=== PATIENT | male | born 1955 | race Caucasian/White ===

== ENCOUNTER 2022-04-16 17:03 | Inpatient (IN) ==
[2022-04-16] MEDS ORDERED: PIPERACILLIN/TAZOBACTAM 4.5 GM/120 ML BAG IV ONE (17:35)
[2022-04-16] MEDS ORDERED: DAPTOmycin 425 MG in SYRINGE 0 ML IV SCH (17:45)
--- NOTE | 2022-04-16 18:32 | XRay Report ---
LEFT FOOT 2 VIEWS CLINICAL HISTORY: Cellulitis. FINDINGS: AP and lateral views of the left foot are obtained. No prior studies are available for francesca beltre at the time of dictation. The skeletal structures are heterogeneously osteopenic. There has be en amputation of all toes through the distal shaft of the metatarsals. No acute fracture is seen. The re is no bony erosion or periostitis. Dorsal and plantar calcaneal enthesophytes are noted. Moderate osteoarthritic change is seen at the tarsometatarsal articulations. There is degenerative spurring al ish the dorsal aspect of the tarsal bones. Soft tissue edema is seen throughout the forefoot. No soft tissue gas is identified. No radiodense foreign body is seen. Atherosclerotic calcification is obser martín in the regional arteries. IMPRESSION: 1. Diffuse soft tissue edema throughout the forefoot is consistent with the reported history of cellu litis. 2. No acute bony abnormality is seen. 3. Osteopenia with postoperative and degenerative changes as above. 4. Heel spurs. Electronically signed by: Chu Estrella M.D. 04/16/2022 6:31 PM
[2022-04-16 18:47] LABS: Hematocrit (blood only) 43.5 % (40.1-51.0); Hemoglobin 14.2 g/dl (14.0-18.0); Mean Corpuscular Hemoglobin 29.9 pg (25.0-34.0); Mean Corpuscular Hgb Conc 32.6 g/dL (32.0-36.0); Mean Corpuscular Volume 91.6 fL (80.0-100.0); Mean Platelet Volume 10.8 fL (9.4-12.4); Platelet Count 102 K/uL (130-400); RDW Coefficient of Variation 17.2 % (11.5-14.5); RDW Standard Deviation 57.7 fL (36.4-46.3); Red Blood Count 4.75 M/uL (4.63-6.08); White Blood Count 5.76 K/ul (4.8-10.8)
[2022-04-16 18:48] LABS: Basophils # (auto) 0.06 K/uL (0-0.2); Echinocytes 1+; Eosinophils # (auto) 0.07 K/uL (0-0.50); Eosinophils % (auto) 1.2 %; Immature Granulocytes # (auto) 0.05 K/uL (0.00-0.02); Immature Granulocytes % (auto) 0.9 %; Lymphocytes % (auto) 8.7 %; Monocytes # (auto) 0.34 K/uL (0.24-0.82); Monocytes % (auto) 5.9 %; Neutrophils # (auto) 4.74 K/uL (1.4-6.5); Neutrophils % (auto) 82.3 %; Platelet Estimate Decreased (Normal)
[2022-04-16 19:03] LABS: Alanine Aminotransferase 15 U/L (7-52); Albumin Level 3.3 gm/dl (3.4-5.0); Alkaline Phosphatase 104 U/L (34-104); Anion Gap 12 (3-11); Aspartate Aminotransferase 19 U/L (13-39); BUN Creatinine Ratio 9.3 (10-20); Bilirubin Direct 0.9 mg/dl (0-0.2); Bilirubin,Total 2.1 mg/dl (0.2-1.0); Blood Urea Nitrogen 49 mg/dl (6-23); Calcium 8.4 mg/dl (8.5-10.1); Carbon Dioxide 30 mmol/L (21-32); Chloride 88 mmol/L (98-107); Est GFR (African American) 12.2 ml/min; Est GFR (Non-African American) 10.5 ml/min; Glucose 236 mg/dl (70-99(Fasting)); Magnesium 2.2 mg/dl (1.7-2.4); Phosphorus 7.2 mg/dl (2.5-4.9); Potassium 4.1 mmol/L (3.5-5.1); Sodium 130 mmol/L (136-145); Total Protein 7.3 gm/dl (6.0-8.3)
--- NOTE | 2022-04-16 19:29 | Emergency Department Note ---
Impression & Plan Bilateral lower leg cellulitis, ESRD (end stage renal disease) on dialysis, Diabetes ED Provider Note NAME: SENIA HUDDLESTON AGE: 66 SEX: M ARRIVES VIA: Walk-In INFORMANT: Patient ED PROVIDER(S): Gómez Josue MD CHIEF COMPLAINT: BLE infection. PLAN: Disposition: Admit MEDICAL DECISION MAKING: The patient is a pleasant 66 y/o gentleman with a past medical history of end- stage renal disease on hemodialysis Sunday who presents to the emergency department accompanied by his for evaluation of bilateral leg infection which has been ongoing for the past week or so where he reports he was admitted to [facility] this past Sunday but left yesterday AMA because he reports he "was not ready to be admitted and needed to take care of some things". He then reports that his daughter lives closer to our facility and wanted him to be admitted here. He is in the process of establishing care with [facility] provider and has an appointment scheduled for 05/16. He denies fevers, cough, congestion. He reports he has not missed any dialysis sessions. He reports he has had repeated falls over the past several weeks the last 1 being on before he was admitted to [facility]. He reports he is willing and ready to be admitted this time to our facility. On arrival the patient is in no acute distress, afebrile with stable vital signs. He has resolving ecchymosis of his right upper extremity. He has erythema warmth and edema of bilateral lower legs with areas of petechiae. His left foot with prior remote phalangeal amputation scant dried discharge from a chronic dorsal midfoot wound. EKG is paced. WBC, H/H within normal limits. Platelets 102K, nonspecific without prior for comparison. Chemistry without metabolic acidosis. Creatinine 5.2 in setting of end-stage renal disease. Lactic acid 1.3, within normal limits. Total bili 2.1 with direct bilirubin 0.9, nonspecific without prior for comparison and otherwi se normal LFTs including normal AST, ALT and alk phos. Procalcitonin is elevated. COVID-19 RNA, MARY test was negative. Plain film of the left foot does not demonstrate radiographic evidence of osseous involvement. Patient was treated empirically with IV daptomycin and Zosyn. Case was discussed with Dr. Moon, [facility] hospitalist, who will evaluate the patient for admission. Triage Nursing notes reviewed and agree them. Prior medical records reviewed Vital Signs: reviewed Differential diagnosis: Cellulitis, abscess, MRSA infection, DVT, necrotizing fasciitis, dermatitis, drug eruption, allergic reaction, as well as other pathologies. ER treatment provided: See below. Diagnostics interpreted by me: ECG: Atrial sensed ventricular paced rhythm, 68 bpm, no ectopy, no overt acute ischemia. Cardiac Monitoring: An order for continuous cardiac monitoring was placed and demonstrated atrial sensed ventricular paced rhythm, 68 bpm, no ectopy. Laboratory studies: See below Imaging studies: See below Consultation(s): Case was discussed with Dr. Moon, [facility] hospitalist, who will evaluate the patient for admission. HPI: The patient is a pleasant 66 y/o gentleman with a past medical history of end-stage renal disease on hemodialysis Sunday who presents to the emergency department accompanied by his for evaluation of bilateral leg infection which has been ongoing for the past week or so where he reports he was admitted to [facility] this past Sunday but left yesterday AMA because he reports he "was not ready to be admitted and needed to take care of some things". He then reports that his daughter lives closer to our facility and wanted him to be admitted here. He is in the process of establishing care with [facility] provider and has an appointment scheduled for 05/16. He denies fevers, cough, congestion. He reports he has not missed any dialysis sessions. He reports he has had repeated falls over the past several weeks the last 1 being on before he was admitted to [facility]. He reports he is willing and ready to be admitted this time to our facility. ROS: See above HPI for pertinent positives & negatives. A total of 10 systems reviewed and were otherwise negative. VITALS:See Below PHYSICAL EXAMINATION: GENERAL: Awake, alert, chronically ill-appearing, in no distress HENT: Normocephalic, atraumatic. Oropharynx with dry mucous membranes and otherwise unremarkable. EYES: Normal conjunctiva. Sclera non-icteric. NECK: Supple. No nuchal rigidity. FROM. No JVD. RESPIRATORY: Clear to auscultation. CARDIAC: Regular rate, normal rhythm. Extremities warm and well perfused. Pulses equal. ABDOMEN: Soft, non-distended. No tenderness to palpation. No rebound or guarding. No masses. RECTAL: Deferred. MUSCULOSKELETAL: Chest examination reveals no tenderness. The back is symm etrical on inspection without obvious abnormality. There is no CVA tenderness to palpation. No joint edema. EXTREMITIES: Resolving ecchymosis of his right upper extremity. He has erythema warmth and edema of bilateral lower legs with areas of petechiae. His left foot with prior remote phalangeal amputation scant dried discharge from a chronic dorsal midfoot wound. NEURO: Normal sensorium. No sensory or motor deficits noted. SKIN: No rash or jaundice noted. Gómez Josue MD Past Med/Surg History Medical History COPD (chronic obstructive pulmonary disease) Diabetes ESRD (end stage renal disease) on dialysis Peripheral arterial disease Surgical History A-V fistula History of amputation History of cardiac defibrillator placement S/P vascular bypass Family History Other Family history non-contributory Social History Smoking Status: Current every day smoker Hx Alcohol Use: No Hx Substance Use: Yes Prescribed Medications: Marijuana Preferred Language: Estonian Communication Ability: Effective Roguer Required: No Beliefs That Will Affect Care: None Current Living Situation: Spouse Other Information That Helps Us Care for You: No Feels Safe at Home: Yes Safety Concerns: Feels Safe At This Time Assistive Devices: Walker Allergies Allergies Allergy/AdvReac Type Severity Reaction Status Date / Time No Known Allergies Allergy Unverified 04/16/22 22:10 Home Meds Home Medications Medication Instructions Recorded Confirmed albuterol sulfate 90 mcg/actuation 2 inhalation Q4H PRN Shortness Of 04/16/22 aerosol inhaler Breath Or Wheezing apixaban 5 mg tablet (Eliquis) 5 mg PO BID 04/16/22 04/16/22 clopidogrel 75 mg tablet 75 mg PO DAILY 04/16/22 04/16/22 cyclobenzaprine 10 mg tablet 10 mg PO BID PRN Spasms 04/16/22 04/16/22 duloxetine 60 mg capsule,delayed 60 mg PO DAILY 04/16/22 04/16/22 release fluticasone fur. 100 mcg-umeclid 1 inh inhalation DAILY 04/16/22 04/16/22 62.5 mcg-vilant 25 mcg inhalat.powder (Trelegy Ellipta) gabapentin 100 mg capsule 100 mg PO DAILY 04/16/22 04/16/22 lanthanum 500 mg chewable tablet 500 mg PO DAILY 04/16/22 04/16/22 metoprolol succinate 50 mg 50 mg PO DAILY 04/16/22 04/16/22 tablet,extended release 24 hr pramipexole 0.25 mg tablet 0.25 mg PO HS 04/16/22 04/16/22 sacubitril 24 mg-valsartan 26 mg 1 tab PO BID 04/16/22 04/16/22 tablet (Entresto) Results & Data (ED) Vital Signs Vital Signs - 24 hr 04/16/22 17:05 04/16/22 19:00 04/16/22 19:00 Temperature 37 C Temperature Source Oral Pulse Rate 76 Pulse Rate [Apical] 69 Pulse Rhythm [Apical] Regular Pulse Strength [Apical] Normal Respiratory Rate 18 18 Respiratory Effort / Characteristics Non-Labored Respiratory Depth Normal Respiratory Pattern Regular Blood Pressure 122/81 Blood Pressure [Left Arm] 130/72 Blood Pressure Mean 94 Blood Pressure Mean [Left Arm] 91 Blood Pressure Position [Left Arm] Lying Pulse Oximetry 99 99 99 Oxygen Delivery Method Room Air Room Air Room Air Sepsis Recent Fever Within 48 Hours No Sepsis New/Unexplained Change in Mental Status No Sepsis Action Taken by Nursing No Action Required Laboratory Data Attestation: I reviewed the patient's lab results. 04/16/22 18:10 04/16/22 18:10 Lab Results 04/16/22 04/16/22 04/16/22 Range/Units 18:10 18:10 18:10 WBC 5.76 (4.8-10.8) K/ul RBC 4.75 (4.63-6.08) M/uL Hgb 14.2 (14.0-18.0) g/dl Hct 43.5 (40.1-51.0) % MCV 91.6 (80.0-100.0) fL MCH 29.9 (25.0-34.0) pg MCHC 32.6 (32.0-36.0) g/dL RDW Std Deviation 57.7 H (36.4-46.3) fL RDW Coeff of Wendy 17.2 H (11.5-14.5) % Plt Count 102 L (130-400) K/uL MPV 10.8 (9.4-12.4) fL Immature Gran % (Auto) 0.9 % Neut % (Auto) 82.3 % Lymph % (Auto) 8.7 % Charles % (Auto) 5.9 % Eos % (Auto) 1.2 % Baso % (Auto) 1.0 % Neut # (Auto) 4.74 (1.4-6.5) K/uL Lymph # (Auto) 0.50 L (1.2-3.4) K/uL Charles # (Auto) 0.34 (0.24-0.82) K/uL Eos # (Auto) 0.07 (0-0.50) K/uL Baso # (Auto) 0.06 (0-0.2) K/uL Immature Gran # (Auto) 0.05 H (0.00-0.02) K/uL Platelet Estimate Decreased L (Normal) Echinocytes 1+ APTT Cancelled PTT Ratio Cancelled Sodium 130 L (136-145) mmol/L Potassium 4.1 (3.5-5.1) mmol/L Chloride 88 L (98-107) mmol/L Carbon Dioxide 30 (21-32) mmol/L Anion Gap 12 H (3-11) BUN 49 H (6-23) mg/dl Creatinine 5.25 H* (0.6-1.4) mg/dl Est Cr Clr Drug Dosing Not Reportable Est GFR ( Amer) 12.2 ml/min Est GFR (Non-Af Amer) 10.5 ml/min BUN/Creatinine Ratio 9.3 L (10-20) Glucose 236 H (70-99(Fasting)) mg/dl POC Glucose (70-99) mg/dl Lactate (0.4-2.0) mmol/L Calcium 8.4 L (8.5-10.1) mg/dl Phosphorus 7.2 H (2.5-4.9) mg/dl Magnesium 2.2 (1.7-2.4) mg/dl Total Bilirubin 2.1 H (0.2-1.0) mg/dl Direct Bilirubin 0.9 H (0-0.2) mg/dl AST 19 (13-39) U/L ALT 15 (7-52) U/L Alkaline Phosphatase 104 (34-104) U/L Total Protein 7.3 (6.0-8.3) gm/dl Albumin 3.3 L (3.4-5.0) gm/dl Procalcitonin (0-0.5) ng/ml 04/16/22 04/16/22 04/16/22 Range/Units 18:10 18:10 19:01 WBC (4.8-10.8) K/ul RBC (4.63-6.08) M/uL Hgb (14.0-18.0) g/dl Hct (40.1-51.0) % MCV (80.0-100.0) fL MCH (25.0-34.0) pg MCHC (32.0-36.0) g/dL RDW Std Deviation (36.4-46.3) fL RDW Coeff of Wendy (11.5-14.5) % Plt Count (130-400) K/uL MPV (9.4-12.4) fL Immature Gran % (Auto) % Neut % (Auto) % Lymph % (Auto) % Charles % (Auto) % Eos % (Auto) % Baso % (Auto) % Neut # (Auto) (1.4-6.5) K/uL Lymph # (Auto) (1.2-3.4) K/uL Charles # (Auto) (0.24-0.82) K/uL Eos # (Auto) (0-0.50) K/uL Baso # (Auto) (0-0.2) K/uL Immature Gran # (Auto) (0.00-0.02) K/uL Platelet Estimate (Normal) Echinocytes APTT 32.2 H PTT Ratio 1.2 Sodium (136-145) mmol/L Potassium (3.5-5.1) mmol/L Chloride (98-107) mmol/L Carbon Dioxide (21-32) mmol/L Anion Gap (3-11) BUN (6-23) mg/dl Creatinine (0.6-1.4) mg/dl Est Cr Clr Drug Dosing Est GFR ( Amer) ml/min Est GFR (Non-Af Amer) ml/min BUN/Creatinine Ratio (10-20) Glucose (70-99(Fasting)) mg/dl POC Glucose (70-99) mg/dl Lactate 1.3 (0.4-2.0) mmol/L Calcium (8.5-10.1) mg/dl Phosphorus (2.5-4.9) mg/dl Magnesium (1.7-2.4) mg/dl Total Bilirubin (0.2-1.0) mg/dl Direct Bilirubin (0-0.2) mg/dl AST (13-39) U/L ALT (7-52) U/L Alkaline Phosphatase (34-104) U/L Total Protein (6.0-8.3) gm/dl Albumin (3.4-5.0) gm/dl Procalcitonin 0.36 (0-0.5) ng/ml 04/16/22 Range/Units 20:17 WBC (4.8-10.8) K/ul RBC (4.63-6.08) M/uL Hgb (14.0-18.0) g/dl Hct (40.1-51.0) % MCV (80.0-100.0) fL MCH (25.0-34.0) pg MCHC (32.0-36.0) g/dL RDW Std Deviation (36.4-46.3) fL RDW Coeff of Wendy (11.5-14.5) % Plt Count (130-400) K/uL MPV (9.4-12.4) fL Immature Gran % (Auto) % Neut % (Auto) % Lymph % (Auto) % Charles % (Auto) % Eos % (Auto) % Baso % (Auto) % Neut # (Auto) (1.4-6.5) K/uL Lymph # (Auto) (1.2-3.4) K/uL Charles # (Auto) (0.24-0.82) K/uL Eos # (Auto) (0-0.50) K/uL Baso # (Auto) (0-0.2) K/uL Immature Gran # (Auto) (0.00-0.02) K/uL Platelet Estimate (Normal) Echinocytes APTT PTT Ratio Sodium (136-145) mmol/L Potassium (3.5-5.1) mmol/L Chloride (98-107) mmol/L Carbon Dioxide (21-32) mmol/L Anion Gap (3-11) BUN (6-23) mg/dl Creatinine (0.6-1.4) mg/dl Est Cr Clr Drug Dosing Est GFR ( Amer) ml/min Est GFR (Non-Af Amer) ml/min BUN/Creatinine Ratio (10-20) Glucose (70-99(Fasting)) mg/dl POC Glucose 183 H (70-99) mg/dl Lactate (0.4-2.0) mmol/L Calcium (8.5-10.1) mg/dl Phosphorus (2.5-4.9) mg/dl Magnesium (1.7-2.4) mg/dl Total Bilirubin (0.2-1.0) mg/dl Direct Bilirubin (0-0.2) mg/dl AST (13-39) U/L ALT (7-52) U/L Alkaline Phosphatase (34-104) U/L Total Protein (6.0-8.3) gm/dl Albumin (3.4-5.0) gm/dl Procalcitonin (0-0.5) ng/ml Administered Medications Piperacillin Sod/Tazobactam (Sod 3.375 gm/ Dextrose) 115 mls @ 28.75 mls/hr IV Q12H FRANSICO; Protocol Stop: 04/24/22 01:59 Last Infusion: 04/17/22 03:22 Dose: 0 mls/hr Documented By: Admin: 04/17/22 00:42 Dose: 28.8 mls/hr Documented By: CATIA Insulin Aspart (Insulin Aspart Per Unit) 0 units SC ACHS FRANSICO Stop: 05/16/22 23:44 Last Admin: 04/17/22 00:39 Dose: 3 units Documented By: SG Co-signed By: PLF Insulin Glargine (Lantus Per Unit Charge) 5 units SQ BID FRANSICO Stop: 05/16/22 23:44 Last Admin: 04/17/22 00:39 Dose: 5 units Documented By: SG Co-signed By: PLF Discontinued Medications Daptomycin 425 mg/ Syringe 8.5 mls @ 4.25 mls/min IV Q24H FRANSICO; Protocol Stop: 04/18/22 17:44 Last Admin: 04/16/22 18:31 Dose: 4.25 mls/min Documented By: CHICO Piperacillin Sod/Tazobactam Sod (Zosyn) 4.5 gm in 120 mls @ 240 mls/hr IV NOW ONE Stop: 04/16/22 18:04 Last Infusion: 04/16/22 19:10 Dose: 0 mls/hr Documented By: Admin: 04/16/22 18:20 Dose: 240 mls/hr Documented By: CHICO Miscellaneous Information (Patient's Allergy Info Needs Entered) 1 each N/A ONE STA Stop: 04/16/22 21:58 Last Admin: 04/16/22 22:12 Dose: 1 each Documented By: SG Imaging Data Radiologist's Impression: Foot X-Ray 04/16/22 17:39 LEFT FOOT 2 VIEWS CLINICAL HISTORY: Cellulitis. FINDINGS: AP and lateral views of the left foot are obtained. No prior studies are available for comparison at the time of dictation. The skeletal structures are heterogeneously osteopenic. There has been amputation of all toes through the distal shaft of the metatarsals. No acute fracture is seen. There is no bony erosion or periostitis. Dorsal and plantar calcaneal enthesophytes are noted. Moderate osteoarthritic change is seen at the tarsometatarsal articulations. There is degenerative spurring along the dorsal aspect of the tarsal bones. Soft tissue edema is seen throughout the forefoot. No soft tissue gas is identified. No radiodense foreign body is seen. Atherosclerotic calcification is observed in the regional arteries. IMPRESSION: 1. Diffuse soft tissue edema throughout the forefoot is consistent with the reported history of cellulitis. 2. No acute bony abnormality is seen. 3. Osteopenia with postoperative and degenerative changes as above. 4. Heel spurs. Electronically signed by: Chu Estrella M.D. 04/16/2022 6:31 PM Discharge Plan Visit Data Chief Complaint: Leg Injury/Pain Stated Complaint: INFECTION IN LEGS ED Provider: Gómez Josue Discharge Problem: Bilateral lower leg cellulitis, ESRD (end stage renal disease) on dialysis, Diabetes Patient Disposition: Admitted As Inpatient Discharge Instructions Interventions: ED Discharge Assessment Last Done: 04/16/22 21:12
[2022-04-16 19:30] LABS: Partial Thromboplastin Ratio 1.2; Partial Thromboplastin Time 32.2 Seconds (21.0-31.0)
--- NOTE | 2022-04-16 20:29 | History & Physical Report ---
Date of Service April 16, 2022 Assessment & Plan (1) Bilateral lower leg cellulitis: Plan: Bilateral LE with redness, tenderness. Concern for cellulitis. Question vascular insufficiency given dusky discoloration of right toes, presence of ulcers and eschar. Patient with known history of PAD s/p bypass grafting of the LLE as well as toe amputation of the LLE. Presently afebrile, chronically ill in appearance but acutely nontoxic. No leukocytosis. -Admit to medical -Follow blood cultures sent from ER -Amarjit and label area of redness daily to monitor for progression of infection -Continue Zosyn and Daptomycin, renal dosing for ESRD/HD with pharmacy assist ance appreciated -Check bilateral LE arterial dopplers -Communication order placed to obtain records from [facility] system (2) Peripheral arterial disease: Plan: Patient with history of PAD s/p bypass grafting. Suspect findings on LE are at least in part due to vascular compromise -Arterial duplex as above -Continue Plavix 75mg po daily - reported home medication from [facility] records -Patient does not appear to be on a statin - records requested. No allergies listed? (3) ESRD (end stage renal disease) on dialysis: Plan: Patient with ESRD on HD q M/W/. He reports compliance with HD. His Rapid Extractor Operator is in [place] -Nephrology consulted -Patient is on Lanthanum outpatient for PO4 management - non-formulary - will add Phos-Lo (PO4=7.2) (4) Diabetes: Plan: Patient reports he does not take anything for his diabetes anymore. Blood sugar elevated today at 236. -Goal blood sugar 110 - 140 -Lantus 5u BID, adjust as needed -ISS (5) COPD (chronic obstructive pulmonary disease): Plan: Patient continues to smoke. End-expiratory wheezing noted on exam. Adequate oxygenation on room air. No respiratory distress -Continue Trelegy or hospital formulary equivalent -Albuterol PRN -Smoking cessation counseling ordered (6) Right hip pain: Plan: Patient reports falling on his right hip several weeks ago then falling on it again. He has had worsening pain and difficulty with weight bearing and reports needing to use a walker over the last three days which is atypical for him. -Check CT hip for possible fracture -PT/OT evaluation (7) Abnormal bilirubin test: Plan: Suspect some degree of underlying liver disease based on labs - Na of 130, Plt of 102, PTT of 32.2 and TBili of 2.1 -Check RUQUS -Repeat LFTs in AM (8) Heart failure: Plan: Details unclear, ischemic vs non-ischemic and degree of failure. Patient does appear compensated at this time with no overt volume overload. Suspect his disease is fairly advanced. He reports having an AICD in place - no shocks. Home medications include Entresto, Metoprolol. Apixaban - ?for LV dysfunction, thrombus, VTE or arrhythmia. Patient is uncertain. -Continue Entresto and Metoprolol with caution - patient reports he "takes no medications at home" - could risk hypotension with administration of his prescribed medications -Records requested -Continue Apixaban F/E/N -Heplock. Monitor electrolytes. CC diet as tolerated Ppx - On Apixaban Code - Full per discussion with patient Disp - Admit to medical History of Present Illness Chief Complaint: "I'm a train wreck!" Primary Care Provider: DO Cooper Christiandinesh Sanchez is a 66yo male with history of ESRD on HD q M/W/F, COPD, CAD, DM, CHF with AICD in place presenting with complaint of bilateral LE redness, pain and itching. Patient reports that he has been feeling very anxious and scratching his legs causing some deep excoriations. Over the last several days he has had progressive redness and pain. Patient has been taking Doxycycline for his cellulitis. He was at [facility] on 04/13/22 and was diagnose with stasis dermatitis and cellulitis. It was recommended that he stay, but left AMA on 04/14/22. He reports severe discomfort of his bilateral LE. Additionally patient reports that he slipped on ice and fell on his right hip several weeks ago. He reports having a lot of pain but was able to ambulate. Unfortunately, he fell several days later on the same hip. He has been having difficulty ambulating on his right hip due to pain with weight bearing. He has been using a walker over the last three days due to progressive right hip pain. He denies chest pain, cough, shortness of breath. Denies fever, chills, rigors. Denies abdominal pain or distention, nausea, vomiting, diarrhea or constipation. No additional complaints at this time. Patient receives all care through [facility]. His Rapid Extractor Operator is in [place]. He has difficulty recalling details of his medical history, prior care, medications, etc. Overall poor historian. Daughter and at bedside at time of admission and assist with history. In the ER he is afebrile, HD stable, NAD ER Course: Zosyn 4.5gm Daptomycin 425mg Lantus 5u Allergies Allergy/AdvReac Type Severity Reaction Status Date / Time No Known Allergies Allergy Unverified 04/16/22 22:10 Home Medications Medication Instructions Recorded Confirmed Type albuterol sulfate 90 mcg/actuation 2 inhalation Q4H PRN Shortness Of 04/16/22 History aerosol inhaler Breath Or Wheezing apixaban 5 mg tablet (Eliquis) 5 mg PO BID 04/16/22 04/16/22 History clopidogrel 75 mg tablet 75 mg PO DAILY 04/16/22 04/16/22 History cyclobenzaprine 10 mg tablet 10 mg PO BID PRN Spasms 04/16/22 04/16/22 History duloxetine 60 mg capsule,delayed 60 mg PO DAILY 04/16/22 04/16/22 History release fluticasone fur. 100 mcg-umeclid 1 inh inhalation DAILY 04/16/22 04/16/22 History 62.5 mcg-vilant 25 mcg inhalat.powder (Trelegy Ellipta) gabapentin 100 mg capsule 100 mg PO DAILY 04/16/22 04/16/22 History lanthanum 500 mg chewable tablet 500 mg PO DAILY 04/16/22 04/16/22 History metoprolol succinate 50 mg 50 mg PO DAILY 04/16/22 04/16/22 History tablet,extended release 24 hr pramipexole 0.25 mg tablet 0.25 mg PO HS 04/16/22 04/16/22 History sacubitril 24 mg-valsartan 26 mg 1 tab PO BID 04/16/22 04/16/22 History tablet (Entresto) Past Med/Surg History Medical History (Updated 04/17/22 @ 01:18 by Cynthia Moon DO) COPD (chronic obstructive pulmonary disease) Diabetes ESRD (end stage renal disease) on dialysis Peripheral arterial disease Surgical History (Updated 04/17/22 @ 00:55 by Cynthia Moon DO) A-V fistula History of amputation History of cardiac defibrillator placement S/P vascular bypass Family History (Updated 04/17/22 @ 00:55 by Cynthia Moon DO) Other Family history non-contributory Social History (Updated 04/17/22 @ 00:56 by Cynthia Moon DO) Smoking Status: Current every day smoker Hx Alcohol Use: No Hx Substance Use: Yes Prescribed Medications: Marijuana Preferred Language: Sami Communication Ability: Effective Asphalt Still Operator Required: No Beliefs That Will Affect Care: None Current Living Situation: Spouse Other Information That Helps Us Care for You: No Feels Safe at Home: Yes Safety Concerns: Feels Safe At This Time Assistive Devices: Walker Review of Systems Review of Systems: All systems reviewed & are unremarkable except as noted in HPI & below Physical Exam Physical Exam: General: poorly kempt male patient appearing older than stated age, hard of hearing, chronically ill in appearance but NAD, oriented and able to answer questions and follow commands Skin: redness of bilateral lower extremities with area of excoriation, eschar, several ulcers on RLE, LLE s/p amputation, edema but no evidence of dehiscence HEENT: NC/AT, PERRL, EOMI, anicteric sclera, conjunctiva without injection, external ear normal to inspection and nontender, nares patent, moist mucus membranes, dentition intact, no oropharyngeal lesions, neck supple, trachea midline, no LAD, no thyromegaly, no JVD Heart: +S1/S2, regular, no m/r/g Lungs: equal air entry bilaterally, diffuse wheezing end-expiratory Abd: +BS, soft, NT/ND, no masses/organomegaly/ascites Ext: warm, 2+ pulses in UE, weakly palpable and easily dopplerable of LE. AV fistula in RUE with palpable thrill, area of ecchymosis, cellulitis of bilateral LE with areas of excoriation and eschar, dusky discoloration of toes on right foot, area of bruising right posterior calf Neuro: nonfocal, patient AA&O x 4, speech intact, no facial droop, moving all extremities on command with equal strength 5/5, hard of hearing Results & Data Results & Data ([facility]) Vital Signs (Past 12 Hours) Vital Signs Temp Pulse Pulse Resp BP BP Pulse Ox 04/16/22 19:00 99 04/16/22 19:00 69 18 130/72 99 04/16/22 17:05 37 C 76 18 122/81 99 O2 Del Method 04/16/22 19:00 Room Air 04/16/22 19:00 Room Air 04/16/22 17:05 Room Air Laboratory Results Laboratory Results WBC 5.76 K/ul (4.8-10.8) 04/16/22 18:10 RBC 4.75 M/uL (4.63-6.08) 04/16/22 18:10 Hgb 14.2 g/dl (14.0-18.0) 04/16/22 18:10 Hct 43.5 % (40.1-51.0) 04/16/22 18:10 MCV 91.6 fL (80.0-100.0) 04/16/22 18:10 MCH 29.9 pg (25.0-34.0) 04/16/22 18:10 MCHC 32.6 g/dL (32.0-36.0) 04/16/22 18:10 RDW Std Deviation 57.7 fL (36.4-46.3) H 04/16/22 18:10 RDW Coeff of Wendy 17.2 % (11.5-14.5) H 04/16/22 18:10 Plt Count 102 K/uL (130-400) L 04/16/22 18:10 MPV 10.8 fL (9.4-12.4) 04/16/22 18:10 Immature Gran % (Auto) 0.9 % 04/16/22 18:10 Neut % (Auto) 82.3 % 04/16/22 18:10 Lymph % (Auto) 8.7 % 04/16/22 18:10 Rankin % (Auto) 5.9 % 04/16/22 18:10 Eos % (Auto) 1.2 % 04/16/22 18:10 Baso % (Auto) 1.0 % 04/16/22 18:10 Neut # (Auto) 4.74 K/uL (1.4-6.5) 04/16/22 18:10 Lymph # (Auto) 0.50 K/uL (1.2-3.4) L 04/16/22 18:10 Rankin # (Auto) 0.34 K/uL (0.24-0.82) 04/16/22 18:10 Eos # (Auto) 0.07 K/uL (0-0.50) 04/16/22 18:10 Baso # (Auto) 0.06 K/uL (0-0.2) 04/16/22 18:10 Immature Gran # (Auto) 0.05 K/uL (0.00-0.02) H 04/16/22 18:10 Platelet Estimate Decreased (Normal) L 04/16/22 18:10 Echinocytes 1+ 04/16/22 18:10 APTT 32.2 Seconds (21.0-31.0) H 04/16/22 19:01 PTT Ratio 1.2 04/16/22 19:01 Sodium 130 mmol/L (136-145) L 04/16/22 18:10 Potassium 4.1 mmol/L (3.5-5.1) 04/16/22 18:10 Chloride 88 mmol/L (98-107) L 04/16/22 18:10 Carbon Dioxide 30 mmol/L (21-32) 04/16/22 18:10 Anion Gap 12 (3-11) H 04/16/22 18:10 BUN 49 mg/dl (6-23) H 04/16/22 18:10 Creatinine 5.25 mg/dl (0.6-1.4) H* 04/16/22 18:10 Est Cr Clr Drug Dosing Not Reportable 04/16/22 18:10 Est GFR ( Amer) 12.2 ml/min 04/16/22 18:10 Est GFR (Non-Af Amer) 10.5 ml/min 04/16/22 18:10 BUN/Creatinine Ratio 9.3 (10-20) L 04/16/22 18:10 Glucose 236 mg/dl (70-99(Fasting)) H 04/16/22 18:10 POC Glucose 238 mg/dl (70-99) H 04/17/22 00:32 Lactate 1.3 mmol/L (0.4-2.0) 04/16/22 18:10 Calcium 8.4 mg/dl (8.5-10.1) L 04/16/22 18:10 Phosphorus 7.2 mg/dl (2.5-4.9) H 04/16/22 18:10 Magnesium 2.2 mg/dl (1.7-2.4) 04/16/22 18:10 Total Bilirubin 2.1 mg/dl (0.2-1.0) H 04/16/22 18:10 Direct Bilirubin 0.9 mg/dl (0-0.2) H 04/16/22 18:10 AST 19 U/L (13-39) 04/16/22 18:10 ALT 15 U/L (7-52) 04/16/22 18:10 Alkaline Phosphatase 104 U/L (34-104) 04/16/22 18:10 Total Protein 7.3 gm/dl (6.0-8.3) 04/16/22 18:10 Albumin 3.3 gm/dl (3.4-5.0) L 04/16/22 18:10 Procalcitonin 0.36 ng/ml (0-0.5) 04/16/22 18:10 SARS-CoV-2, RNA, NAAT NEGATIVE (NEGATIVE) 04/16/22 Unknown Impressions Foot X-Ray 04/16/22 17:39 LEFT FOOT 2 VIEWS CLINICAL HISTORY: Cellulitis. FINDINGS: AP and lateral views of the left foot are obtained. No prior studies are available for comparison at the time of dictation. The skeletal structures are heterogeneously osteopenic. There has been amputation of all toes through the distal shaft of the metatarsals. No acute fracture is seen. There is no bony erosion or periostitis. Dorsal and plantar calcaneal enthesophytes are noted. Moderate osteoarthritic change is seen at the tarsometatarsal articulations. There is degenerative spurring along the dorsal aspect of the tarsal bones. Soft tissue edema is seen throughout the forefoot. No soft tissue gas is identified. No radiodense foreign body is seen. Atherosclerotic calcification is observed in the regional arteries. IMPRESSION: 1. Diffuse soft tissue edema throughout the forefoot is consistent with the reported history of cellulitis. 2. No acute bony abnormality is seen. 3. Osteopenia with postoperative and degenerative changes as above. 4. Heel spurs. Electronically signed by: Chu Estrella M.D. 04/16/2022 6:31 PM Code Status & VTE Plan VTE Prophylaxis Plan VTE Prophylaxis will be ordered: Yes PG Care Time/CCT Total # of Minutes Spent Total Time Spent with Patient: Total time spent is greater than 50% in coordination of care (as documented) at patient's floor/unit and/or counseling patient: Coding Level of Care Code 18889 INT INP/OBS CARE 3MIN Diagnoses Bilateral lower leg cellulitis L03.116; L03.115 Peripheral arterial disease I73.9 ESRD (end stage renal disease) on dialysis N18.6; Z99.2 Diabetes E11.9 COPD (chronic obstructive pulmonary disease) J44.9 Right hip pain M25.551 Abnormal bilirubin test R79.89 Heart failure I50.9
[2022-04-16] MEDS ORDERED: ALBUTEROL 0.5% NEB SOLN 2.5 MG/0.5 ML VIAL NEB PRN ×2 (21:29→23:58)
[2022-04-16] MEDS ORDERED: Patient's ALLERGY Info needs ENTERED STA (21:57)
[2022-04-16] MEDS ORDERED: GLUCAGON FOR INJ 1 MG VIAL SQ PRN (23:37)
[2022-04-16] MEDS ORDERED: GLUCOSE 10 TAB/TUBE PO PRN (23:37)
[2022-04-16] MEDS ORDERED: GLUCOSE 40% GEL 15 GM TUBE PO PRN (23:37)
[2022-04-16] MEDS ORDERED: DEXTROSE 50% 50 ML SYRINGE IV PRN (23:37)
[2022-04-16] MEDS ORDERED: CYCLOBENZAPRINE HCL 10 MG TAB PO PRN (23:56)
[2022-04-17] MEDS: INSULIN ASPART PER UNIT SC SCH ×5 (00:39→20:41)
[2022-04-17] MEDS: LANTUS PER UNIT CHARGE SQ SCH ×3 (00:39→21:15)
[2022-04-17] MEDS: PIPERACILLIN/TAZOBACTAM 3.375 GM in DEXTROSE 5% 100 ML IV SCH ×2 (00:42→14:30)
--- NOTE | 2022-04-17 06:16 | CT Scan Report ---
CT hip RT wo con HISTORY: 66 years-old Male fall, persistent pain with weight bearing acute pain of the right hip wit h prior fall COMPARISON: None TECHNIQUE: Multiple axial CT images of the right hip were obtained without the use of IV contrast. A dose lowering technique was used consistent with the principals of FELIPE. FINDINGS: The imaged intrapelvic structures are unremarkable. Prostamegaly. Small fat filled right inguinal her onofre. Nonspecific mildly enlarged right inguinal chain lymph node, 1.1 cm is likely reactive. No signi ficant soft tissue swelling or large joint effusion. Arterial calcifications. With mild to moderate degeneration of the right SI joint. The imaged pelvic ring appears intact. No a cute fracture, dislocation, avascular necrosis or suspicious mass lesion. Mild osteoarthritis of the right hip. Corticated 10 mm ossification suggestive of os acetabuli. Spurring of the greater trochant er with adjacent corticated dystrophic calcifications within the distal insertional gluteal tendons. IMPRESSION: No acute fracture or dislocation. ACT 112: Negative or not required by law. The above report was generated using voice recognition software. It may contain grammatical, syntax o r spelling errors. Electronically signed by: Christoph Palmer M.D. 04/17/2022 6:15 AM
--- NOTE | 2022-04-17 06:27 | Ultrasound Report ---
US arterial duplex LE BI HISTORY: 66 years-old Male pain, redness, ulcers bilateral LE acute pain and swelling of the lower e xtremities in a patient with peripheral arterial disease COMPARISON: None TECHNIQUE: Multiple real-time sonographic images of the bilateral lower extremity arterial structures were obtained assessing grayscale appearance, color and spectral flow FINDINGS: Atherosclerotic plaque noted throughout. Study is limited secondary to subcutaneous edema and patient intolerance secondary to pain. RIGHT: Patent common femoral and profunda femoris arteries with triphasic waveforms. There is occlusion of t he proximal aspect of the superficial femoral artery with reconstitution of flow within the mid aspec t of the vessel demonstrating blunted monophasic waveforms with spectral broadening. Peak systolic ve locities the popliteal artery measure up to 142 cm/s. Monophasic waveforms noted within the popliteal artery and arteries of the lower leg. LEFT: Patent stent within the proximal superficial femoral artery with peak systolic velocities measuring u p to 178 cm/s. Elevated peak systolic velocities within the distal aspect of the superficial femoral artery measuring up to 232 cm/s. Elevated peak systolic velocities in the proximal popliteal artery m easure up to 246 cm/s. There is occlusion involving the mid aspect of the anterior tibial artery with distal reconstitution of flow demonstrating monophasic waveforms. IMPRESSION: 1. Occlusion of the proximal right superficial femoral artery with distal reconstitution of flow. 2. Occlusion of the left anterior tibial artery with distal reconstitution of flow. 3. Patent stent of the left superficial femoral artery. ACT 112: Negative or not required by law. The above report was generated using voice recognition software. It may contain grammatical, syntax o r spelling errors. Electronically signed by: Christoph Palmer M.D. 04/17/2022 6:25 AM
--- NOTE | 2022-04-17 06:34 | Ultrasound Report ---
US liver HISTORY: 66 years-old Male Abnormal LFTs elevated LFTs COMPARISON: None TECHNIQUE: Multiple real-time sonographic images of the abdominal right upper quadrant were obtained assessing grayscale appearance and color flow FINDINGS: The visualized pancreas is unremarkable, partially obscured by bowel gas. The liver is unremarkable m easuring 16.5 cm in length. Cholecystectomy. Normal common bile duct, 4 mm. Increased echogenicity of the right renal parenchyma with trace perinephric edema. No associated hydr onephrosis. A small right sided pleural effusion is noted. 5.5 x 1.2 x 5.2 cm hypoechoic focus is not ed within the right cardiophrenic angle. IMPRESSION: 1. Unremarkable exam status post cholecystectomy. 2. Increased echogenicity of the right renal parenchyma suggestive of chronic medical renal disease. 3. Small right pleural effusion. Hypoechoic 5.5 cm structure within the right cardiophrenic angle may represent loculated pleural fluid or less likely a pericardial cyst. ACT 112: Negative or not required by law. The above report was generated using voice recognition software. It may contain grammatical, syntax o r spelling errors. Electronically signed by: Christoph Palmer M.D. 04/17/2022 6:32 AM
[2022-04-17 06:38] LABS: Hematocrit (blood only) 40.2 % (40.1-51.0); Mean Corpuscular Hemoglobin 29.6 pg (25.0-34.0); Mean Corpuscular Hgb Conc 32.3 g/dL (32.0-36.0); Mean Corpuscular Volume 91.6 fL (80.0-100.0); Mean Platelet Volume 11.2 fL (9.4-12.4); Platelet Count 106 K/uL (130-400); RDW Coefficient of Variation 17.1 % (11.5-14.5); RDW Standard Deviation 57.6 fL (36.4-46.3); Red Blood Count 4.39 M/uL (4.63-6.08); White Blood Count 6.37 K/ul (4.8-10.8)
[2022-04-17 06:47] LABS: Albumin Level 3.2 gm/dl (3.4-5.0); BUN Creatinine Ratio 10.6 (10-20); Bilirubin Direct 0.6 mg/dl (0-0.2); Bilirubin,Total 1.8 mg/dl (0.2-1.0); Calcium 8.3 mg/dl (8.5-10.1); Est GFR (African American) 11.3 ml/min; Est GFR (Non-African American) 9.8 ml/min; Total Protein 6.6 gm/dl (6.0-8.3)
[2022-04-17] MEDS: ACETAMINOPHEN 325 MG TAB PO PRN ×2 (08:09→21:20)
[2022-04-17] MEDS: FLUTICASONE FUROATE 100MCG 14 PUFFS/INHALER INH SCH (08:11)
[2022-04-17] MEDS: CALCIUM ACETATE 667 MG CAP/TAB PO SCH ×3 (08:12→17:35)
[2022-04-17] MEDS: UMECLIDINIUM/VILANTEROL 62.5/25MCG 7 PUFFS/INHALER INH SCH (08:12)
[2022-04-17] MEDS: METOPROLOL SUCC 50MG EXT REL TAB PO SCH (08:47)
[2022-04-17] MEDS: APIXABAN 5 MG TABLET PO SCH ×2 (08:47→21:14)
[2022-04-17] MEDS: DULoxetine HCL 60 MG CAP PO SCH (08:47)
[2022-04-17] MEDS: VALSARTAN/SACUBITRIL 26/24MG TAB PO SCH ×2 (08:47→21:14)
[2022-04-17] MEDS: CLOPIDOGREL BISULFATE 75 MG TAB PO SCH (08:47)
[2022-04-17] MEDS: GABAPENTIN 100 MG CAP PO SCH (08:47)
[2022-04-17] MEDS ORDERED: NON-FORMULARY MEDICATION (Fluticasone-Umeclidin-Vilanter [Trelegy Ellipta] 100-62.5-25 mcg INH SCH (09:00)
[2022-04-17 09:28] LABS: Estimated Average Glucose 177 mg/dl; Hemoglobin A1C 7.8 % (4.5-5.6)
--- NOTE | 2022-04-17 17:00 | Nephrology Consultation ---
Date of Consultation April 17, 2022 Assessment & Plan (1) ESRD (end stage renal disease) on dialysis: (2) Bilateral lower leg cellulitis: (3) Anemia due to chronic kidney disease: Plan ESRD on hemodialysis, admitted with bilateral lower extremity cellulitis. On dialysis Sunday, Sunday, Sunday, last dialysis was Sunday due to short dialysis treatment Sunday. Currently blood pressure, electrolyte, volume status acceptable. -- Dialysis tomorrow, will get dialysis prescription from outpatient dialysis unit. -- Fluid restriction to less than 1200 mL per day, avoid high potassium food -- dose medications for eGFR less than 10, pharmacy assistance with antibiotic dosing -- continue PhosLo as phosphate binder while inpatient Thank you for allowing me to participate in your patient's care. It was a pleasure to see Cooper. History of Present Illness Reason for Consultation: ESRD on hemodialysis. Attending Physician: Yovanny Peterson History of Present Illness Mr. Fernando Sanchez is a 66yo male with PMH of ESRD on HD q M/W/F, COPD, CAD, DM, CHF with AICD in place admitted with bilateral lower extremity cellulitis. Nephrology consult requested to manage hemodialysis while inpatient. EMR records are reviewed in detail during patient's visit. Cooper presented with complain of bilateral lower extremity redness, itching and swelling. He was taking doxycycline as an outpatient and also went to outside hospital on on 04/13/22 and was diagnose with stasis dermatitis and cellulitis and was recommended to stay inpatient in for IV antibiotic but left AMA on 04/14/22. He is currently on daptomycin and Zosyn. ESRD for last 1 year, dialysis at [facility] at [place] mild left brachiocephalic AV fistula. He had short dialysis on Sunday for 2 hours and 3 hours dialysis at outpatient dialysis unit on Sunday. Currently denies any shortness of breath or chest pain. Blood pressure relatively low but asymptomatic. Electrolyte acceptable. Allergies Allergy/AdvReac Type Severity Reaction Status Date / Time No Known Allergies Allergy Unverified 04/16/22 22:10 Home Medications Medication Instructions Recorded Confirmed Type albuterol sulfate 90 mcg/actuation 2 inhalation Q4H PRN Shortness Of 04/16/22 History aerosol inhaler Breath Or Wheezing apixaban 5 mg tablet (Eliquis) 5 mg PO BID 04/16/22 04/16/22 History clopidogrel 75 mg tablet 75 mg PO DAILY 04/16/22 04/16/22 History cyclobenzaprine 10 mg tablet 10 mg PO BID PRN Spasms 04/16/22 04/16/22 History duloxetine 60 mg capsule,delayed 60 mg PO DAILY 04/16/22 04/16/22 History release fluticasone fur. 100 mcg-umeclid 1 inh inhalation DAILY 04/16/22 04/16/22 History 62.5 mcg-vilant 25 mcg inhalat.powder (Trelegy Ellipta) gabapentin 100 mg capsule 100 mg PO DAILY 04/16/22 04/16/22 History lanthanum 500 mg chewable tablet 500 mg PO DAILY 04/16/22 04/16/22 History metoprolol succinate 50 mg 50 mg PO DAILY 04/16/22 04/16/22 History tablet,extended release 24 hr pramipexole 0.25 mg tablet 0.25 mg PO HS 04/16/22 04/16/22 History sacubitril 24 mg-valsartan 26 mg 1 tab PO BID 04/16/22 04/16/22 History tablet (Entresto) Patient History Medical History (Updated 04/17/22 @ 16:58 by Kathya Warner MD) Anemia due to chronic kidney disease COPD (chronic obstructive pulmonary disease) Diabetes ESRD (end stage renal disease) on dialysis Peripheral arterial disease Surgical History A-V fistula History of amputation History of cardiac defibrillator placement S/P vascular bypass Family History Other Family history non-contributory Social History Smoking Status: Current every day smoker Hx Alcohol Use: No Hx Substance Use: Yes Prescribed Medications: Marijuana Preferred Language: Serbian Communication Ability: Effective Supervisor In Charge Required: No Beliefs That Will Affect Care: None Current Living Situation: Spouse Other Information That Helps Us Care for You: No Feels Safe at Home: Yes Safety Concerns: Feels Safe At This Time Assistive Devices: Walker Review of Systems Review of Systems: All systems reviewed & are unremarkable except as noted in HPI & below Physical Exam Constitutional: WD/WN, vitals as above no acute distress Eyes: + anicteric sclerae ENMT: Ears: no hearing impairment Neck: normal visual inspection Respiratory: normal respiratory effort; no respiratory distress and no cough Auscultation: lungs clear to auscultation bilaterally Cardiovascular: Rate/Rhythm: regular rate and regular rhythm Heart Sounds: normal S1 and normal S2 Extremities: no edema Gastrointestinal (Abdomen): Inspection/Auscultation: abdomen normal to inspection and normal bowel sounds Percussion/Palpation: abdomen soft; abdomen nontender Musculoskeletal: Bilateral lower extremity with significant erythema, excoriation and swelling Skin: + rash, + lesion, + ulcer and + erythema Neurologic: no focal motor deficits and not confused Psychiatric: Orientation: alert and oriented x 3 Affect: euthymic affect Results & Data ([facility]) Vital Signs (Past 12 Hours) Vital Signs Temp Pulse Resp BP Pulse Ox O2 Del Method 04/17/22 16:43 36.2 C L 64 16 96/63 L 95 Room Air 04/17/22 08:03 36.5 C 75 16 110/69 97 Room Air PG Care Time/CCT Total # of Minutes Spent Total Time Spent with Patient: Total time spent is greater than 50% in coordination of care (as documented) at patient's floor/unit and/or counseling patient: Coding Level of Care Code INP/OBS CONSULT LVL 4, 60 MIN Diagnoses ESRD (end stage renal disease) on dialysis N18.6; Z99.2 Bilateral lower leg cellulitis L03.116; L03.115 Anemia due to chronic kidney disease N18.9; D63.1
--- NOTE | 2022-04-17 21:36 | Electrocardiogram Report ---
Test Reason : Blood Pressure : / mmHG Vent. Rate : 068 BPM Atrial Rate : 068 BPM P-R Int : 176 ms QRS Dur : 184 ms QT Int : 504 ms P-R-T Axes : 032 -80 088 degrees QTc Int : 535 ms Poor data quality, interpretation may be adversely affected Atrial-sensed ventricular-paced rhythm Biventricular pacemaker detected Abnormal ECG No previous ECGs available Confirmed by Jt Amin ([id number]) on 04/17/2022 9:36:32 PM Referred By: REFERRED SELF Confirmed By:Jt Amin
--- NOTE | 2022-04-17 22:16 | Hospitalist Progress Note ---
Date of Service April 17, 2022 Assessment & Plan (1) Bilateral lower leg cellulitis: Plan: Bilateral LE with redness, tenderness. Concern for cellulitis. Question vascular insufficiency given dusky discoloration of right toes, presence of ulcers and eschar. Patient with known history of PAD s/p bypass grafting of the LLE as well as toe amputation of the LLE. Presently afebrile, chronically ill in appearance but acutely nontoxic. No leukocytosis. -Admit to medical -Follow blood cultures sent from ER -Amarjit and label area of redness daily to monitor for progression of infection -Continue Zosyn and Daptomycin, renal dosing for ESRD/HD with pharmacy assist ance appreciated -Check bilateral LE arterial dopplers -Communication order placed to obtain records from [email or web address] system -continue dapto and zosyn. will obtain MRI of lower extremities to check for osteomyelitis. (2) Peripheral arterial disease: Plan: Patient with history of PAD s/p bypass grafting. Suspect findings on LE are at least in part due to vascular compromise -Arterial duplex as above -Continue Plavix 75mg po daily - reported home medication from [email or web address] records -Patient does not appear to be on a statin - records requested. No allergies listed? (3) ESRD (end stage renal disease) on dialysis: Plan: Patient with ESRD on HD q M/W/. He reports compliance with HD. His [employer] Spreader is in [place] -Nephrology consulted -Patient is on Lanthanum outpatient for PO4 management - non-formulary - will add Phos-Lo (PO4=7.2) (4) Diabetes: Plan: Patient reports he does not take anything for his diabetes anymore. Blood sugar elevated today at 236. -Goal blood sugar 110 - 140 -Lantus 5u BID, adjust as needed -ISS (5) COPD (chronic obstructive pulmonary disease): Plan: Patient continues to smoke. End-expiratory wheezing noted on exam. Adequate oxygenation on room air. No respiratory distress -Continue Trelegy or hospital formulary equivalent -Albuterol PRN -Smoking cessation counseling ordered (6) Right hip pain: Plan: Patient reports falling on his right hip several weeks ago then falling on it again. He has had worsening pain and difficulty with weight bearing and reports needing to use a walker over the last three days which is atypical for him. -Check CT hip for possible fracture -PT/OT evaluation (7) Abnormal bilirubin test: Plan: Suspect some degree of underlying liver disease based on labs - Na of 130, Plt of 102, PTT of 32.2 and TBili of 2.1 -Check RUQUS -Repeat LFTs in AM (8) Heart failure: Plan: Details unclear, ischemic vs non-ischemic and degree of failure. Patient does appear compensated at this time with no overt volume overload. Suspect his disease is fairly advanced. He reports having an AICD in place - no shocks. Home medications include Entresto, Metoprolol. Apixaban - ?for LV dysfunction, thrombus, VTE or arrhythmia. Patient is uncertain. -Continue Entresto and Metoprolol with caution - patient reports he "takes no medications at home" - could risk hypotension with administration of his prescribed medications -Records requested -Continue Apixaban F/E/N -Heplock. Monitor electrolytes. CC diet as tolerated Ppx - On Apixaban Code - Full per discussion with patient Disp - Admit to medical Admission and Anticipated Discharge Date Admission Date: April 16, 2022 Subjective Patient reports no new symptoms. Review of Systems Review of Systems: All systems reviewed & are unremarkable except as noted in HPI & below Physical Exam Physical Exam: General: poorly kempt male patient appearing older than stated age, hard of hearing, chronically ill in appearance but NAD, oriented and able to answer questions and follow commands Skin: redness of bilateral lower extremities with area of excoriation, eschar, several ulcers on RLE, LLE s/p amputation, edema but no evidence of dehiscence HEENT: NC/AT, PERRL, EOMI, anicteric sclera, conjunctiva without injection, external ear normal to inspection and nontender, nares patent, moist mucus membranes, dentition intact, no oropharyngeal lesions, neck supple, trachea midline, no LAD, no thyromegaly, no JVD Heart: +S1/S2, regular, no m/r/g Lungs: equal air entry bilaterally, decreased wheezing. Abd: +BS, soft, NT/ND, no masses/organomegaly/ascites Ext: warm, 2+ pulses in UE, weakly palpable and easily dopplerable of LE. AV fistula in RUE with palpable thrill, area of ecchymosis, cellulitis of bilateral LE with areas of excoriation and eschar, dusky discoloration of toes on right foot, area of bruising right posterior calf Neuro: nonfocal, patient AA&O x 4, speech intact, no facial droop, moving all extremities on command with equal strength 5/5, hard of hearing Results & Data Results & Data ([facility]) Vital Signs (Past 12 Hours) Vital Signs Temp Pulse Resp BP Pulse Ox O2 Del Method 04/17/22 22:04 36.6 C 64 18 103/63 97 Room Air 04/17/22 17:43 36.4 C L 69 16 111/70 96 Room Air 04/17/22 16:43 36.2 C L 64 16 96/63 L 95 Room Air PG Care Time/CCT Total # of Minutes Spent Total Time Spent with Patient: Total time spent is greater than 50% in coordination of care (as documented) at patient's floor/unit and/or counseling patient: Coding Level of Care Code 35930 SUB INP/OBS CARE 2/35MIN Diagnoses Bilateral lower leg cellulitis L03.116; L03.115 Peripheral arterial disease I73.9 ESRD (end stage renal disease) on dialysis N18.6; Z99.2 Diabetes E11.9 COPD (chronic obstructive pulmonary disease) J44.9 Right hip pain M25.551 Abnormal bilirubin test R79.89 Heart failure I50.9
[2022-04-18] MEDS: PIPERACILLIN/TAZOBACTAM 3.375 GM in DEXTROSE 5% 100 ML IV SCH ×2 (01:53→14:15)
[2022-04-18 06:50] LABS: Hematocrit (blood only) 38.6 % (40.1-51.0); Hemoglobin 12.9 g/dl (14.0-18.0); Mean Corpuscular Hgb Conc 33.4 g/dL (32.0-36.0); Mean Corpuscular Volume 89.8 fL (80.0-100.0); Mean Platelet Volume 11.5 fL (9.4-12.4); Platelet Count 101 K/uL (130-400); RDW Coefficient of Variation 16.8 % (11.5-14.5); RDW Standard Deviation 54.6 fL (36.4-46.3); White Blood Count 5.43 K/ul (4.8-10.8)
[2022-04-18 07:09] LABS: Creatinine Clr Calc Pharmacy 11.5 ml/min; Est GFR (African American) 9.8 ml/min; Est GFR (Non-African American) 8.4 ml/min
[2022-04-18 07:10] LABS: BUN Creatinine Ratio 11.7 (10-20); C Reactive Protein 3.62 mg/dl (0-0.5); Calcium 8.1 mg/dl (8.5-10.1); Potassium 4.5 mmol/L (3.5-5.1)
[2022-04-18] MEDS: APIXABAN 5 MG TABLET PO SCH ×2 (08:09→20:40)
[2022-04-18] MEDS: UMECLIDINIUM/VILANTEROL 62.5/25MCG 7 PUFFS/INHALER INH SCH (08:09)
[2022-04-18] MEDS: GABAPENTIN 100 MG CAP PO SCH (08:09)
[2022-04-18] MEDS: CLOPIDOGREL BISULFATE 75 MG TAB PO SCH (08:09)
[2022-04-18] MEDS: FLUTICASONE FUROATE 100MCG 14 PUFFS/INHALER INH SCH (08:09)
[2022-04-18] MEDS: DULoxetine HCL 60 MG CAP PO SCH (08:09)
[2022-04-18] MEDS: CALCIUM ACETATE 667 MG CAP/TAB PO SCH ×3 (08:09→17:17)
[2022-04-18] MEDS: LANTUS PER UNIT CHARGE SQ SCH ×2 (08:18→20:45)
[2022-04-18] MEDS: INSULIN ASPART PER UNIT SC SCH ×4 (08:18→20:44)
[2022-04-18] MEDS: NEPHROCAPS PO SCH (08:24)
[2022-04-18] MEDS ORDERED: traMADol HCL 50 MG TABLET PO STA (12:09)
--- NOTE | 2022-04-18 12:45 | Nephrology Progress Note ---
Date of Service April 18, 2022 Assessment & Plan (1) ESRD (end stage renal disease) on dialysis: (2) Bilateral lower leg cellulitis: (3) Anemia due to chronic kidney disease: Plan ESRD on hemodialysis, admitted with bilateral lower extremity cellulitis. On dialysis Sunday, Sunday, Sunday, last dialysis was Sunday due to short dialysis treatment Sunday. Currently blood pressure, electrolyte, volume status acceptable. -- Dialysis today for 4 hours -- Fluid restriction to less than 1200 mL per day, avoid high potassium food -- dose medications for eGFR less than 10, -- continue PhosLo as phosphate binder while inpatient. Admission and Anticipated Discharge Date Admission Date: April 16, 2022 Subjective Cooper was seen and evaluated this morning. BP electrolyte, volume status acceptable, asymptomatic except pain in legs. Review of Systems Review of Systems: All systems reviewed & are unremarkable except as noted in HPI & below Physical Exam Constitutional: WD/WN, vitals as above no acute distress Respiratory: normal respiratory effort; no respiratory distress and no cough Auscultation: lungs clear to auscultation bilaterally Cardiovascular: Rate/Rhythm: regular rate and regular rhythm Heart Sounds: normal S1 and normal S2 Skin: + rash, + lesion, + ulcer and + erythema Neurologic: no focal motor deficits and not confused Psychiatric: Orientation: alert and oriented x 3 Affect: euthymic affect Results & Data ([facility]) Vital Signs (Past 12 Hours) Vital Signs Temp Pulse Pulse Pulse Resp BP BP 04/18/22 12:30 69 111/61 04/18/22 12:00 68 104/64 04/18/22 11:30 74 129/72 04/18/22 11:00 68 101/65 04/18/22 10:30 71 113/73 04/18/22 10:00 67 137/81 04/18/22 08:00 04/18/22 09:30 48 L 137/73 04/18/22 09:25 63 99/71 L 04/18/22 09:16 36.4 C L 75 04/18/22 08:31 36.4 C L 63 16 106/66 Pulse Ox O2 Del Method 04/18/22 12:30 04/18/22 12:00 04/18/22 11:30 04/18/22 11:00 04/18/22 10:30 04/18/22 10:00 04/18/22 08:00 Room Air 04/18/22 09:30 04/18/22 09:25 04/18/22 09:16 04/18/22 08:31 98 Room Air PG Care Time/CCT Total # of Minutes Spent Total Time Spent with Patient: Total time spent is greater than 50% in coordination of care (as documented) at patient's floor/unit and/or counseling patient: Coding Level of Care Code 96122 SUB INP/OBS CARE 2/35MIN Diagnoses ESRD (end stage renal disease) on dialysis N18.6; Z99.2 Bilateral lower leg cellulitis L03.116; L03.115 Anemia due to chronic kidney disease N18.9; D63.1
[2022-04-18] MEDS: METOPROLOL SUCC 50MG EXT REL TAB PO SCH (14:11)
[2022-04-18] MEDS: VALSARTAN/SACUBITRIL 26/24MG TAB PO SCH ×2 (14:11→20:40)
[2022-04-18] MEDS: CARBOHYDRATES FOR HYPOGLYCEMIA PO PRN (17:07)
[2022-04-18] MEDS ORDERED: oxyCODONE HCL IR 5 MG TAB (IMMEDIATE RELEASE) PO STA (17:08)
[2022-04-18] MEDS: DOCUSATE SODIUM/SENNA 50/8.6MG TAB PO SCH (17:15)
[2022-04-18] MEDS: DAPTOmycin 300 MG in SYRINGE 0 ML IV SCH (18:46)
[2022-04-18] MEDS: PRAMIPEXOLE DIHYDROCHLO 0.25 MG TAB PO SCH (20:40)
[2022-04-18] MEDS ORDERED: LIDOCAINE VISCOUS 2% 15 ML UDC TOP ONE (20:54)
--- NOTE | 2022-04-18 22:12 | Hospitalist Progress Note ---
Date of Service April 18, 2022 Assessment & Plan (1) Bilateral lower leg cellulitis: Plan: Bilateral LE with redness, tenderness. Concern for cellulitis. Question vascular insufficiency given dusky discoloration of right toes, presence of ulcers and eschar. Patient with known history of PAD s/p bypass grafting of the LLE as well as toe amputation of the LLE. Presently afebrile, chronically ill in appearance but acutely nontoxic. No leukocytosis. -Admit to medical -Follow blood cultures sent from ER -Amarjit and label area of redness daily to monitor for progression of infection -Continue Zosyn and Daptomycin, renal dosing for ESRD/HD with pharmacy assist ance appreciated -Check bilateral LE arterial dopplers: 1. Occlusion of the proximal right superficial femoral artery with distal reconstitution of flow. 2. Occlusion of the left anterior tibial artery with distal reconstitution of flow. 3. Patent stent of the left superficial femoral artery. Though is shows reconstituion of flow, his feet appear colder today. Concerned antibiotics may not be reaching the target. Will consult vascular surgery. If no improvement, may consider ortho consult. Awaiting MRI of lower extremities. -Communication order placed to obtain records from [employer] system -continue dapto and zosyn. (2) Peripheral arterial disease: Plan: Patient with history of PAD s/p bypass grafting. Suspect findings on LE are at least in part due to vascular compromise -Arterial duplex as above -Continue Plavix 75mg po daily - reported home medication from [employer] records -Patient does not appear to be on a statin - records requested. No allergies listed? (3) ESRD (end stage renal disease) on dialysis: Plan: Patient with ESRD on HD q M/W/. He reports compliance with HD. His [place] [employer] is in [place] -Nephrology consulted -Patient is on Lanthanum outpatient for PO4 management - non-formulary - will add Phos-Lo (PO4=7.2) (4) Diabetes: Plan: Patient reports he does not take anything for his diabetes anymore. Blood sugar elevated today at 236. -Goal blood sugar 110 - 140 -Lantus 5u BID, adjust as needed -ISS (5) COPD (chronic obstructive pulmonary disease): Plan: Patient continues to smoke. End-expiratory wheezing noted on exam. Adequate oxygenation on room air. No respiratory distress -Continue Trele or hospital formulary equivalent -Albuterol PRN -Smoking cessation counseling ordered (6) Right hip pain: Plan: Patient reports falling on his right hip several weeks ago then falling on it again. He has had worsening pain and difficulty with weight bearing and reports needing to use a walker over the last three days which is atypical for him. -Check CT hip for possible fracture -PT/OT evaluation (7) Abnormal bilirubin test: Plan: Suspect some degree of underlying liver disease based on labs - Na of 130, Plt of 102, PTT of 32.2 and TBili of 2.1 -Check RUQUS -Repeat LFTs in AM (8) Heart failure: Plan: Details unclear, ischemic vs non-ischemic and degree of failure. Patient does appear compensated at this time with no overt volume overload. Suspect his disease is fairly advanced. He reports having an AICD in place - no shocks. Home medications include Entresto, Metoprolol. Apixaban - ?for LV dysfunction, thrombus, VTE or arrhythmia. Patient is uncertain. -Continue Entresto and Metoprolol with caution - patient reports he "takes no medications at home" - could risk hypotension with administration of his prescribed medications -Records requested -Continue Apixaban F/E/N -Heplock. Monitor electrolytes. CC diet as tolerated Ppx - On Apixaban Code - Full per discussion with patient Disp - Admit to medical Admission and Anticipated Discharge Date Admission Date: April 16, 2022 Subjective Patient reports he continues to have pain in his lower extremities. Review of Systems Review of Systems: All systems reviewed & are unremarkable except as noted in HPI & below Physical Exam Physical Exam: General: poorly kempt male patient appearing older than stated age, hard of hearing, chronically ill in appearance but NAD, oriented and able to answer questions and follow commands Skin: redness of bilateral lower extremities with area of excoriation, eschar, several ulcers on RLE, LLE s/p amputation, edema but no evidence of dehiscence HEENT: NC/AT, PERRL, EOMI, anicteric sclera, conjunctiva without injection, external ear normal to inspection and nontender, nares patent, moist mucus membranes, dentition intact, no oropharyngeal lesions, neck supple, trachea midline, no LAD, no thyromegaly, no JVD Heart: +S1/S2, regular, no m/r/g Lungs: equal air entry bilaterally, decreased wheezing. Abd: +BS, soft, NT/ND, no masses/organomegaly/ascites Ext: warm, 2+ pulses in UE, weakly palpable and easily dopplerable of LE. AV fistula in RUE with palpable thrill, area of ecchymosis, cellulitis of bilateral LE with areas of excoriation and eschar, dusky discoloration of toes on right foot, area of bruising right posterior calf. right foot is colder to touch. Neuro: nonfocal, patient AA&O x 4, speech intact, no facial droop, moving all extremities on command with equal strength 5/5, hard of hearing Results & Data Results & Data ([facility]) Vital Signs (Past 12 Hours) Vital Signs Temp Pulse Pulse Pulse Resp BP BP 04/18/22 21:53 36.5 C 88 20 113/65 04/18/22 14:10 66 99/64 L 04/18/22 13:32 36.3 C L 67 113/68 04/18/22 13:00 69 109/69 04/18/22 12:30 69 111/61 04/18/22 12:00 68 104/64 04/18/22 11:30 74 129/72 04/18/22 11:00 68 101/65 04/18/22 10:30 71 113/73 Pulse Ox O2 Del Method 04/18/22 21:53 100 Room Air 04/18/22 14:10 04/18/22 13:32 04/18/22 13:00 04/18/22 12:30 04/18/22 12:00 04/18/22 11:30 04/18/22 11:00 04/18/22 10:30 PG Care Time/CCT Total # of Minutes Spent Total Time Spent with Patient: Total time spent is greater than 50% in coordination of care (as documented) at patient's floor/unit and/or counseling patient: Coding Level of Care Code 27931 SUB INP/OBS CARE 2/35MIN Diagnoses Bilateral lower leg cellulitis L03.116; L03.115 Peripheral arterial disease I73.9 ESRD (end stage renal disease) on dialysis N18.6; Z99.2 Diabetes E11.9 COPD (chronic obstructive pulmonary disease) J44.9 Right hip pain M25.551 Abnormal bilirubin test R79.89 Heart failure I50.9
[2022-04-18] MEDS: oxyCODONE HCL IR 5 MG TAB (IMMEDIATE RELEASE) PO PRN (23:54)
[2022-04-19] MEDS: PIPERACILLIN/TAZOBACTAM 3.375 GM in DEXTROSE 5% 100 ML IV SCH ×2 (01:49→13:25)
[2022-04-19] MEDS: LIDOCAINE 2% JELLY 5 ML TUBE EXT PRN ×2 (04:59→22:16)
[2022-04-19] MEDS: DULoxetine HCL 60 MG CAP PO SCH (07:32)
[2022-04-19] MEDS: DOCUSATE SODIUM/SENNA 50/8.6MG TAB PO SCH (07:32)
[2022-04-19] MEDS: METOPROLOL SUCC 50MG EXT REL TAB PO SCH (07:32)
[2022-04-19] MEDS: VALSARTAN/SACUBITRIL 26/24MG TAB PO SCH ×2 (07:32→20:36)
[2022-04-19] MEDS: NEPHROCAPS PO SCH (07:33)
[2022-04-19] MEDS: GABAPENTIN 100 MG CAP PO SCH (07:33)
[2022-04-19] MEDS: CALCIUM ACETATE 667 MG CAP/TAB PO SCH ×3 (07:33→17:09)
[2022-04-19] MEDS: CLOPIDOGREL BISULFATE 75 MG TAB PO SCH (07:33)
[2022-04-19] MEDS: APIXABAN 5 MG TABLET PO SCH ×2 (07:33→20:36)
[2022-04-19] MEDS: UMECLIDINIUM/VILANTEROL 62.5/25MCG 7 PUFFS/INHALER INH SCH (07:34)
[2022-04-19] MEDS: FLUTICASONE FUROATE 100MCG 14 PUFFS/INHALER INH SCH (07:34)
[2022-04-19] MEDS: ACETAMINOPHEN 325 MG TAB PO PRN (07:46)
[2022-04-19] MEDS: oxyCODONE HCL IR 5 MG TAB (IMMEDIATE RELEASE) PO PRN ×2 (07:46→17:09)
[2022-04-19] MEDS: INSULIN ASPART PER UNIT SC SCH ×4 (08:55→20:43)
[2022-04-19] MEDS: LANTUS PER UNIT CHARGE SQ SCH ×2 (08:55→20:43)
[2022-04-19 09:46] LABS: Hematocrit (blood only) 39.8 % (40.1-51.0); Hemoglobin 13.1 g/dl (14.0-18.0); Mean Corpuscular Hemoglobin 29.7 pg (25.0-34.0); Mean Corpuscular Hgb Conc 32.9 g/dL (32.0-36.0); Mean Corpuscular Volume 90.2 fL (80.0-100.0); Mean Platelet Volume 10.9 fL (9.4-12.4); Platelet Count 113 K/uL (130-400); RDW Standard Deviation 57.1 fL (36.4-46.3); Red Blood Count 4.41 M/uL (4.63-6.08); White Blood Count 5.84 K/ul (4.8-10.8)
[2022-04-19 09:54] LABS: C Reactive Protein 3.77 mg/dl (0-0.5); Calcium 8.4 mg/dl (8.5-10.1); Creatinine Clr Calc Pharmacy 15.8 ml/min; Est GFR (African American) 14.3 ml/min; Est GFR (Non-African American) 12.4 ml/min; Potassium 4.5 mmol/L (3.5-5.1)
--- NOTE | 2022-04-19 14:06 | Nephrology Progress Note ---
Date of Service April 19, 2022 Assessment & Plan (1) ESRD (end stage renal disease) on dialysis: (2) Bilateral lower leg cellulitis: (3) Anemia due to chronic kidney disease: Plan ESRD on hemodialysis, admitted with bilateral lower extremity cellulitis. On dialysis Sunday, Sunday, Sunday, last dialysis was Sunday due to short dialysis treatment Sunday. Currently blood pressure, electrolyte, volume status acceptable. -- Dialysis tomorrow -- Fluid restriction to less than 1200 mL per day, avoid high potassium food -- dose medications for eGFR less than 10, -- continue PhosLo as phosphate binder while inpatient. Admission and Anticipated Discharge Date Admission Date: April 16, 2022 Lulú Gamboa was seen and evaluated this morning. BP, electrolyte, volume status acceptable. Physical Exam Constitutional: WD/WN, vitals as above no acute distress Respiratory: Auscultation: lungs clear to auscultation bilaterally Cardiovascular: Rate/Rhythm: regular rate and regular rhythm Heart Sounds: normal S1 and normal S2 Skin: + rash, + lesion, + ulcer and + erythema Neurologic: no focal motor deficits and not confused Psychiatric: Orientation: alert and oriented x 3 Affect: euthymic affect Results & Data ([facility]) Vital Signs (Past 12 Hours) Vital Signs Temp Pulse Resp BP Pulse Ox O2 Del Method 04/19/22 07:00 36.5 C 75 18 128/83 95 Room Air PG Care Time/CCT Total # of Minutes Spent Total Time Spent with Patient: Total time spent is greater than 50% in coordination of care (as documented) at patient's floor/unit and/or counseling patient: Coding Level of Care Code 14915 SUB INP/OBS CARE 2/35MIN Diagnoses ESRD (end stage renal disease) on dialysis N18.6; Z99.2 Bilateral lower leg cellulitis L03.116; L03.115 Anemia due to chronic kidney disease N18.9; D63.1
--- NOTE | 2022-04-19 16:26 | Magnetic Resonance Report ---
MR ankle LT wo con HISTORY: Left ankle swelling and redness. cellulitis TECHNIQUE: Multiplanar multisequence MRI of the left ankle was performed without contrast according t o standard department protocol. COMPARISON STUDY: None. FINDINGS: There is mild motion artifact. No fracture or dislocation within the left ankle. No erosive changes or abnormal marrow signal within the left ankle to suggest an osteomyelitis. Prior transmeta tarsal amputation. Small focal areas of marrow edema at the distal first and second metatarsals at th e amputation site for the Lisfranc joint is well aligned. There is mild subcutaneous edema seen withi n the ankle and hindfoot. There is also mild edema within the flexor muscles of the ankle and visuali zed plantar muscles of the foot. No loculated fluid collections to suggest an abscess. No significant joint effusion. The flexor, extensor, peroneal, and Achilles tendons are intact. The medial and late ral stabilizing ligaments are maintained. Cartilage spaces are within normal limits for age. There is a small plantar heel spur. IMPRESSION: 1. No fracture or dislocation within the left ankle. 2. No evidence for ostomy lies within the left ankle. 3. Prior transmetatarsal amputation with small foci of marrow edema at the distal residual first and second metatarsals. This is nonspecific but could be due to postoperative changes or possibly a devel oping osteitis. 4. Mild subcutaneous edema seen throughout the ankle. 5. Edema within the flexor muscles of the ankle and visualized plantar muscles of the foot. This is n onspecific could be due to a chronic edematous state, denervation injury, or a nonspecific myositis. 6. No loculated fluid collections to suggest an abscess. ACT 112: Negative or not required by law. Electronically signed by: Tom Ledesma M.D. 04/19/2022 4:25 PM
--- NOTE | 2022-04-19 17:15 | Magnetic Resonance Report ---
MR foot RT w/o con HISTORY: Right foot redness with cellulitis/ concern for osteomyelitis TECHNIQUE: Multiplanar multisequence MRI of the right forefoot was performed without contrast accordi ng to standard department protocol. COMPARISON STUDY: None. FINDINGS: No fracture or dislocation within the right forefoot. The Lisfranc joint is intact. 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 Otherwise, no abnormal marrow signal or destructive changes to suggest an osteomye litis. There is diffuse subcutaneous and deep soft tissue edema throughout the forefoot. This include s the plantar muscles. The flexor and extensor tendons are intact. No loculated fluid collections to suggest an abscess. IMPRESSION: 1. No abnormal marrow signal or destructive changes within the right forefoot to suggest osteomyeliti s. 2. Diffuse soft tissue edema throughout the forefoot which favors a cellulitis. There is also edema w ithin the plantar muscles and deep soft tissues of the right forefoot which could be due to the chron ic edematous change or nonspecific myositis. 3. No loculated fluid collections on this noncontrast study to suggest an abscess. ACT 112: Negative or not required by law. Electronically signed by: Tom Ledesma M.D. 04/19/2022 5:14 PM
[2022-04-19] MEDS: PRAMIPEXOLE DIHYDROCHLO 0.25 MG TAB PO SCH (20:36)
--- NOTE | 2022-04-19 22:55 | Hospitalist Progress Note ---
Date of Service April 19, 2022 Assessment & Plan (1) Bilateral lower leg cellulitis: Plan: Bilateral LE with redness, tenderness. Concern for cellulitis. Question vascular insufficiency given dusky discoloration of right toes, presence of ulcers and eschar. Patient with known history of PAD s/p bypass grafting of the LLE as well as toe amputation of the LLE. Presently afebrile, chronically ill in appearance but acutely nontoxic. No leukocytosis. -Admit to medical -Follow blood cultures sent from ER -Amarjit and label area of redness daily to monitor for progression of infection -Continue Zosyn and Daptomycin, renal dosing for ESRD/HD with pharmacy assist ance appreciated -Check bilateral LE arterial dopplers: 1. Occlusion of the proximal right superficial femoral artery with distal reconstitution of flow. 2. Occlusion of the left anterior tibial artery with distal reconstitution of flow. 3. Patent stent of the left superficial femoral artery. Though is shows reconstituion of flow, his feet appear colder today. Concerned antibiotics may not be reaching the target. Will consult vascular surgery. If no improvement, may consider ortho consult. MRI of lower extremities are negative for ostemyelitits. Will hold off consult with Ortho for now. Continue above antibiotics. -Communication order placed to obtain records from [facility] system -continue dapto and zosyn. (2) Peripheral arterial disease: Plan: Patient with history of PAD s/p bypass grafting. Suspect findings on LE are at least in part due to vascular compromise -Arterial duplex as above -Continue Plavix 75mg po daily - reported home medication from [facility] records -Patient does not appear to be on a statin - records requested. No allergies listed? (3) ESRD (end stage renal disease) on dialysis: Plan: Patient with ESRD on HD q M/W/F. He reports compliance with HD. His [employer] is in [place] -Nephrology consulted -Patient is on Lanthanum outpatient for PO4 management - non-formulary - will add Phos-Lo (PO4=7.2) (4) Diabetes: Plan: Patient reports he does not take anything for his diabetes anymore. Blood sugar elevated today at 236. -Goal blood sugar 110 - 140 -Lantus 5u BID, adjust as needed -ISS (5) COPD (chronic obstructive pulmonary disease): Plan: Patient continues to smoke. End-expiratory wheezing noted on exam. Adequate ox ygenation on room air. No respiratory distress -Continue Trelegy or hospital formulary equivalent -Albuterol PRN -Smoking cessation counseling ordered (6) Right hip pain: Plan: Patient reports falling on his right hip several weeks ago then falling on it again. He has had worsening pain and difficulty with weight bearing and reports needing to use a walker over the last three days which is atypical for him. -Check CT hip for possible fracture -PT/OT evaluation (7) Abnormal bilirubin test: Plan: Suspect some degree of underlying liver disease based on labs - Na of 130, Plt of 102, PTT of 32.2 and TBili of 2.1 -Check RUQUS -Hypoechoic 5.5 cm structure within the right cardiophrenic angle may represent loculated pleural fluid or less likely a pericardial cyst. -will repeat LFTs while here. (8) Heart failure: Plan: Details unclear, ischemic vs non-ischemic and degree of failure. Patient does appear compensated at this time with no overt volume overload. Suspect his disease is fairly advanced. He reports having an AICD in place - no shocks. Home medications include Entresto, Metoprolol. Apixaban - ?for LV dysfunction, thrombus, VTE or arrhythmia. Patient is uncertain. -Continue Entresto and Metoprolol with caution - patient reports he "takes no medications at home" - could risk hypotension with administration of his prescribed medications -Records requested -Continue Apixaban F/E/N -Heplock. Monitor electrolytes. CC diet as tolerated Ppx - On Apixaban Code - Full per discussion with patient Disp - Admit to medical Admission and Anticipated Discharge Date Admission Date: April 16, 2022 Subjective Patient resting comfortably. No new complaints. Review of Systems Review of Systems: All systems reviewed & are unremarkable except as noted in HPI & below Physical Exam Physical Exam: General: poorly kempt male patient appearing older than stated age, hard of hearing, chronically ill in appearance but NAD, oriented and able to answer questions and follow commands Skin: redness of bilateral lower extremities with area of excoriation, eschar, several ulcers on RLE, LLE s/p amputation, edema but no evidence of dehiscence HEENT: NC/AT, PERRL, EOMI, anicteric sclera, conjunctiva without injection, external ear normal to inspection and nontender, nares patent, moist mucus membranes, dentition intact, no oropharyngeal lesions, neck supple, trachea midline, no LAD, no thyromegaly, no JVD Heart: +S1/S2, regular, no m/r/g Lungs: equal air entry bilaterally, decreased wheezing. Abd: +BS, soft, NT/ND, no masses/organomegaly/ascites Ext: warm, 2+ pulses in UE, weakly palpable and easily dopplerable of LE. AV fistula in RUE with palpable thrill, area of ecchymosis, cellulitis of bilateral LE with areas of excoriation and eschar, dusky discoloration of toes on right foot, area of bruising right posterior calf. right foot is colder to touch. Neuro: nonfocal, patient AA&O x 4, speech intact, no facial droop, moving all extremities on command with equal strength 5/5, hard of hearing Results & Data Results & Data ([facility]) Vital Signs (Past 12 Hours) Vital Signs Temp Pulse Pulse Resp BP Pulse Ox O2 Del Method 04/19/22 20:49 36.7 C 64 18 119/64 98 Room Air 04/19/22 18:19 36.7 C 60 17 113/67 93 Room Air PG Care Time/CCT Total # of Minutes Spent Total Time Spent with Patient: Total time spent is greater than 50% in coordination of care (as documented) at patient's floor/unit and/or counseling patient: Coding Level of Care Code 76653 SUB INP/OBS CARE 2/35MIN Diagnoses Bilateral lower leg cellulitis L03.116; L03.115 Peripheral arterial disease I73.9 ESRD (end stage renal disease) on dialysis N18.6; Z99.2 Diabetes E11.9 COPD (chronic obstructive pulmonary disease) J44.9 Right hip pain M25.551 Abnormal bilirubin test R79.89 Heart failure I50.9
[2022-04-20] MEDS: PIPERACILLIN/TAZOBACTAM 3.375 GM in DEXTROSE 5% 100 ML IV SCH ×2 (01:37→15:09)
[2022-04-20] MEDS: oxyCODONE HCL IR 5 MG TAB (IMMEDIATE RELEASE) PO PRN ×2 (01:41→09:41)
[2022-04-20 06:26] LABS: Hematocrit (blood only) 38.4 % (40.1-51.0); Hemoglobin 12.6 g/dl (14.0-18.0); Mean Corpuscular Hemoglobin 29.9 pg (25.0-34.0); Mean Corpuscular Hgb Conc 32.8 g/dL (32.0-36.0); Mean Platelet Volume 11.2 fL (9.4-12.4); Platelet Count 124 K/uL (130-400); RDW Coefficient of Variation 17.1 % (11.5-14.5); RDW Standard Deviation 56.8 fL (36.4-46.3); Red Blood Count 4.22 M/uL (4.63-6.08); White Blood Count 5.38 K/ul (4.8-10.8)
[2022-04-20 06:30] LABS: Potassium 4.8 mmol/L (3.5-5.1)
[2022-04-20 06:38] LABS: BUN Creatinine Ratio 11.8 (10-20); C Reactive Protein 3.74 mg/dl (0-0.5); Creatinine Clr Calc Pharmacy 14.6 ml/min; Est GFR (Non-African American) 11.2 ml/min
[2022-04-20] MEDS: NEPHROCAPS PO SCH (08:20)
[2022-04-20] MEDS: CALCIUM ACETATE 667 MG CAP/TAB PO SCH ×3 (08:20→17:58)
[2022-04-20 08:40] LABS: Albumin Level 3.1 gm/dl (3.4-5.0); Bilirubin Direct 0.6 mg/dl (0-0.2); Bilirubin,Total 1.4 mg/dl (0.2-1.0); Total Protein 6.6 gm/dl (6.0-8.3)
[2022-04-20] MEDS: CLOPIDOGREL BISULFATE 75 MG TAB PO SCH (09:30)
[2022-04-20] MEDS: VALSARTAN/SACUBITRIL 26/24MG TAB PO SCH ×2 (09:30→20:13)
[2022-04-20] MEDS: APIXABAN 5 MG TABLET PO SCH ×2 (09:30→20:13)
[2022-04-20] MEDS: DULoxetine HCL 60 MG CAP PO SCH (09:30)
[2022-04-20] MEDS: DOCUSATE SODIUM/SENNA 50/8.6MG TAB PO SCH (09:30)
[2022-04-20] MEDS: GABAPENTIN 100 MG CAP PO SCH (09:30)
[2022-04-20] MEDS: METOPROLOL SUCC 50MG EXT REL TAB PO SCH (09:30)
[2022-04-20] MEDS: FLUTICASONE FUROATE 100MCG 14 PUFFS/INHALER INH SCH (09:31)
[2022-04-20] MEDS: UMECLIDINIUM/VILANTEROL 62.5/25MCG 7 PUFFS/INHALER INH SCH (09:32)
[2022-04-20] MEDS: INSULIN ASPART PER UNIT SC SCH ×4 (09:41→21:07)
[2022-04-20] MEDS: LANTUS PER UNIT CHARGE SQ SCH (09:42)
--- NOTE | 2022-04-20 10:17 | Hospitalist Progress Note ---
Date of Service April 20, 2022 Assessment & Plan (1) Bilateral lower leg cellulitis: Plan: acute Bilateral LE cellulitis with chronic venous stasis changes and arterial insufficiency chronic progressing Peripheral artery disease, Patient with known history of PAD s/p bypass grafting of the LLE as well as transmetatarsal left foot amputation -Follow blood cultures sent from 04/16/2022 are negative -recessing cellulitis from marked area -Continue Zosyn and Daptomycin, renal dosing for ESRD/HD with pharmacy assistance appreciated bilateral LE arterial dopplers: 1. Occlusion of the proximal right superficial femoral artery with distal reconstitution of flow. 2. Occlusion of the left anterior tibial artery with distal reconstitution of flow. 3. Patent stent of the left superficial femoral artery. Though is shows reconstitution of flow, consult vascular surgery. MRI of bilateral lower extremities are negative for ostemyelitits. -Communication order placed to obtain records from [facility] system - (2) Peripheral arterial disease: Plan: Chronic and progressive Patient with history of PAD s/p bypass grafting. Suspect findings on LE are at least in part due to vascular compromise -Arterial duplex as above -Continue Plavix 75mg po daily - reported home medication from [facility] records -Patient does not appear to be on a statin - records requested. No allergies listed? pt states is not on many medications at home (3) ESRD (end stage renal disease) on dialysis: Plan: Chronic and stable patient with ESRD on HD q M/W/. He reports compliance with HD. His [employer] [employer] is in [place] -Nephrology consulted to manage inpatient dialysis -Patient is on Lanthanum outpatient for PO4 management - non-formulary - will add Phos-Lo (PO4=7.2) (4) Diabetes: Plan: Chronic and stable patient reports he does not take anything for his diabetes anymore. Blood sugar elevated today at 236. -Goal blood sugar 110 - 140 -Lantus 5u BID, adjust as needed -ISS Hemoglobin a1c is 7.8 on 04/17/2022 (5) COPD (chronic obstructive pulmonary disease): Plan: Chronic stable nonprogressive patient continues to smoke. Adequate oxygenation on room air. No respiratory distress -Continue Trelegy or hospital formulary equivalent -Albuterol PRN -Smoking cessation counseling ordered (6) Right hip pain: Plan: Patient reports falling on his right hip several weeks ago then falling on it again. He has had worsening pain and difficulty with weight bearing and reports needing to use a walker over the last three days which is atypical for him. -Imaging of the hip shows no fracture. Imaging of the right foot shows no fracture imaging of left foot shows no fracture and only postoperative changes at the first and second metatarsal from the transmetatarsal surgery -PT/OT evaluation (7) Abnormal bilirubin test: Plan: Suspect some degree of underlying liver disease based on labs - Na of 130, Plt of 102, PTT of 32.2 and TBili of 2.1 -Check RUQUS -Hypoechoic 5.5 cm structure within the right cardiophrenic angle may represent loculated pleural fluid or less likely a pericardial cyst. -will repeat LFTs while here. (8) Heart failure: Plan: Chronic stable systolic heart failure he reports having an AICD in place - -Continue Entresto metoprolol -Continue Apixaban F/E/N -Heplock. Monitor electrolytes. CC diet as tolerated Ppx - On Apixaban Code - Full per discussion with patient Admission and Anticipated Discharge Date Admission Date: April 16, 2022 Subjective pt is with body pain, continues with acute leg pain, leg erythema is improving bilaterally Physical Exam Physical Exam: legs with chronic venous stasis redness and open areas bilaterally, poor cap refill bilaterally, and neuropathy Results & Data Results & Data ([facility]) Vital Signs (Past 12 Hours) Vital Signs Temp Pulse Resp BP Pulse Ox O2 Del Method 04/20/22 07:34 97.7 F 62 17 116/64 97 Room Air Diagnostic Findings Reviewed comprehensive metabolic panel with stable bilirubin and renal function although chronic kidney disease is noted Reviewed CBC with no elevation of white count to be concern for worsening cellulitic infection PG Care Time/CCT Total # of Minutes Spent Total Time Spent with Patient: Total time spent is greater than 50% in coordination of care (as documented) at patient's floor/unit and/or counseling patient: Coding Level of Care Code 88192 SUB INP/OBS CARE 3/50MIN Diagnoses Bilateral lower leg cellulitis L03.116; L03.115 Peripheral arterial disease I73.9 ESRD (end stage renal disease) on dialysis N18.6; Z99.2 Diabetes E11.9 COPD (chronic obstructive pulmonary disease) J44.9 Right hip pain M25.551 Abnormal bilirubin test R79.89 Heart failure I50.9
[2022-04-20] MEDS: CARBOHYDRATES FOR HYPOGLYCEMIA PO PRN ×3 (12:45→13:25)
[2022-04-20] MEDS ORDERED: oxyCODONE HCL IR 5 MG TAB (IMMEDIATE RELEASE) PO STA ×2 (13:06→13:11)
--- NOTE | 2022-04-20 15:26 | Consultation ---
Date of Consultation April 20, 2022 Assessment & Plan (1) Peripheral arterial disease: The left lower extremity has patency of the superficial femoral popliteal and infrapopliteal vessels other than the anterior tibial to the foot. The right side has a proximal superficial femoral artery occlusion with reconstitution of the artery distally with flow down through the infrapopliteal arteries to the foot. Due to his medical conditions he Is not a good candidate for a revascularization procedure. I would hold off on any interventions and see if we can get these areas to heal up on their own with local care. If the right leg worsens then intervention on the superficial femoral artery could be undertaken to try and increase the flow. Left lower extremity again has patency of the vessels and no indication for any intervention at this point. Thank you very much for letting us participate in the care of this patient. We will follow along while he is in the hospital. History of Present Illness Reason for Consultation: Peripheral artery occlusive disease with ulcerations bilaterally and cellulitis Attending Physician: Leonard Kilgore MD History of Present Illness Fernando Sanchez is a 66yo male with history of ESRD on HD, COPD, CAD, DM, CHF with AICD in place presenting with complaint of bilateral LE redness, pain and itching. Patient reports that he has been feeling very anxious and scratching his legs causing some deep excoriations. Over the last several days prior to admission he has had progressive redness and pain. Patient has been taking Doxycycline for his cellulitis. He was at [facility] on 04/13/22 and was diagnose with stasis dermatitis and cellulitis. It was recommended that he stay, but left AMA on 04/14/22. He reports severe discomfort of his bilateral LE. He did have a fall which she claims hurt his hip. He denies any symptoms of claudication or rest pain. He has had superficial femoral artery stents in the left leg in the past and amputation of the toes of his left foot. He has had no interventions of the right lower extremity. He denies chest pain, cough, shortness of breath. Denies fever, chills, rigors. Denies abdominal pain or distention, nausea, vomiting, diarrhea or constipation. No additional complaints at this time. Allergies Allergy/AdvReac Type Severity Reaction Status Date / Time No Known Allergies Allergy Unverified 04/16/22 22:10 Home Medications Medication Instructions Recorded Confirmed Type albuterol sulfate 90 mcg/actuation 2 inhalation Q4H PRN Shortness Of 04/16/22 History aerosol inhaler Breath Or Wheezing apixaban 5 mg tablet (Eliquis) 5 mg PO BID 04/16/22 04/16/22 History clopidogrel 75 mg tablet 75 mg PO DAILY 04/16/22 04/16/22 History cyclobenzaprine 10 mg tablet 10 mg PO BID PRN Spasms 04/16/22 04/16/22 History duloxetine 60 mg capsule,delayed 60 mg PO DAILY 04/16/22 04/16/22 History release fluticasone fur. 100 mcg-umeclid 1 inh inhalation DAILY 04/16/22 04/16/22 Histor y 62.5 mcg-vilant 25 mcg inhalat.powder (Trelegy Ellipta) gabapentin 100 mg capsule 100 mg PO DAILY 04/16/22 04/16/22 History lanthanum 500 mg chewable tablet 500 mg PO DAILY 04/16/22 04/16/22 History metoprolol succinate 50 mg 50 mg PO DAILY 04/16/22 04/16/22 History tablet,extended release 24 hr pramipexole 0.25 mg tablet 0.25 mg PO HS 04/16/22 04/16/22 History sacubitril 24 mg-valsartan 26 mg 1 tab PO BID 04/16/22 04/16/22 History tablet (Entresto) Patient History Medical History Anemia due to chronic kidney disease COPD (chronic obstructive pulmonary disease) Diabetes ESRD (end stage renal disease) on dialysis Peripheral arterial disease Surgical History A-V fistula History of amputation History of cardiac defibrillator placement S/P vascular bypass Family History Other Family history non-contributory Social History Smoking Status: Current every day smoker Hx Alcohol Use: No Hx Substance Use: Yes Prescribed Medications: Marijuana Preferred Language: Angolan Communication Ability: Effective Chief Yeoman Required: No Beliefs That Will Affect Care: None Current Living Situation: Spouse Other Information That Helps Us Care for You: No Feels Safe at Home: Yes Safety Concerns: Feels Safe At This Time Assistive Devices: Walker Review of Systems Review of Systems: All systems reviewed & are unremarkable except as noted in HPI & below Physical Exam Constitutional: + cachectic; no acute distress Respiratory: normal respiratory effort, lungs clear to auscultation Cardiovascular: RRR, no murmur, no edema Vessels: femoral pulses present, posterior tibial pulses present (Bilateral to Doppler), dorsalis pedis pulses present (Bilateral to Doppler) and radial pulses present Extremities: + AV fistula (There is a good thrill and bruit in the fistula in his right arm) Gastrointestinal (Abdomen): Inspection/Auscultation: abdomen normal to inspection Percussion/Palpation: abdomen soft; abdomen nontender Musculoskeletal: Extremities: strength 5/5 throughout There is redness of the lower extremities from knees distally. There is multiple excoriations present on both lower extremities. The amputation site of the toes of the left foot is open but there is some mild granulation tissue present around the edges, There is a mild amount of fibrin present in the Base of the wound. Changes lower extremities appear to be more venous insufficiency rather than acute arterial insufficiency. Neurologic: CN's II-XI intact bilaterally and moves all extremities Psychiatric: Orientation: alert and oriented x 3 Results & Data ([facility]) Vital Signs (Past 12 Hours) Vital Signs Temp Pulse Pulse Pulse Resp BP BP 04/20/22 14:15 36.8 C 70 17 132/85 04/20/22 13:30 69 122/70 04/20/22 13:00 67 111/70 04/20/22 12:30 68 127/70 04/20/22 12:00 68 121/76 04/20/22 11:30 66 120/74 04/20/22 10:43 36.5 C 61 127/68 04/20/22 11:00 62 131/77 04/20/22 11:22 36.5 C 62 04/20/22 10:00 04/20/22 07:34 36.5 C 62 17 116/64 Pulse Ox O2 Del Method 04/20/22 14:15 95 Room Air 04/20/22 13:30 04/20/22 13:00 04/20/22 12:30 04/20/22 12:00 04/20/22 11:30 04/20/22 10:43 04/20/22 11:00 04/20/22 11:22 04/20/22 10:00 Room Air 04/20/22 07:34 97 Room Air
--- NOTE | 2022-04-20 16:21 | Nephrology Progress Note ---
Date of Service April 20, 2022 Assessment & Plan (1) ESRD (end stage renal disease) on dialysis: (2) Bilateral lower leg cellulitis: (3) Anemia due to chronic kidney disease: Plan ESRD on hemodialysis, admitted with bilateral lower extremity cellulitis. On dialysis Sunday, Sunday, Sunday, last dialysis was Sunday due to short dialysis treatment Sunday. Currently blood pressure, electrolyte, volume status acceptable. MRI of bilateral foot and ankle was negative for osteomyelitis. -- Will do 3 hours dialysis today as he adamantly said he will not stay more than 3 hours because of significant back pain. -- Fluid restriction to less than 1200 mL per day, avoid high potassium food -- dose medications for eGFR less than 10, -- continue PhosLo as phosphate binder while inpatient. Admission and Anticipated Discharge Date Admission Date: April 16, 2022 Subjective Cooper was seen and evaluated this morning. BP, electrolyte, volume status acceptable. overall seems comfortable sitting in bed, not in any respiratory distress. Review of Systems Review of Systems: All systems reviewed & are unremarkable except as noted in Subjective Physical Exam Constitutional: WD/WN, vitals as above no acute distress Respiratory: Auscultation: lungs clear to auscultation bilaterally Cardiovascular: Rate/Rhythm: regular rate and regular rhythm Heart Sounds: normal S1 and normal S2 Skin: + rash, + lesion, + ulcer and + erythema Neurologic: no focal motor deficits and not confused Psychiatric: Orientation: alert and oriented x 3 Affect: euthymic affect Results & Data ([facility]) Vital Signs (Past 12 Hours) Vital Signs Temp Pulse Pulse Pulse Resp BP BP 04/20/22 14:00 69 133/84 04/20/22 14:15 36.8 C 70 17 132/85 04/20/22 13:30 69 122/70 04/20/22 13:00 67 111/70 04/20/22 12:30 68 127/70 04/20/22 12:00 68 121/76 04/20/22 11:30 66 120/74 04/20/22 10:43 36.5 C 61 127/68 04/20/22 11:00 62 131/77 04/20/22 11:22 36.5 C 62 04/20/22 10:00 04/20/22 07:34 36.5 C 62 17 116/64 Pulse Ox O2 Del Method 04/20/22 14:00 04/20/22 14:15 95 Room Air 04/20/22 13:30 04/20/22 13:00 04/20/22 12:30 04/20/22 12:00 04/20/22 11:30 04/20/22 10:43 04/20/22 11:00 04/20/22 11:22 04/20/22 10:00 Room Air 04/20/22 07:34 97 Room Air PG Care Time/CCT Total # of Minutes Spent Total Time Spent with Patient: Total time spent is greater than 50% in coordination of care (as documented) at patient's floor/unit and/or counseling patient: Coding Level of Care Code 76654 SUB INP/OBS CARE 2/35MIN Diagnoses ESRD (end stage renal disease) on dialysis N18.6; Z99.2 Bilateral lower leg cellulitis L03.116; L03.115 Anemia due to chronic kidney disease N18.9; D63.1
[2022-04-20] MEDS ORDERED: GLUCAGON 1 MG in SYRINGE 0 ML IV ONE (18:00)
[2022-04-20] MEDS: DAPTOmycin 300 MG in SYRINGE 0 ML IV SCH (18:14)
[2022-04-20] MEDS: traMADol HCL 50 MG TABLET PO SCH (20:12)
[2022-04-20] MEDS: ACETAMINOPHEN 500 MG TAB PO SCH (20:13)
[2022-04-20] MEDS: LIDOCAINE 2% JELLY 5 ML TUBE EXT PRN (22:22)
[2022-04-21] MEDS: PIPERACILLIN/TAZOBACTAM 3.375 GM in DEXTROSE 5% 100 ML IV SCH ×2 (01:52→13:26)
[2022-04-21] MEDS: LIDOCAINE 2% JELLY 5 ML TUBE EXT PRN (06:35)
[2022-04-21] MEDS: oxyCODONE HCL IR 5 MG TAB (IMMEDIATE RELEASE) PO PRN ×2 (06:35→20:48)
[2022-04-21] MEDS: FLUTICASONE FUROATE 100MCG 14 PUFFS/INHALER INH SCH (08:52)
[2022-04-21] MEDS: APIXABAN 5 MG TABLET PO SCH ×2 (08:52→20:43)
[2022-04-21] MEDS: UMECLIDINIUM/VILANTEROL 62.5/25MCG 7 PUFFS/INHALER INH SCH (08:52)
[2022-04-21] MEDS: VALSARTAN/SACUBITRIL 26/24MG TAB PO SCH ×2 (08:52→20:44)
[2022-04-21] MEDS: NEPHROCAPS PO SCH (08:53)
[2022-04-21] MEDS: CLOPIDOGREL BISULFATE 75 MG TAB PO SCH (08:53)
[2022-04-21] MEDS: DULoxetine HCL 60 MG CAP PO SCH (08:53)
[2022-04-21] MEDS: DOCUSATE SODIUM/SENNA 50/8.6MG TAB PO SCH (08:53)
[2022-04-21] MEDS: METOPROLOL SUCC 50MG EXT REL TAB PO SCH (08:54)
[2022-04-21] MEDS: ACETAMINOPHEN 500 MG TAB PO SCH ×2 (08:54→20:43)
[2022-04-21] MEDS: CALCIUM ACETATE 667 MG CAP/TAB PO SCH ×3 (08:54→17:38)
[2022-04-21] MEDS: GABAPENTIN 100 MG CAP PO SCH (08:55)
[2022-04-21] MEDS: traMADol HCL 50 MG TABLET PO SCH ×2 (09:03→20:48)
[2022-04-21] MEDS: INSULIN ASPART PER UNIT SC SCH ×4 (09:05→22:19)
--- NOTE | 2022-04-21 15:12 | Nephrology Progress Note ---
Date of Service April 21, 2022 Assessment & Plan (1) ESRD (end stage renal disease) on dialysis: (2) Bilateral lower leg cellulitis: (3) Anemia due to chronic kidney disease: Plan ESRD on hemodialysis, admitted with bilateral lower extremity cellulitis. On dialysis Sunday, Sunday, Sunday, last dialysis was Sunday due to short dialysis treatment Sunday. Currently blood pressure, electrolyte, volume status acceptable. MRI of bilateral foot and ankle was negative for osteomyelitis. -- If patient is agreeable will try to do 4 hours dialysis tomorrow considering we can and next dialysis will be after 2 days otherwise will just do 3 hours as patient has been refusing more than that. -- Fluid restriction to less than 1200 mL per day, avoid high potassium food -- dose medications for eGFR less than 10, -- continue PhosLo as phosphate binder while inpatient. Admission and Anticipated Discharge Date Admission Date: April 16, 2022 Subjective Cooper was seen and evaluated this morning. BP, electrolyte, volume status acceptable. He complains of pain in his leg and back specially when sits for dialysis and has been refusing more than 3 hours dialysis. Review of Systems Review of Systems: detailed review of system was otherwise unremarkable. Physical Exam Constitutional: WD/WN, vitals as above no acute distress Respiratory: Auscultation: lungs clear to auscultation bilaterally Cardiovascular: Rate/Rhythm: regular rate and regular rhythm Heart Sounds: normal S1 and normal S2 Skin: + rash, + lesion, + ulcer and + erythema Neurologic: no focal motor deficits and not confused Psychiatric: Orientation: alert and oriented x 3 Affect: euthymic affect Results & Data ([facility]) Vital Signs (Past 12 Hours) Vital Signs Temp Pulse Resp BP Pulse Ox O2 Del Method 04/21/22 07:24 36.5 C 78 18 113/66 93 Room Air PG Care Time/CCT Total # of Minutes Spent Total Time Spent with Patient: Total time spent is greater than 50% in coordination of care (as documented) at patient's floor/unit and/or counseling patient: Coding Level of Care Code 77208 SUB INP/OBS CARE 2/35MIN Diagnoses ESRD (end stage renal disease) on dialysis N18.6; Z99.2 Bilateral lower leg cellulitis L03.116; L03.115 Anemia due to chronic kidney disease N18.9; D63.1
--- NOTE | 2022-04-21 15:41 | Hospitalist Progress Note ---
Date of Service April 21, 2022 Assessment & Plan (1) Bilateral lower leg cellulitis: Plan: acute Bilateral LE cellulitis with chronic venous stasis changes and arterial insufficiency chronic progressing Peripheral artery disease, Patient with known history of PAD s/p bypass grafting of the LLE as well as transmetatarsal left foot amputation -Follow blood cultures sent from 04/16/2022 are negative -recessing cellulitis from marked area -Continue Zosyn and Daptomycin, renal dosing for ESRD/HD with pharmacy assistance appreciated bilateral LE arterial dopplers: 1. Occlusion of the proximal right superficial femoral artery with distal reconstitution of flow. 2. Occlusion of the left anterior tibial artery with distal reconstitution of flow. 3. Patent stent of the left superficial femoral artery. Though is shows reconstitution of flow, consult vascular surgery. MRI of bilateral lower extremities are negative for ostemyelitits. Pharmacy has reviewed records from [facility] system no evidence of MRSA or significant gram-negative infections. Recommendations for de-escalation of antibiotics to cefazolin nightly with eventual transition to cephalexin which will be 500-day to complete an outpatient 2-week therapy course - (2) Peripheral arterial disease: Plan: Chronic and progressive Patient with history of PAD s/p bypass grafting. Suspect findings on LE are at least in part due to vascular compromise -Arterial duplex as above -Continue Plavix 75mg po daily - reported home medication from [facility] records -Patient does not appear to be on a statin -patient refuses and limits many of his medications. Not wish to be on a cholesterol-lowering medication to help with his peripheral artery disease Counseled on smoking cessation patient has resistant to considering this (3) ESRD (end stage renal disease) on dialysis: Plan: Chronic and stable patient with ESRD on HD q M/W/. He reports compliance with HD. His Cashier Or Checker Stock Clerk is in [place] -Nephrology consulted to manage inpatient dialysis -Patient is on Lanthanum outpatient for PO4 management - non-formulary - will add Phos-Lo (PO4=7.2) (4) Diabetes: Plan: Chronic and stable patient reports he does not take anything for his diabetes anymore. Blood sugar elevated today at 236. -Goal blood sugar 110 - 140 -Lantus 5u BID, adjust as needed -ISS Hemoglobin a1c is 7.8 on 04/17/2022 (5) COPD (chronic obstructive pulmonary disease): Plan: Chronic stable nonprogressive patient continues to smoke. Adequate oxygenation on room air. No respiratory distress -Continue Trelegy or hospital formulary equivalent -Albuterol PRN -Smoking cessation counseling performed the patient on this calendar day patient is resistant to reducing smoking more than he has already (6) Right hip pain: Plan: Acute right to recent trauma improving patient reports falling on his right hip several weeks ago then falling on it again. He has had worsening pain and difficulty with weight bearing and reports needing to use a walker over the last three days which is atypical for him. -Imaging of the hip shows no fracture. Imaging of the right foot shows no fracture imaging of left foot shows no fracture and only postoperative changes at the first and second metatarsal from the transmetatarsal surgery -PT/OT continue treatment. Oral pain control with opiate medication (7) Abnormal bilirubin test: Plan: Acute self-limited and improving suspect some degree of underlying liver disease based on labs - Na of 130, Plt of 102, PTT of 32.2 and TBili of 2.1 -No significant architectural change of his liver bilirubin is improving -Hypoechoic 5.5 cm structure within the right cardiophrenic angle may represent loculated pleural fluid or less likely a pericardial cyst. -will repeat LFTs while here. (8) Heart failure: Plan: Chronic stable systolic heart failure he reports having an AICD in place - -Continue Entresto metoprolol -Continue Apixaban Ppx - On Apixaban Code - Full per discussion with patient Admission and Anticipated Discharge Date Admission Date: April 16, 2022 Subjective Patient is in good spirits today. His pain has been improved with slight escalation of oxycodone. Patient's lower extremity cellulitis is improved but his chronic venous stasis changes persist with minor and multiple areas of small open areas in various stages of healing due to trauma Physical Exam Physical Exam: He is awake alert appropriate. Patient's lower extremities have less erythema line of demarcation continues to recede from previous marked areas. He has some eschars on his feet which are from trauma that he states Results & Data Results & Data ([facility]) Vital Signs (Past 12 Hours) Vital Signs Temp Pulse Resp BP Pulse Ox O2 Del Method 04/21/22 07:24 97.7 F 78 18 113/66 93 Room Air PG Care Time/CCT Total # of Minutes Spent Total Time Spent with Patient: Total time spent is greater than 50% in coordination of care (as documented) at patient's floor/unit and/or counseling patient: Coding Level of Care Code 15152 SUB INP/OBS CARE 235MIN Diagnoses Bilateral lower leg cellulitis L03.116; L03.115 Peripheral arterial disease I73.9 ESRD (end stage renal disease) on dialysis N18.6; Z99.2 Diabetes E11.9 COPD (chronic obstructive pulmonary disease) J44.9 Right hip pain M25.551 Abnormal bilirubin test R79.89 Heart failure I50.9
[2022-04-21] MEDS: ceFAZolin 1000MG 1,000 MG/7.5 ML SYR IV SCH (17:36)
[2022-04-22] MEDS: LIDOCAINE 2% JELLY 5 ML TUBE EXT PRN ×4 (04:38→22:03)
[2022-04-22] MEDS: oxyCODONE HCL IR 5 MG TAB (IMMEDIATE RELEASE) PO PRN ×4 (04:42→22:01)
[2022-04-22] MEDS: GABAPENTIN 100 MG CAP PO SCH (08:21)
[2022-04-22] MEDS: METOPROLOL SUCC 50MG EXT REL TAB PO SCH (08:25)
[2022-04-22] MEDS: NEPHROCAPS PO SCH (08:25)
[2022-04-22] MEDS: ACETAMINOPHEN 500 MG TAB PO SCH ×2 (08:25→20:10)
[2022-04-22] MEDS: CLOPIDOGREL BISULFATE 75 MG TAB PO SCH (08:25)
[2022-04-22] MEDS: VALSARTAN/SACUBITRIL 26/24MG TAB PO SCH ×2 (08:26→20:12)
[2022-04-22] MEDS: APIXABAN 5 MG TABLET PO SCH ×2 (08:26→20:12)
[2022-04-22] MEDS: CALCIUM ACETATE 667 MG CAP/TAB PO SCH ×3 (08:26→18:00)
[2022-04-22] MEDS: DOCUSATE SODIUM/SENNA 50/8.6MG TAB PO SCH (08:26)
[2022-04-22] MEDS: DULoxetine HCL 60 MG CAP PO SCH (08:26)
[2022-04-22] MEDS: traMADol HCL 50 MG TABLET PO SCH ×2 (08:27→20:12)
[2022-04-22] MEDS: FLUTICASONE FUROATE 100MCG 14 PUFFS/INHALER INH SCH (08:28)
[2022-04-22] MEDS: UMECLIDINIUM/VILANTEROL 62.5/25MCG 7 PUFFS/INHALER INH SCH (08:28)
[2022-04-22] MEDS: INSULIN ASPART PER UNIT SC SCH ×4 (08:36→21:30)
--- NOTE | 2022-04-22 10:45 | Nephrology Progress Note ---
Date of Service April 22, 2022 Assessment & Plan (1) ESRD (end stage renal disease) on dialysis: (2) Bilateral lower leg cellulitis: (3) Anemia due to chronic kidney disease: Plan ESRD on hemodialysis, admitted with bilateral lower extremity cellulitis. On dialysis Sunday, Sunday, Sunday, last dialysis was Sunday due to short dialysis treatment Sunday. Currently blood pressure, electrolyte, volume status acceptable. MRI of bilateral foot and ankle was negative for osteomyelitis. -- patient is agreeable to try to do 4 hours dialysis today -- Fluid restriction to less than 1200 mL per day, avoid high potassium food -- dose medications for eGFR less than 10, -- continue PhosLo as phosphate binder while inpatient. -- OK to DC tomorrow and resume MWF HD starting Sunday at [facility]. Admission and Anticipated Discharge Date Admission Date: April 16, 2022 Subjective Cooper was seen and evaluated this morning. BP, electrolyte, volume status acceptable. Tolerating dialysis, aiming for 4 h. Review of Systems Review of Systems: detailed review of system was otherwise unremarkable. Physical Exam Constitutional: WD/WN, vitals as above no acute distress Respiratory: Auscultation: lungs clear to auscultation bilaterally Cardiovascular: Rate/Rhythm: regular rate and regular rhythm Heart Sounds: normal S1 and normal S2 Skin: + rash, + lesion, + ulcer and + erythema Neurologic: no focal motor deficits and not confused Psychiatric: Orientation: alert and oriented x 3 Affect: euthymic affect Results & Data ([facility]) Vital Signs (Past 12 Hours) Vital Signs Temp Pulse Pulse Pulse Pulse Resp BP 04/22/22 10:30 73 114/72 04/22/22 10:00 73 103/66 04/22/22 09:46 50 L 116/76 04/22/22 09:30 36.8 C 56 L 04/22/22 08:00 36.6 C 80 16 04/22/22 00:37 87 BP Pulse Ox O2 Del Method 04/22/22 10:30 04/22/22 10:00 04/22/22 09:46 04/22/22 09:30 04/22/22 08:00 100/62 96 Room Air 04/22/22 00:37 117/68 PG Care Time/CCT Total # of Minutes Spent Total Time Spent with Patient: Total time spent is greater than 50% in coordination of care (as documented) at patient's floor/unit and/or counseling patient: Coding Level of Care Code 21613 SUB INP/OBS CARE Diagnoses ESRD (end stage renal disease) on dialysis N18.6; Z99.2 Bilateral lower leg cellulitis L03.116; L03.115 Anemia due to chronic kidney disease N18.9; D63.1
--- NOTE | 2022-04-22 16:18 | Hospitalist Progress Note ---
Date of Service April 22, 2022 Assessment & Plan (1) Bilateral lower leg cellulitis: Plan: acute Bilateral LE cellulitis with chronic venous stasis changes and arterial insufficiency chronic progressing Peripheral artery disease, Patient with known history of PAD s/p bypass grafting of the LLE as well as transmetatarsal left foot amputation -blood cultures sent from 04/16/2022 are negative -Continuous improving cellulitis from marked areas bilateral LE arterial dopplers: 1. Occlusion of the proximal right superficial femoral artery with distal reconstitution of flow. 2. Occlusion of the left anterior tibial artery with distal reconstitution of f low. 3. Patent stent of the left superficial femoral artery. Though is shows reconstitution of flow, consult vascular surgery. MRI of bilateral lower extremities are negative for ostemyelitits. Pharmacy has reviewed records from [facility] system no evidence of MRSA or significant gram-negative infections. Recommendations for de-escalation of antibiotics to cefazolin nightly with eventual transition to cephalexin which will be 500-day to complete an outpatient 2-week therapy course - (2) Peripheral arterial disease: Plan: Chronic and progressive Patient with history of PAD s/p bypass grafting. Suspect findings on LE are at least in part due to vascular compromise -Arterial duplex as above -Continue Plavix 75mg po daily - reported home medication from [facility] records -Patient does not appear to be on a statin -patient refuses and limits many of his medications. Not wish to be on a cholesterol-lowering medication to help with his peripheral artery disease Counseled on smoking cessation patient has resistant to considering this Informed the patient without treatment of his secondary risk factors he may eventually have a more significant amputation of his lower extremities (3) ESRD (end stage renal disease) on dialysis: Plan: Chronic and stable patient with ESRD on HD q M/W/. He reports compliance with HD. His Maintenance Planner is in [place] -Nephrology consulted to manage inpatient dialysis -Patient is on Lanthanum outpatient for PO4 management - non-formulary - will add Phos-Lo (PO4=7.2) (4) Diabetes: Plan: Chronic and stable patient reports he does not take anything for his diabetes anymore. Blood sugar elevated today at 236. -Goal blood sugar 110 - 140 -Lantus 5u BID, adjust as needed -ISS Hemoglobin a1c is 7.8 on 04/17/2022 (5) COPD (chronic obstructive pulmonary disease): Plan: Chronic stable nonprogressive patient continues to smoke. Adequate oxygenation on room air. No respiratory distress -Continue Trelegy or hospital formulary equivalent -Albuterol PRN -Smoking cessation counseling performed the patient on this calendar day patient is resistant to reducing smoking more than he has already (6) Right hip pain: Plan: Acute secondary to recent fall/trauma improving patient reports falling on his right hip several weeks ago then falling on it again. He has had worsening pain and difficulty with weight bearing and reports needing to use a walker over the last three days which is atypical for him. -Imaging of the hip shows no fracture. Imaging of the right foot shows no fracture imaging of left foot shows no fracture and only postoperative changes at the first and second metatarsal from the transmetatarsal surgery -PT/OT continue treatment. Oral pain control with opiate medication (7) Abnormal bilirubin test: Plan: Acute self-limited and improving suspect some degree of underlying liver disease based on labs - Na of 130, Plt of 102, PTT of 32.2 and TBili of 2.1 -No significant architectural change of his liver bilirubin is improving -Hypoechoic 5.5 cm structure within the right cardiophrenic angle may represent loculated pleural fluid or less likely a pericardial cyst. -will repeat LFTs while here. (8) Heart failure: Plan: Chronic stable systolic heart failure he reports having an AICD in place - -Continue Entresto metoprolol -Continue Apixaban Ppx - On Apixaban Code - Full per discussion with patient Admission and Anticipated Discharge Date Admission Date: April 16, 2022 Subjective Patient was seen in dialysis clinic. He is in good spirits. He has persistent petechiae of his legs but improving overall Physical Exam Physical Exam: Patient is awake alert appropriate on dialysis his heart is regular his lungs are clear Legs remain erythematous but improving there is nonblanchable petechiae on his legs and open areas of various stages of healing Results & Data Results & Data ([facility]) Vital Signs (Past 12 Hours) Vital Signs Temp Pulse Pulse Pulse Pulse Resp BP 04/22/22 15:27 97.9 F 82 17 04/22/22 12:50 97.9 F 81 04/22/22 12:30 79 115/68 04/22/22 12:00 76 105/67 04/22/22 11:30 76 112/72 04/22/22 11:00 69 105/67 04/22/22 07:20 04/22/22 10:30 73 114/72 04/22/22 10:00 73 103/66 04/22/22 09:46 50 L 116/76 04/22/22 09:30 98.2 F 56 L 04/22/22 08:00 97.9 F 80 16 BP Pulse Ox O2 Del Method 04/22/22 15:27 116/65 95 Room Air 04/22/22 12:50 117/71 04/22/22 12:30 04/22/22 12:00 04/22/22 11:30 04/22/22 11:00 04/22/22 07:20 Room Air 04/22/22 10:30 04/22/22 10:00 04/22/22 09:46 04/22/22 09:30 04/22/22 08:00 100/62 96 Room Air PG Care Time/CCT Total # of Minutes Spent Total Time Spent with Patient: Total time spent is greater than 50% in coordination of care (as documented) at patient's floor/unit and/or counseling patient: Coding Level of Care Code 28444 SUB INP/OBS CARE 2/35MIN Diagnoses Bilateral lower leg cellulitis L03.116; L03.115 Peripheral arterial disease I73.9 ESRD (end stage renal disease) on dialysis N18.6; Z99.2 Diabetes E11.9 COPD (chronic obstructive pulmonary disease) J44.9 Right hip pain M25.551 Abnormal bilirubin test R79.89 Heart failure I50.9
[2022-04-22] MEDS: ceFAZolin 1000MG 1,000 MG/7.5 ML SYR IV SCH (17:58)
[2022-04-22] MEDS: CARBOHYDRATES FOR HYPOGLYCEMIA PO PRN ×2 (20:19→20:52)
[2022-04-23] MEDS: oxyCODONE HCL IR 5 MG TAB (IMMEDIATE RELEASE) PO PRN (04:35)
--- NOTE | 2022-04-23 08:12 | Hospitalist Progress Note ---
Date of Service April 23, 2022 Assessment & Plan (1) Bilateral lower leg cellulitis: Plan: acute Bilateral LE cellulitis with chronic venous stasis changes and arterial insufficiency chronic progressing Peripheral artery disease, Patient with known history of PAD s/p bypass grafting of the LLE as well as transmetatarsal left foot amputation -blood cultures sent from 04/16/2022 are negative -Continuous improving cellulitis from marked areas bilateral LE arterial dopplers: 1. Occlusion of the proximal right superficial femoral artery with distal reconstitution of flow. 2. Occlusion of the left anterior tibial artery with distal reconstitution of f low. 3. Patent stent of the left superficial femoral artery. Though is shows reconstitution of flow, consult vascular surgery. their rendered opinion The left lower extremity has patency of the superficial femoral popliteal and infrapopliteal vessels other than the anterior tibial to the foot. The right side has a proximal superficial femoral artery occlusion with reconstitution of the artery distally with flow down through the infrapopliteal arteries to the foot. Due to his medical conditions he Is not a good candidate for a revascularization procedure. I would hold off on any interventions and see if we can get these areas to heal up on their own with local care. If the right leg worsens then intervention on the superficial femoral artery could be undertaken to try and increase the flow. Left lower extremity again has patency of the vessels and no indication for any intervention at this point MRI of bilateral lower extremities are negative for ostemyelitits. Pharmacy has reviewed records from [facility] system no evidence of MRSA or significant gram-negative infections. Recommendations for de-escalation of antibiotics to cefazolin nightly with eventual transition to cephalexin which will be 500-day to complete an outpatient 2-week therapy course - (2) Peripheral arterial disease: Plan: Chronic and progressive Patient with history of PAD s/p bypass grafting. Suspect findings on LE are at least in part due to vascular compromise -Arterial duplex as above -Continue Plavix 75mg po daily - reported home medication from [facility] records -Patient does not appear to be on a statin -patient refuses and limits many of his medications. Not wish to be on a cholesterol-lowering medication to help with his peripheral artery disease Counseled on smoking cessation patient has resistant to considering this Informed the patient without treatment of his secondary risk factors he may eventually have a more significant amputation of his lower extremities (3) ESRD (end stage renal disease) on dialysis: Plan: Chronic and stable patient with ESRD on HD q M/W/F. He reports compliance with HD. His [employer] is in [place] -Nephrology consulted to manage inpatient dialysis -Patient is on Lanthanum outpatient for PO4 management - non-formulary - will add Phos-Lo (PO4=7.2) (4) Diabetes: Plan: Chronic and stable patient reports he does not take anything for his diabetes anymore. Blood sugar elevated today at 236. -Goal blood sugar 110 - 140 -Lantus 5u BID, adjust as needed -ISS Hemoglobin a1c is 7.8 on 04/17/2022 (5) COPD (chronic obstructive pulmonary disease): Plan: Chronic stable nonprogressive patient continues to smoke. Adequate oxygenation on room air. No respiratory distress -Continue Trelegy or hospital formulary equivalent -Albuterol PRN -Smoking cessation counseling performed the patient on this calendar day patient is resistant to reducing smoking more than he has already (6) Right hip pain: Plan: Acute secondary to recent fall/trauma improving patient reports falling on his right hip several weeks ago then falling on it again. He has had worsening pain and difficulty with weight bearing and reports needing to use a walker over the last three days which is atypical for him. -Imaging of the hip shows no fracture. Imaging of the right foot shows no fracture imaging of left foot shows no fracture and only postoperative changes at the first and second metatarsal from the transmetatarsal surgery -PT/OT continue treatment. Oral pain control with opiate medication (7) Abnormal bilirubin test: Plan: Acute self-limited and improving suspect some degree of underlying liver disease based on labs - Na of 130, Plt of 102, PTT of 32.2 and TBili of 2.1 -No significant architectural change of his liver bilirubin is improving -Hypoechoic 5.5 cm structure within the right cardiophrenic angle may represent loculated pleural fluid or less likely a pericardial cyst. -will repeat LFTs while here. (8) Heart failure: Plan: Chronic stable systolic heart failure he reports having an AICD in place - -Continue Entresto metoprolol -Continue Apixaban Ppx - On Apixaban Code - Full per discussion with patient Admission and Anticipated Discharge Date Admission Date: April 16, 2022 Results & Data Results & Data ([facility]) Vital Signs (Past 12 Hours) Vital Signs Temp Pulse Pulse Resp BP Pulse Ox O2 Del Method 04/23/22 07:34 97.5 F L 80 16 103/64 97 Room Air 04/22/22 21:18 97.7 F 81 18 114/70 94 Room Air PG Care Time/CCT Total # of Minutes Spent Total Time Spent with Patient: Total time spent is greater than 50% in coordination of care (as documented) at patient's floor/unit and/or counseling patient: Coding Diagnoses Bilateral lower leg cellulitis L03.116; L03.115 Peripheral arterial disease I73.9 ESRD (end stage renal disease) on dialysis N18.6; Z99.2 Diabetes E11.9 COPD (chronic obstructive pulmonary disease) J44.9 Right hip pain M25.551 Abnormal bilirubin test R79.89 Heart failure I50.9
[2022-04-23 08:36] LABS: Hematocrit (blood only) 36.5 % (40.1-51.0); Hemoglobin 11.8 g/dl (14.0-18.0); Mean Corpuscular Hemoglobin 29.9 pg (25.0-34.0); Mean Corpuscular Hgb Conc 32.3 g/dL (32.0-36.0); Mean Corpuscular Volume 92.4 fL (80.0-100.0); Mean Platelet Volume 10.4 fL (9.4-12.4); Platelet Count 158 K/uL (130-400); RDW Coefficient of Variation 17.1 % (11.5-14.5); RDW Standard Deviation 57.4 fL (36.4-46.3); Red Blood Count 3.95 M/uL (4.63-6.08); White Blood Count 7.71 K/ul (4.8-10.8)
[2022-04-23] MEDS: ACETAMINOPHEN 500 MG TAB PO SCH (08:38)
[2022-04-23] MEDS: traMADol HCL 50 MG TABLET PO SCH (08:39)
[2022-04-23] MEDS: INSULIN ASPART PER UNIT SC SCH ×2 (08:39→12:40)
[2022-04-23] MEDS: APIXABAN 5 MG TABLET PO SCH (08:39)
[2022-04-23] MEDS: NEPHROCAPS PO SCH (08:40)
[2022-04-23] MEDS: DOCUSATE SODIUM/SENNA 50/8.6MG TAB PO SCH (08:40)
[2022-04-23] MEDS: VALSARTAN/SACUBITRIL 26/24MG TAB PO SCH (08:40)
[2022-04-23] MEDS: DULoxetine HCL 60 MG CAP PO SCH (08:40)
[2022-04-23] MEDS: GABAPENTIN 100 MG CAP PO SCH (08:40)
[2022-04-23] MEDS: CLOPIDOGREL BISULFATE 75 MG TAB PO SCH (08:40)
[2022-04-23] MEDS: METOPROLOL SUCC 50MG EXT REL TAB PO SCH (08:40)
[2022-04-23] MEDS: UMECLIDINIUM/VILANTEROL 62.5/25MCG 7 PUFFS/INHALER INH SCH (08:41)
[2022-04-23] MEDS: FLUTICASONE FUROATE 100MCG 14 PUFFS/INHALER INH SCH (08:41)
[2022-04-23] MEDS: CALCIUM ACETATE 667 MG CAP/TAB PO SCH ×2 (08:41→12:40)
[2022-04-23 08:57] LABS: BUN Creatinine Ratio 9.9 (10-20); Calcium 8.6 mg/dl (8.5-10.1); Creatinine Clr Calc Pharmacy 17.5 ml/min; Est GFR (African American) 16.2 ml/min; Potassium 4.7 mmol/L (3.5-5.1)
--- NOTE | 2022-04-23 10:44 | Nephrology Progress Note ---
Date of Service April 23, 2022 Assessment & Plan (1) ESRD (end stage renal disease) on dialysis: (2) Bilateral lower leg cellulitis: (3) Anemia due to chronic kidney disease: Plan ESRD on hemodialysis, admitted with bilateral lower extremity cellulitis. On dialysis Sunday, Sunday, Sunday, last dialysis was Sunday due to short dialysis treatment Sunday. Currently blood pressure, electrolyte, volume status acceptable. MRI of bilateral foot and ankle was negative for osteomyelitis. -- had 4 hours dialysis yesterday, switch back to MWF HD, next HD tomorrow. -- Fluid restriction to less than 1200 mL per day, avoid high potassium food -- dose medications for eGFR less than 10, -- continue PhosLo as phosphate binder while inpatient. -- OK to DC and resume MWF HD starting Sunday at [place]. Admission and Anticipated Discharge Date Admission Date: April 16, 2022 Subjective Cooper was seen and evaluated this morning. BP, electrolyte, volume status acceptable. Had 4 h dialysis yesterday. Asymptomatic. Review of Systems Review of Systems: detailed review of system was otherwise unremarkable. Physical Exam Constitutional: WD/WN, vitals as above no acute distress Respiratory: Auscultation: lungs clear to auscultation bilaterally Cardiovascular: Rate/Rhythm: regular rate and regular rhythm Heart Sounds: normal S1 and normal S2 Skin: + rash, + lesion, + ulcer and + erythema Neurologic: no focal motor deficits and not confused Psychiatric: Orientation: alert and oriented x 3 Affect: euthymic affect Results & Data ([facility]) Vital Signs (Past 12 Hours) Vital Signs Temp Pulse Resp BP Pulse Ox O2 Del Method 04/23/22 07:50 Room Air 04/23/22 07:34 36.4 C L 80 16 103/64 97 Room Air PG Care Time/CCT Total # of Minutes Spent Total Time Spent with Patient: Total time spent is greater than 50% in coordination of care (as documented) at patient's floor/unit and/or counseling patient: Coding Level of Care Code 38774 SUB INP/OBS CARE 2/35MIN Diagnoses ESRD (end stage renal disease) on dialysis N18.6; Z99.2 Bilateral lower leg cellulitis L03.116; L03.115 Anemia due to chronic kidney disease N18.9; D63.1
[2022-04-23] MEDS: LIDOCAINE 2% JELLY 5 ML TUBE EXT PRN (11:03)
--- NOTE | 2022-04-23 16:07 | Discharge Summary ---
Date of Service April 23, 2022 Admission HPI Per Admitting Provider Fernando Sanchez is a 66yo male with history of ESRD on HD q M/W/F, COPD, CAD, DM, CHF with AICD in place presenting with complaint of bilateral LE redness, pain and itching. Patient reports that he has been feeling very anxious and scratching his legs causing some deep excoriations. Over the last several days he has had progressive redness and pain. Patient has been taking Doxycycline for his cellulitis. He was at [facility] on 04/13/22 and was diagnose with stasis dermatitis and cellulitis. It was recommended that he stay, but left AMA on 04/14/22. He reports severe discomfort of his bilateral LE. Additionally patient reports that he slipped on ice and fell on his right hip several weeks ago. He reports having a lot of pain but was able to ambulate. Unfortunately, he fell several days later on the same hip. He has been having difficulty ambulating on his right hip due to pain with weight bearing. He has been using a walker over the last three days due to progressive right hip pain. He denies chest pain, cough, shortness of breath. Denies fever, chills, rigors. Denies abdominal pain or distention, nausea, vomiting, diarrhea or constipation. No additional complaints at this time. Patient receives all care through [facility]. His Civil Engineering Intern is in [place]. He has difficulty recalling details of his medical history, prior care, medications, etc. Overall poor historian. Daughter and at bedside at time of admission and assist with history. In the ER he is afebrile, HD stable, NAD ER Course: Zosyn 4.5gm Daptomycin 425mg Lantus 5u Principal Diagnosis BILATERAL LOWER LEG CELLULITIS VASCULAR COMPROMISE TO le, RIGHT ANTERIOR ARTERY OCCLUSION esrd on dialysis diabetic neuropathy tobacco use Discharge Exam Patient has not erythematous lower extremities. The erythema that was associate with his cellulitis is since receded. He has various stages of open areas on his lower legs from local trauma. His legs overall greatly improved. Capillary refill remains delayed bilaterally Discharge Data Allergies Allergy/AdvReac Type Severity Reaction Status Date / Time No Known Allergies Allergy Unverified 04/16/22 22:10 Consultations 04/16/22 19:30 ED Decision to Admit Stat 04/16/22 21:29 Consult Nephrology Routine 04/18/22 22:07 Consult Vascular Surgery Routine 04/23/22 11:09 Consult DECLANG scientific manager Routine Ordered Studies 04/17/22 US arterial duplex LE BI Urgent 04/17/22 01:08 CT hip RT wo con Routine 04/17/22 01:09 US liver Routine 04/19/22 00:00 MR ankle LT wo con Routine MR foot RT w/o con Routine Hospital Course (1) Bilateral lower leg cellulitis: acute Bilateral LE cellulitis with chronic venous stasis changes and arterial insufficiency chronic progressing Peripheral artery disease, Patient with known history of PAD s/p bypass grafting of the LLE as well as transmetatarsal left foot amputation -blood cultures sent from 04/16/2022 are negative -Continuous improving cellulitis from marked areas bilateral LE arterial dopplers: 1. Occlusion of the proximal right superficial femoral artery with distal reconstitution of flow. 2. Occlusion of the left anterior tibial artery with distal reconstitution of flow. 3. Patent stent of the left superficial femoral artery. Though is shows reconstitution of flow, consulted vascular surgery. their rendered opinion The left lower extremity has patency of the superficial femoral popliteal and infrapopliteal vessels other than the anterior tibial to the foot. The right side has a proximal superficial femoral artery occlusion with reconstitution of the artery distally with flow down through the infrapopliteal arteries to the foot. Due to his medical conditions he Is not a good candidate for a revascularization procedure. I would hold off on any interventions and see if we can get these areas to heal up on their own with local care. If the right leg worsens then intervention on the superficial femoral artery could be undertaken to try and increase the flow. Left lower extremity again has patency of the vessels and no indication for any intervention at this point MRI of bilateral lower extremities are negative for ostemyelitits. Pharmacy has reviewed records from [facility] system no evidence of MRSA or significant gram-negative infections. Recommendations for de-escalation of antibiotics to cefazolin nightly with eventual transition to cephalexin which will be 500-day to complete an outpatient 2-week therapy course - (2) Peripheral arterial disease: Chronic and progressive Patient with history of PAD s/p bypass grafting. Suspect findings on LE are at least in part due to vascular compromise -Arterial duplex as above -Continue Plavix 75mg po daily - reported home medication from [facility] records -Patient does not appear to be on a statin -patient refuses and limits many of his medications. Not wish to be on a cholesterol-lowering medication to help with his peripheral artery disease Counseled on smoking cessation patient has resistant to considering this Informed the patient without treatment of his secondary risk factors he may eventually have a more significant amputation of his lower extremities (3) ESRD (end stage renal disease) on dialysis: Chronic and stable patient with ESRD on HD q M/W/F. He reports compliance with HD. His Civil Engineering Intern is in [place] -Nephrology consulted to manage inpatient dialysis -Patient is on Lanthanum outpatient for PO4 management - (4) Diabetes: Chronic and stable patient reports he does not take anything for his diabetes anymore. Patient recommended follow-up with his out patient primary care provider to reengage with his insulin treatment (5) COPD (chronic obstructive pulmonary disease): Chronic stable nonprogressive patient continues to smoke. Adequate oxygenation on room air. No respiratory distress -Continue Trelegy -Albuterol PRN -Smoking cessation counseling performed the patient on this calendar day patient is resistant to reducing smoking more than he has already (6) Right hip pain: Acute secondary to recent fall/trauma improving patient reports falling on his right hip several weeks ago then falling on it again. He has had worsening pain and difficulty with weight bearing and reports needing to use a walker over the last three days which is atypical for him. -Imaging of the hip shows no fracture. Imaging of the right foot shows no fracture imaging of left foot shows no fracture and only postoperative changes at the first and second metatarsal from the transmetatarsal surgery - Oral pain control with opiate medication prescription given for small amount (7) Abnormal bilirubin test: Acute self-limited and improving suspect some degree of underlying liver disease based on labs -No significant architectural change of his liver bilirubin is improving -Hypoechoic 5.5 cm structure within the right cardiophrenic angle may represent loculated pleural fluid or less likely a pericardial cyst. -will repeat LFTs while here. (8) Heart failure: Chronic stable systolic heart failure he reports having an AICD in place - -Continue Entresto metoprolol -Continue Apixaban Plan Spoke to his daughter the day of discharge Total Time Total Time Spent Total Time Spent (In Minutes): It required greater than 30 minutes to prepare this patient for discharge Discharge Plan Discharge Items Patient Disposition: Home - Home Health Services Reason For Visit: BILATERAL LEG REDNESS,PAIN Discharge Diagnosis: BILATERAL LOWER LEG CELLUITIS VASCULAR COMPRIMISE TO le, RIGHT ANTERIOR ARTERY OCCLUSION Activity: Per Instructions section Activity Comment: KEEP LEGS ELEVATED WHEN AT REST Non-emergency contact: Primary Care Provider and Specialist Call non-emergency contact if: your symptoms worsen Follow-up/Referrals: Rubina Naqvi DO [Primary Care Provider] - Diet: Carb Consistent or DM2, Dialysis Renal and Low Sodium (2gm) Addtl Attending Provider Instructions: kEEP LEGS ELEVATED WHEN RESTING WASH DAILY WITH SOAP AND WATER AND STRONGLY CONSIDER FOLLOW UP AT A WOUND CENTER COMPLETE YOUR ANTIBIOTICS AND FOLLOW UP WITH YOUR FAMILY DOCTOR Pending Studies at Discharge: No Stand-Alone Forms: My [employer], Smoking Cessation Medications and DC Order Prescriptions: New cephalexin 500 mg capsule 500 mg PO DAILY 14 Days Qty: 14 0RF Rx Instructions: TAKE IN EVENING lidocaine HCl 2 % Jelly 3 ml EXT BID PRN (Reason: LEG PAIN) Qty: 30 0RF oxycodone 5 mg Tablet 7.5 mg PO Q6H PRN (Reason: pain) Qty: 15 0RF Continued cyclobenzaprine 10 mg tablet 10 mg PO BID PRN (Reason: Spasms) pramipexole 0.25 mg tablet 0.25 mg PO HS gabapentin 100 mg capsule 100 mg PO DAILY albuterol sulfate 90 mcg/actuation HFA aerosol inhaler 2 INHALATION Q4H PRN (Reason: Shortness Of Breath Or Wheezing) duloxetine 60 mg capsule,delayed release(DR/EC) 60 mg PO DAILY lanthanum 500 mg tablet,chewable 500 mg PO DAILY Eliquis 5 mg tablet 5 mg PO BID Trelegy Ellipta 100-62.5-25 mcg blister with device 1 inh INHALATION DAILY metoprolol succinate 50 mg tablet extended release 24 hr 50 mg PO DAILY Qty: 30 0RF clopidogrel 75 mg tablet 75 mg PO DAILY Qty: 30 0RF Entresto 24-26 mg tablet 1 tab PO BID Qty: 60 0RF Discharge Orders: Discharge Order (Routine); Ordered 04/23/22 Ordered By: Leonard Metz/Other Patient Handouts: Managing Type 2 Diabetes, How to Check Your Blood Sugar Admission Data Admit Date/Time: 04/16/22 20:29 Attending Provider: Leonard Kilgore Admit Provider: Cynthia Moon Primary Care Provider: Rubina Naqvi. Other Providers: Cynthia Moon ; Kathya Warner ; Carlos Hanley Other Interventions: Discharge Summary Assessment (RN) Last Done: 04/23/22 13:03 Coding Level of Care Code HOSP INP/OBS DISCH >30 MIN Diagnoses Bilateral lower leg cellulitis L03.116; L03.115 Peripheral arterial disease I73.9 ESRD (end stage renal disease) on dialysis N18.6; Z99.2 Diabetes E11.9 COPD (chronic obstructive pulmonary disease) J44.9 Right hip pain M25.551 Abnormal bilirubin test R79.89 Heart failure I50.9
== END 2022-04-23 16:25 | disposition home health service (06) | DRG 299 ==
LOC: ED 17:03 → SUATTDRO 20:29 → 3E 20:29

== ENCOUNTER 2022-05-02 14:22 | Inpatient (IN) ==
--- NOTE | 2022-05-02 15:31 | CT Scan Report ---
HEAD CT NONCONTRAST CT DOSE: 537.48 mGy.cm HISTORY: Left eye vision loss. Stroke Alert TECHNIQUE: Multiaxial CT images of the head were performed without the use of intravenous contrast. A utomated exposure control was utilized for this study. A dose lowering technique was utilized adheri ng to the principles of ALARA. Comparison: None. Findings: The paranasal sinuses and mastoid air cells are clear. The calvarium and skull base are int act. There is no mass, hematoma, midline shift, acute infarct. White matter hypodensity is nonspecifi c but suggestive of microvascular ischemic change. The ventricles and sulci demonstrate mild age-rela mele involutional changes. 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 Small foc us of encephalomalacia within the left posterior parietal lobe on image 18. This also likely represen ts an old infarct. The orbits are unremarkable. Impression: 1. No acute intracranial abnormality. 2. Old small infarcts as described above. ACT 112: Negative or not required by law. Electronically signed by: Tom Ledesma M.D. 05/02/2022 3:30 PM
[2022-05-02 16:46] LABS: Hemoglobin 12.6 g/dl (14.0-18.0); Mean Corpuscular Hemoglobin 29.6 pg (25.0-34.0); Mean Corpuscular Hgb Conc 32.3 g/dL (32.0-36.0); Mean Corpuscular Volume 91.8 fL (80.0-100.0); Mean Platelet Volume 10.4 fL (9.4-12.4); Platelet Count 172 K/uL (130-400); RDW Coefficient of Variation 17.3 % (11.5-14.5); RDW Standard Deviation 58.7 fL (36.4-46.3); Red Blood Count 4.25 M/uL (4.70-6.10); White Blood Count 7.23 K/ul (4.8-10.8)
[2022-05-02 17:19] LABS: Alanine Aminotransferase 6 U/L (7-52); Albumin Globulin Ratio 0.9 (0.9-2); Albumin Level 3.4 gm/dl (3.4-5.0); Alkaline Phosphatase 105 U/L (34-104); Anion Gap 11 (3-11); BUN Creatinine Ratio 5.5 (10-20); Bilirubin,Total 2.4 mg/dl (0.2-1.0); Blood Urea Nitrogen 27 mg/dl (6-23); Carbon Dioxide 35 mmol/L (21-32); Chloride 91 mmol/L (98-107); Creatinine Clr Calc Pharmacy 16.3 ml/min; Est GFR (African American) 13.2 ml/min; Est GFR (Non-African American) 11.4 ml/min; Glucose 259 mg/dl (70-99(Fasting)); Magnesium 2.1 mg/dl (1.7-2.4); Sodium 137 mmol/L (136-145); Total Protein 7.4 gm/dl (6.0-8.3)
[2022-05-02 18:09] LABS: Potassium 3.6 mmol/L (3.5-5.1)
[2022-05-02] MEDS ORDERED: MoRPHine SULFATE 2 MG/ML CARP IV STA (18:09)
[2022-05-02 18:22] LABS: INR 1.2 (0.9-1.1); Partial Thromboplastin Ratio 1.1; Partial Thromboplastin Time 30.2 Seconds (21.0-31.0)
[2022-05-02] MEDS ORDERED: VANCOMYCIN HCL 1,750 MG in SODIUM CHLORIDE 0.9% 500 ML IV ONE (18:45)
[2022-05-02] MEDS ORDERED: VANCOMYCIN CONSULT ACTIVE PRN (18:45)
[2022-05-02] MEDS ORDERED: PIPERACILLIN/TAZOBACTAM 4.5 GM/120 ML BAG IV ONE (18:45)
--- NOTE | 2022-05-02 19:23 | Emergency Department Note ---
History of Present Illness General Chief complaint: Visual Disturbance Stated complaint: WOKE UP BLIND IN ONE EYE, CELLULITIS Time Seen by Provider: 05/02/22 17:08 History of Present Illness This is a 66-year-old male who presents to the emergency department for evaluation of acute onset vision loss in his right eye after waking yesterday morning. He reports being able to see shadows and light but is unable to discern between movement or objects. He denies any floaters, flashes of light or pain. He reports normal vision in his left eye. He also reports bilateral leg swelling with pain from chronic weeping wounds. 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 He was recently admitted for bilateral lower extremity cellulitis and states that things seemed to improve, but worsened again over the past few days. The patient states he is not currently treating his DMII at this time but states his blood glucose is "controlled in the 70-250 range." He denies any headache, chest pain, sob, at this time. Home Medications Medication Instructions Recorded Confirmed Type albuterol sulfate 90 mcg/actuation 2 puff inhalation Q4H PRN 04/16/22 05/02/22 History aerosol inhaler Shortness Of Breath Or Wheezing apixaban 5 mg tablet (Eliquis) 5 mg PO BID 04/16/22 05/02/22 History cyclobenzaprine 10 mg tablet 10 mg PO BID PRN Spasms 04/16/22 05/02/22 History duloxetine 60 mg capsule,delayed 60 mg PO HS 04/16/22 05/02/22 History release fluticasone fur. 100 mcg-umeclid 1 inh inhalation HS 04/16/22 05/02/22 History 62.5 mcg-vilant 25 mcg inhalat.powder (Trelegy Ellipta) gabapentin 100 mg capsule 100 mg PO HS 04/16/22 05/02/22 History lanthanum 500 mg chewable tablet 500 mg PO HS 04/16/22 05/02/22 History pramipexole 0.25 mg tablet 0.25 mg PO HS 04/16/22 05/02/22 History oxycodone 5 mg tablet 7.5 mg PO Q6H PRN pain #15 tabs 04/23/22 05/02/22 Rx sacubitril 24 mg-valsartan 26 mg 1 tab PO BID #60 tabs 04/23/22 05/02/22 Rx tablet (Entresto) cholecalciferol (vitamin D3) 50 50 mcg PO HS 04/27/22 05/02/22 History mcg (2,000 unit) capsule insulin glargine 100 unit/mL (3 10 unit (0.1 mL) subcut QPM #15 mL 04/27/22 05/02/22 Rx mL) subcutaneous pen (Lantus Solostar U-100 Insulin) atorvastatin 10 mg tablet 10 mg PO HS 05/02/22 05/02/22 History cephalexin 500 mg capsule 500 mg PO HS 05/02/22 05/02/22 History clopidogrel 75 mg tablet 75 mg PO HS 05/02/22 05/02/22 History lidocaine-prilocaine 2.5 %-2.5 % 1.5 g topical DIRECTED PRN Pain 05/02/22 05/02/22 History topical cream metoprolol succinate 50 mg 50 mg PO HS 05/02/22 05/02/22 History tablet,extended release 24 hr Allergies Allergy/AdvReac Type Severity Reaction Status Date / Time No Known Allergies Allergy Verified 05/02/22 17:58 Past Med/Surg History Medical History Anemia due to chronic kidney disease Carotid bruit COPD (chronic obstructive pulmonary disease) Diabetes ESRD (end stage renal disease) on dialysis Non-healing wound of amputation stump Peripheral arterial disease Venous stasis ulcer Surgical History A-V fistula History of amputation History of cardiac defibrillator placement S/P vascular bypass Family History Other Family history non-contributory Social History Smoking Status: Never smoker Tobacco Type: Cigarettes Age Started Using Tobacco: 11; packs per day: 1; Cigarettes Per Day: used to smoke 5PPD - recently cut back to 1; Second Hand Exposure: No; Hx Alcohol Use: No Hx Substance Use: Yes Prescribed Medications: Marijuana Preferred Language: [place] Communication Ability: Effective Visual Impairment: Partially Limited Hearing Ability: Hard of Hearing Maid Cleaning Cooking Required: No Beliefs That Will Affect Care: None marital status: Current Living Situation: Spouse current occupational status: disabled Feels Safe at Home: Yes during the past year weight has: remained stable Dental Care, Regularly: No Physical Activity Frequency: Does not Exercise Assistive Devices: Walker Review of Systems A total of 10 systems reviewed and were otherwise negative Physical Exam Vital Signs Vital Signs - 24 hr 05/02/22 14:33 05/02/22 17:19 05/02/22 19:00 Temperature 36.7 C Temperature Source Temporal Artery Scan Pulse Rate 101 H 97 H Pulse Rate [Apical] 95 H Pulse Rate from SpO2 Sensor 97 H Pulse Rhythm Regular Pulse Rhythm [Apical] Regular Pulse Strength Normal Respiratory Rate 20 16 20 Respiratory Effort / Characteristics Non-Labored Spontaneous Non-Labored Spontaneous Respiratory Depth Normal Normal Respiratory Pattern Regular Blood Pressure 122/80 138/84 Blood Pressure [Left Arm] 143/89 H Blood Pressure Mean 94 102 Blood Pressure Mean [Left Arm] 107 Blood Pressure Position Sitting Pulse Oximetry 97 97 93 Oxygen Delivery Method Room Air Room Air Sepsis Recent Fever Within 48 Hours No Sepsis New/Unexplained Change in Mental Status No Sepsis Action Taken by Nursing No Action Required 05/02/22 19:30 Temperature Temperature Source Pulse Rate 98 H Pulse Rate [Apical] Pulse Rate from SpO2 Sensor 99 H Pulse Rhythm Pulse Rhythm [Apical] Pulse Strength Respiratory Rate 21 Respiratory Effort / Characteristics Respiratory Depth Respiratory Pattern Blood Pressure 149/90 H Blood Pressure [Left Arm] Blood Pressure Mean 109 Blood Pressure Mean [Left Arm] Blood Pressure Position Pulse Oximetry 91 Oxygen Delivery Method Sepsis Recent Fever Within 48 Hours Sepsis New/Unexplained Change in Mental Status Sepsis Action Taken by Nursing VITALS: Vitals are noted on the nurse's note and reviewed by myself. GENERAL: This patient is a 66-year-old male, in no acute distress, chronically unwell appearing. SKIN: Erythema with multiple wounds noted to the bilateral lower extremities. EYES: Pupils equal round and reactive to light and accommodation. Vision in right eye to light and dark only. MOUTH: Mucous membranes moist. NECK: Supple without nuchal rigidity. HEART: Regular rate and rhythm without murmurs gallops or rubs. LUNGS: Clear to auscultation bilaterally without wheezes, rales or rhonchi. NEURO: Patient was alert and oriented to person place and time. Course Administered Medications Apixaban (Apixaban 5 Mg Tablet) 5 mg PO BID@1200,2100 [facility] Stop: 03/02/23 22:05 Last Admin: 05/02/22 23:15 Dose: 5 mg Documented By: LAXMI Atorvastatin Calcium (Atorvastatin 40 Mg Tab) 40 mg PO [facility] Stop: 06/01/22 22:05 Last Admin: 05/02/22 23:15 Dose: 40 mg Documented By: LAXMI Clopidogrel Bisulfate (Clopidogrel Bisulfate 75 Mg Tab) 75 mg PO [facility] Stop: 06/01/22 22:05 Last Admin: 05/02/22 23:15 Dose: 75 mg Documented By: LAXMI Duloxetine HCl (Duloxetine Hcl 60 Mg Cap) 60 mg PO [facility] Stop: 06/01/22 22:05 Last Admin: 05/02/22 23:15 Dose: 60 mg Documented By: LAXMI Gabapentin (Gabapentin 100 Mg Cap) 100 mg PO [facility] Stop: 06/01/22 22:05 Last Admin: 05/02/22 23:15 Dose: 100 mg Documented By: LAXMI Cefazolin Sodium 1,000 mg/ (Syringe) 7.5 mls @ 2.5 mls/min IV Q24H [facility]; Protocol Stop: 05/09/22 19:59 Last Admin: 05/02/22 23:20 Dose: 2.5 mls/min Documented By: LAXMI Insulin Aspart (Insulin Aspart Per Unit) [address] [facility] Stop: 06/01/22 22:05 Last Admin: 05/02/22 23:40 Dose: 9 units Documented By: LAXMI Co-signed By: CECILY Insulin Glargine (Lantus Per Unit Charge) 5 units SQ BID [facility] Stop: 06/01/22 22:05 Last Admin: 05/02/22 23:39 Dose: 5 units Documented By: LAXMI Co-signed By: CECILY Metoprolol Succinate (Metoprolol Succ 50mg Ext Rel Tab) 50 mg PO [facility] Stop: 06/01/22 22:05 Last Admin: 05/02/22 23:15 Dose: 50 mg Documented By: LAXMI Miscellaneous (Lanthanum 500 Mg - Order Awaiting Action) 1 each N/A QS [facility] Stop: 06/02/22 00:00 Last Admin: 05/03/22 01:18 Dose: Not Given Documented By: CECILY Pramipexole Dihydrochloride (Pramipexole Dihydrochlo 0.25 Mg Tab) 0.25 mg PO [facility] Stop: 06/01/22 22:05 Last Admin: 05/02/22 23:15 Dose: 0.25 mg Documented By: LAXMI Sacubitril/Valsartan (Valsartan/Sacubitril 26/24mg Tab) 1 tab PO BID@1200,2100 [facility] Stop: 06/01/22 22:05 Last Admin: 05/02/22 23:16 Dose: 1 tab Documented By: LAXMI Discontinued Medications Piperacillin Sod/Tazobactam Sod (Zosyn) 4.5 gm in 120 mls @ 240 mls/hr IV NOW ONE Stop: 05/02/22 19:14 Last Infusion: 05/02/22 20:15 Dose: 0 mls/hr Documented By: Admin: 05/02/22 19:45 Dose: 240 mls/hr Documented By: LAXMI Vancomycin HCl 1,750 mg/ (Sodium Chloride) 535 mls @ 200 mls/hr IV NOW ONE Stop: 05/02/22 21:25 Last Admin: 05/02/22 21:13 Dose: 200 mls/hr Documented By: LAXMI Morphine Sulfate (Morphine Sulfate 2 Mg/Ml Carp) 2 mg IV NOW STA Stop: 05/02/22 18:10 Last Admin: 05/02/22 18:28 Dose: 2 mg Documented By: CJ Medical Decision Making Differential Diagnosis Differential diagnosis includes CVA, TIA, malignancy/mass, retinal detachment, retinal hemorrhage, cellulitis, peripheral arterial disease, among others. Home Medications Current Medication List: was personally reviewed by me Laboratory Data Attestation: I reviewed the patient's lab results. 05/02/22 15:49 05/02/22 17:31 Lab Results 05/02/22 05/02/22 05/02/22 Range/Units 15:49 15:49 15:49 WBC 7.23 (4.8-10.8) K/ul RBC 4.25 L (4.70-6.10) M/uL Hgb 12.6 L (14.0-18.0) g/dl Hct 39.0 L (42.0-52.0) % MCV 91.8 (80.0-100.0) fL MCH 29.6 (25.0-34.0) pg MCHC 32.3 (32.0-36.0) g/dL RDW Std Deviation 58.7 H (36.4-46.3) fL RDW Coeff of Wendy 17.3 H (11.5-14.5) % Plt Count 172 (130-400) K/uL MPV 10.4 (9.4-12.4) fL PT Cancelled INR Cancelled APTT Cancelled PTT Ratio Cancelled Sodium 137 (136-145) mmol/L Potassium TNP Chloride 91 L (98-107) mmol/L Carbon Dioxide 35 H (21-32) mmol/L Anion Gap 11 (3-11) BUN 27 H (6-23) mg/dl Creatinine 4.90 H* (0.6-1.4) mg/dl Est Cr Clr Drug Dosing 16.3 ml/min Est GFR ( Amer) 13.2 ml/min Est GFR (Non-Af Amer) 11.4 ml/min BUN/Creatinine Ratio 5.5 L (10-20) Glucose 259 H (70-99(Fasting)) mg/dl Calcium 9.0 (8.5-10.1) mg/dl Magnesium 2.1 (1.7-2.4) mg/dl Total Bilirubin 2.4 H (0.2-1.0) mg/dl AST TNP ALT 6 L (7-52) U/L Alkaline Phosphatase 105 H (34-104) U/L C-Reactive Protein (0-0.5) mg/dl Total Protein 7.4 (6.0-8.3) gm/dl Albumin 3.4 (3.4-5.0) gm/dl Globulin 4.0 (2.5-4.0) gm/dl Albumin/Globulin Ratio 0.9 (0.9-2) Procalcitonin (0-0.5) ng/ml 05/02/22 05/02/22 05/02/22 Range/Units 17:30 17:31 17:31 WBC (4.8-10.8) K/ul RBC (4.70-6.10) M/uL Hgb (14.0-18.0) g/dl Hct (42.0-52.0) % MCV (80.0-100.0) fL MCH (25.0-34.0) pg MCHC (32.0-36.0) g/dL RDW Std Deviation (36.4-46.3) fL RDW Coeff of Wendy (11.5-14.5) % Plt Count (130-400) K/uL MPV (9.4-12.4) fL PT 13.0 H INR 1.2 H APTT 30.2 PTT Ratio 1.1 Sodium (136-145) mmol/L Potassium 3.6 Chloride (98-107) mmol/L Carbon Dioxide (21-32) mmol/L Anion Gap (3-11) BUN (6-23) mg/dl Creatinine (0.6-1.4) mg/dl Est Cr Clr Drug Dosing ml/min Est GFR ( Amer) ml/min Est GFR (Non-Af Amer) ml/min BUN/Creatinine Ratio (10-20) Glucose (70-99(Fasting)) mg/dl Calcium (8.5-10.1) mg/dl Magnesium (1.7-2.4) mg/dl Total Bilirubin (0.2-1.0) mg/dl AST 19 ALT (7-52) U/L Alkaline Phosphatase (34-104) U/L C-Reactive Protein 10.82 H (0-0.5) mg/dl Total Protein (6.0-8.3) gm/dl Albumin (3.4-5.0) gm/dl Globulin (2.5-4.0) gm/dl Albumin/Globulin Ratio (0.9-2) Procalcitonin 0.58 H (0-0.5) ng/ml Imaging Data Attestation: I personally reviewed and interpreted this imaging study as follows: Radiologist's Impression: Head CT 05/02/22 14:[address] DOSE: 537.48 mGy.cm HISTORY: Left eye vision loss. Stroke Alert TECHNIQUE: Multiaxial CT images of the head were performed without the use of intravenous contrast. Automated exposure control was utilized for this study. A dose lowering technique was utilized adhering to the principles of ALARA. Comparison: None. Findings: The paranasal sinuses and mastoid air cells are clear. The calvarium a nd skull base are intact. There is no mass, hematoma, midline shift, acute infarct. White matter hypodensity is nonspecific but suggestive of microvascular ischemic change. The ventricles and sulci demonstrate mild age-related involutional changes. 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 Small focus of encephalomalacia within the left posterior parietal lobe on image 18. This also likely represents an old infarct. The orbits are unremarkable. Impression: 1. No acute intracranial abnormality. 2. Old small infarcts as described above. ACT 112: Negative or not required by law. Electronically signed by: Tom Ledesma M.D. 05/02/2022 3:30 PM MDM Narrative This patient is a 66-year-old male who presents to the emergency department for evaluation of vision changes in his right eye as well as bilateral lower extremity edema. I reviewed patient's PCP note from yesterday morning. He is here today for vision changes in the right eye. He states he is only able to see light and dark but is otherwise unable to discern anything. He is also here due to worsening symptoms of cellulitis in the bilateral lower extremities. Patient had a recent hospitalization for this, records were reviewed. CT of the head was unremarkable, MRI ordered but not able to perform it until tomorrow due to patient's defibrillator. Creatinine of 4.9 consistent with patient's end- stage renal disease. Patient given initial doses of Zosyn and vancomycin for the lower extremity cellulitis. The case was discussed with the [facility] hospitalist service, who agreed to evaluate the patient for further care. Impression & Plan Bilateral lower leg cellulitis, Unilateral visual loss Discharge Plan Visit Data Chief Complaint: Visual Disturbance Stated Complaint: WOKE UP BLIND IN ONE EYE, CELLULITIS ED Provider: Yasemin Samayoa ED Midlevel Provider: Pam Sharma Discharge Problem: Bilateral lower leg cellulitis, Unilateral visual loss Discharge Instructions Interventions: ED Discharge Assessment Last Done: 05/02/22 22:05
--- NOTE | 2022-05-02 19:25 | Emergency Department Note ---
ED Visit Note I was consulted by the Advanced Practice Provider. I saw the patient personally and performed a substantive portion of the visit. This includes aspects of the HPI, MDM, diagnostic interpretations, and disposition/plan. .
[2022-05-02] MEDS ORDERED: ACETAMINOPHEN 325 MG TAB PO PRN (19:31)
--- NOTE | 2022-05-02 19:31 | History & Physical Report ---
Date of Service May 02, 2022 Assessment & Plan (1) Unilateral visual loss: Plan: This is a 66-year-old male with a history of ESRD, COPD, type 2 diabetes, peripheral arterial disease, HFrEF who presented to [facility] for evaluation of unilateral R-sided vision loss. In the setting of his known other chronic conditions, his appearance is most concerning for a stroke or intraocular process. RIGHT Unilateral Vision Loss -Patient with numerous vasculopathic disorders presenting with 2 days of right- sided unilateral vision loss Work-up as follows: CT head without acute processes, however, old infarcts and microvascular disease appreciated Direct/indirect pupillary reflexes intact, extraocular movements intact Major concern is CVA - e.g., CRAO. Also on differential includes optic neuritis, intraocular process like vitreal hemorrhage Obtain ultrasound of the carotids bilaterally Obtain MRI without contrast Continue antiplatelet therapy Hold on ophthalmology consult at this time; if MRI results are negative, will require comprehensive ophthalmologic exam Neurovascular checks have been ordered PT, OT to evaluate Fall precautions Smoking cessation counseling will need to be provided (2) Non-healing wound of amputation stump: Plan: Has chronic bilateral lower extremity cellulitis superimposed on chronic venous changes in the setting of severe peripheral arterial disease status post bypass grafting of the left lower extremity and transmetatarsal left foot amputation Per PCP notes, cellulitis has been improving, though patient says it is worsening (?) --> vascular surgery ([facility]) has preferred to hold off on any interventions to allow for self healing; however, consideration has been given to superficial femoral artery intervention MRI in 04/2021 negative for osteomyelitis Based on prior admission notes, [facility] had a culture that did not reveal evidence of MRSA or gram-negative organisms; was improving on cefazolin No leukocytosis. Check CRP, procalcitonin, MRSA swab Suspect ongoing pain, redness likely secondary to PAD and difficulty clearing infection Renally dosed cefazolin 500 mg every 8h Consult wound care while here, appreciate recommendations. 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 (6) COPD (chronic obstructive pulmonary disease): Plan: Continue Trelegy Continues to smoke, down to 1/2 PPD Counseling will be provided (7) ESRD (end stage renal disease) on dialysis: Plan: BUN 27/creatinine 4.9 on arrival (from 41/4.15 on 04/23) Receives HD on MWF Follows with Dr. Mccormack in [facility] nephrology consultation to arrange hemodialysis while here Monitor BMP (8) HFrEF (heart failure with reduced ejection fraction): Plan: Last TTE (04/2021): Severe reduction in LV systolic function with ejection fraction 15% Continue Entresto, metoprolol Status post AICD placement Follows with Dr. Campbell with [facility] cardiology they (9) Hyperbilirubinemia: Plan: Total bilirubin 2.4 and ALP 105 on arrival; there has been abnormalities noted with his LFTs over the last several months Possible underlying liver disease vs. conjugation disorder (Gilbert's). Synthetic labs (Na, Plt, INR- 1.2) are overall reasonable but noted. Possibly related to underlying ESRD? Liver ultrasound 04/17 demonstrating unremarkable appearance with normal common bile duct size Monitor while here Plan Code: Full code Dispo: MedSurg telemetry Diet: Heart healthy, low-sodium Prophylaxis: On Eliquis History of Present Illness Primary Care Provider: Rubina Naqvi, DO This is a 66-year-old male with a history of ESRD, COPD, type 2 diabetes, peripheral arterial disease, CHF who presented to [facility] for evaluation of visual disturbance. He states that this began yesterday and is present only in his right eye. He feels that he is unable to distinguish movements/objects. He says that up until yesterday morning, he could see "normally. "He says that he went to bed 2 evenings ago and had normal vision. He describes it as "oil over my vision. "Denies any floaters, curtains, flashers. Denies any pain in his eye. Denies any headache. Denies any new weakness in his upper or lower extremities. He endorses chronic periodic numbness within his right lower extremity. Denies any fevers, chills, sweats. Does endorse pain within his right lower extremity. In the ER, patient was found to be mildly tachycardic to 101 with otherwise normal vital signs. Temperature 36.7. Hematology revealed mild persistent anemia with hemoglobin 12.6. INR 1.2. Chemistries revealing elevated bicarb 35 and BUN 27/creatinine 4.9. Blood sugar on arrival 260. Total bilirubin 2.4. 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 He was given 2 mg of morphine and started on vancomycin. Allergies Allergy/AdvReac Type Severity Reaction Status Date / Time No Known Allergies Allergy Verified 05/02/22 17:58 Home Medications Medication Instructions Recorded Confirmed Type albuterol sulfate 90 mcg/actuation 2 puff inhalation Q4H PRN 04/16/22 05/02/22 History aerosol inhaler Shortness Of Breath Or Wheezing apixaban 5 mg tablet (Eliquis) 5 mg PO BID 04/16/22 05/02/22 History cyclobenzaprine 10 mg tablet 10 mg PO BID PRN Spasms 04/16/22 05/02/22 History duloxetine 60 mg capsule,delayed 60 mg PO HS 04/16/22 05/02/22 History release fluticasone fur. 100 mcg-umeclid 1 inh inhalation HS 04/16/22 05/02/22 History 62.5 mcg-vilant 25 mcg inhalat.powder (Trelegy Ellipta) gabapentin 100 mg capsule 100 mg PO HS 04/16/22 05/02/22 History lanthanum 500 mg chewable tablet 500 mg PO HS 04/16/22 05/02/22 History pramipexole 0.25 mg tablet 0.25 mg PO HS 04/16/22 05/02/22 History oxycodone 5 mg tablet 7.5 mg PO Q6H PRN pain #15 tabs 04/23/22 05/02/22 Rx sacubitril 24 mg-valsartan 26 mg 1 tab PO BID #60 tabs 04/23/22 05/02/22 Rx tablet (Entresto) cholecalciferol (vitamin D3) 50 50 mcg PO HS 04/27/22 05/02/22 History mcg (2,000 unit) capsule insulin glargine 100 unit/mL (3 10 unit (0.1 mL) subcut QPM #15 mL 04/27/22 05/02/22 Rx mL) subcutaneous pen (Lantus Solostar U-100 Insulin) atorvastatin 10 mg tablet 10 mg PO HS 05/02/22 05/02/22 History cephalexin 500 mg capsule 500 mg PO HS 05/02/22 05/02/22 History clopidogrel 75 mg tablet 75 mg PO HS 05/02/22 05/02/22 History lidocaine-prilocaine 2.5 %-2.5 % 1.5 g topical DIRECTED PRN Pain 05/02/22 05/02/22 History topical cream metoprolol succinate 50 mg 50 mg PO HS 05/02/22 05/02/22 History tablet,extended release 24 hr Past Med/Surg History Medical History Anemia due to chronic kidney disease Carotid bruit COPD (chronic obstructive pulmonary disease) Diabetes ESRD (end stage renal disease) on dialysis Non-healing wound of amputation stump Peripheral arterial disease Venous stasis ulcer Surgical History A-V fistula History of amputation History of cardiac defibrillator placement S/P vascular bypass Family History Other Family history non-contributory Social History Smoking Status: Current every day smoker Tobacco Type: Cigarettes Age Started Using Tobacco: 11; packs per day: 1; Cigarettes Per Day: used to smoke 5PPD - recently cut back to 1; Second Hand Exposure: No; Hx Alcohol Use: No Hx Substance Use: Yes Prescribed Medications: Marijuana Preferred Language: Kazakh Communication Ability: Effective Visual Impairment: Partially Limited Hearing Ability: Hard of Hearing Exhibit Preparator Required: No Beliefs That Will Affect Care: None marital status: Current Living Situation: Spouse current occupational status: disabled Feels Safe at Home: Yes during the past year weight has: remained stable Dental Care, Regularly: No Physical Activity Frequency: Does not Exercise Assistive Devices: Walker Review of Systems Review of Systems: As per HPI Physical Exam Physical Exam: General: 66-year old male who is alert, oriented, and appears in no acute distress. HEENT: NCAT. - Eyes - Sclera are white, anicteric, and without injection. - Mouth - MMM - Neck - supple, no appreciable JVD Cardiac: Normal rate and regular rhythm; S1 and S2 present with no murmurs, rubs, or gallops. Pulmonary: Good respiratory effort with symmetric expansion of the chest. No use of accessory muscles. Lungs demonstrated coarse breath sounds throughout with intermittent expiratory wheezes. Abdominal: Normoactive bowel sounds. Abdomen was soft, nondistended, and non- tender to palpation. Extremities: Examination of the right lower extremity does reveal gross erythema extending up towards his right thigh and is blanchable; there are eschars appreciated from his foot upward. Left lower extremity exam does reveal distal metatarsal amputation of the toes. There is 1+ pitting edema in the right lower extremity. Neuro: - Cranial Nerves: CN I, IX, XIII, and X - not assessed. II - PERRL. III/IV/ - EOMs WNL. No nystagmus. V - Facial sensation in tact in all three divisions; jaw opening WNL. VII - Patient is able to smile symmetrically and keep eyes close against resistance. IX - Soft palate raises equally and appropriately while saying "ah." XI - Patient is able to shrug shoulders against resistance. XII - patient is able to stick out tongue and deviate from [id number] appropriately. - Motor: UE - Finger, wrist, elbow, and shoulder strength is 5/5 bilaterally. LE - Hip, knee, and ankle strength is 5/5 bilaterally. - Sensation: UE and LE sensation to light touch is grossly intact bilaterally. - [id number]: WNL b/l. No dysmetria. Psych: Well-developed, well-nourished, appropriately dressed for occasion. Behavior is cooperative and appropriate. Affect is WNL. Insight is appropriate. Results & Data Results & Data ([facility]) Vital Signs (Past 12 Hours) Vital Signs Temp Pulse Pulse Resp BP BP Pulse Ox 05/02/22 17:19 95 H 16 143/89 H 97 05/02/22 14:33 36.7 C 101 H 20 122/80 97 O2 Del Method 05/02/22 17:19 Room Air 05/02/22 14:33 Room Air Supervising Physician Co-Signing Physician Notes Attending addendum: I have physically seen this patient, have supervised the medical residents activities, and agree with the H&P unless as otherwise noted. Assessment and Plan: Unilateral vision loss in right eye- Presented with 2 days of right-sided unilateral vision loss CT head without contrast negative for acute findings No Milton Isai pupil Differential including central artery occlusion, optic neuritis, retinal detachment, vitreous hemorrhage, others Continue neurologic work-up with ultrasound of the carotids and MRI brain without contrast Continuing antiplatelet therapy Will need to see ophthalmology for dilated fundus examination Stroke without tPA order sent Consult PT/OT Tobacco abuse- Cessation counseling Bilateral lower extremity cellulitis/nonhealing wound of amputation stump- No history of osteomyelitis on studies Screening negative for MRSA IV antibiotics as noted Diabetes mellitus- Lantus 5 units subcu twice daily Place on Accu-Cheks before meals and at bedtime with NovoLog coverage per scale COPD- Continue Trelegy Albuterol HFA every 2 hours as needed Tobacco cessation counseling ESRD on HD- HD on Sunday, Sunday and Sunday Consult nephrology HFrEF/status post AICD placement- Ejection fraction 15% on 04/23 echo Continue Entresto and metoprolol Remaining orders and notations as noted Resident Activity Tracking Resident Involvement: Resident Care Provided Care Provided: Adult Hospital Medicine
[2022-05-02] MEDS ORDERED: CYCLOBENZAPRINE HCL 10 MG TAB PO PRN (22:06)
[2022-05-02] MEDS ORDERED: LIDOCAINE/PRILOCAINE 2.5% EA CRM EXT PRN (22:06)
[2022-05-02] MEDS ORDERED: cephALEXin 500 MG CAP PO SCH (22:06)
[2022-05-02] MEDS ORDERED: GLUCOSE 40% GEL 15 GM TUBE PO PRN (22:06)
[2022-05-02] MEDS ORDERED: APIXABAN 5 MG TABLET PO SCH (22:06)
[2022-05-02] MEDS ORDERED: DEXTROSE 50% 50 ML SYRINGE IV PRN (22:06)
[2022-05-02] MEDS ORDERED: GLUCOSE 10 TAB/TUBE PO PRN (22:06)
[2022-05-02] MEDS ORDERED: ALBUTEROL HFA 8 GM INHALER INH PRN (22:06)
[2022-05-02] MEDS ORDERED: GLUCAGON FOR INJ 1 MG VIAL SQ PRN (22:06)
[2022-05-02] MEDS ORDERED: PHARMACIST DISCHARGE MED REC CONSULT PRN (22:06)
[2022-05-02] MEDS: PRAMIPEXOLE DIHYDROCHLO 0.25 MG TAB PO SCH (23:15)
[2022-05-02] MEDS: GABAPENTIN 100 MG CAP PO SCH (23:15)
[2022-05-02] MEDS: DULoxetine HCL 60 MG CAP PO SCH (23:15)
[2022-05-02] MEDS: ATORVASTATIN 40 MG TAB PO SCH (23:15)
[2022-05-02] MEDS: METOPROLOL SUCC 50MG EXT REL TAB PO SCH (23:15)
[2022-05-02] MEDS: CLOPIDOGREL BISULFATE 75 MG TAB PO SCH (23:15)
[2022-05-02] MEDS: VALSARTAN/SACUBITRIL 26/24MG TAB PO SCH (23:16)
[2022-05-02 23:26] LABS: C Reactive Protein 10.82 mg/dl (0-0.5)
[2022-05-02] MEDS: LANTUS PER UNIT CHARGE SQ SCH (23:39)
[2022-05-02] MEDS: INSULIN ASPART PER UNIT SC SCH (23:40)
[2022-05-03] MEDS ORDERED: ACETAMINOPHEN 325 MG TAB PO PRN (00:30)
[2022-05-03] MEDS: UMECLIDINIUM/VILANTEROL 62.5/25MCG 7 PUFFS/INHALER INH SCH (01:44)
[2022-05-03] MEDS: FLUTICASONE FUROATE 100MCG 14 PUFFS/INHALER INH SCH (01:45)
[2022-05-03] MEDS: oxyCODONE HCL IR 5 MG TAB (IMMEDIATE RELEASE) PO PRN ×2 (02:02→18:03)
[2022-05-03] MEDS: CARBOHYDRATES FOR HYPOGLYCEMIA PO PRN (02:07)
[2022-05-03 04:36] LABS: Basophils # (auto) 0.06 K/uL (0-0.2); Basophils % (auto) 0.4 %; Eosinophils # (auto) 0.18 K/uL (0-0.50); Eosinophils % (auto) 1.3 %; Hematocrit (blood only) 37.2 % (42.0-52.0); Hemoglobin 11.8 g/dl (14.0-18.0); Immature Granulocytes # (auto) 0.05 K/uL (0.01-0.20); Immature Granulocytes % (auto) 0.4 %; Lymphocytes # (auto) 0.38 K/uL (1.2-3.4); Lymphocytes % (auto) 2.8 %; Mean Corpuscular Hemoglobin 29.9 pg (25.0-34.0); Mean Corpuscular Hgb Conc 31.7 g/dL (32.0-36.0); Mean Corpuscular Volume 94.4 fL (80.0-100.0); Mean Platelet Volume 10.2 fL (9.4-12.4); Monocytes # (auto) 0.85 K/uL (0.11-0.59); Monocytes % (auto) 6.3 %; Neutrophils # (auto) 11.97 K/uL (1.40-6.50); Neutrophils % (auto) 88.8 %; Platelet Count 171 K/uL (130-400); RDW Coefficient of Variation 17.2 % (11.5-14.5); RDW Standard Deviation 59.8 fL (36.4-46.3); Red Blood Count 3.94 M/uL (4.70-6.10); White Blood Count 13.49 K/ul (4.8-10.8)
[2022-05-03 04:59] LABS: Albumin Globulin Ratio 0.8 (0.9-2); Albumin Level 3.2 gm/dl (3.4-5.0); BUN Creatinine Ratio 5.9 (10-20); Bilirubin,Total 2.2 mg/dl (0.2-1.0); Calcium 8.6 mg/dl (8.5-10.1); Chol HDL Ratio 2.6 (0-5); Creatinine Clr Calc Pharmacy 15.1 ml/min; Est GFR (African American) 12.2 ml/min; Est GFR (Non-African American) 10.5 ml/min; Globulin 4.1 gm/dl (2.5-4.0); Potassium 3.7 mmol/L (3.5-5.1); Total Protein 7.3 gm/dl (6.0-8.3)
[2022-05-03 06:27] LABS: Estimated Average Glucose 171 mg/dl; Hemoglobin A1C 7.6 % (4.5-5.6)
--- NOTE | 2022-05-03 07:04 | CT Scan Report ---
CT head/brain wo con CLINICAL HISTORY: 66 years-old Male with s/p fall with head trauma in ED and on eliquis. Acute head trauma status post fall TECHNIQUE: Multiple axial CT images of the head were obtained without contrast. A dose lowering tech nique was utilized adhering to the principles of ALARA. CT DOSE: 939.83 mGy.cm COMPARISON: Head CT 05/02/2022 FINDINGS: No acute intracranial hemorrhage, midline shift, intracranial mass, hydrocephalus, territorial ischem ia or abnormal extra-axial collection. Motion degraded exam. Mild involutional changes. Mild white ma tter hypodensities suggestive of probable chronic microvascular ischemic disease. Mild encephalomalac ia within the left parietal lobe, image 18 series 2 suggestive of a chronic infarct. Cerebral vascula r calcifications. The calvarium is intact. There is unchanged ill-defined linear areas of increased attenuation within the right globe measuring up to 8 mm. 3.4 cm right frontal scalp hematoma with laceration. The parana yoko sinuses, mastoid air cells, and middle ear cavities are clear. IMPRESSION: 1. Motion degraded exam without acute intracranial abnormality or calvarial fracture. 2. Unchanged linear increased attenuation within the right globe should be correlated with ophthalmol ogic examination to exclude retinal detachment versus choroidal hemorrhage. This finding was called/f axed to the ER at time of dictation. 3. Right frontal scalp hematoma with laceration. ACT 112: Negative or not required by law. The above report was generated using voice recognition software. It may contain grammatical, syntax o r spelling errors. Electronically signed by: Christoph Palmer M.D. 05/03/2022 7:02 AM
--- NOTE | 2022-05-03 08:00 | Ultrasound Report ---
US carotid doppler BI CLINICAL HISTORY: 66 years-old Male with R-sided unilateral vision loss. Acute right-sided vision lo ss COMPARISON: Head CT of same day TECHNIQUE: Multiple real time sonographic images of the carotid bifurcations were obtained assessing park scale, color Doppler and spectral wave form appearance FINDINGS: RIGHT CAROTID: The peak systolic velocity measured within the right ICA is 19 cm/sec. The end diast olic velocity measured 6 cm/sec. The ICA to CCA ratio measured 0.51 which correlates with a stenosis of 0-50%. Moderate calcified plaque of the right carotid bulb and proximal right ICA. Expansile occl usive thrombus within the right internal jugular vein. LEFT CAROTID: The peak systolic velocity measured within the left ICA is 52 cm/sec. The end diastol ic velocity measured 13 cm/sec. The ICA to CCA ratio measured 1.6 which correlates with a stenosis of 0-50%. There is normal antegrade vertebral flow bilaterally. IMPRESSION: 1. 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 2. Moderate atherosclerotic plaque of the right carotid bulb and proximal right ICA with decreased pe ak systolic velocities. 3. Antegrade flow within the vertebral arteries. ACT 112: Negative or not required by law. The above report was generated using voice recognition software. It may contain grammatical, syntax o r spelling errors. Electronically signed by: Chirstoph Palmer M.D. 05/03/2022 7:59 AM
[2022-05-03] MEDS ORDERED: PHARMACY GLYCEMIC MGMT CONSULT PRN (09:29)
[2022-05-03] MEDS: INSULIN ASPART PER UNIT SC SCH ×4 (09:32→21:08)
--- NOTE | 2022-05-03 10:09 | Pharmacy Report ---
Pharmacy Glycemic Short Note 2 - Date of Service May 03, 2022 - Glycemic Short BSG Results (Last 24 hours): 05/02/22 05/02/22 05/03/22 15:49 23:11 01:52 Glucose 259 H POC Glucose 251 H 58 L* 05/03/22 05/03/22 05/03/22 01:53 02:11 02:25 Glucose POC Glucose 54 L* 68 L* 64 L* 05/03/22 05/03/22 05/03/22 02:44 03:02 04:16 Glucose 54 L POC Glucose 67 L* 101 H 05/03/22 05/03/22 05/03/22 05:20 05:52 07:36 Glucose POC Glucose 61 L* 73 79 OUTPATIENT ANTIDIABETIC REGIMEN: * Lantus 10 units SC HS HbA1c: 7.6% (05/03/22) ASSESSMENT: * RELL is a 66 year old male presented to [facility] ED yesterday (05/02/22) for evaluation of visual disturbance of right eye * Patient was recently admitted 04/16-04/23/22 * Pertinent PMH includes ESRD requiring hemodialysis (MWF), T2DM, COPD, PAD, and HFrEF * BSG on presentation was 259 mg/dL, received 5 units of Lantus and 9 units of bolus insulin * Hypoglycemia noted overnight following these doses of insulin. > 1 hr to resolution (58 mg/dL -> 101 mg/dL) * Fasting BSG of 79 mg/dL this morning * Pharmacy consulted for glycemic management this morning in light of hypoglycemia overnight * Past inpatient data from April 2022 shows multiple episodes of hypoglycemia while receiving Lantus 5 units BID, so will proceed with conservative bolus insulin only for now * Hemodialysis scheduled for today PLAN FOR INPATIENT GLYCEMIC CONTROL: * Basal insulin * hold * Bolus insulin * NovoLog per scale ACHS or Q6hrs while NPO * Goal Range: Low 120 mg/dL - High 150 mg/dL * Correction Factor: 45 mg/dL/unit * Nutritional / Prandial insulin per carb ratio of 1 unit per 15 grams CHO consumed
[2022-05-03] MEDS ORDERED: Heparin IV Adult Wt-Based Standard *NO* Bolus Protocol IV ONE (10:41)
[2022-05-03] MEDS ORDERED: HEPARIN 25000 UNIT/500 ML D5W IV ONE (11:20)
[2022-05-03] MEDS: HEPARIN SODIUM/DEXTROSE 25,000 UNITS/500 ML BAG IV SCH (11:51)
[2022-05-03] MEDS ORDERED: OPTIRAY 320 500ml IV ONE (14:22)
--- NOTE | 2022-05-03 14:32 | Magnetic Resonance Report ---
MR brain wo con HISTORY: 66 years-old Male Vision loss right eye acute right eye vision loss COMPARISON: Head CT of same day and also 05/02/2022 TECHNIQUE: Multiplanar multisequence MRI of the brain was obtained without the use of IV contrast. FINDINGS: Motion degraded exam. There is no restricted diffusion to suggest acute or subacute infarct. Motion d egraded exam. Midline structures appear unremarkable. No acute intracranial hemorrhage, midline shift , abnormal extra-axial collection, hydrocephalus or intracranial mass. Involutional changes. Mild T2/ FLAIR hyperintense foci noted throughout the white matter. Gliosis and encephalomalacia is noted with in the left parietal lobe, likely from chronic infarct. Cerebral venous sinuses and major arterial flow voids appear patent. Skull and soft tissues are withi n normal limits. Mastoid air cells and paranasal sinuses are clear. Linear signal abnormality within the right globe is again noted posteriorly with mildly increased T1 signal. 3.4 cm right frontal scal p hematoma with subcutaneous edema. IMPRESSION: 1. Motion degraded exam. No acute intracranial abnormality identified. 2. Right-sided retinal versus choroidal detachment as previously discussed. Correlation with ophthalm ologic examination recommended. 3. Involutional changes with mild chronic microvascular ischemic disease. 4. Chronic left parietal lobe infarct. 5. Acute right anterior frontal scalp hematoma. ACT 112: Negative or not required by law. The above report was generated using voice recognition software. It may contain grammatical, syntax o r spelling errors. Electronically signed by: Christoph Palmer M.D. 05/03/2022 2:31 PM
--- NOTE | 2022-05-03 14:54 | CT Scan Report ---
CT ANGIOGRAM OF THE NECK CLINICAL HISTORY: Visual changes. COMPARISON STUDY: Carotid artery ultrasound dated 05/02/2022. TECHNIQUE: Following the IV administration of 120 of Optiray 320, CT angiogram of the neck was perfor med from the aortic arch to the skull base. Images are reviewed in the axial, sagittal, and coronal p lanes. 3-D MIPS images are created and assessed. IV contrast was administered without complication. A ll measurements were calculated based on NASCET criteria. A dose lowering technique was utilized adh ering to the principles of ALARA. FINDINGS: Thoracic aorta: There is atherosclerotic calcification of the thoracic aorta. Visualized portions of the thoracic aorta are normal in caliber. The aortic arch demonstrates bovine variant anatomy. Right carotid arterial system: The right common carotid artery is widely patent, as are the right int ernal and external carotid arteries. Calcified plaque is noted in the carotid bulb. Left carotid arterial system: The left common carotid artery is widely patent, as are the left data analysis intern al and external carotid arteries. Calcified plaque is noted in the carotid bulb. Vertebral arteries: The vertebral arteries are widely patent bilaterally noting mild left-sided domin ance. Subclavian arteries: Widely patent bilaterally. Jugular veins: Not opacified and not well evaluated. Brain parenchyma: The visualized brain parenchyma the skull base is within normal limits. Lung apices: Emphysematous change is observed. A large left pleural effusion is partially visualized. Intralobular septal thickening is noted in the upper lobes. Soft tissues: The visualized pharyngeal soft tissues are normal in appearance noting angiographic pha se technique. The oropharyngeal airway appears widely patent. The salivary and thyroid glands are nor mal in appearance. There are mildly enlarged mediastinal lymph nodes. No cervical lymphadenopathy is seen. Skeletal structures: The skeletal structures are osteopenic. The visualized calvarium at the skull ba se appears intact. The imaged cervical spine is maintained noting multilevel spondylosis. No lytic or blastic lesion is seen. Sinuses and mastoids: The visualized paranasal sinuses are clear. The mastoid air cells are well-pneu matized. IMPRESSION: 1. Unremarkable CT angiogram of the neck. 2. A large left pleural effusion is partially visualized. 3. Emphysema. 4. Intralobular septal thickening in the upper lobes suggests congestive failure. Clinical correlatio n will be required. 5. Occlusive thrombus suggested within the right internal jugular vein by ultrasound could not be cheyanne luated by CT due to lack of contrast opacification. ACT 112: Negative or not required by law. Electronically signed by: Chu Estrella M.D. 05/03/2022 2:52 PM
--- NOTE | 2022-05-03 15:05 | CT Scan Report ---
CT angio head w con CLINICAL HISTORY: 66 years-old Male with vision change. Acute 7 onset right-sided vision loss COMPARISON STUDY: Head CT of same day TECHNIQUE: Following the IV administration of 120 cc of Optiray, CT angiogram of the brain was perfor med from the skull base to the vertex. Images are reviewed in the axial, sagittal, and coronal planes . 3-D MIPS images are created and assessed. IV contrast was administered without complication. All me asurements were obtained according to NASCET criteria. A dose lowering technique was utilized adherin g to the principles of ALARA. CT DOSE: 621.35 mGy.cm FINDINGS: CT ANGIOGRAM OF THE BRAIN: The imaged bilateral internal carotid arteries are patent with moderate calcified plaque of the sabas nous, clinoid and supraclinoid segments. The bilateral anterior and middle cerebral arteries are also patent. The vertebrobasilar system and posterior cerebral arteries are widely patent. There is no an eurysm, high-grade stenosis, or proximal branch occlusion identified. Dural sinuses appear patent. 3.4 cm right frontal scalp hematoma with laceration. There is a 4 mm focus of hyperattenuation along the superficial margin of the hematoma which was not seen on the precontrast study. Right-sided retin al versus choroidal detachment redemonstrated. IMPRESSION: 1. Unremarkable CTA of the head. 2. Right-sided retinal versus choroidal detachment as previously discussed. Correlation with ophthalm ologic examination recommended. 3. Right frontal scalp hematoma and laceration. Subcentimeter hyperdense focus within the hematoma wa s not seen on the precontrast study. Correlate clinically to exclude active extravasation. ACT 112: Negative or not required by law. The above report was generated using voice recognition software. It may contain grammatical, syntax o r spelling errors. Electronically signed by: Christoph Palmer M.D. 05/03/2022 3:03 PM
--- NOTE | 2022-05-03 15:19 | XCELERA ---
[id number] \\[id number]
--- NOTE | 2022-05-03 15:23 | Electrocardiogram Report ---
Test Reason : Blood Pressure : / mmHG Vent. Rate : 097 BPM Atrial Rate : 097 BPM P-R Int : 000 ms QRS Dur : 192 ms QT Int : 468 ms P-R-T Axes : 132 258 076 degrees QTc Int : 594 ms Poor data quality, interpretation may be adversely affected Ventricular-paced rhythm with occasional supraventricular complexes and Premature atrial complexes [facility] Aberrant conduction Biventricular pacemaker detected Abnormal ECG When compared with ECG of 16-APR-2022 17:47, Aberrant conduction is now Present Vent. rate has increased BY 29 BPM Confirmed by Frankie Jenkins ([id number]) on 05/03/2022 3:22:41 PM Referred By: REFERRED SELF Confirmed By:Frankie Jenkins
--- NOTE | 2022-05-03 16:56 | Neurology Consultation ---
Date of Consultation May 03, 2022 Assessment & Plan (1) Monocular vision loss: Impression: The patient noticed sudden onset right arm monocular visual loss without eye pain. Imaging studies are suggestive of retinal detachment or vitreous hemorrhage. Optic disc in the right eye cannot be seen as well as retina, which is suggestive of intraocular pathology as seen in vitreous hemorrhage versus retinal detachment. The patient has history of diabetes mellitus, end-stage renal disease, and prior retinal problems. Plan/recommendations: Ophthalmology consultation. Please hold Eliquis and aspirin for now until discussing case with ophthalmology. There is no neuro pathology to cause the patient's right eye vision loss. We will sign off. (2) Diabetes: (3) Peripheral arterial disease: (4) Bilateral lower leg cellulitis: (5) ESRD (end stage renal disease) on dialysis: History of Present Illness Reason for Consultation: Right eye vision loss. Requesting Physician: Yovanny Peterson Attending Physician: Yovanny Peterson History of Present Illness The patient is a 66-year-old gentleman, who presented emergency department yesterday, after the patient woke up with right eye vision loss without pain. This was a monocular central and peripheral vision loss without visual field deficit. The patient reports seeing dark red in his right eye vision, and can hardly recognize light. His left eye vision is essentially intact without any visual field impairment. The patient has been on Eliquis and Plavix for DVTs and peripheral arterial disease. He also has diabetes mellitus, and prior retinal problems. Brain MRI did not show acute intracranial pathology but there was finding, which was suggestive of retinal detachment or vitreous abnormal material. Eliquis is on hold based on recent MRI findings, and ophthalmology consultation is pending. CT angiogram of head and neck did not show any hemodynamically significant stenosis or other vascular pathology. I have reviewed the patient's chart including imaging studies and visualized them personally. I have answered the patient's questions in detail. Allergies Allergy/AdvReac Type Severity Reaction Status Date / Time No Known Allergies Allergy Verified 05/02/22 17:58 Home Medications Medication Instructions Recorded Confirmed Type albuterol sulfate 90 mcg/actuation 2 puff inhalation Q4H PRN 04/16/22 05/02/22 History aerosol inhaler Shortness Of Breath Or Wheezing apixaban 5 mg tablet (Eliquis) 5 mg PO BID 04/16/22 05/02/22 History cyclobenzaprine 10 mg tablet 10 mg PO BID PRN Spasms 04/16/22 05/02/22 History duloxetine 60 mg capsule,delayed 60 mg PO HS 04/16/22 05/02/22 History release fluticasone fur. 100 mcg-umeclid 1 inh inhalation HS 04/16/22 05/02/22 History 62.5 mcg-vilant 25 mcg inhalat.powder (Trelegy Ellipta) gabapentin 100 mg capsule 100 mg PO HS 04/16/22 05/02/22 History lanthanum 500 mg chewable tablet 500 mg PO HS 04/16/22 05/02/22 History pramipexole 0.25 mg tablet 0.25 mg PO HS 04/16/22 05/02/22 History oxycodone 5 mg tablet 7.5 mg PO Q6H PRN pain #15 tabs 04/23/22 05/02/22 Rx sacubitril 24 mg-valsartan 26 mg 1 tab PO BID #60 tabs 04/23/22 05/02/22 Rx tablet (Entresto) cholecalciferol (vitamin D3) 50 50 mcg PO HS 04/27/22 05/02/22 History mcg (2,000 unit) capsule insulin glargine 100 unit/mL (3 10 unit (0.1 mL) subcut QPM #15 mL 04/27/22 05/02/22 Rx mL) subcutaneous pen (Lantus Solostar U-100 Insulin) atorvastatin 10 mg tablet 10 mg PO HS 05/02/22 05/02/22 History cephalexin 500 mg capsule 500 mg PO HS 05/02/22 05/02/22 History clopidogrel 75 mg tablet 75 mg PO HS 05/02/22 05/02/22 History lidocaine-prilocaine 2.5 %-2.5 % 1.5 g topical DIRECTED PRN Pain 05/02/22 05/02/22 History topical cream metoprolol succinate 50 mg 50 mg PO HS 05/02/22 05/02/22 History tablet,extended release 24 hr Patient History Medical History Anemia due to chronic kidney disease Carotid bruit COPD (chronic obstructive pulmonary disease) Diabetes ESRD (end stage renal disease) on dialysis Non-healing wound of amputation stump Peripheral arterial disease Venous stasis ulcer Surgical History A-V fistula History of amputation History of cardiac defibrillator placement S/P vascular bypass Family History Other Family history non-contributory Social History Smoking Status: Never smoker Tobacco Type: Cigarettes Age Started Using Tobacco: 11; packs per day: 1; Cigarettes Per Day: used to smoke 5PPD - recently cut back to 1; Second Hand Exposure: No; Hx Alcohol Use: No Hx Substance Use: Yes Prescribed Medications: Marijuana Preferred Language: Yoruba Communication Ability: Effective Visual Impairment: Partially Limited Hearing Ability: Hard of Hearing Helper Coordinator Required: No Beliefs That Will Affect Care: None marital status: Current Living Situation: Spouse current occupational status: disabled Feels Safe at Home: Yes during the past year weight has: remained stable Dental Care, Regularly: No Physical Activity Frequency: Does not Exercise Assistive Devices: Walker Review of Systems Review of Systems: All systems reviewed & are unremarkable except as noted in HPI & below Physical Exam Physical Exam: General Examination: Constitutional: Well developed person in no acute distress. HENT: Normal exam with inspection. Right frontal scalp edema is noticed. CV: Hearth rhhyhm is regular. Neck: Supple, no carotid bruits. Lungs: Non-labored and comfortable breathing. Abdomen: Soft, non-tender, non-distended. Skin: Some rash in bilateral lower extremities Extremities: Mild ankle edema bilaterally. Left foot toes amputated. NEUROLOGICAL EXAMINATION: Mental Status: Alert and oriented to place, person and time. Cranial Nerves: II-XII are intact except right eye monocular vision loss. No nystagmus. Funduscopy: Left optic disc looks normal. Right eye posterior structures cannot be seen. No eye tenderness. No visual field deficit. Motor: 5/5 in upper and 4/5 in lower extremities. Tone: Normal without spasticity or rigidity. Sensory: Decreased sensation in feet Coordination: No dysmetria with FTN testing. Speech: Fluent. Comprehension is intact. Gait: Not assessed Results & Data ([facility]) Vital Signs (Past 12 Hours) Vital Signs Temp Pulse Pulse Resp BP BP Pulse Ox 05/03/22 12:48 36.4 C L 76 125/75 05/03/22 12:30 81 99/79 L 05/03/22 12:00 71 119/86 05/03/22 11:30 51 L 146/81 H 05/03/22 11:00 60 122/68 05/03/22 10:30 63 100/69 05/03/22 10:00 63 112/76 05/03/22 09:47 36.5 C 69 05/03/22 07:42 58 L 13 139/86 92 05/03/22 06:12 78 18 90 05/03/22 05:00 76 18 O2 Del Method O2 Flow Rate 05/03/22 12:48 05/03/22 12:30 05/03/22 12:00 05/03/22 11:30 05/03/22 11:00 05/03/22 10:30 05/03/22 10:00 05/03/22 09:47 05/03/22 07:42 Nasal Cannula 2 05/03/22 06:12 Nasal Cannula 05/03/22 05:00 Laboratory Results Laboratory Results - last 24 hr 05/02/22 05/02/22 05/02/22 15:49 15:49 17:30 WBC RBC Hgb Hct MCV MCH MCHC RDW Std Deviation RDW Coeff of Wendy Plt Count MPV Immature Gran % (Auto) Neut % (Auto) Lymph % (Auto) [place] % (Auto) Eos % (Auto) Baso % (Auto) Neut # (Auto) Lymph # (Auto) [place] # (Auto) Eos # (Auto) Baso # (Auto) Immature Gran # (Auto) ESR PT Cancelled 13.0 H INR Cancelled 1.2 H APTT Cancelled 30.2 PTT Ratio Cancelled 1.1 Heparin Anti-Xa, LM Wt Sodium 137 Potassium TNP Chloride 91 L Carbon Dioxide 35 H Anion Gap 11 BUN 27 H Creatinine 4.90 H* Est Cr Clr Drug Dosing 16.3 Est GFR ( Amer) 13.2 Est GFR (Non-Af Amer) 11.4 BUN/Creatinine Ratio 5.5 L Glucose 259 H POC Glucose Estimat Average Glucose Hemoglobin A1c Calcium 9.0 Magnesium 2.1 Total Bilirubin 2.4 H AST TNP ALT 6 L Alkaline Phosphatase 105 H C-Reactive Protein Total Protein 7.4 Albumin 3.4 Globulin 4.0 Albumin/Globulin Ratio 0.9 Triglycerides Cholesterol LDL Cholesterol, Calc VLDL Cholesterol, Calc HDL Cholesterol Cholesterol/HDL Ratio Procalcitonin Nasal Screen MRSA (PCR) SARS-CoV-2, RNA, NAAT 05/02/22 05/02/22 05/02/22 17:31 17:31 23:11 WBC RBC Hgb Hct MCV MCH MCHC RDW Std Deviation RDW Coeff of Wendy Plt Count MPV Immature Gran % (Auto) Neut % (Auto) Lymph % (Auto) [place] % (Auto) Eos % (Auto) Baso % (Auto) Neut # (Auto) Lymph # (Auto) [place] # (Auto) Eos # (Auto) Baso # (Auto) Immature Gran # (Auto) ESR PT INR APTT PTT Ratio Heparin Anti-Xa, LM Wt Sodium Potassium 3.6 Chloride Carbon Dioxide Anion Gap BUN Creatinine Est Cr Clr Drug Dosing Est GFR ( Amer) Est GFR (Non-Af Amer) BUN/Creatinine Ratio Glucose POC Glucose 251 H Estimat Average Glucose Hemoglobin A1c Calcium Magnesium Total Bilirubin AST 19 ALT Alkaline Phosphatase C-Reactive Protein 10.82 H Total Protein Albumin Globulin Albumin/Globulin Ratio Triglycerides Cholesterol LDL Cholesterol, Calc VLDL Cholesterol, Calc HDL Cholesterol Cholesterol/HDL Ratio Procalcitonin 0.58 H Nasal Screen MRSA (PCR) SARS-CoV-2, RNA, NAAT 05/02/22 05/03/22 05/03/22 Unknown 01:52 01:53 WBC RBC Hgb Hct MCV MCH MCHC RDW Std Deviation RDW Coeff of Wendy Plt Count MPV Immature Gran % (Auto) Neut % (Auto) Lymph % (Auto) [place] % (Auto) Eos % (Auto) Baso % (Auto) Neut # (Auto) Lymph # (Auto) [place] # (Auto) Eos # (Auto) Baso # (Auto) Immature Gran # (Auto) ESR PT INR APTT PTT Ratio Heparin Anti-Xa, LM Wt Sodium Potassium Chloride Carbon Dioxide Anion Gap BUN Creatinine Est Cr Clr Drug Dosing Est GFR ( Amer) Est GFR (Non-Af Amer) BUN/Creatinine Ratio Glucose POC Glucose 58 L* 54 L* Estimat Average Glucose Hemoglobin A1c Calcium Magnesium Total Bilirubin AST ALT Alkaline Phosphatase C-Reactive Protein Total Protein Albumin Globulin Albumin/Globulin Ratio Triglycerides Cholesterol LDL Cholesterol, Calc VLDL Cholesterol, Calc HDL Cholesterol Cholesterol/HDL Ratio Procalcitonin Nasal Screen MRSA (PCR) SARS-CoV-2, RNA, NAAT NEGATIVE 05/03/22 05/03/22 05/03/22 02:11 02:25 02:44 WBC RBC Hgb Hct MCV MCH MCHC RDW Std Deviation RDW Coeff of Wendy Plt Count MPV Immature Gran % (Auto) Neut % (Auto) Lymph % (Auto) [place] % (Auto) Eos % (Auto) Baso % (Auto) Neut # (Auto) Lymph # (Auto) [place] # (Auto) Eos # (Auto) Baso # (Auto) Immature Gran # (Auto) ESR PT INR APTT PTT Ratio Heparin Anti-Xa, LM Wt Sodium Potassium Chloride Carbon Dioxide Anion Gap BUN Creatinine Est Cr Clr Drug Dosing Est GFR ( Amer) Est GFR (Non-Af Amer) BUN/Creatinine Ratio Glucose POC Glucose 68 L* 64 L* 67 L* Estimat Average Glucose Hemoglobin A1c Calcium Magnesium Total Bilirubin AST ALT Alkaline Phosphatase C-Reactive Protein Total Protein Albumin Globulin Albumin/Globulin Ratio Triglycerides Cholesterol LDL Cholesterol, Calc VLDL Cholesterol, Calc HDL Cholesterol Cholesterol/HDL Ratio Procalcitonin Nasal Screen MRSA (PCR) SARS-CoV-2, RNA, NAAT 05/03/22 05/03/22 05/03/22 03:02 04:16 04:16 WBC 13.49 H RBC 3.94 L Hgb 11.8 L Hct 37.2 L MCV 94.4 MCH 29.9 MCHC 31.7 L RDW Std Deviation 59.8 H RDW Coeff of Wendy 17.2 H Plt Count 171 MPV 10.2 Immature Gran % (Auto) 0.4 Neut % (Auto) 88.8 Lymph % (Auto) 2.8 [place] % (Auto) 6.3 Eos % (Auto) 1.3 Baso % (Auto) 0.4 Neut # (Auto) 11.97 H Lymph # (Auto) 0.38 L [place] # (Auto) 0.85 H Eos # (Auto) 0.18 Baso # (Auto) 0.06 Immature Gran # (Auto) 0.05 ESR PT INR APTT PTT Ratio Heparin Anti-Xa, LM Wt Sodium 138 Potassium 3.7 Chloride 94 L Carbon Dioxide 32 Anion Gap 12 H BUN 31 H Creatinine 5.26 H* D Est Cr Clr Drug Dosing 15.1 Est GFR ( Amer) 12.2 Est GFR (Non-Af Amer) 10.5 BUN/Creatinine Ratio 5.9 L Glucose 54 L POC Glucose 101 H Estimat Average Glucose Hemoglobin A1c Calcium 8.6 Magnesium Total Bilirubin 2.2 H AST 22 ALT 6 L Alkaline Phosphatase 110 H C-Reactive Protein Total Protein 7.3 Albumin 3.2 L Globulin 4.1 H Albumin/Globulin Ratio 0.8 L Triglycerides 56 Cholesterol 129 LDL Cholesterol, Calc 69 VLDL Cholesterol, Calc 11 HDL Cholesterol 49 Cholesterol/HDL Ratio 2.6 Procalcitonin Nasal Screen MRSA (PCR) SARS-CoV-2, RNA, NAAT 05/03/22 05/03/22 05/03/22 04:16 05:00 05:20 WBC RBC Hgb Hct MCV MCH MCHC RDW Std Deviation RDW Coeff of Wendy Plt Count MPV Immature Gran % (Auto) Neut % (Auto) Lymph % (Auto) [place] % (Auto) Eos % (Auto) Baso % (Auto) Neut # (Auto) Lymph # (Auto) [place] # (Auto) Eos # (Auto) Baso # (Auto) Immature Gran # (Auto) ESR PT INR APTT PTT Ratio Heparin Anti-Xa, LM Wt Sodium Potassium Chloride Carbon Dioxide Anion Gap BUN Creatinine Est Cr Clr Drug Dosing Est GFR ( Amer) Est GFR (Non-Af Amer) BUN/Creatinine Ratio Glucose POC Glucose 61 L* Estimat Average Glucose 171 Hemoglobin A1c 7.6 H Calcium Magnesium Total Bilirubin AST ALT Alkaline Phosphatase C-Reactive Protein Total Protein Albumin Globulin Albumin/Globulin Ratio Triglycerides Cholesterol LDL Cholesterol, Calc VLDL Cholesterol, Calc HDL Cholesterol Cholesterol/HDL Ratio Procalcitonin Nasal Screen MRSA (PCR) Negative SARS-CoV-2, RNA, NAAT 05/03/22 05/03/22 05/03/22 05:52 07:36 11:18 WBC RBC Hgb Hct MCV MCH MCHC RDW Std Deviation RDW Coeff of Wendy Plt Count MPV Immature Gran % (Auto) Neut % (Auto) Lymph % (Auto) [place] % (Auto) Eos % (Auto) Baso % (Auto) Neut # (Auto) Lymph # (Auto) [place] # (Auto) Eos # (Auto) Baso # (Auto) Immature Gran # (Auto) ESR 58 H PT INR APTT PTT Ratio Heparin Anti-Xa, LM Wt Sodium Potassium Chloride Carbon Dioxide Anion Gap BUN Creatinine Est Cr Clr Drug Dosing Est GFR ( Amer) Est GFR (Non-Af Amer) BUN/Creatinine Ratio Glucose POC Glucose 73 79 Estimat Average Glucose Hemoglobin A1c Calcium Magnesium Total Bilirubin AST ALT Alkaline Phosphatase C-Reactive Protein Total Protein Albumin Globulin Albumin/Globulin Ratio Triglycerides Cholesterol LDL Cholesterol, Calc VLDL Cholesterol, Calc HDL Cholesterol Cholesterol/HDL Ratio Procalcitonin Nasal Screen MRSA (PCR) SARS-CoV-2, RNA, NAAT 05/03/22 05/03/22 05/03/22 11:18 15:12 15:15 WBC RBC Hgb Hct MCV MCH MCHC RDW Std Deviation RDW Coeff of Wendy Plt Count MPV Immature Gran % (Auto) Neut % (Auto) Lymph % (Auto) [place] % (Auto) Eos % (Auto) Baso % (Auto) Neut # (Auto) Lymph # (Auto) [place] # (Auto) Eos # (Auto) Baso # (Auto) Immature Gran # (Auto) ESR PT INR APTT PTT Ratio Heparin Anti-Xa, LM Wt 0.48 Sodium Potassium Chloride Carbon Dioxide Anion Gap BUN Creatinine Est Cr Clr Drug Dosing Est GFR ( Amer) Est GFR (Non-Af Amer) BUN/Creatinine Ratio Glucose POC Glucose 57 L* 61 L* Estimat Average Glucose Hemoglobin A1c Calcium Magnesium Total Bilirubin AST ALT Alkaline Phosphatase C-Reactive Protein Total Protein Albumin Globulin Albumin/Globulin Ratio Triglycerides Cholesterol LDL Cholesterol, Calc VLDL Cholesterol, Calc HDL Cholesterol Cholesterol/HDL Ratio Procalcitonin Nasal Screen MRSA (PCR) SARS-CoV-2, RNA, NAAT 05/03/22 15:51 WBC RBC Hgb Hct MCV MCH MCHC RDW Std Deviation RDW Coeff of Wendy Plt Count MPV Immature Gran % (Auto) Neut % (Auto) Lymph % (Auto) [place] % (Auto) Eos % (Auto) Baso % (Auto) Neut # (Auto) Lymph # (Auto) [place] # (Auto) Eos # (Auto) Baso # (Auto) Immature Gran # (Auto) ESR PT INR APTT PTT Ratio Heparin Anti-Xa, LM Wt Sodium Potassium Chloride Carbon Dioxide Anion Gap BUN Creatinine Est Cr Clr Drug Dosing Est GFR ( Amer) Est GFR (Non-Af Amer) BUN/Creatinine Ratio Glucose POC Glucose 85 Estimat Average Glucose Hemoglobin A1c Calcium Magnesium Total Bilirubin AST ALT Alkaline Phosphatase C-Reactive Protein Total Protein Albumin Globulin Albumin/Globulin Ratio Triglycerides Cholesterol LDL Cholesterol, Calc VLDL Cholesterol, Calc HDL Cholesterol Cholesterol/HDL Ratio Procalcitonin Nasal Screen MRSA (PCR) SARS-CoV-2, RNA, NAAT Diagnostic Findings Head CT 05/02/22 14:[address] DOSE: 537.48 mGy.cm HISTORY: Left eye vision loss. Stroke Alert TECHNIQUE: Multiaxial CT images of the head were performed without the use of intravenous contrast. Automated exposure control was utilized for this study. A dose lowering technique was utilized adhering to the principles of ALARA. Comparison: None. Findings: The paranasal sinuses and mastoid air cells are clear. The calvarium and skull base are intact. There is no mass, hematoma, midline shift, acute infarct. White matter hypodensity is nonspecific but suggestive of microvascular ischemic change. The ventricles and sulci demonstrate mild age-related involutional changes. 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 Small focus of encephalomalacia within the left posterior parietal lobe on image 18. This also likely represents an old infarct. The orbits are unremarkable. Impression: 1. No acute intracranial abnormality. 2. Old small infarcts as described above. ACT 112: Negative or not required by law. Electronically signed by: Tom Ledesma M.D. 05/02/2022 3:30 PM Carotid Doppler Study 05/02/22 19:37 US carotid doppler BI CLINICAL HISTORY: 66 years-old Male with R-sided unilateral vision loss. Acute right-sided vision loss COMPARISON: Head CT of same day TECHNIQUE: Multiple real time sonographic images of the carotid bifurcations were obtained assessing park scale, color Doppler and spectral wave form appearance FINDINGS: RIGHT CAROTID: The peak systolic velocity measured within the right ICA is 19 cm/sec. The end diastolic velocity measured 6 cm/sec. The ICA to CCA ratio measured 0.51 which correlates with a stenosis of 0-50%. Moderate calcified plaque of the right carotid bulb and proximal right ICA. Expansile occlusive thrombus within the right internal jugular vein. LEFT CAROTID: The peak systolic velocity measured within the left ICA is 52 cm/sec. The end diastolic velocity measured 13 cm/sec. The ICA to CCA ratio measured 1.6 which correlates with a stenosis of 0-50%. There is normal antegrade vertebral flow bilaterally. IMPRESSION: 1. 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 2. Moderate atherosclerotic plaque of the right carotid bulb and proximal right ICA with decreased peak systolic velocities. 3. Antegrade flow within the vertebral arteries. ACT 112: Negative or not required by law. The above report was generated using voice recognition software. It may contain grammatical, syntax or spelling errors. Electronically signed by: Christoph Palmer M.D. 05/03/2022 7:59 AM Brain MRI 05/03/22 00:00 MR brain wo con HISTORY: 66 years-old Male Vision loss right eye acute right eye vision loss COMPARISON: Head CT of same day and also 05/02/2022 TECHNIQUE: Multiplanar multisequence MRI of the brain was obtained without the use of IV contrast. FINDINGS: Motion degraded exam. There is no restricted diffusion to suggest acute or subacute infarct. Motion degraded exam. Midline structures appear unremarkable. No acute intracranial hemorrhage, midline shift, abnormal extra-axial collection, hydrocephalus or intracranial mass. Involutional changes. Mild T2/FLAIR hyperintense foci noted throughout the white matter. Gliosis and encephalomalacia is noted within the left parietal lobe, likely from chronic infarct. Cerebral venous sinuses and major arterial flow voids appear patent. Skull and soft tissues are within normal limits. Mastoid air cells and paranasal sinuses are clear. Linear signal abnormality within the right globe is again noted posteriorly with mildly increased T1 signal. 3.4 cm right frontal scalp hematoma with subcutaneous edema. IMPRESSION: 1. Motion degraded exam. No acute intracranial abnormality identified. 2. Right-sided retinal versus choroidal detachment as previously discussed. Correlation with ophthalmologic examination recommended. 3. Involutional changes with mild chronic microvascular ischemic disease. 4. Chronic left parietal lobe infarct. 5. Acute right anterior frontal scalp hematoma. ACT 112: Negative or not required by law. The above report was generated using voice recognition software. It may contain grammatical, syntax or spelling errors. Electronically signed by: Christoph Palmer M.D. 05/03/2022 2:[address] 05/03/22 05:43 CT head/brain wo con CLINICAL HISTORY: 66 years-old Male with s/p fall with head trauma in ED and on eliquis. Acute head trauma status post fall TECHNIQUE: Multiple axial CT images of the head were obtained without contrast. A dose lowering technique was utilized adhering to the principles of ALARA. CT DOSE: 939.83 mGy.cm COMPARISON: Head CT 05/02/2022 FINDINGS: No acute intracranial hemorrhage, midline shift, intracranial mass, hydrocephalus, territorial ischemia or abnormal extra-axial collection. Motion degraded exam. Mild involutional changes. Mild white matter hypodensities suggestive of probable chronic microvascular ischemic disease. Mild encephalomalacia within the left parietal lobe, image 18 series 2 suggestive of a chronic infarct. Cerebral vascular calcifications. The calvarium is intact. There is unchanged ill-defined linear areas of increas ed attenuation within the right globe measuring up to 8 mm. 3.4 cm right frontal scalp hematoma with laceration. The paranasal sinuses, mastoid air cells, and middle ear cavities are clear. IMPRESSION: 1. Motion degraded exam without acute intracranial abnormality or calvarial fracture. 2. Unchanged linear increased attenuation within the right globe should be correlated with ophthalmologic examination to exclude retinal detachment versus choroidal hemorrhage. This finding was called/faxed to the ER at time of dictation. 3. Right frontal scalp hematoma with laceration. ACT 112: Negative or not required by law. The above report was generated using voice recognition software. It may contain grammatical, syntax or spelling errors. Electronically signed by: Christoph Palmer M.D. 05/03/2022 7:02 AM Head CTA 05/03/22 10:39 CT angio head w con CLINICAL HISTORY: 66 years-old Male with vision change. Acute 7 onset right- sided vision loss COMPARISON STUDY: Head CT of same day TECHNIQUE: Following the IV administration of 120 cc of Optiray, CT angiogram of the brain was performed from the skull base to the vertex. Images are reviewed in the axial, sagittal, and coronal planes. 3-D MIPS images are created and assessed. IV contrast was administered without complication. All measurements were obtained according to NASCET criteria. A dose lowering technique was utilized adhering to the principles of ALARA. CT DOSE: 621.35 mGy.cm FINDINGS: CT ANGIOGRAM OF THE BRAIN: The imaged bilateral internal carotid arteries are patent with moderate calcified plaque of the cavernous, clinoid and supraclinoid segments. The bilateral anterior and middle cerebral arteries are also patent. The vertebrobasilar system and posterior cerebral arteries are widely patent. There is no aneurysm, high-grade stenosis, or proximal branch occlusion identified. Dural sinuses appear patent. 3.4 cm right frontal scalp hematoma with laceration. There is a 4 mm focus of hyperattenuation along the superficial margin of the hematoma which was not seen on the precontrast study. Right-sided retinal versus choroidal detachment redemonstrated. IMPRESSION: 1. Unremarkable CTA of the head. 2. Right-sided retinal versus choroidal detachment as previously discussed. Correlation with ophthalmologic examination recommended. 3. Right frontal scalp hematoma and laceration. Subcentimeter hyperdense focus within the hematoma was not seen on the precontrast study. Correlate clinically to exclude active extravasation. ACT 112: Negative or not required by law. The above report was generated using voice recognition software. It may contain grammatical, syntax or spelling errors. Electronically signed by: Christoph Palmer M.D. 05/03/2022 3:03 PM Neck CTA 05/03/22 10:39 CT ANGIOGRAM OF THE NECK CLINICAL HISTORY: Visual changes. COMPARISON STUDY: Carotid artery ultrasound dated 05/02/2022. TECHNIQUE: Following the IV administration of 120 of Optiray 320, CT angiogram of the neck was performed from the aortic arch to the skull base. Images are reviewed in the axial, sagittal, and coronal planes. 3-D MIPS images are created and assessed. IV contrast was administered without complication. All measurements were calculated based on NASCET criteria. A dose lowering technique was utilized adhering to the principles of ALARA. FINDINGS: Thoracic aorta: There is atherosclerotic calcification of the thoracic aorta. Visualized portions of the thoracic aorta are normal in caliber. The aortic arch demonstrates bovine variant anatomy. Right carotid arterial system: The right common carotid artery is widely patent, as are the right internal and external carotid arteries. Calcified plaque is noted in the carotid bulb. Left carotid arterial system: The left common carotid artery is widely patent, as are the left internal and external carotid arteries. Calcified plaque is noted in the carotid bulb. Vertebral arteries: The vertebral arteries are widely patent bilaterally noting mild left-sided dominance. Subclavian arteries: Widely patent bilaterally. Jugular veins: Not opacified and not well evaluated. Brain parenchyma: The visualized brain parenchyma the skull base is within normal limits. Lung apices: Emphysematous change is observed. A large left pleural effusion is partially visualized. Intralobular septal thickening is noted in the upper lobes. Soft tissues: The visualized pharyngeal soft tissues are normal in appearance noting angiographic phase technique. The oropharyngeal airway appears widely patent. The salivary and thyroid glands are normal in appearance. There are mildly enlarged mediastinal lymph nodes. No cervical lymphadenopathy is seen. Skeletal structures: The skeletal structures are osteopenic. The visualized calvarium at the skull base appears intact. The imaged cervical spine is maintained noting multilevel spondylosis. No lytic or blastic lesion is seen. Sinuses and mastoids: The visualized paranasal sinuses are clear. The mastoid air cells are well-pneumatized. IMPRESSION: 1. Unremarkable CT angiogram of the neck. 2. A large left pleural effusion is partially visualized. 3. Emphysema. 4. Intralobular septal thickening in the upper lobes suggests congestive failure. Clinical correlation will be required. 5. Occlusive thrombus suggested within the right internal jugular vein by ultrasound could not be evaluated by CT due to lack of contrast opacification. ACT 112: Negative or not required by law. Electronically signed by: Chu Estrella M.D. 05/03/2022 2:52 PM
--- NOTE | 2022-05-03 16:56 | Nephrology Consultation ---
Date of Consultation May 03, 2022 Assessment & Plan (1) ESRD (end stage renal disease) on dialysis: Orders for HD this AM entered into the EHR and reviewed with expense analyst. Patient seen and evaluated during dialysis. Treatment stopped early but adequate clearance and UF were obtained. Tolerated treatment well. AVF functioning well. Medications appropriately dosed for kidney dysfunction. Renal diet. Next anticipated HD will be Sunday. (2) Anemia due to chronic kidney disease: Chronic, stable. Hgb >11. No additional JODIE therapy required with HD today. (3) HFrEF (heart failure with reduced ejection fraction): Tolerated HD well today. Volume status reasonably controlled. UF 2 L with HD today. Low sodium diet. Continue Entresto and metoprolol as Rx. Daily weights while inpatient. (4) Monocular vision loss: Imaging negative for CVA. Clinical history concerning for intraocular abnormality. Optho follow up will be required. Heparin held with HD today. History of Present Illness Reason for Consultation: ESRD on HD Requesting Physician: Yovanny Peterson Attending Physician: Yovanny Peterson History of Present Illness Mr. Fernando Sanchez is a 66 year-old male with ESRD. He is maintained on IHD at [facility]. Fernando dialyzes on a TTS scheduled under the care of Dr. Mccormack. Fernando's last dialysis treatment was completed on Sunday. Unfortunately, he did sign-off treatment early due to leg pain. I called and spoke with a dialysis nurse at [facility] this morning. I discussed the patient and plan of care with Dr. Peterson this morning as well. Fernando's outpatient Rx is 3 hrs on a 180 optiflux, Qb 350 and Qd 800. Typically using a 16 gauge needle. EDW has been 80 kg. Fernando left dialysis at 78.7 kg on Sunday. He has a RUE BC AVF. Medical history is notable for DMII, PAD, HFrEF with AICD, COPD, and chronic LE venous stasis with ulcers. Fernando is followed by optho for proliferative retinopathy and a reported history of vitreous hemorrhage. Unfortunately, he has not returned for follow up recently. This was in part due to recent hospitalization. Fernando was recently hospitalized at [facility] with BL LE cellulitis. He notes that erythema is improving with antibiotic therapy but notable pain persists. The patient was seen and evaluated in the ER this AM prior to dialysis. I also saw Fernando during dialysis. There was a small infiltration of the AVF with needle placement this AM. Thankfully, we were able to secure the site and continue with dialysis. Fernando then tolerated the remainder of the dialysis treatment uneventfully. Scheduled treatment stopped early to accommodate MRI. The patient presented to [facility] yesterday with vision changes in the right eye. This was a very sudden change with fogginess and loss of visual acuity. 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 Allergies Allergy/AdvReac Type Severity Reaction Status Date / Time No Known Allergies Allergy Verified 05/02/22 17:58 Home Medications Medication Instructions Recorded Confirmed Type albuterol sulfate 90 mcg/actuation 2 puff inhalation Q4H PRN 04/16/22 05/02/22 History aerosol inhaler Shortness Of Breath Or Wheezing apixaban 5 mg tablet (Eliquis) 5 mg PO BID 04/16/22 05/02/22 History cyclobenzaprine 10 mg tablet 10 mg PO BID PRN Spasms 04/16/22 05/02/22 History duloxetine 60 mg capsule,delayed 60 mg PO HS 04/16/22 05/02/22 History release fluticasone fur. 100 mcg-umeclid 1 inh inhalation HS 04/16/22 05/02/22 History 62.5 mcg-vilant 25 mcg inhalat.powder (Trelegy Ellipta) gabapentin 100 mg capsule 100 mg PO HS 04/16/22 05/02/22 History lanthanum 500 mg chewable tablet 500 mg PO HS 04/16/22 05/02/22 History pramipexole 0.25 mg tablet 0.25 mg PO HS 04/16/22 05/02/22 History oxycodone 5 mg tablet 7.5 mg PO Q6H PRN pain #15 tabs 04/23/22 05/02/22 Rx sacubitril 24 mg-valsartan 26 mg 1 tab PO BID #60 tabs 04/23/22 05/02/22 Rx tablet (Entresto) cholecalciferol (vitamin D3) 50 50 mcg PO HS 04/27/22 05/02/22 History mcg (2,000 unit) capsule insulin glargine 100 unit/mL (3 10 unit (0.1 mL) subcut QPM #15 mL 04/27/22 05/02/22 Rx mL) subcutaneous pen (Lantus Solostar U-100 Insulin) atorvastatin 10 mg tablet 10 mg PO HS 05/02/22 05/02/22 History cephalexin 500 mg capsule 500 mg PO HS 05/02/22 05/02/22 History clopidogrel 75 mg tablet 75 mg PO HS 05/02/22 05/02/22 History lidocaine-prilocaine 2.5 %-2.5 % 1.5 g topical DIRECTED PRN Pain 05/02/22 05/02/22 History topical cream metoprolol succinate 50 mg 50 mg PO HS 05/02/22 05/02/22 History tablet,extended release 24 hr Patient History Medical History Anemia due to chronic kidney disease Carotid bruit COPD (chronic obstructive pulmonary disease) Diabetes ESRD (end stage renal disease) on dialysis Non-healing wound of amputation stump Peripheral arterial disease Venous stasis ulcer Surgical History A-V fistula History of amputation History of cardiac defibrillator placement S/P vascular bypass Family History Other Family history non-contributory Social History Smoking Status: Never smoker Tobacco Type: Cigarettes Age Started Using Tobacco: 11; packs per day: 1; Cigarettes Per Day: used to smoke 5PPD - recently cut back to 1; Second Hand Exposure: No; Hx Alcohol Use: No Hx Substance Use: Yes Prescribed Medications: Marijuana Preferred Language: Indonesian Communication Ability: Effective Visual Impairment: Partially Limited Hearing Ability: Hard of Hearing V Belt [employer] Required: No Beliefs That Will Affect Care: None marital status: Current Living Situation: Spouse current occupational status: disabled Feels Safe at Home: Yes during the past year weight has: remained stable Dental Care, Regularly: No Physical Activity Frequency: Does not Exercise Assistive Devices: Walker Review of Systems Review of Systems: All systems reviewed & are unremarkable except as noted in HPI & below Constitutional: + weakness (generalized) Musculoskeletal: + back pain, + joint pain, + swelling and + stiffness Neurologic: no localized weakness Physical Exam Constitutional: + ill appearing and + frail appearing; no acute distress Eyes: + anicteric sclerae; no periorbital abnormality and pupils not irregular Neck: normal visual inspection and trachea midline Respiratory: normal respiratory effort Auscultation: lungs clear to auscultation bilaterally and + rales Cardiovascular: Rate/Rhythm: regular rate Heart Sounds: normal S1, normal S2 and + murmur Extremities: + edema, + varicosities and + AV fistula Musculoskeletal: Extremities: no cyanosis and no clubbing Skin: + turgor decreased and + ecchymosis; no jaundice Neurologic: not confused Motor/Sensory: no asterixis Psychiatric: Orientation: alert and oriented x 3 Results & Data ([facility]) Vital Signs (Past 12 Hours) Vital Signs Temp Pulse Pulse Resp BP BP Pulse Ox 05/03/22 12:48 36.4 C L 76 125/75 05/03/22 12:30 81 99/79 L 05/03/22 12:00 71 119/86 05/03/22 11:30 51 L 146/81 H 05/03/22 11:00 60 122/68 05/03/22 10:30 63 100/69 05/03/22 10:00 63 112/76 05/03/22 09:47 36.5 C 69 05/03/22 07:42 58 L 13 139/86 92 05/03/22 06:12 78 18 90 05/03/22 05:00 76 18 O2 Del Method O2 Flow Rate 05/03/22 12:48 05/03/22 12:30 05/03/22 12:00 05/03/22 11:30 05/03/22 11:00 05/03/22 10:30 05/03/22 10:00 05/03/22 09:47 05/03/22 07:42 Nasal Cannula 2 05/03/22 06:12 Nasal Cannula 05/03/22 05:00 Laboratory Results Laboratory Results - last 24 hr 05/02/22 05/02/22 05/02/22 15:49 15:49 17:30 WBC RBC Hgb Hct MCV MCH MCHC RDW Std Deviation RDW Coeff of Wendy Plt Count MPV Immature Gran % (Auto) Neut % (Auto) Lymph % (Auto) [place] % (Auto) Eos % (Auto) Baso % (Auto) Neut # (Auto) Lymph # (Auto) [place] # (Auto) Eos # (Auto) Baso # (Auto) Immature Gran # (Auto) ESR PT Cancelled 13.0 H INR Cancelled 1.2 H APTT Cancelled 30.2 PTT Ratio Cancelled 1.1 Heparin Anti-Xa, LM Wt Sodium 137 Potassium TNP Chloride 91 L Carbon Dioxide 35 H Anion Gap 11 BUN 27 H Creatinine 4.90 H* Est Cr Clr Drug Dosing 16.3 Est GFR ( Amer) 13.2 Est GFR (Non-Af Amer) 11.4 BUN/Creatinine Ratio 5.5 L Glucose 259 H POC Glucose Estimat Average Glucose Hemoglobin A1c Calcium 9.0 Magnesium 2.1 Total Bilirubin 2.4 H AST TNP ALT 6 L Alkaline Phosphatase 105 H C-Reactive Protein Total Protein 7.4 Albumin 3.4 Globulin 4.0 Albumin/Globulin Ratio 0.9 Triglycerides Cholesterol LDL Cholesterol, Calc VLDL Cholesterol, Calc HDL Cholesterol Cholesterol/HDL Ratio Procalcitonin Nasal Screen MRSA (PCR) SARS-CoV-2, RNA, NAAT 05/02/22 05/02/22 05/02/22 17:31 17:31 23:11 WBC RBC Hgb Hct MCV MCH MCHC RDW Std Deviation RDW Coeff of Wendy Plt Count MPV Immature Gran % (Auto) Neut % (Auto) Lymph % (Auto) [place] % (Auto) Eos % (Auto) Baso % (Auto) Neut # (Auto) Lymph # (Auto) [place] # (Auto) Eos # (Auto) Baso # (Auto) Immature Gran # (Auto) ESR PT INR APTT PTT Ratio Heparin Anti-Xa, LM Wt Sodium Potassium 3.6 Chloride Carbon Dioxide Anion Gap BUN Creatinine Est Cr Clr Drug Dosing Est GFR ( Amer) Est GFR (Non-Af Amer) BUN/Creatinine Ratio Glucose POC Glucose 251 H Estimat Average Glucose Hemoglobin A1c Calcium Magnesium Total Bilirubin AST 19 ALT Alkaline Phosphatase C-Reactive Protein 10.82 H Total Protein Albumin Globulin Albumin/Globulin Ratio Triglycerides Cholesterol LDL Cholesterol, Calc VLDL Cholesterol, Calc HDL Cholesterol Cholesterol/HDL Ratio Procalcitonin 0.58 H Nasal Screen MRSA (PCR) SARS-CoV-2, RNA, NAAT 05/02/22 05/03/22 05/03/22 Unknown 01:52 01:53 WBC RBC Hgb Hct MCV MCH MCHC RDW Std Deviation RDW Coeff of Wendy Plt Count MPV Immature Gran % (Auto) Neut % (Auto) Lymph % (Auto) [place] % (Auto) Eos % (Auto) Baso % (Auto) Neut # (Auto) Lymph # (Auto) [place] # (Auto) Eos # (Auto) Baso # (Auto) Immature Gran # (Auto) ESR PT INR APTT PTT Ratio Heparin Anti-Xa, LM Wt Sodium Potassium Chloride Carbon Dioxide Anion Gap BUN Creatinine Est Cr Clr Drug Dosing Est GFR ( Amer) Est GFR (Non-Af Amer) BUN/Creatinine Ratio Glucose POC Glucose 58 L* 54 L* Estimat Average Glucose Hemoglobin A1c Calcium Magnesium Total Bilirubin AST ALT Alkaline Phosphatase C-Reactive Protein Total Protein Albumin Globulin Albumin/Globulin Ratio Triglycerides Cholesterol LDL Cholesterol, Calc VLDL Cholesterol, Calc HDL Cholesterol Cholesterol/HDL Ratio Procalcitonin Nasal Screen MRSA (PCR) SARS-CoV-2, RNA, NAAT NEGATIVE 05/03/22 05/03/22 05/03/22 02:11 02:25 02:44 WBC RBC Hgb Hct MCV MCH MCHC RDW Std Deviation RDW Coeff of Wendy Plt Count MPV Immature Gran % (Auto) Neut % (Auto) Lymph % (Auto) [place] % (Auto) Eos % (Auto) Baso % (Auto) Neut # (Auto) Lymph # (Auto) [place] # (Auto) Eos # (Auto) Baso # (Auto) Immature Gran # (Auto) ESR PT INR APTT PTT Ratio Heparin Anti-Xa, LM Wt Sodium Potassium Chloride Carbon Dioxide Anion Gap BUN Creatinine Est Cr Clr Drug Dosing Est GFR ( Amer) Est GFR (Non-Af Amer) BUN/Creatinine Ratio Glucose POC Glucose 68 L* 64 L* 67 L* Estimat Average Glucose Hemoglobin A1c Calcium Magnesium Total Bilirubin AST ALT Alkaline Phosphatase C-Reactive Protein Total Protein Albumin Globulin Albumin/Globulin Ratio Triglycerides Cholesterol LDL Cholesterol, Calc VLDL Cholesterol, Calc HDL Cholesterol Cholesterol/HDL Ratio Procalcitonin Nasal Screen MRSA (PCR) SARS-CoV-2, RNA, NAAT 05/03/22 05/03/22 05/03/22 03:02 04:16 04:16 WBC 13.49 H RBC 3.94 L Hgb 11.8 L Hct 37.2 L MCV 94.4 MCH 29.9 MCHC 31.7 L RDW Std Deviation 59.8 H RDW Coeff of Wendy 17.2 H Plt Count 171 MPV 10.2 Immature Gran % (Auto) 0.4 Neut % (Auto) 88.8 Lymph % (Auto) 2.8 [place] % (Auto) 6.3 Eos % (Auto) 1.3 Baso % (Auto) 0.4 Neut # (Auto) 11.97 H Lymph # (Auto) 0.38 L [place] # (Auto) 0.85 H Eos # (Auto) 0.18 Baso # (Auto) 0.06 Immature Gran # (Auto) 0.05 ESR PT INR APTT PTT Ratio Heparin Anti-Xa, LM Wt Sodium 138 Potassium 3.7 Chloride 94 L Carbon Dioxide 32 Anion Gap 12 H BUN 31 H Creatinine 5.26 H* D Est Cr Clr Drug Dosing 15.1 Est GFR ( Amer) 12.2 Est GFR (Non-Af Amer) 10.5 BUN/Creatinine Ratio 5.9 L Glucose 54 L POC Glucose 101 H Estimat Average Glucose Hemoglobin A1c Calcium 8.6 Magnesium Total Bilirubin 2.2 H AST 22 ALT 6 L Alkaline Phosphatase 110 H C-Reactive Protein Total Protein 7.3 Albumin 3.2 L Globulin 4.1 H Albumin/Globulin Ratio 0.8 L Triglycerides 56 Cholesterol 129 LDL Cholesterol, Calc 69 VLDL Cholesterol, Calc 11 HDL Cholesterol 49 Cholesterol/HDL Ratio 2.6 Procalcitonin Nasal Screen MRSA (PCR) SARS-CoV-2, RNA, NAAT 05/03/22 05/03/22 05/03/22 04:16 05:00 05:20 WBC RBC Hgb Hct MCV MCH MCHC RDW Std Deviation RDW Coeff of Wendy Plt Count MPV Immature Gran % (Auto) Neut % (Auto) Lymph % (Auto) [place] % (Auto) Eos % (Auto) Baso % (Auto) Neut # (Auto) Lymph # (Auto) [place] # (Auto) Eos # (Auto) Baso # (Auto) Immature Gran # (Auto) ESR PT INR APTT PTT Ratio Heparin Anti-Xa, LM Wt Sodium Potassium Chloride Carbon Dioxide Anion Gap BUN Creatinine Est Cr Clr Drug Dosing Est GFR ( Amer) Est GFR (Non-Af Amer) BUN/Creatinine Ratio Glucose POC Glucose 61 L* Estimat Average Glucose 171 Hemoglobin A1c 7.6 H Calcium Magnesium Total Bilirubin AST ALT Alkaline Phosphatase C-Reactive Protein Total Protein Albumin Globulin Albumin/Globulin Ratio Triglycerides Cholesterol LDL Cholesterol, Calc VLDL Cholesterol, Calc HDL Cholesterol Cholesterol/HDL Ratio Procalcitonin Nasal Screen MRSA (PCR) Negative SARS-CoV-2, RNA, NAAT 05/03/22 05/03/22 05/03/22 05:52 07:36 11:18 WBC RBC Hgb Hct MCV MCH MCHC RDW Std Deviation RDW Coeff of Wendy Plt Count MPV Immature Gran % (Auto) Neut % (Auto) Lymph % (Auto) [place] % (Auto) Eos % (Auto) Baso % (Auto) Neut # (Auto) Lymph # (Auto) [place] # (Auto) Eos # (Auto) Baso # (Auto) Immature Gran # (Auto) ESR 58 H PT INR APTT PTT Ratio Heparin Anti-Xa, LM Wt Sodium Potassium Chloride Carbon Dioxide Anion Gap BUN Creatinine Est Cr Clr Drug Dosing Est GFR ( Amer) Est GFR (Non-Af Amer) BUN/Creatinine Ratio Glucose POC Glucose 73 79 Estimat Average Glucose Hemoglobin A1c Calcium Magnesium Total Bilirubin AST ALT Alkaline Phosphatase C-Reactive Protein Total Protein Albumin Globulin Albumin/Globulin Ratio Triglycerides Cholesterol LDL Cholesterol, Calc VLDL Cholesterol, Calc HDL Cholesterol Cholesterol/HDL Ratio Procalcitonin Nasal Screen MRSA (PCR) SARS-CoV-2, RNA, NAAT 05/03/22 05/03/22 05/03/22 11:18 15:12 15:15 WBC RBC Hgb Hct MCV MCH MCHC RDW Std Deviation RDW Coeff of Wendy Plt Count MPV Immature Gran % (Auto) Neut % (Auto) Lymph % (Auto) [place] % (Auto) Eos % (Auto) Baso % (Auto) Neut # (Auto) Lymph # (Auto) [place] # (Auto) Eos # (Auto) Baso # (Auto) Immature Gran # (Auto) ESR PT INR APTT PTT Ratio Heparin Anti-Xa, LM Wt 0.48 Sodium Potassium Chloride Carbon Dioxide Anion Gap BUN Creatinine Est Cr Clr Drug Dosing Est GFR ( Amer) Est GFR (Non-Af Amer) BUN/Creatinine Ratio Glucose POC Glucose 57 L* 61 L* Estimat Average Glucose Hemoglobin A1c Calcium Magnesium Total Bilirubin AST ALT Alkaline Phosphatase C-Reactive Protein Total Protein Albumin Globulin Albumin/Globulin Ratio Triglycerides Cholesterol LDL Cholesterol, Calc VLDL Cholesterol, Calc HDL Cholesterol Cholesterol/HDL Ratio Procalcitonin Nasal Screen MRSA (PCR) SARS-CoV-2, RNA, NAAT 05/03/22 15:51 WBC RBC Hgb Hct MCV MCH MCHC RDW Std Deviation RDW Coeff of Wendy Plt Count MPV Immature Gran % (Auto) Neut % (Auto) Lymph % (Auto) [place] % (Auto) Eos % (Auto) Baso % (Auto) Neut # (Auto) Lymph # (Auto) [place] # (Auto) Eos # (Auto) Baso # (Auto) Immature Gran # (Auto) ESR PT INR APTT PTT Ratio Heparin Anti-Xa, LM Wt Sodium Potassium Chloride Carbon Dioxide Anion Gap BUN Creatinine Est Cr Clr Drug Dosing Est GFR ( Amer) Est GFR (Non-Af Amer) BUN/Creatinine Ratio Glucose POC Glucose 85 Estimat Average Glucose Hemoglobin A1c Calcium Magnesium Total Bilirubin AST ALT Alkaline Phosphatase C-Reactive Protein Total Protein Albumin Globulin Albumin/Globulin Ratio Triglycerides Cholesterol LDL Cholesterol, Calc VLDL Cholesterol, Calc HDL Cholesterol Cholesterol/HDL Ratio Procalcitonin Nasal Screen MRSA (PCR) SARS-CoV-2, RNA, NAAT PG Care Time/CCT Total # of Minutes Spent Total Time Spent with Patient: Total time spent is greater than 50% in coordination of care (as documented) at patient's floor/unit and/or counseling patient: Coding Level of Care Code INP/OBS CONSULT LVL 4, 60 MIN Diagnoses ESRD (end stage renal disease) on dialysis N18.6; Z99.2 Anemia due to chronic kidney disease N18.9; D63.1 HFrEF (heart failure with reduced ejection fraction) I50.20 Monocular vision loss H54.60
[2022-05-03] MEDS: VALSARTAN/SACUBITRIL 26/24MG TAB PO SCH ×2 (18:01→21:06)
[2022-05-03] MEDS: LANTUS PER UNIT CHARGE SQ SCH (18:02)
[2022-05-03 18:57] LABS: Partial Thromboplastin Ratio 1.6; Partial Thromboplastin Time 44.6 Seconds (21.0-31.0)
[2022-05-03] MEDS: ATORVASTATIN 40 MG TAB PO SCH (21:03)
[2022-05-03] MEDS: CLOPIDOGREL BISULFATE 75 MG TAB PO SCH (21:03)
[2022-05-03] MEDS: DULoxetine HCL 60 MG CAP PO SCH (21:04)
[2022-05-03] MEDS: GABAPENTIN 100 MG CAP PO SCH (21:05)
[2022-05-03] MEDS: METOPROLOL SUCC 50MG EXT REL TAB PO SCH (21:06)
[2022-05-03] MEDS: PRAMIPEXOLE DIHYDROCHLO 0.25 MG TAB PO SCH (21:06)
--- NOTE | 2022-05-03 21:10 | Hospitalist Progress Note ---
Date of Service May 03, 2022 Assessment & Plan (1) Monocular vision loss: Plan: This is a 66-year-old male with a history of ESRD, COPD, type 2 diabetes, peripheral arterial disease, HFrEF who presented to [facility] for evaluation of unilateral R-sided vision loss. In the setting of his known other chronic conditions, his appearance is most concerning for a stroke or intraocular process. RIGHT Unilateral Vision Loss -Patient with numerous vasculopathic disorders presenting with 2 days of right- sided unilateral vision loss Work-up as follows: CT head without acute processes, however, old infarcts and microvascular disease appreciated Direct/indirect pupillary reflexes intact, extraocular movements intact Major concern is CVA - e.g., CRAO. Also on differential includes optic neuritis, intraocular process like vitreal hemorrhage Obtain ultrasound of the carotids bilaterally Obtain MRI without contrast: pending Continue antiplatelet therapy consult ophthalmology: given right internal jugular vein thrombosis, will place on heparin. -Given that patient has missed appointment with opthalmology in the past to discuss possible vitreous hemorrhage of afected eye, there is concern patient may not be fully compliant with his medications. -will obtain factor xa levels, however patient did receive overnight dose of xarelto. -due to possible left facial droop, will consult neurologuy. Neurovascular checks have been ordered PT, OT to evaluate Fall precautions Smoking cessation counseling will need to be provided (2) HFrEF (heart failure with reduced ejection fraction): Plan: Last TTE (04/2021): Severe reduction in LV systolic function with ejection fraction 15% Continue Entresto, metoprolol Status post AICD placement Follows with Dr. Campbell with [facility] cardiology they (3) Diabetes: Plan: T2DM Last A1c at 7.8% in 04/2022 Initiate ACHS checks with sliding scale insulin and Lantus 5mg b.i.d. \ (4) COPD (chronic obstructive pulmonary disease): Plan: Continue Trelegy Continues to smoke, down to 1/2 PPD Counseling will be provided (5) ESRD (end stage renal disease) on dialysis: Plan: BUN 27/creatinine 4.9 on arrival (from 41/4.15 on 04/23) Receives HD on MWF Follows with Dr. Mccormack in [place] Appreciate nephrology consultation to arrange hemodialysis while here Monitor BMP (6) Non-healing wound of amputation stump: Plan: Has chronic bilateral lower extremity cellulitis superimposed on chronic venous changes in the setting of severe peripheral arterial disease status post bypass grafting of the left lower extremity and transmetatarsal left foot amputation Per PCP notes, cellulitis has been improving, though patient says it is worsening (?) --> vascular surgery ([facility]) has preferred to hold off on any interventions to allow for self healing; however, consideration has been given to superficial femoral artery intervention -vascualr surgery consult placed MRI in 04/2021 negative for osteomyelitis Based on prior admission notes, [facility] had a culture that did not reveal evidence of MRSA or gram-negative organisms; was improving on cefazolin No leukocytosis. Check CRP, procalcitonin, MRSA swab Suspect ongoing pain, redness likely secondary to PAD and difficulty clearing infection Renally dosed cefazolin 500 mg every 8h Consult wound care while here, appreciate recommendations. 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 vascular surgery; see issue above Continue Plavix, heparin statin (9) Abnormal bilirubin test: Plan: Total bilirubin 2.4 and ALP 105 on arrival; there has been abnormalities noted with his LFTs over the last several months Possible underlying liver disease vs. conjugation disorder (Gilbert's). Synthetic labs (Na, Plt, INR- 1.2) are overall reasonable but noted. Possibly related to underlying ESRD? Liver ultrasound 04/17 demonstrating unremarkable appearance with normal common bile duct size Monitor while here Plan Code: Full code Dispo: MedSurg telemetry Diet: Heart healthy, low-sodium Prophylaxis: On heparin Admission and Anticipated Discharge Date Admission Date: May 02, 2022 Subjective Patient is a poor historian and appears to be non compliant given history with nephrology and recommendations with [facility] stating that he should see opthalmology yet he missed their appointment. Patient reports he cannot see in his affected eye (right eye). Review of Systems Review of Systems: All systems reviewed & are unremarkable except as noted in HPI & below Physical Exam Physical Exam: General: 66-year old male who is alert, oriented, and appears in no acute distress. HEENT: NCAT. - Eyes - Sclera are white, anicteric, and without injection. - Mouth - MMM, small facial droop on left. - Neck - supple, no appreciable JVD Cardiac: Normal rate and regular rhythm; S1 and S2 present with no murmurs, rubs, or gallops. Pulmonary: Good respiratory effort with symmetric expansion of the chest. No use of accessory muscles. lungs: clear Abdominal: Normoactive bowel sounds. Abdomen was soft, nondistended, and non-tender to palpation. Extremities: Examination of the right lower extremity does reveal gross erythema extending up towards his right thigh and is blanchable; there are eschars appreciated from his foot upward. Left lower extremity exam does reveal distal metatarsal amputation of the toes. There is 1+ pitting edema in the right lower extremity. Neuro: -Oriented x3. The patient is speaking slowly. Psych: Well-developed, well-nourished, appropriately dressed for occasion. Behavior is cooperative and appropriate. Affect is WNL. Insight is appropriate. Results & Data Results & Data ([facility]) Vital Signs (Past 12 Hours) Vital Signs Temp Pulse Pulse Pulse Resp BP BP 05/03/22 20:00 36.5 C 78 18 112/71 05/03/22 18:17 82 05/03/22 17:00 05/03/22 17:00 36.7 C 84 110/75 05/03/22 12:48 36.4 C L 76 125/75 05/03/22 12:30 81 99/79 L 05/03/22 12:00 71 119/86 05/03/22 11:30 51 L 146/81 H 05/03/22 11:00 60 122/68 05/03/22 10:30 63 100/69 05/03/22 10:00 63 112/76 05/03/22 09:47 36.5 C 69 Pulse Ox O2 Del Method 05/03/22 20:00 93 Room Air 05/03/22 18:17 05/03/22 17:00 Room Air 05/03/22 17:00 94 Room Air 05/03/22 12:48 05/03/22 12:30 05/03/22 12:00 05/03/22 11:30 05/03/22 11:00 05/03/22 10:30 05/03/22 10:00 05/03/22 09:47 PG Care Time/CCT Total # of Minutes Spent Total Time Spent with Patient: Total time spent is greater than 50% in coordination of care (as documented) at patient's floor/unit and/or counseling patient: Coding Level of Care Code 75915 SUB INP/OBS CARE 3/50MIN Diagnoses Monocular vision loss H54.60 HFrEF (heart failure with reduced ejection fraction) I50.20 Diabetes E11.9 COPD (chronic obstructive pulmonary disease) J44.9 ESRD (end stage renal disease) on dialysis N18.6; Z99.2 Non-healing wound of amputation stump T87.89 Anemia due to chronic kidney disease N18.9; D63.1 Peripheral arterial disease I73.9 Abnormal bilirubin test R79.89
--- NOTE | 2022-05-03 21:53 | Consultation Report ---
REQUESTING PHYSICIAN: Dr. Peterson. CHIEF COMPLAINT/HISTORY OF PRESENT ILLNESS: This is a 66-year-old male with a medical history of end-stage renal disease, on dialysis; COPD, type 2 diabetes, and peripheral arterial disease, who presented to the [facility] Emergency Department on 05/02/2022 with right-sided acute painless vision loss that started 2 days prior. He states he woke up on Sunday and could not see out of his right eye. He described it as only seeing light and shadows and almost seeming like an "oil" type of appearance. He has no prior history of any similar episodes. He denied any eye pain, headache, mosque tenderness, or scalp tenderness. He does report a history of diabetic retinopathy in both eyes and has had laser treatments and intravitreal injections in both eyes by a retinal specialist in [place]. He reports that he is actually overdue to see the retinal specialist. At present, he describes his right eye vision as "reddish yellow." He is not having any issues with his left eye. PAST MEDICAL HISTORY: Chronic kidney disease and end-stage renal disease, on dialysis; carotid disease, COPD, type 2 diabetes, peripheral arterial disease, venous stasis ulcers, and heart failure. PAST SURGICAL HISTORY: AV fistula amputation, defibrillator placement, and vascular bypass. ALLERGIES: No known drug allergies. SOCIAL HISTORY: He is a smoker. PHYSICAL EXAMINATION: OPHTHALMOLOGIC EXAM: His visual acuity at near in the right eye is hand motion, in the left eye is 20/25. His intraocular pressures are 12 in the right eye and 14 in the left eye. His pupils are both 4 mm and reacted down to 3 mm. There does not appear to be a significant afferent pupillary defect. His extraocular movements are full in both eyes. His confrontational visual khanna are full on the left side and it is depressed superiorly versus inferiorly in the right eye. His anterior segment exam on the right shows ecchymosis near the lateral canthus. His conjunctiva and sclerae show a subconjunctival hemorrhage temporally. His cornea appears clear. His anterior chamber is deep and formed. His iris is round with no defects and his lens shows moderate nuclear sclerosis. In the left eye, his lids, lashes, and lacrimal glands are within normal limits. His conjunctivae and sclerae are white and quiet. His cornea appears clear. His anterior chamber is deep and formed. His iris is round with no defects and he has moderate nuclear sclerosis as well. The posterior segment exam on the right is remarkable for diffuse vitreous hemorrhage. There is no view of the optic nerve or macula due to the hemorrhage. In the few areas that were able to be seen peripherally, there are some PRP laser scars noted along with regressed neovascularization and old vitreous hemorrhage inferiorly. His left eye shows a cup-to-disc ratio of 0.4. He has a few microaneurysms in the macula and he has PRP laser scarring peripherally. RADIOLOGY: His radiology studies were reviewed. His carotid Dopplers show moderate atherosclerotic plaque in the right carotid bulb as well as proximal right internal carotid artery. The MRI of the brain and orbits shows a right- sided retinal versus choroidal detachment. His neck CTA shows patent right and left common carotid and internal/external carotid arteries with plaques in the carotid bulb on both sides. ASSESSMENT AND PLAN: 1. Vitreous hemorrhage. This is likely related to his proliferative diabetic retinopathy. There is no treatment indicated currently while he is in the hospital, but he does need to have close followup with his retinal specialist upon discharge. There is no contraindication to using anticoagulation due to the systemic benefits outweighing the risk of slow blood resorption. 2. Proliferative diabetic retinopathy, both eyes, status post PRP laser and intravitreal injections. Followup is recommended with his retina doctor upon discharge and also recommend that the patient continues to try to get his blood glucose levels under control. 3. Cataracts of both eyes. These are not visually significant and not responsible for his current visual state. 4. Subconjunctival hemorrhage in the right eye. No treatment is indicated. This will resolve on its own. Thank you for this consult. Job ID: [id number] [facility] HOSPITALLizzie
[2022-05-04] MEDS: UMECLIDINIUM/VILANTEROL 62.5/25MCG 7 PUFFS/INHALER INH SCH ×2 (00:03→21:36)
[2022-05-04] MEDS: FLUTICASONE FUROATE 100MCG 14 PUFFS/INHALER INH SCH ×2 (00:03→21:38)
[2022-05-04 03:13] LABS: Basophils # (auto) 0.05 K/uL (0-0.2); Basophils % (auto) 0.6 %; Eosinophils % (auto) 2.4 %; Hemoglobin 11.4 g/dl (14.0-18.0); Immature Granulocytes # (auto) 0.05 K/uL (0.01-0.20); Immature Granulocytes % (auto) 0.6 %; Lymphocytes # (auto) 0.44 K/uL (1.2-3.4); Lymphocytes % (auto) 5.2 %; Mean Corpuscular Hemoglobin 29.7 pg (25.0-34.0); Mean Corpuscular Hgb Conc 31.7 g/dL (32.0-36.0); Mean Corpuscular Volume 93.8 fL (80.0-100.0); Mean Platelet Volume 10.4 fL (9.4-12.4); Monocytes # (auto) 0.48 K/uL (0.11-0.59); Monocytes % (auto) 5.7 %; Neutrophils # (auto) 7.21 K/uL (1.40-6.50); Neutrophils % (auto) 85.5 %; Platelet Count 144 K/uL (130-400); RDW Coefficient of Variation 17.4 % (11.5-14.5); RDW Standard Deviation 59.4 fL (36.4-46.3); Red Blood Count 3.84 M/uL (4.70-6.10); White Blood Count 8.43 K/ul (4.8-10.8)
[2022-05-04 03:31] LABS: BUN Creatinine Ratio 5.6 (10-20); Calcium 8.4 mg/dl (8.5-10.1); Creatinine Clr Calc Pharmacy 16.4 ml/min; Est GFR (Non-African American) 12.9 ml/min; Potassium 4.3 mmol/L (3.5-5.1)
[2022-05-04 04:18] LABS: Partial Thromboplastin Ratio 2.1
[2022-05-04] MEDS: HEPARIN SODIUM/DEXTROSE 25,000 UNITS/500 ML BAG IV SCH ×3 (04:18→21:26)
[2022-05-04 04:39] LABS: Partial Thromboplastin Time 56.4 Seconds (21.0-31.0)
[2022-05-04] MEDS: INSULIN ASPART PER UNIT SC SCH ×4 (08:30→21:43)
--- NOTE | 2022-05-04 10:23 | Nephrology Progress Note ---
Date of Service May 04, 2022 Assessment & Plan (1) ESRD (end stage renal disease) on dialysis: Plan: Adequate clearance and UF with treatment yesterday. Volume status acceptable. Electrolytes controlled. Next planned HD will be tomorrow. AVF functioning well. Medications appropriately dosed for kidney dysfunction. Renal diet. Next anticipated HD will be Sunday. (2) Anemia due to chronic kidney disease: Plan: Chronic, stable. Hgb >11. No additional JODIE therapy required. (3) HFrEF (heart failure with reduced ejection fraction): Plan: Tolerated HD well today. Volume status reasonably controlled. Low sodium diet. Continue Entresto and metoprolol as Rx. Daily weights while inpatient. (4) Monocular vision loss: Plan: Optho consultation reviewed. Findings of vitreous hemorrhage and proliferative retinopathy. Admission and Anticipated Discharge Date Admission Date: May 02, 2022 Subjective No acute events overnight. Tolerated HD well yesterday. Treatment stopped slightly early due to scheduled MRI. Adequate clearance and UF. Working with PT this morning when I entered his room. Review of Systems Review of Systems: All systems reviewed & are unremarkable except as noted in HPI & below Physical Exam Constitutional: + ill appearing and + frail appearing; no acute distress Eyes: + anicteric sclerae; no periorbital abnormality and pupils not irregular Neck: normal visual inspection and trachea midline Respiratory: normal respiratory effort Auscultation: lungs clear to auscultation bilaterally and + rales Cardiovascular: Rate/Rhythm: regular rate Heart Sounds: normal S1, normal S2 and + murmur Extremities: + edema and + AV fistula Musculoskeletal: Extremities: no cyanosis and no clubbing Skin: + turgor decreased and + ecchymosis; no jaundice Neurologic: not confused Motor/Sensory: no asterixis Psychiatric: Orientation: alert and oriented x 3 Results & Data ([facility]) Vital Signs (Past 12 Hours) Vital Signs Temp Pulse Pulse Resp BP Pulse Ox O2 Del Method 05/04/22 08:01 74 05/04/22 06:45 36.8 C 73 18 127/73 94 Room Air 05/04/22 04:00 36.5 C 76 18 123/79 91 Room Air 05/03/22 23:40 37.1 C 79 18 119/72 92 Room Air 05/04/22 00:30 79 Laboratory Results Laboratory Results - last 24 hr 05/03/22 05/03/2223 11:18 11:18 15:12 WBC RBC Hgb Hct MCV MCH MCHC RDW Std Deviation RDW Coeff of Wendy Plt Count MPV Immature Gran % (Auto) Neut % (Auto) Lymph % (Auto) [place] % (Auto) Eos % (Auto) Baso % (Auto) Neut # (Auto) Lymph # (Auto) [place] # (Auto) Eos # (Auto) Baso # (Auto) Immature Gran # (Auto) ESR 58 H APTT PTT Ratio Heparin Anti-Xa, LM Wt 0.48 Sodium Potassium Chloride Carbon Dioxide Anion Gap BUN Creatinine Est Cr Clr Drug Dosing Est GFR ( Amer) Est GFR (Non-Af Amer) BUN/Creatinine Ratio Glucose POC Glucose 57 L* Calcium 05/03/22 05/03/22 05/03/22 15:15 15:51 18:00 WBC RBC Hgb Hct MCV MCH MCHC RDW Std Deviation RDW Coeff of Wendy Plt Count MPV Immature Gran % (Auto) Neut % (Auto) Lymph % (Auto) [place] % (Auto) Eos % (Auto) Baso % (Auto) Neut # (Auto) Lymph # (Auto) [place] # (Auto) Eos # (Auto) Baso # (Auto) Immature Gran # (Auto) ESR APTT 44.6 H PTT Ratio 1.6 Heparin Anti-Xa, LM Wt Sodium Potassium Chloride Carbon Dioxide Anion Gap BUN Creatinine Est Cr Clr Drug Dosing Est GFR ( Amer) Est GFR (Non-Af Amer) BUN/Creatinine Ratio Glucose POC Glucose 61 L* 85 Calcium 05/03/22 05/04/22 05/04/22 20:36 02:34 02:34 WBC 8.43 RBC 3.84 L Hgb 11.4 L Hct 36.0 L MCV 93.8 MCH 29.7 MCHC 31.7 L RDW Std Deviation 59.4 H RDW Coeff of Wendy 17.4 H Plt Count 144 MPV 10.4 Immature Gran % (Auto) 0.6 Neut % (Auto) 85.5 Lymph % (Auto) 5.2 [place] % (Auto) 5.7 Eos % (Auto) 2.4 Baso % (Auto) 0.6 Neut # (Auto) 7.21 H Lymph # (Auto) 0.44 L [place] # (Auto) 0.48 Eos # (Auto) 0.20 Baso # (Auto) 0.05 Immature Gran # (Auto) 0.05 ESR APTT PTT Ratio Heparin Anti-Xa, LM Wt Sodium 135 L Potassium 4.3 Chloride 96 L Carbon Dioxide 30 Anion Gap 9 BUN 25 H Creatinine 4.43 H D Est Cr Clr Drug Dosing 16.4 Est GFR ( Amer) 15.0 Est GFR (Non-Af Amer) 12.9 BUN/Creatinine Ratio 5.6 L Glucose 162 H POC Glucose 144 H Calcium 8.4 L 05/04/22 05/04/22 02:34 07:52 WBC RBC Hgb Hct MCV MCH MCHC RDW Std Deviation RDW Coeff of Wendy Plt Count MPV Immature Gran % (Auto) Neut % (Auto) Lymph % (Auto) [place] % (Auto) Eos % (Auto) Baso % (Auto) Neut # (Auto) Lymph # (Auto) [place] # (Auto) Eos # (Auto) Baso # (Auto) Immature Gran # (Auto) ESR APTT 56.4 H* PTT Ratio 2.1 Heparin Anti-Xa, LM Wt Sodium Potassium Chloride Carbon Dioxide Anion Gap BUN Creatinine Est Cr Clr Drug Dosing Est GFR ( Amer) Est GFR (Non-Af Amer) BUN/Creatinine Ratio Glucose POC Glucose 237 H Calcium PG Care Time/CCT Total # of Minutes Spent Total Time Spent with Patient: Total time spent is greater than 50% in coordination of care (as documented) at patient's floor/unit and/or counseling patient: Coding Level of Care Code 28394 SUB INP/OBS CARE 3/50MIN Diagnoses ESRD (end stage renal disease) on dialysis N18.6; Z99.2 Anemia due to chronic kidney disease N18.9; D63.1 HFrEF (heart failure with reduced ejection fraction) I50.20 Monocular vision loss H54.60
[2022-05-04] MEDS: VALSARTAN/SACUBITRIL 26/24MG TAB PO SCH ×2 (12:48→21:39)
--- NOTE | 2022-05-04 13:42 | Consultation ---
Date of Consultation May 04, 2022 Assessment & Plan (1) Monocular vision loss: This more an ocular problem. There is plaque in the carotid bifurcation but no significant narrowing is seen. Agree with holding eliquis and asa till ophthalmology says it's ok to restart at least the ASA (2) Jugular vein thrombosis: No intervention needed. Would treat as a DVT. (3) Peripheral arterial disease: Patient is to follow up with his own vascular surgeon from [place]. Thank you very much for letting us participate in the care of this patient. Please call us if needed. History of Present Illness Reason for Consultation: Carotid plaque and internal jugular vein thrombosis Attending Physician: Antoine Roth MD History of Present Illness Patient is a 66yo male who we have seen recently for PAD now presented with monocular blindness which was central and peripheral. Left eye was without problem. His workup showed plaque of the carotid arteries without significant narrowing and a thrombosis of the internal jugular vein. Allergies Allergy/AdvReac Type Severity Reaction Status Date / Time No Known Allergies Allergy Verified 05/02/22 17:58 Home Medications Medication Instructions Recorded Confirmed Type albuterol sulfate 90 mcg/actuation 2 puff inhalation Q4H PRN 04/16/22 05/02/22 History aerosol inhaler Shortness Of Breath Or Wheezing apixaban 5 mg tablet (Eliquis) 5 mg PO BID 04/16/22 05/02/22 History cyclobenzaprine 10 mg tablet 10 mg PO BID PRN Spasms 04/16/22 05/02/22 History duloxetine 60 mg capsule,delayed 60 mg PO HS 04/16/22 05/02/22 History release fluticasone fur. 100 mcg-umeclid 1 inh inhalation HS 04/16/22 05/02/22 History 62.5 mcg-vilant 25 mcg inhalat.powder (Trelegy Ellipta) gabapentin 100 mg capsule 100 mg PO HS 04/16/22 05/02/22 History lanthanum 500 mg chewable tablet 500 mg PO HS 04/16/22 05/02/22 History pramipexole 0.25 mg tablet 0.25 mg PO HS 04/16/22 05/02/22 History oxycodone 5 mg tablet 7.5 mg PO Q6H PRN pain #15 tabs 04/23/22 05/02/22 Rx sacubitril 24 mg-valsartan 26 mg 1 tab PO BID #60 tabs 04/23/22 05/02/22 Rx tablet (Entresto) cholecalciferol (vitamin D3) 50 50 mcg PO HS 04/27/22 05/02/22 History mcg (2,000 unit) capsule insulin glargine 100 unit/mL (3 10 unit (0.1 mL) subcut QPM #15 mL 04/27/22 05/02/22 Rx mL) subcutaneous pen (Lantus Solostar U-100 Insulin) atorvastatin 10 mg tablet 10 mg PO HS 05/02/22 05/02/22 History cephalexin 500 mg capsule 500 mg PO HS 05/02/22 05/02/22 History clopidogrel 75 mg tablet 75 mg PO HS 05/02/22 05/02/22 History lidocaine-prilocaine 2.5 %-2.5 % 1.5 g topical DIRECTED PRN Pain 05/02/22 05/02/22 History topical cream metoprolol succinate 50 mg 50 mg PO HS 05/02/22 05/02/22 History tablet,extended release 24 hr Patient History Medical History Anemia due to chronic kidney disease Carotid bruit COPD (chronic obstructive pulmonary disease) Diabetes ESRD (end stage renal disease) on dialysis Non-healing wound of amputation stump Peripheral arterial disease Venous stasis ulcer Surgical History A-V fistula History of amputation History of cardiac defibrillator placement S/P vascular bypass Family History Other Family history non-contributory Social History Smoking Status: Current every day smoker Tobacco Type: Cigarettes Age Started Using Tobacco: 11; packs per day: 1; Cigarettes Per Day: used to smoke 5PPD - recently cut back to 1; Second Hand Exposure: No; Hx Alcohol Use: No Hx Substance Use: Yes Prescribed Medications: Marijuana Preferred Language: Spanish Communication Ability: Effective Visual Impairment: Partially Limited Hearing Ability: Hard of Hearing Seamless Hosiery Knitter Required: No Beliefs That Will Affect Care: None marital status: Current Living Situation: Spouse current occupational status: disabled Feels Safe at Home: Yes during the past year weight has: remained stable Dental Care, Regularly: No Physical Activity Frequency: Does not Exercise Assistive Devices: Walker Review of Systems Review of Systems: All systems reviewed & are unremarkable except as noted in HPI & below Physical Exam Physical Exam: Constitutional:L + cachectic; no a cute distress Respiratory: normal respiratory effort, lungs tiffanie ar to auscultation Cardiovascular:L RRR, no murmur, no edema Vessels: f emoral pulses pres ent, posterior tib ial pulses present (Bilateral to Dop pler), dorsalis pe dis pulses present (Bilateral to Dop pler) and radial p ulses present Ext remities: + AV fis wolf (There is a g ood thrill and bru it in the fistula in his right arm) Gastrointestinal ( Abdomen): Inspection/Auscult ation: abdomen nor mal to inspection Percussion/Palpat ion: abdomen soft; abdomen nontender Musculoskeletal: Extremities: stren gth 5/5 throughout There is redness of the lower extr emities from knees distally. There is multiple excori ations present on both lower extremi ties. The amputat ion site of the to es of the left deborah t is open but ther e is some mild gra nulation tissue pr esent around the e dges, There is a mild amount of fib rin present in the Base of the wound . Changes lower e xtremities appear to be more venous insufficiency rath er than acute sanchez rial insufficiency . Neurologic: CN's II-XI intact bilaterally and mo ves all extremitie s Psychiatric: Orientation: alert and oriented x 3 Results & Data ([facility]) Vital Signs (Past 12 Hours) Vital Signs Temp Pulse Pulse Resp BP Pulse Ox O2 Del Method 05/04/22 11:14 36.3 C L 68 20 126/79 92 Room Air 05/04/22 08:01 74 05/04/22 06:45 36.8 C 73 18 127/73 94 Room Air 05/04/22 04:00 36.5 C 76 18 123/79 91 Room Air
[2022-05-04] MEDS: CARBOHYDRATES FOR HYPOGLYCEMIA PO PRN (17:02)
[2022-05-04] MEDS: ATORVASTATIN 40 MG TAB PO SCH (21:34)
[2022-05-04] MEDS: CLOPIDOGREL BISULFATE 75 MG TAB PO SCH (21:35)
[2022-05-04] MEDS: DULoxetine HCL 60 MG CAP PO SCH (21:35)
[2022-05-04] MEDS: GABAPENTIN 100 MG CAP PO SCH (21:38)
[2022-05-04] MEDS: METOPROLOL SUCC 50MG EXT REL TAB PO SCH (21:38)
[2022-05-04] MEDS: PRAMIPEXOLE DIHYDROCHLO 0.25 MG TAB PO SCH (21:39)
--- NOTE | 2022-05-04 22:51 | Billing Data ---
Date of Service May 04, 2022 Coding Level of Care Code 47768 INT INP/OBS CARE
--- NOTE | 2022-05-04 23:34 | Hospitalist Progress Note ---
Date of Service May 04, 2022 Assessment & Plan (1) Unilateral visual loss: Plan: This is a 66-year-old male with a history of ESRD, COPD, type 2 diabetes, peripheral arterial disease, HFrEF who presented to [facility] for evaluation of unilateral R-sided vision loss. In the setting of his known other chronic conditions, his appearance is most concerning for a stroke or intraocular process. RIGHT Unilateral Vision Loss -Patient with numerous vasculopathic disorders presenting with 2 days of right- sided unilateral vision loss Work-up as follows: CT head without acute processes, however, old infarcts and microvascular disease appreciated Direct/indirect pupillary reflexes intact, extraocular movements intact Major concern is CVA - e.g., CRAO. Also on differential includes optic neuritis, intraocular process like vitreal hemorrhage Obtain ultrasound of the carotids bilaterally Obtain MRI without contrast Continue antiplatelet therapy Hold on ophthalmology consult at this time; if MRI results are negative, will require comprehensive ophthalmologic exam Neurovascular checks have been ordered PT, OT to evaluate Fall precautions Smoking cessation counseling will need to be provided 2/2-monocular vision loss likely secondary to underlying ophthalmologic problem rather than vascular-vascular input appreciated Plaque in the carotid bifurcation without significant narrowing Eliquis and aspirin held As per ophthalmology patient has vitreous hemorrhage likely secondary to proliferative diabetic retinopathy And follow-up with retinal specialist with intravitreal injections recommended (2) Non-healing wound of amputation stump: Plan: Has chronic bilateral lower extremity cellulitis superimposed on chronic alma ous changes in the setting of severe peripheral arterial disease status post bypass grafting of the left lower extremity and transmetatarsal left foot amputation Per PCP notes, cellulitis has been improving, though patient says it is worsening (?) --> vascular surgery ([facility]) has preferred to hold off on any interventions to allow for self healing; however, consideration has been given to superficial femoral artery intervention MRI in 04/2021 negative for osteomyelitis Based on prior admission notes, [facility] had a culture that did not reveal evidence of MRSA or gram-negative organisms; was improving on cefazolin No leukocytosis. Check CRP, procalcitonin, MRSA swab Suspect ongoing pain, redness likely secondary to PAD and difficulty clearing infection Renally dosed cefazolin 500 mg every 8h Consult wound care while here, appreciate recommendations. Patient would likely benefit from establishing with wound care clinic as outpatient Will need close outpatient follow-up with vascular surgery (3) Anemia due to chronic kidney disease: Plan: History noted, stable; unclear if patient gets EPO through his private pilot, but should discuss his outpatient (4) Peripheral arterial disease: Plan: History of peripheral arterial disease status post bypass grafting Follows with [facility] vascular surgery; see issue above Continue Plavix, Eliquis, statin (5) Diabetes: Plan: T2DM Last A1c at 7.8% in 04/2022 Initiate ACHS checks with sliding scale insulin and Lantus 5mg b.i.d. (6) COPD (chronic obstructive pulmonary disease): Plan: Continue Trelegy Continues to smoke, down to 1/2 PPD Counseling will be provided (7) ESRD (end stage renal disease) on dialysis: Plan: BUN 27/creatinine 4.9 on arrival (from 41/4.15 on 04/23) Receives HD on MWF Follows with Dr. Mccormack in [facility] nephrology consultation to arrange hemodialysis while here Monitor BMP (8) HFrEF (heart failure with reduced ejection fraction): Plan: Last TTE (04/2021): Severe reduction in LV systolic function with ejection fraction 15% Continue Entresto, metoprolol Status post AICD placement Follows with Dr. Campbell with [facility] cardiology they (9) Hyperbilirubinemia: Plan: Total bilirubin 2.4 and ALP 105 on arrival; there has been abnormalities noted with his LFTs over the last several months Possible underlying liver disease vs. conjugation disorder (Gilbert's). Synthetic labs (Na, Plt, INR- 1.2) are overall reasonable but noted. Possibly related to underlying ESRD? Liver ultrasound 04/17 demonstrating unremarkable appearance with normal common bile duct size Monitor while here Plan Code: Full code Dispo: MedSurg telemetry Diet: Heart healthy, low-sodium Prophylaxis: On Eliquis Admission and Anticipated Discharge Date Admission Date: May 02, 2022 Subjective Patient seen and examined No acute chest pain or shortness of breath reported. Patient reports vision is slightly improved Physical Exam Physical Exam: Head and ENT no thyroid enlargement trachea midline Cardiovascular S1-S2 are normal no S3 Lungs bilateral air entry fair no wheezing Abdomen soft nondistended no rebound tenderness Extremity shows trace edema Neurologically no focal deficits Skin shows no rash no cyanosis Results & Data Results & Data ([facility]) Vital Signs (Past 12 Hours) Vital Signs Temp Pulse Resp BP Pulse Ox O2 Del Method 05/04/22 22:40 36.5 C 71 18 127/89 94 Room Air 05/04/22 22:02 Room Air 05/04/22 19:21 36.9 C 75 20 158/75 H 95 Room Air 05/04/22 15:19 36.4 C L 71 20 119/76 95 Room Air Laboratory Results Short CBC 05/04/22 Range/Units 02:34 WBC 8.43 (4.8-10.8) K/ul Hgb 11.4 L (14.0-18.0) g/dl Hct 36.0 L (42.0-52.0) % Plt Count 144 (130-400) K/uL BMP 05/04/22 02:34 Sodium 135 L Potassium 4.3 Chloride 96 L Carbon Dioxide 30 BUN 25 H Creatinine 4.43 H D Glucose 162 H Calcium 8.4 L PG Care Time/CCT Total # of Minutes Spent Total Time Spent with Patient: Total time spent is greater than 50% in coordination of care (as documented) at patient's floor/unit and/or counseling patient: Coding Level of Care Code 24441 SUB INP/OBS CARE 2/35MIN Diagnoses Unilateral visual loss H54.60 Non-healing wound of amputation stump T87.89 Anemia due to chronic kidney disease N18.9; D63.1 Peripheral arterial disease I73.9 Diabetes E11.9 COPD (chronic obstructive pulmonary disease) J44.9 ESRD (end stage renal disease) on dialysis N18.6; Z99.2 HFrEF (heart failure with reduced ejection fraction) I50.20 Hyperbilirubinemia E80.6
[2022-05-05 07:01] LABS: Basophils # (auto) 0.05 K/uL (0-0.2); Basophils % (auto) 0.5 %; Eosinophils # (auto) 0.08 K/uL (0-0.50); Eosinophils % (auto) 0.8 %; Hematocrit (blood only) 35.8 % (42.0-52.0); Hemoglobin 11.5 g/dl (14.0-18.0); Immature Granulocytes # (auto) 0.13 K/uL (0.01-0.20); Immature Granulocytes % (auto) 1.3 %; Lymphocytes # (auto) 0.68 K/uL (1.2-3.4); Lymphocytes % (auto) 6.6 %; Mean Corpuscular Hemoglobin 29.4 pg (25.0-34.0); Mean Corpuscular Hgb Conc 32.1 g/dL (32.0-36.0); Mean Corpuscular Volume 91.6 fL (80.0-100.0); Mean Platelet Volume 10.7 fL (9.4-12.4); Monocytes # (auto) 0.64 K/uL (0.11-0.59); Monocytes % (auto) 6.2 %; Neutrophils # (auto) 8.67 K/uL (1.40-6.50); Neutrophils % (auto) 84.6 %; Platelet Count 204 K/uL (130-400); RDW Coefficient of Variation 17.3 % (11.5-14.5); Red Blood Count 3.91 M/uL (4.70-6.10); White Blood Count 10.25 K/ul (4.8-10.8)
[2022-05-05 07:18] LABS: Partial Thromboplastin Ratio 2.8
[2022-05-05 07:24] LABS: Partial Thromboplastin Time 78.3 Seconds (21.0-31.0)
[2022-05-05 07:36] LABS: BUN Creatinine Ratio 8.2 (10-20); Calcium 8.6 mg/dl (8.5-10.1); Creatinine Clr Calc Pharmacy 12.5 ml/min; Est GFR (African American) 10.8 ml/min; Est GFR (Non-African American) 9.3 ml/min
[2022-05-05] MEDS: HEPARIN SODIUM/DEXTROSE 25,000 UNITS/500 ML BAG IV SCH ×2 (08:15→13:43)
[2022-05-05] MEDS: INSULIN ASPART PER UNIT SC SCH ×4 (08:29→20:47)
[2022-05-05] MEDS: oxyCODONE HCL IR 5 MG TAB (IMMEDIATE RELEASE) PO PRN ×2 (08:33→19:52)
[2022-05-05] MEDS: VALSARTAN/SACUBITRIL 26/24MG TAB PO SCH ×2 (12:07→20:03)
--- NOTE | 2022-05-05 14:26 | Pharmacy Report ---
Pharmacy Glycemic Short Note 2 - Date of Service May 05, 2022 - Glycemic Short BSG Results (Last 24 hours): 05/04/22 05/04/22 05/04/22 16:54 16:55 17:54 Glucose POC Glucose 50 L* 57 L* 83 05/04/22 05/05/22 05/05/22 20:10 06:27 07:49 Glucose 165 H POC Glucose 120 H 193 H 05/05/22 11:56 Glucose POC Glucose 229 H OUTPATIENT ANTIDIABETIC REGIMEN: * Lantus 10 units SC HS * HbA1c: 7.6% (05/03/22) ASSESSMENT: 05/05/22: * Mr Sanchez had another episode of hypoglycemia yesterday evening (BSG 50). Carb coverage removed from Novolog parameters. * BSGs have been elevated today, so will re-initiate conservative dose of basal insulin this evening. * Will continue to monitor and adjust regimen as indicated. 05/03 * RELL is a 66 year old male presented to [facility] ED yesterday (05/02/22) for evaluation of visual disturbance of right eye * Patient was recently admitted 04/16-04/23/22 * Pertinent PMH includes ESRD requiring hemodialysis (MWF), T2DM, COPD, PAD, and HFrEF * BSG on presentation was 259 mg/dL, received 5 units of Lantus and 9 units of bolus insulin * Hypoglycemia noted overnight following these doses of insulin. > 1 hr to resolution (58 mg/dL -> 101 mg/dL) * Fasting BSG of 79 mg/dL this morning * Pharmacy consulted for glycemic management this morning in light of hypoglycemia overnight * Past inpatient data from April 2022 shows multiple episodes of hypoglycemia while receiving Lantus 5 units BID, so will proceed with conservative bolus insulin only for now * Hemodialysis scheduled for today PLAN FOR INPATIENT GLYCEMIC CONTROL: * Basal insulin * Lantus 5 units SQ HS * Bolus insulin * NovoLog per scale ACHS or Q6hrs while NPO * Goal Range: Low 120 mg/dL - High 150 mg/dL * Correction Factor: 45 mg/dL/unit * Nutritional / Prandial insulin: none at this time
--- NOTE | 2022-05-05 14:32 | Nephrology Progress Note ---
Date of Service May 05, 2022 Assessment & Plan (1) ESRD (end stage renal disease) on dialysis: Plan: HD MWF. Orders for HD today entered into the EHR and reviewed with home manager. AVF functioning well. Medications appropriately dosed for kidney dysfunction. Renal diet. (2) Anemia due to chronic kidney disease: Plan: Chronic, stable. Hgb >11. No additional JODIE therapy required. (3) HFrEF (heart failure with reduced ejection fraction): Plan: Volume status reasonably controlled. Low sodium diet. Continue Entresto and metoprolol as Rx. Daily weights while inpatient. (4) Monocular vision loss: Plan: Optho consultation reviewed. Findings of vitreous hemorrhage and proliferative retinopathy. Admission and Anticipated Discharge Date Admission Date: May 02, 2022 Subjective No acute events overnight. No complaints this AM. Review of Systems Review of Systems: All systems reviewed & are unremarkable except as noted in HPI & below Physical Exam Constitutional: + ill appearing and + frail appearing; no acute distress Eyes: + anicteric sclerae and + periorbital abnormality (R eye bruising); pupils not irregular Neck: normal visual inspection and trachea midline Respiratory: normal respiratory effort Auscultation: lungs clear to auscultation bilaterally and + rales Cardiovascular: Rate/Rhythm: regular rate Heart Sounds: normal S1, normal S2 and + murmur Extremities: + edema, + varicosities and + AV fistula Musculoskeletal: Extremities: no cyanosis and no clubbing Skin: + turgor decreased and + ecchymosis; no jaundice Neurologic: not confused Motor/Sensory: no asterixis Psychiatric: Orientation: alert and oriented x 3 Results & Data ([facility]) Vital Signs (Past 12 Hours) Vital Signs Temp Pulse Pulse Resp BP Pulse Ox O2 Del Method 05/05/22 11:48 36.4 C L 62 20 130/82 92 Room Air 05/05/22 08:57 69 05/05/22 07:41 36.3 C L 66 18 121/73 94 Room Air 05/05/22 03:04 36.3 C L 71 20 134/85 94 Room Air Laboratory Results Laboratory Results - last 24 hr 05/04/22 05/04/22 05/04/22 16:54 16:55 17:54 WBC RBC Hgb Hct MCV MCH MCHC RDW Std Deviation RDW Coeff of Wendy Plt Count MPV Immature Gran % (Auto) Neut % (Auto) Lymph % (Auto) Placer % (Auto) Eos % (Auto) Baso % (Auto) Neut # (Auto) Lymph # (Auto) Placer # (Auto) Eos # (Auto) Baso # (Auto) Immature Gran # (Auto) APTT PTT Ratio Sodium Potassium Chloride Carbon Dioxide Anion Gap BUN Creatinine Est Cr Clr Drug Dosing Est GFR ( Amer) Est GFR (Non-Af Amer) BUN/Creatinine Ratio Glucose POC Glucose 50 L* 57 L* 83 Calcium 05/04/22 05/05/22 05/05/22 20:10 06:27 06:27 WBC 10.25 RBC 3.91 L Hgb 11.5 L Hct 35.8 L MCV 91.6 MCH 29.4 MCHC 32.1 RDW Std Deviation 58.0 H RDW Coeff of Wendy 17.3 H Plt Count 204 MPV 10.7 Immature Gran % (Auto) 1.3 Neut % (Auto) 84.6 Lymph % (Auto) 6.6 Placer % (Auto) 6.2 Eos % (Auto) 0.8 Baso % (Auto) 0.5 Neut # (Auto) 8.67 H Lymph # (Auto) 0.68 L Placer # (Auto) 0.64 H Eos # (Auto) 0.08 Baso # (Auto) 0.05 Immature Gran # (Auto) 0.13 APTT PTT Ratio Sodium 132 L Potassium 5.0 Chloride 93 L Carbon Dioxide 27 Anion Gap 12 H BUN 48 H D Creatinine 5.82 H* D Est Cr Clr Drug Dosing 12.5 Est GFR ( Amer) 10.8 Est GFR (Non-Af Amer) 9.3 BUN/Creatinine Ratio 8.2 L Glucose 165 H POC Glucose 120 H Calcium 8.6 05/05/22 05/05/22 05/05/22 06:27 07:49 11:56 WBC RBC Hgb Hct MCV MCH MCHC RDW Std Deviation RDW Coeff of Wendy Plt Count MPV Immature Gran % (Auto) Neut % (Auto) Lymph % (Auto) Placer % (Auto) Eos % (Auto) Baso % (Auto) Neut # (Auto) Lymph # (Auto) Placer # (Auto) Eos # (Auto) Baso # (Auto) Immature Gran # (Auto) APTT 78.3 H* PTT Ratio 2.8 Sodium Potassium Chloride Carbon Dioxide Anion Gap BUN Creatinine Est Cr Clr Drug Dosing Est GFR ( Amer) Est GFR (Non-Af Amer) BUN/Creatinine Ratio Glucose POC Glucose 193 H 229 H Calcium PG Care Time/CCT Total # of Minutes Spent Total Time Spent with Patient: Total time spent is greater than 50% in coordination of care (as documented) at patient's floor/unit and/or counseling patient: Coding Level of Care Code 15726 SUB INP/OBS CARE 3/50MIN Diagnoses ESRD (end stage renal disease) on dialysis N18.6; Z99.2 Anemia due to chronic kidney disease N18.9; D63.1 HFrEF (heart failure with reduced ejection fraction) I50.20 Monocular vision loss H54.60
[2022-05-05 17:40] LABS: Partial Thromboplastin Ratio 2.7
[2022-05-05 17:42] LABS: Partial Thromboplastin Time 73.2 Seconds (21.0-31.0)
[2022-05-05] MEDS: FLUTICASONE FUROATE 100MCG 14 PUFFS/INHALER INH SCH (20:00)
[2022-05-05] MEDS: UMECLIDINIUM/VILANTEROL 62.5/25MCG 7 PUFFS/INHALER INH SCH (20:01)
[2022-05-05] MEDS: CLOPIDOGREL BISULFATE 75 MG TAB PO SCH (20:02)
[2022-05-05] MEDS: PRAMIPEXOLE DIHYDROCHLO 0.25 MG TAB PO SCH (20:03)
[2022-05-05] MEDS: METOPROLOL SUCC 50MG EXT REL TAB PO SCH (20:04)
[2022-05-05] MEDS: ATORVASTATIN 40 MG TAB PO SCH (20:04)
[2022-05-05] MEDS: DULoxetine HCL 60 MG CAP PO SCH (20:04)
[2022-05-05] MEDS: GABAPENTIN 100 MG CAP PO SCH (20:04)
[2022-05-05] MEDS: LANTUS PER UNIT CHARGE SQ SCH (20:48)
--- NOTE | 2022-05-05 23:31 | Hospitalist Progress Note ---
Date of Service May 05, 2022 Assessment & Plan (1) Unilateral visual loss: Plan: This is a 66-year-old male with a history of ESRD, COPD, type 2 diabetes, peripheral arterial disease, HFrEF who presented to [facility] for evaluation of unilateral R-sided vision loss. In the setting of his known other chronic conditions, his appearance is most concerning for a stroke or intraocular process. RIGHT Unilateral Vision Loss -Patient with numerous vasculopathic disorders presenting with 2 days of right- sided unilateral vision loss Work-up as follows: CT head without acute processes, however, old infarcts and microvascular disease appreciated Direct/indirect pupillary reflexes intact, extraocular movements intact Major concern is CVA - e.g., CRAO. Also on differential includes optic neuritis, intraocular process like vitreal hemorrhage Obtain ultrasound of the carotids bilaterally Obtain MRI without contrast Continue antiplatelet therapy Hold on ophthalmology consult at this time; if MRI results are negative, will require comprehensive ophthalmologic exam Neurovascular checks have been ordered PT, OT to evaluate Fall precautions Smoking cessation counseling will need to be provided 2/2-monocular vision loss likely secondary to underlying ophthalmologic problem rather than vascular-vascular input appreciated Plaque in the carotid bifurcation without significant narrowing Eliquis and aspirin held As per ophthalmology patient has vitreous hemorrhage likely secondary to proliferative diabetic retinopathy And follow-up with retinal specialist with intravitreal injections recommended 2/3 ophthalmology input regarding monocular vision loss secondary to proliferative diabetic retinopathy noted Results discussed with patient's daughter and the need to follow-up as an outpatient with retinal specialist discussed with her Will discuss with vascular regarding further continuation of anticoagulation (2) Non-healing wound of amputation stump: Plan: Has chronic bilateral lower extremity cellulitis superimposed on chronic venous changes in the setting of severe peripheral arterial disease status post bypass grafting of the left lower extremity and transmetatarsal left foot amputation Per PCP notes, cellulitis has been improving, though patient says it is worsening (?) --> vascular surgery ([facility]) has preferred to hold off on any interventions to allow for self healing; however, consideration has been given to superficial femoral artery intervention MRI in 04/2021 negative for osteomyelitis Based on prior admission notes, [facility] had a culture that did not reveal evidence of MRSA or gram-negative organisms; was improving on cefazolin No leukocytosis. Check CRP, procalcitonin, MRSA swab Suspect ongoing pain, redness likely secondary to PAD and difficulty clearing infection Renally dosed cefazolin 500 mg every 8h Consult wound care while here, appreciate recommendations. Patient would likely benefit from establishing with wound care clinic as outpatient Will need close outpatient follow-up with vascular surgery (3) Anemia due to chronic kidney disease: Plan: History noted, stable; unclear if patient gets EPO through his information technology assistant, but should discuss his outpatient (4) Peripheral arterial disease: Plan: History of peripheral arterial disease status post bypass grafting Follows with [facility] vascular surgery; see issue above Continue Plavix, Eliquis, statin (5) Diabetes: Plan: T2DM Last A1c at 7.8% in 04/2022 Initiate ACHS checks with sliding scale insulin and Lantus 5mg b.i.d. (6) COPD (chronic obstructive pulmonary disease): Plan: Continue Trelegy Continues to smoke, down to 1/2 PPD Counseling will be provided (7) ESRD (end stage renal disease) on dialysis: Plan: BUN 27/creatinine 4.9 on arrival (from 41/4.15 on 04/23) Receives HD on MWF Follows with Dr. Mccormack in [place] Appreciate nephrology consultation to arrange hemodialysis while here Monitor BMP (8) HFrEF (heart failure with reduced ejection fraction): Plan: Last TTE (04/2021): Severe reduction in LV systolic function with ejection fraction 15% Continue Entresto, metoprolol Status post AICD placement Follows with Dr. Campbell with [facility] cardiology they (9) Hyperbilirubinemia: Plan: Total bilirubin 2.4 and ALP 105 on arrival; there has been abnormalities noted with his LFTs over the last several months Possible underlying liver disease vs. conjugation disorder (Gilbert's). Synthetic labs (Na, Plt, INR- 1.2) are overall reasonable but noted. Possibly related to underlying ESRD? Liver ultrasound 04/17 demonstrating unremarkable appearance with normal common bile duct size Monitor while here Plan Admission and Anticipated Discharge Date Admission Date: May 02, 2022 Subjective Patient seen and examined Denies any acute complaints Physical Exam Physical Exam: Head and ENT no thyroid enlargement trachea midline Cardiovascular S1-S2 are normal no S3 Lungs bilateral air entry fair no wheezing Abdomen soft nondistended no rebound tenderness Extremity shows trace edema Neurologically no focal deficits Skin shows no rash no cyanosis Results & Data Results & Data ([place]) Vital Signs (Past 12 Hours) Vital Signs Temp Pulse Pulse Pulse Resp BP BP 05/05/22 23:06 36.4 C L 69 20 137/78 05/05/22 19:19 66 20 128/82 05/05/22 17:02 36.3 C L 76 124/67 05/05/22 16:30 66 122/81 05/05/22 16:00 68 110/72 05/05/22 15:30 48 L 122/78 05/05/22 16:26 65 05/05/22 15:00 64 122/78 05/05/22 14:30 59 L 153/78 H 05/05/22 14:00 66 138/80 05/05/22 13:51 36.5 C 65 05/05/22 11:48 36.4 C L 62 20 130/82 Pulse Ox O2 Del Method 05/05/22 23:06 97 Room Air 05/05/22 19:19 100 Room Air 05/05/22 17:02 05/05/22 16:30 05/05/22 16:00 05/05/22 15:30 05/05/22 16:26 05/05/22 15:00 05/05/22 14:30 05/05/22 14:00 05/05/22 13:51 05/05/22 11:48 92 Room Air PG Care Time/CCT Total # of Minutes Spent Total Time Spent with Patient: Total time spent is greater than 50% in coordination of care (as documented) at patient's floor/unit and/or counseling patient: Coding Level of Care Code 21676 SUB INP/OBS CARE 2/35MIN Diagnoses Unilateral visual loss H54.60 Non-healing wound of amputation stump T87.89 Anemia due to chronic kidney disease N18.9; D63.1 Peripheral arterial disease I73.9 Diabetes E11.9 COPD (chronic obstructive pulmonary disease) J44.9 ESRD (end stage renal disease) on dialysis N18.6; Z99.2 HFrEF (heart failure with reduced ejection fraction) I50.20 Hyperbilirubinemia E80.6
[2022-05-06 00:42] LABS: Partial Thromboplastin Ratio 2.4
[2022-05-06 00:47] LABS: Partial Thromboplastin Time 65.4 Seconds (21.0-31.0)
[2022-05-06 07:15] LABS: Basophils # (auto) 0.07 K/uL (0-0.2); Basophils % (auto) 0.8 %; Eosinophils # (auto) 0.17 K/uL (0-0.50); Eosinophils % (auto) 1.9 %; Hematocrit (blood only) 36.4 % (42.0-52.0); Hemoglobin 11.7 g/dl (14.0-18.0); Immature Granulocytes % (auto) 1.1 %; Lymphocytes # (auto) 0.67 K/uL (1.2-3.4); Lymphocytes % (auto) 7.3 %; Mean Corpuscular Hemoglobin 29.6 pg (25.0-34.0); Mean Corpuscular Hgb Conc 32.1 g/dL (32.0-36.0); Mean Corpuscular Volume 92.2 fL (80.0-100.0); Mean Platelet Volume 10.4 fL (9.4-12.4); Monocytes % (auto) 6.5 %; Neutrophils # (auto) 7.56 K/uL (1.40-6.50); Neutrophils % (auto) 82.4 %; Platelet Count 194 K/uL (130-400); RDW Coefficient of Variation 17.4 % (11.5-14.5); Red Blood Count 3.95 M/uL (4.70-6.10); White Blood Count 9.17 K/ul (4.8-10.8)
[2022-05-06 07:48] LABS: Partial Thromboplastin Ratio 1.3; Partial Thromboplastin Time 35.3 Seconds (21.0-31.0)
[2022-05-06 07:55] LABS: BUN Creatinine Ratio 7.9 (10-20); Creatinine Clr Calc Pharmacy 14.7 ml/min; Est GFR (African American) 13.1 ml/min; Est GFR (Non-African American) 11.3 ml/min; Potassium 4.4 mmol/L (3.5-5.1)
[2022-05-06] MEDS ORDERED: Nursing to Pharmacy Communication SCH (08:15)
[2022-05-06] MEDS ORDERED: HEPARIN SOD (PORCINE) 1000 UNIT/ML IV ONE ×2 (08:15→09:00)
--- NOTE | 2022-05-06 08:56 | Nephrology Progress Note ---
Date of Service May 06, 2022 Assessment & Plan (1) ESRD (end stage renal disease) on dialysis: Plan: * Dialyzes MWF at [facility] under the care of Dr. Mccormack * Volume status and electrolyte balance are acceptable. No acute indication for HD today * Monitor PRP (2) Anemia due to chronic kidney disease: Plan: * Chronic, stable. Hgb >11. No additional JODIE therapy required. (3) Monocular vision loss: Plan: * Vitreous hemorrhage and proliferative retinopathy. Ophthalmology indicated that anticoagulation can be continued (4) Jugular vein thrombosis: Plan: * Anticoagulation as per primary service Admission and Anticipated Discharge Date Admission Date: May 02, 2022 Subjective Mr. Sanchez was evaluated in his hospital room this morning. He denied CORTES, angina or dyspnea. He reported no complication w/ HD yesterday Review of Systems Constitutional: no fever Eyes: + problem reported (R vision loss) Ear, Nose, Mouth, Throat: no problem reported Respiratory: no dyspnea Cardiovascular: no chest pain Gastrointestinal: no abdominal pain Physical Exam Constitutional: not in distress Eyes: PERRL, conjunctivae normal, anicteric sclerae ENMT: external ear and nose normal, oropharynx normal Neck: trachea midline, no thyromegaly Respiratory: normal respiratory effort, lungs clear to auscultation Cardiovascular: RRR, no murmur, no edema Extremities: + AV fistula (+ bruit) Gastrointestinal (Abdomen): normal bowel sounds, soft, nontender, no hepatosplenomegaly Neurologic: awake; not confused Results & Data ([place]) Vital Signs (Past 12 Hours) Vital Signs Temp Pulse Pulse Resp BP Pulse Ox O2 Del Method 05/06/22 07:54 36.8 C 60 17 126/62 96 Room Air 05/06/22 03:01 36.4 C L 71 20 124/64 94 Room Air 05/05/22 22:34 68 05/05/22 21:30 Room Air 05/05/22 23:06 36.4 C L 69 20 137/78 97 Room Air Laboratory Results Laboratory Tests 05/06/22 05/06/22 06:54 06:54 WBC 9.17 Hgb 11.7 L Hct 36.4 L Plt Count 194 Sodium 134 L Potassium 4.4 Chloride 98 Carbon Dioxide 27 BUN 39 H Creatinine 4.95 H* D Glucose 111 H Calcium 9.0 PG Care Time/CCT Total # of Minutes Spent Total Time Spent with Patient: Total time spent is greater than 50% in coordination of care (as documented) at patient's floor/unit and/or counseling patient: Coding Level of Care Code 69923 SUB INP/OBS CARE 3/50MIN Diagnoses ESRD (end stage renal disease) on dialysis N18.6; Z99.2 Anemia due to chronic kidney disease N18.9; D63.1 Monocular vision loss H54.60 Jugular vein thrombosis I82.890
[2022-05-06] MEDS: HEPARIN SODIUM/DEXTROSE 25,000 UNITS/500 ML BAG IV SCH (09:00)
[2022-05-06] MEDS: INSULIN ASPART PER UNIT SC SCH ×4 (09:02→20:21)
--- NOTE | 2022-05-06 12:19 | Hospitalist Progress Note ---
Date of Service May 06, 2022 Assessment & Plan (1) Unilateral visual loss: Plan: This is a 66-year-old male with a history of ESRD, COPD, type 2 diabetes, peripheral arterial disease, HFrEF who presented to [facility] for evaluation of unilateral R-sided vision loss. In the setting of his known other chronic conditions, his appearance is most concerning for a stroke or intraocular process. RIGHT Unilateral Vision Loss -Patient with numerous vasculopathic disorders presenting with 2 days of right- sided unilateral vision loss Work-up as follows: CT head without acute processes, however, old infarcts and microvascular disease appreciated Direct/indirect pupillary reflexes intact, extraocular movements intact Major concern is CVA - e.g., CRAO. Also on differential includes optic neuritis, intraocular process like vitreal hemorrhage Obtain ultrasound of the carotids bilaterally Obtain MRI without contrast Continue antiplatelet therapy Hold on ophthalmology consult at this time; if MRI results are negative, will require comprehensive ophthalmologic exam Neurovascular checks have been ordered PT, OT to evaluate Fall precautions Smoking cessation counseling will need to be provided 2/2-monocular vision loss likely secondary to underlying ophthalmologic problem rather than vascular-vascular input appreciated Plaque in the carotid bifurcation without significant narrowing Eliquis and aspirin held As per ophthalmology patient has vitreous hemorrhage likely secondary to proliferative diabetic retinopathy And follow-up with retinal specialist with intravitreal injections recommended 2/3 ophthalmology input regarding monocular vision loss secondary to proliferative diabetic retinopathy noted Results discussed with patient's daughter and the need to follow-up as an outpatient with retinal specialist discussed with her Will discuss with vascular regarding further continuation of anticoagulation 2/4-continue with anticoagulation No worsening of vision as noted Discussed with daughter regarding vitreous hemorrhage and needed follow-up (2) Non-healing wound of amputation stump: Plan: Has chronic bilateral lower extremity cellulitis superimposed on chronic venous changes in the setting of severe peripheral arterial disease status post bypass grafting of the left lower extremity and transmetatarsal left foot amputation Per PCP notes, cellulitis has been improving, though patient says it is worsening (?) --> vascular surgery ([facility]) has preferred to hold off on any interventions to allow for self healing; however, consideration has been given to superficial femoral artery intervention MRI in 04/2021 negative for osteomyelitis Based on prior admission notes, [facility] had a culture that did not reveal evidence of MRSA or gram-negative organisms; was improving on cefazolin No leukocytosis. Check CRP, procalcitonin, MRSA swab Suspect ongoing pain, redness likely secondary to PAD and difficulty clearing infection Renally dosed cefazolin 500 mg every 8h Consult wound care while here, appreciate recommendations. 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 vascular surgery; see issue above Continue Plavix, Eliquis, statin (5) Diabetes: Plan: T2DM Last A1c at 7.8% in 04/2022 Initiate ACHS checks with sliding scale insulin and Lantus 5mg b.i.d. (6) COPD (chronic obstructive pulmonary disease): Plan: Continue Trelegy Continues to smoke, down to 1/2 PPD Counseling will be provided (7) ESRD (end stage renal disease) on dialysis: Plan: BUN 27/creatinine 4.9 on arrival (from 41/4.15 on 04/23) Receives HD on MWF Follows with Dr. Mccormack in [place] Appreciate nephrology consultation to arrange hemodialysis while here Monitor BMP (8) HFrEF (heart failure with reduced ejection fraction): Plan: Last TTE (04/2021): Severe reduction in LV systolic function with ejection fraction 15% Continue Entresto, metoprolol Status post AICD placement Follows with Dr. Campbell with [facility] cardiology they (9) Hyperbilirubinemia: Plan: Total bilirubin 2.4 and ALP 105 on arrival; there has been abnormalities noted with his LFTs over the last several months Possible underlying liver disease vs. conjugation disorder (Gilbert's). Synthetic labs (Na, Plt, INR- 1.2) are overall reasonable but noted. Possibly related to underlying ESRD? Liver ultrasound 04/17 demonstrating unremarkable appearance with normal common bile duct size Monitor while here Plan Admission and Anticipated Discharge Date Admission Date: May 02, 2022 Subjective Patient seen and examined Denies any acute complaints No chest pain or shortness of breath noted Physical Exam Physical Exam: Head and ENT no thyroid enlargement trachea midline Still with monocular visual loss Cardiovascular S1-S2 are normal no S3 Lungs bilateral air entry fair no wheezing Abdomen soft nondistended no rebound tenderness Extremity shows trace edema Neurologically no focal deficits Skin shows no rash no cyanosis Results & Data Results & Data ([facility]) Vital Signs (Past 12 Hours) Vital Signs Temp Pulse Pulse Resp BP Pulse Ox O2 Del Method 05/06/22 11:42 36.6 C 71 17 124/64 95 Room Air 05/06/22 07:54 36.8 C 60 17 126/62 96 Room Air 05/06/22 03:01 36.4 C L 71 20 124/64 94 Room Air Laboratory Results Short CBC 05/06/22 Range/Units 06:54 WBC 9.17 (4.8-10.8) K/ul Hgb 11.7 L (14.0-18.0) g/dl Hct 36.4 L (42.0-52.0) % Plt Count 194 (130-400) K/uL BMP 05/06/22 06:54 Sodium 134 L Potassium 4.4 Chloride 98 Carbon Dioxide 27 BUN 39 H Creatinine 4.95 H* D Glucose 111 H Calcium 9.0 PG Care Time/CCT Total # of Minutes Spent Total Time Spent with Patient: Total time spent is greater than 50% in coordination of care (as documented) at patient's floor/unit and/or counseling patient: Coding Level of Care Code 94273 SUB INP/OBS CARE 125MIN Diagnoses Unilateral visual loss H54.60 Non-healing wound of amputation stump T87.89 Anemia due to chronic kidney disease N18.9; D63.1 Peripheral arterial disease I73.9 Diabetes E11.9 COPD (chronic obstructive pulmonary disease) J44.9 ESRD (end stage renal disease) on dialysis N18.6; Z99.2 HFrEF (heart failure with reduced ejection fraction) I50.20 Hyperbilirubinemia E80.6
[2022-05-06] MEDS: VALSARTAN/SACUBITRIL 26/24MG TAB PO SCH ×2 (12:32→20:24)
[2022-05-06] MEDS: oxyCODONE HCL IR 5 MG TAB (IMMEDIATE RELEASE) PO PRN (15:37)
[2022-05-06 16:21] LABS: Partial Thromboplastin Ratio 2.9
[2022-05-06 16:28] LABS: Partial Thromboplastin Time 80.6 Seconds (21.0-31.0)
[2022-05-06] MEDS: LANTUS PER UNIT CHARGE SQ SCH (20:19)
[2022-05-06] MEDS: UMECLIDINIUM/VILANTEROL 62.5/25MCG 7 PUFFS/INHALER INH SCH (20:22)
[2022-05-06] MEDS: FLUTICASONE FUROATE 100MCG 14 PUFFS/INHALER INH SCH (20:22)
[2022-05-06] MEDS: ATORVASTATIN 40 MG TAB PO SCH (20:23)
[2022-05-06] MEDS: PRAMIPEXOLE DIHYDROCHLO 0.25 MG TAB PO SCH (20:23)
[2022-05-06] MEDS: DULoxetine HCL 60 MG CAP PO SCH (20:23)
[2022-05-06] MEDS: GABAPENTIN 100 MG CAP PO SCH (20:24)
[2022-05-06] MEDS: CLOPIDOGREL BISULFATE 75 MG TAB PO SCH (20:24)
[2022-05-06] MEDS: METOPROLOL SUCC 50MG EXT REL TAB PO SCH (20:24)
[2022-05-07] MEDS: HEPARIN SODIUM/DEXTROSE 25,000 UNITS/500 ML BAG IV SCH (02:24)
[2022-05-07 02:44] LABS: Hematocrit (blood only) 34.4 % (42.0-52.0); Hemoglobin 11.1 g/dl (14.0-18.0); Mean Corpuscular Hemoglobin 30.1 pg (25.0-34.0); Mean Corpuscular Hgb Conc 32.3 g/dL (32.0-36.0); Mean Corpuscular Volume 93.2 fL (80.0-100.0); Mean Platelet Volume 10.5 fL (9.4-12.4); Nucleated RBC # (auto) 0.03 K/uL (0-0.12); Nucleated RBC % (auto) 0.3 %; Platelet Count 219 K/uL (130-400); RDW Coefficient of Variation 17.2 % (11.5-14.5); RDW Standard Deviation 58.2 fL (36.4-46.3); Red Blood Count 3.69 M/uL (4.70-6.10); White Blood Count 10.11 K/ul (4.8-10.8)
[2022-05-07 03:09] LABS: BUN Creatinine Ratio 8.7 (10-20); Calcium 8.9 mg/dl (8.5-10.1); Creatinine Clr Calc Pharmacy 13.2 ml/min; Est GFR (African American) 11.5 ml/min; Est GFR (Non-African American) 9.9 ml/min; Potassium 4.3 mmol/L (3.5-5.1)
[2022-05-07 03:11] LABS: Partial Thromboplastin Ratio 3.2
[2022-05-07 03:46] LABS: Partial Thromboplastin Time 88.5 Seconds (21.0-31.0)
[2022-05-07] MEDS: INSULIN ASPART PER UNIT SC SCH ×4 (07:37→21:35)
[2022-05-07] MEDS: oxyCODONE HCL IR 5 MG TAB (IMMEDIATE RELEASE) PO PRN ×2 (08:06→19:33)
--- NOTE | 2022-05-07 08:42 | Nephrology Progress Note ---
Date of Service May 07, 2022 Assessment & Plan (1) ESRD (end stage renal disease) on dialysis: Plan: * Dialyzes MWF at [facility] under the care of Dr. Mccormack * Volume status and electrolyte balance are acceptable. No acute indication for HD today. Will schedule next treatment for Sunday * Monitor PRP (2) Anemia due to chronic kidney disease: Plan: * Chronic, stable. Hgb >11. No additional JODIE therapy required. (3) Monocular vision loss: Plan: * Vitreous hemorrhage and proliferative retinopathy. Ophthalmology indicated that anticoagulation can be continued (4) Jugular vein thrombosis: Plan: * Anticoagulation as per primary service Admission and Anticipated Discharge Date Admission Date: May 02, 2022 Subjective Mr. Sanchez was evaluated in his hospital room this morning. He denied CORTES, angina or dyspnea. He voiced no new medical concerns Review of Systems 2 Constitutional: no fever Eyes: + problem reported (R vision loss) Ear, Nose, Mouth, Throat: no problem reported Respiratory: no dyspnea Cardiovascular: no chest pain Gastrointestinal: no abdominal pain Musculoskeletal: + back pain, + joint pain, + swelling and + stiffness Neurologic: no localized weakness Physical Exam Constitutional: not in distress Eyes: PERRL, conjunctivae normal, anicteric sclerae ENMT: external ear and nose normal, oropharynx normal Neck: trachea midline, no thyromegaly Respiratory: normal respiratory effort, lungs clear to auscultation Cardiovascular: RRR, no murmur, no edema Extremities: + AV fistula (+ bruit) Gastrointestinal (Abdomen): normal bowel sounds, soft, nontender, no hepatosplenomegaly Neurologic: awake; not confused Results & Data ([facility]) Vital Signs (Past 12 Hours) Vital Signs Temp Pulse Pulse Pulse Resp BP Pulse Ox 05/07/22 07:51 36.2 C L 70 18 126/66 92 05/07/22 07:15 63 05/07/22 06:47 36.5 C 72 18 123/65 93 05/07/22 04:42 36.5 C 68 18 121/82 95 05/06/22 22:04 67 05/06/22 22:39 73 18 121/57 L 93 05/06/22 21:49 O2 Del Method O2 Flow Rate 05/07/22 07:51 Nasal Cannula 2 05/07/22 07:15 02/05/23 06:47 Nasal Cannula 2 05/07/22 04:42 Nasal Cannula 2 05/06/22 22:04 05/06/22 22:39 Nasal Cannula 2 05/06/22 21:49 Nasal Cannula 2 Laboratory Results Laboratory Tests 05/07/22 05/07/22 02:25 02:25 WBC 10.11 Hgb 11.1 L Hct 34.4 L Plt Count 219 Sodium 133 L Potassium 4.3 Chloride 95 L Carbon Dioxide 29 BUN 48 H Creatinine 5.52 H* D Glucose 78 PG Care Time/CCT Total # of Minutes Spent Total Time Spent with Patient: Total time spent is greater than 50% in coordination of care (as documented) at patient's floor/unit and/or counseling patient: Coding Level of Care Code 47604 SUB INP/OBS CARE 350MIN Diagnoses ESRD (end stage renal disease) on dialysis N18.6; Z99.2 Anemia due to chronic kidney disease N18.9; D63.1 Monocular vision loss H54.60 Jugular vein thrombosis I82.890
[2022-05-07 11:21] LABS: Partial Thromboplastin Ratio 1.7
[2022-05-07 11:34] LABS: Partial Thromboplastin Time 47.1 Seconds (21.0-31.0)
[2022-05-07] MEDS: VALSARTAN/SACUBITRIL 26/24MG TAB PO SCH ×2 (12:15→20:54)
--- NOTE | 2022-05-07 18:10 | Hospitalist Progress Note ---
Date of Service May 07, 2022 Assessment & Plan (1) Unilateral visual loss: Plan: This is a 66-year-old male with a history of ESRD, COPD, type 2 diabetes, peripheral arterial disease, HFrEF who presented to [facility] for evaluation of unilateral R-sided vision loss. In the setting of his known other chronic conditions, his appearance is most concerning for a stroke or intraocular process. RIGHT Unilateral Vision Loss -Patient with numerous vasculopathic disorders presenting with 2 days of right- sided unilateral vision loss Work-up as follows: CT head without acute processes, however, old infarcts and microvascular disease appreciated Direct/indirect pupillary reflexes intact, extraocular movements intact Major concern is CVA - e.g., CRAO. Also on differential includes optic neuritis, intraocular process like vitreal hemorrhage Obtain ultrasound of the carotids bilaterally Obtain MRI without contrast Continue antiplatelet therapy Hold on ophthalmology consult at this time; if MRI results are negative, will require comprehensive ophthalmologic exam Neurovascular checks have been ordered PT, OT to evaluate Fall precautions Smoking cessation counseling will need to be provided 2/2-monocular vision loss likely secondary to underlying ophthalmologic problem rather than vascular-vascular input appreciated Plaque in the carotid bifurcation without significant narrowing Eliquis and aspirin held As per ophthalmology patient has vitreous hemorrhage likely secondary to proliferative diabetic retinopathy And follow-up with retinal specialist with intravitreal injections recommended 2/3 ophthalmology input regarding monocular vision loss secondary to proliferative diabetic retinopathy noted Results discussed with patient's daughter and the need to follow-up as an outpatient with retinal specialist discussed with her Will discuss with vascular regarding further continuation of anticoagulation 2/-continue with anticoagulation No worsening of vision as noted Discussed with daughter regarding vitreous hemorrhage and needed follow-up 2--patient is presently on IV heparin for anticoagulation secondary to jugular vein thrombosis Will need to discuss with vascular to see if Eliquis can be restarted Based on ophthalmology recommendations considering risk versus benefit of heparin was admitted in the setting of retinal hemorrhages But will need to confirm with ophthalmology to see if long-term anticoagulation with Eliquis can be continued in this setting-call placed to ophthalmology Will obtain wound care to assist with assessing progress in this lower extremity excoriations (2) Non-healing wound of amputation stump: Plan: Has chronic bilateral lower extremity cellulitis superimposed on chronic venous changes in the setting of severe peripheral arterial disease status post bypass grafting of the left lower extremity and transmetatarsal left foot amputation Per PCP notes, cellulitis has been improving, though patient says it is worsening (?) --> vascular surgery ([facility]) has preferred to hold off on any interventions to allow for self healing; however, consideration has been given to superficial femoral artery intervention MRI in 04/2021 negative for osteomyelitis Based on prior admission notes, [facility] had a culture that did not reveal evidence of MRSA or gram-negative organisms; was improving on cefazolin No leukocytosis. Check CRP, procalcitonin, MRSA swab Suspect ongoing pain, redness likely secondary to PAD and difficulty clearing infection Renally dosed cefazolin 500 mg every 8h Consult wound care while here, appreciate recommendations. 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 (6) COPD (chronic obstructive pulmonary disease): Plan: Continue Trelegy Continues to smoke, down to 1/2 PPD Counseling will be provided (7) ESRD (end stage renal disease) on dialysis: Plan: BUN 27/creatinine 4.9 on arrival (from 41/4.15 on 04/23) Receives HD on MWF Follows with Dr. Mccormack in [place] Appreciate nephrology consultation to arrange hemodialysis while here Monitor BMP (8) HFrEF (heart failure with reduced ejection fraction): Plan: Last TTE (04/2021): Severe reduction in LV systolic function with ejection fraction 15% Continue Entresto, metoprolol Status post AICD placement Follows with Dr. Campbell with [facility] cardiology they (9) Hyperbilirubinemia: Plan: Total bilirubin 2.4 and ALP 105 on arrival; there has been abnormalities noted with his LFTs over the last several months Possible underlying liver disease vs. conjugation disorder (Gilbert's). Synthetic labs (Na, Plt, INR- 1.2) are overall reasonable but noted. Possibly related to underlying ESRD? Liver ultrasound 04/17 demonstrating unremarkable appearance with normal common bile duct size Monitor while here Plan Admission and Anticipated Discharge Date Admission Date: May 02, 2022 Subjective Patient seen and examined Patient has discomfort in his lower extremity from skin excoriations and joint pain Maintained on IV heparin for jugular vein thrombosis His monocular vision has not worsened Physical Exam Physical Exam: Head and ENT no thyroid enlargement trachea midline Still with monocular visual loss Cardiovascular S1-S2 are normal no S3 Lungs bilateral air entry fair no wheezing Abdomen soft nondistended no rebound tenderness Extremity shows trace edema Neurologically no focal deficits Skin shows skin excoriations on lower extremities Results & Data Results & Data ([facility]) Vital Signs (Past 12 Hours) Vital Signs Temp Pulse Pulse Pulse Resp BP Pulse Ox 05/07/22 16:12 36.6 C 77 16 105/68 92 05/07/22 14:47 60 05/07/22 11:46 36.7 C 65 17 128/86 100 05/07/22 08:00 05/07/22 07:51 36.2 C L 70 18 126/66 92 05/07/22 07:15 63 05/07/22 06:47 36.5 C 72 18 123/65 93 O2 Del Method O2 Flow Rate 05/07/22 16:12 Room Air 05/07/22 14:47 05/07/22 11:46 Nasal Cannula 2 05/07/22 08:00 Room Air 05/07/22 07:51 Nasal Cannula 2 05/07/22 07:15 05/07/22 06:47 Nasal Cannula 2 Laboratory Results Short CBC 05/07/22 Range/Units 02:25 WBC 10.11 (4.8-10.8) K/ul Hgb 11.1 L (14.0-18.0) g/dl Hct 34.4 L (42.0-52.0) % Plt Count 219 (130-400) K/uL BMP 05/07/22 02:25 Sodium 133 L Potassium 4.3 Chloride 95 L Carbon Dioxide 29 BUN 48 H Creatinine 5.52 H* D Glucose 78 Calcium 8.9 PG Care Time/CCT Total # of Minutes Spent Total Time Spent with Patient: Total time spent is greater than 50% in coordination of care (as documented) at patient's floor/unit and/or counseling patient: Coding Level of Care Code 82908 SUB INP/OBS CARE 2/35MIN Diagnoses Unilateral visual loss H54.60 Non-healing wound of amputation stump T87.89 Anemia due to chronic kidney disease N18.9; D63.1 Peripheral arterial disease I73.9 Diabetes E11.9 COPD (chronic obstructive pulmonary disease) J44.9 ESRD (end stage renal disease) on dialysis N18.6; Z99.2 HFrEF (heart failure with reduced ejection fraction) I50.20 Hyperbilirubinemia E80.6
[2022-05-07 18:28] LABS: Partial Thromboplastin Ratio 2.4
[2022-05-07 18:42] LABS: Partial Thromboplastin Time 65.3 Seconds (21.0-31.0)
[2022-05-07] MEDS: ATORVASTATIN 40 MG TAB PO SCH (20:50)
[2022-05-07] MEDS: CLOPIDOGREL BISULFATE 75 MG TAB PO SCH (20:51)
[2022-05-07] MEDS: DULoxetine HCL 60 MG CAP PO SCH (20:52)
[2022-05-07] MEDS: FLUTICASONE FUROATE 100MCG 14 PUFFS/INHALER INH SCH (20:52)
[2022-05-07] MEDS: PRAMIPEXOLE DIHYDROCHLO 0.25 MG TAB PO SCH (20:53)
[2022-05-07] MEDS: METOPROLOL SUCC 50MG EXT REL TAB PO SCH (20:53)
[2022-05-07] MEDS: GABAPENTIN 100 MG CAP PO SCH (20:53)
[2022-05-07] MEDS: UMECLIDINIUM/VILANTEROL 62.5/25MCG 7 PUFFS/INHALER INH SCH (20:53)
[2022-05-08] MEDS: HEPARIN SODIUM/DEXTROSE 25,000 UNITS/500 ML BAG IV SCH (00:09)
[2022-05-08 06:15] LABS: Basophils # (auto) 0.09 K/uL (0-0.2); Basophils % (auto) 1.1 %; Eosinophils # (auto) 0.21 K/uL (0-0.50); Eosinophils % (auto) 2.5 %; Hematocrit (blood only) 33.4 % (42.0-52.0); Hemoglobin 10.9 g/dl (14.0-18.0); Immature Granulocytes # (auto) 0.11 K/uL (0.01-0.20); Immature Granulocytes % (auto) 1.3 %; Lymphocytes # (auto) 0.71 K/uL (1.2-3.4); Lymphocytes % (auto) 8.5 %; Mean Corpuscular Hemoglobin 29.6 pg (25.0-34.0); Mean Corpuscular Hgb Conc 32.6 g/dL (32.0-36.0); Mean Corpuscular Volume 90.8 fL (80.0-100.0); Mean Platelet Volume 10.8 fL (9.4-12.4); Monocytes # (auto) 0.54 K/uL (0.11-0.59); Monocytes % (auto) 6.5 %; Neutrophils % (auto) 80.1 %; Nucleated RBC # (auto) 0.05 K/uL (0-0.12); Nucleated RBC % (auto) 0.6 %; Platelet Count 222 K/uL (130-400); RDW Coefficient of Variation 17.8 % (11.5-14.5); RDW Standard Deviation 56.7 fL (36.4-46.3); Red Blood Count 3.68 M/uL (4.70-6.10); White Blood Count 8.36 K/ul (4.8-10.8)
[2022-05-08 06:52] LABS: Partial Thromboplastin Ratio 2.2
[2022-05-08 06:56] LABS: Partial Thromboplastin Time 60.3 Seconds (21.0-31.0)
[2022-05-08] MEDS ORDERED: SODIUM CHLORIDE 0.9% 1000ML 1,000 ML IV PRN (07:00)
[2022-05-08 07:02] LABS: BUN Creatinine Ratio 9.8 (10-20); Calcium 8.8 mg/dl (8.5-10.1); Creatinine Clr Calc Pharmacy 11.5 ml/min; Est GFR (African American) 9.7 ml/min; Est GFR (Non-African American) 8.4 ml/min; Potassium 4.7 mmol/L (3.5-5.1)
--- NOTE | 2022-05-08 08:48 | Nephrology Progress Note ---
Date of Service May 08, 2022 Assessment & Plan (1) ESRD (end stage renal disease) on dialysis: Plan: * Dialyzes MWF at [facility] under the care of Dr. Mccormack * Will provide HD today. Orders have been entered into EMR and HD RN notified * Monitor PRP (2) Anemia due to chronic kidney disease: Plan: * Chronic, stable. Hgb >11. No additional JODIE therapy required. (3) Monocular vision loss: Plan: * Vitreous hemorrhage and proliferative retinopathy. Ophthalmology indicated that anticoagulation can be continued (4) Jugular vein thrombosis: Plan: * Anticoagulation as per primary service Admission and Anticipated Discharge Date Admission Date: May 02, 2022 Subjective Mr. Sanchez was evaluated in his hospital room this morning. He denied CORTES, angina or dyspnea. He voiced no new medical concerns Review of Systems Constitutional: no fever Eyes: + problem reported (R vision loss) Ear, Nose, Mouth, Throat: no problem reported Respiratory: no dyspnea Cardiovascular: no chest pain Gastrointestinal: no abdominal pain Musculoskeletal: + back pain, + joint pain, + swelling and + stiffness Neurologic: no localized weakness Physical Exam Constitutional: not in distress Eyes: PERRL, conjunctivae normal, anicteric sclerae ENMT: external ear and nose normal, oropharynx normal Neck: trachea midline, no thyromegaly Respiratory: normal respiratory effort, lungs clear to auscultation Cardiovascular: RRR, no murmur, no edema Extremities: + AV fistula (+ bruit) Gastrointestinal (Abdomen): normal bowel sounds, soft, nontender, no hepatosplenomegaly Neurologic: awake; not confused Results & Data ([facility]) Vital Signs (Past 12 Hours) Vital Signs Temp Pulse Pulse Resp BP Pulse Ox O2 Del Method 05/08/22 07:59 63 20 123/59 L 94 Room Air 05/08/22 04:00 35.6 C L 61 18 117/77 96 Room Air 05/07/22 23:00 36.4 C L 60 20 121/71 94 Room Air 05/07/22 23:26 61 05/07/22 22:29 Room Air Laboratory Results Laboratory Tests 05/08/22 05/08/22 05:28 05:28 WBC 8.36 Hgb 10.9 L Hct 33.4 L Plt Count 222 Sodium 131 L Potassium 4.7 Chloride 94 L Carbon Dioxide 26 BUN 62 H Creatinine 6.32 H* D Glucose 125 H Calcium 8.8 PG Care Time/CCT Total # of Minutes Spent Total Time Spent with Patient: Total time spent is greater than 50% in coordination of care (as documented) at patient's floor/unit and/or counseling patient: Coding Level of Care Code 84084 SUB INP/OBS CARE 3/50MIN Diagnoses ESRD (end stage renal disease) on dialysis N18.6; Z99.2 Anemia due to chronic kidney disease N18.9; D63.1 Monocular vision loss H54.60 Jugular vein thrombosis I82.890
[2022-05-08] MEDS: INSULIN ASPART PER UNIT SC SCH ×4 (09:07→21:32)
--- NOTE | 2022-05-08 11:56 | Pharmacy Report ---
Pharmacy Glycemic Sign Off Nt - Date of Service May 08, 2022 - Assessment & Plan ASSESSMENT: * Pharmacy was consulted by Dr Peterson on 05/02 for glycemic control and to write orders per [facility] inpatient glycemic control protocol. * Major changes made by pharmacy to antidiabetic regimen include: * Reduced dose of basal --> Currently not receiving basal insulin due to low fasting BSGs * Novolog carb ratio was discontinued on 2/3 d/t hypoglycemic episodes--> No carb coverage. Correctional insulin only. * Patient has been receiving/requiring 2-7 units of insulin per day for adequate glycemic control * BSGs ranging 50-226 mg/dl * Regimen has only required minor adjustments over the past 48hrs to achieve this level of control * Do not anticipate further changes in patient status that would quickly deteriorate glycemic control (i.e. patient to be NPO for upcoming procedure, steroids tapering, starting tube feedings, etc). PLAN FOR INPATIENT GLYCEMIC CONTROL: No changes needed to current regimen. * Continue NovoLog per scale ACHS/Q6hrs while NPO * Goal range = 120 - 150 mg/dl * CF = 45 mg/dl/unit * CR = none * Pharmacy is signing off of glycemic consult and will no longer be making adjustments to inpatient regimen. Please feel free to re-consult if needed. Thank you.
[2022-05-08] MEDS ORDERED: HEPARIN-STOP ORDER ONE (15:45)
--- NOTE | 2022-05-08 15:50 | Hospitalist Progress Note ---
Date of Service May 08, 2022 Assessment & Plan (1) Unilateral visual loss: Plan: This is a 66-year-old male with a history of ESRD, COPD, type 2 diabetes, peripheral arterial disease, HFrEF who presented to [facility] for evaluation of unilateral R-sided vision loss. In the setting of his known other chronic conditions, his appearance is most concerning for a stroke or intraocular process. RIGHT Unilateral Vision Loss -Patient with numerous vasculopathic disorders presenting with 2 days of right- sided unilateral vision loss Work-up as follows: CT head without acute processes, however, old infarcts and microvascular disease appreciated Direct/indirect pupillary reflexes intact, extraocular movements intact MRI showed evidence ols parietal stroke, Right-sided retinal versus choroidal detachment -CT angio head and neck showed right internal jugular occlusive thrombus -Evaluated by Vascualr surgery anf Ophthalmology, initially on heparin infusion -Per surgery, no indication for surgery, continue anticoagulation and treat like DVT -Per ophthalmology, ok for anticogulation despite suggestion of retinal hemorrhage and choroid detachment -Has been transitioned to PO Eliquis 5mg BID (2) Non-healing wound of amputation stump: Plan: Has chronic bilateral lower extremity cellulitis superimposed on chronic alma ous changes in the setting of severe peripheral arterial disease status post bypass grafting of the left lower extremity and transmetatarsal left foot amputation Per PCP notes, cellulitis has been improving, though patient says it is worsening (?) --> vascular surgery ([facility]) has preferred to hold off on any interventions to allow for self healing; however, consideration has been given to superficial femoral artery intervention MRI in 04/2021 negative for osteomyelitis Based on prior admission notes, [facility] had a culture that did not reveal evidence of MRSA or gram-negative organisms; was improving on cefazolin No leukocytosis. Check CRP, procalcitonin, MRSA swab Suspect ongoing pain, redness likely secondary to PAD and difficulty clearing infection Renally dosed cefazolin 500 mg every 8h Consult wound care while here, appreciate recommendations. 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 (6) COPD (chronic obstructive pulmonary disease): Plan: Continue Trelegy Continues to smoke, down to 1/2 PPD Counseling will be provided (7) ESRD (end stage renal disease) on dialysis: Plan: BUN 27/creatinine 4.9 on arrival (from 41/4.15 on 04/23) Receives HD on MWF Follows with Dr. Mccormack in [place] Appreciate nephrology consultation to arrange hemodialysis while here Monitor BMP (8) HFrEF (heart failure with reduced ejection fraction): Plan: Last TTE (04/2021): Severe reduction in LV systolic function with ejection fraction 15% Continue Entresto, metoprolol Status post AICD placement Follows with Dr. Campbell with [facility] cardiology they (9) Hyperbilirubinemia: Plan: Total bilirubin 2.4 and ALP 105 on arrival; there has been abnormalities noted with his LFTs over the last several months Possible underlying liver disease vs. conjugation disorder (Gilbert's). Synthetic labs (Na, Plt, INR- 1.2) are overall reasonable but noted. Possibly related to underlying ESRD? Liver ultrasound 04/17 demonstrating unremarkable appearance with normal common bile duct size Monitor while here Plan Hopefully d/c in the next 24 hrs Admission and Anticipated Discharge Date Admission Date: May 02, 2022 Subjective patient seen and examined, a poor historian, complains of itchy skin, lower extremities Review of Systems Review of Systems: All systems reviewed are negative, apart from the ones contained in the history. Physical Exam Physical Exam: The patient is awake, alert and oriented 3, HEENT--right periorbital hematoma Neck--supple. No JVD. No bruits. Thyroid normal, trachea midline, no adenopathy. Heart--normal S1 and S2. No murmurs, rubs or gallops. Lungs--clear bilaterally, no respiratory distress, no accessory muscle use. Abdomen--normal bowel sounds and soft. Mild epigastric and left sided abdominal pain Extremities--bilateral lower extremity cellulitis, scarification valentine, left mid tarsal amputation Dermatologic--scarification valentine Neurologic--cranial nerves II through XII grossly intact. Rheumatologic--normal range of motion. Psychiatric--normal affect. Results & Data Results & Data ([facility]) Vital Signs (Past 12 Hours) Vital Signs Temp Pulse Pulse Pulse Resp BP BP 05/08/22 15:30 61 120/73 05/08/22 15:00 64 114/90 05/08/22 14:30 61 100/65 05/08/22 14:00 66 136/83 05/08/22 13:30 57 L 121/77 05/08/22 13:00 60 133/78 05/08/22 12:52 69 135/85 05/08/22 12:47 97.5 F L 70 05/08/22 08:00 05/08/22 11:30 97.3 F L 59 L 18 122/67 05/08/22 07:59 63 20 123/59 L 05/08/22 04:00 96.1 F L 61 18 117/77 Pulse Ox O2 Del Method 05/08/22 15:30 05/08/22 15:00 05/08/22 14:30 05/08/22 14:00 05/08/22 13:30 05/08/22 13:00 05/08/22 12:52 05/08/22 12:47 05/08/22 08:00 Room Air 05/08/22 11:30 95 Room Air 05/08/22 07:59 94 Room Air 05/08/22 04:00 96 Room Air PG Care Time/CCT Total # of Minutes Spent Total Time Spent with Patient: Total time spent is greater than 50% in coordination of care (as documented) at patient's floor/unit and/or counseling patient: Coding Level of Care Code 99412 SUB INP/OBS CARE 2/35MIN Diagnoses Unilateral visual loss H54.60 Non-healing wound of amputation stump T87.89 Anemia due to chronic kidney disease N18.9; D63.1 Peripheral arterial disease I73.9 Diabetes E11.9 COPD (chronic obstructive pulmonary disease) J44.9 ESRD (end stage renal disease) on dialysis N18.6; Z99.2 HFrEF (heart failure with reduced ejection fraction) I50.20 Hyperbilirubinemia E80.6 Time Spent (min) 35
[2022-05-08] MEDS: VALSARTAN/SACUBITRIL 26/24MG TAB PO SCH ×2 (17:10→21:23)
[2022-05-08] MEDS: APIXABAN 5 MG TABLET PO SCH (18:19)
[2022-05-08] MEDS: CLOPIDOGREL BISULFATE 75 MG TAB PO SCH (21:20)
[2022-05-08] MEDS: UMECLIDINIUM/VILANTEROL 62.5/25MCG 7 PUFFS/INHALER INH SCH (21:21)
[2022-05-08] MEDS: FLUTICASONE FUROATE 100MCG 14 PUFFS/INHALER INH SCH (21:21)
[2022-05-08] MEDS: DULoxetine HCL 60 MG CAP PO SCH (21:23)
[2022-05-08] MEDS: GABAPENTIN 100 MG CAP PO SCH (21:24)
[2022-05-08] MEDS: ATORVASTATIN 40 MG TAB PO SCH (21:24)
[2022-05-08] MEDS: METOPROLOL SUCC 50MG EXT REL TAB PO SCH (21:24)
[2022-05-08] MEDS: PRAMIPEXOLE DIHYDROCHLO 0.25 MG TAB PO SCH (21:25)
[2022-05-08] MEDS: oxyCODONE HCL IR 5 MG TAB (IMMEDIATE RELEASE) PO PRN (21:32)
[2022-05-09 06:30] LABS: Hemoglobin 10.9 g/dl (14.0-18.0); Mean Corpuscular Hemoglobin 29.4 pg (25.0-34.0); Mean Corpuscular Hgb Conc 32.1 g/dL (32.0-36.0); Mean Corpuscular Volume 91.6 fL (80.0-100.0); Mean Platelet Volume 10.2 fL (9.4-12.4); Nucleated RBC # (auto) 0.06 K/uL (0-0.12); Nucleated RBC % (auto) 0.8 %; Platelet Count 199 K/uL (130-400); RDW Coefficient of Variation 18.6 % (11.5-14.5); RDW Standard Deviation 57.6 fL (36.4-46.3); Red Blood Count 3.71 M/uL (4.70-6.10); White Blood Count 7.29 K/ul (4.8-10.8)
[2022-05-09 07:00] LABS: BUN Creatinine Ratio 9.1 (10-20); C Reactive Protein 8.19 mg/dl (0-0.5); Calcium 9.1 mg/dl (8.5-10.1); Creatinine Clr Calc Pharmacy 15.5 ml/min; Est GFR (African American) 13.9 ml/min; Potassium 4.5 mmol/L (3.5-5.1)
[2022-05-09 07:05] LABS: Partial Thromboplastin Ratio 1.1; Partial Thromboplastin Time 31.3 Seconds (21.0-31.0)
[2022-05-09] MEDS: HEPARIN SODIUM/DEXTROSE 25,000 UNITS/500 ML BAG IV SCH (08:26)
[2022-05-09] MEDS: APIXABAN 5 MG TABLET PO SCH (08:31)
[2022-05-09] MEDS: INSULIN ASPART PER UNIT SC SCH ×2 (08:31→11:59)
--- NOTE | 2022-05-09 08:44 | Nephrology Progress Note ---
Date of Service May 09, 2022 Assessment & Plan (1) ESRD (end stage renal disease) on dialysis: Plan: * Dialyzes MWF at [facility] under the care of Dr. Mccormack * Volume status and electrolyte balance are currently acceptable. No acute indication for HD today * Will schedule HD for Sunday if still hospitalized (2) Anemia due to chronic kidney disease: Plan: * Chronic, stable. Hgb >11. No additional JODIE therapy required. (3) Monocular vision loss: Plan: * Vitreous hemorrhage and proliferative retinopathy. Ophthalmology indicated that anticoagulation can be continued (4) Jugular vein thrombosis: Plan: * Anticoagulation as per primary service Admission and Anticipated Discharge Date Admission Date: May 02, 2022 Subjective Mr. Sanchez was evaluated in his hospital room this morning. He denied CORTES, angina or dyspnea. He voiced no new medical concerns. He hopes to return home soon Review of Systems Constitutional: no fever Eyes: + problem reported (R vision loss) Ear, Nose, Mouth, Throat: no problem reported Respiratory: no dyspnea Cardiovascular: no chest pain Gastrointestinal: no abdominal pain Musculoskeletal: + back pain, + joint pain, + swelling and + stiffness Neurologic: no localized weakness Physical Exam Constitutional: not in distress Eyes: PERRL, conjunctivae normal, anicteric sclerae ENMT: external ear and nose normal, oropharynx normal Neck: trachea midline, no thyromegaly Respiratory: normal respiratory effort, lungs clear to auscultation Cardiovascular: RRR, no murmur, no edema Extremities: + AV fistula (+ bruit) Gastrointestinal (Abdomen): normal bowel sounds, soft, nontender, no hepatosplenomegaly Neurologic: awake; not confused Results & Data ([facility]) Vital Signs (Past 12 Hours) Vital Signs Temp Pulse Pulse Resp BP BP Pulse Ox 05/09/22 07:45 63 20 110/68 95 05/09/22 04:00 36.8 C 68 18 116/70 92 05/08/22 23:06 65 05/09/22 00:05 36.6 C 65 18 129/60 95 O2 Del Method 05/09/22 07:45 Room Air 05/09/22 04:00 Room Air 05/08/22 23:06 05/09/22 00:05 Room Air Laboratory Results Laboratory Tests 05/09/22 05/09/22 05:55 05:55 WBC 7.29 Hgb 10.9 L Hct 34.0 L Plt Count 199 Sodium 136 Potassium 4.5 Chloride 97 L Carbon Dioxide 29 BUN 43 H Creatinine 4.70 H* D Glucose 135 H PG Care Time/CCT Total # of Minutes Spent Total Time Spent with Patient: Total time spent is greater than 50% in coordination of care (as documented) at patient's floor/unit and/or counseling patient: Coding Level of Care Code 63858 SUB INP/OBS CARE 3/50MIN Diagnoses ESRD (end stage renal disease) on dialysis N18.6; Z99.2 Anemia due to chronic kidney disease N18.9; D63.1 Monocular vision loss H54.60 Jugular vein thrombosis I82.890
[2022-05-09] MEDS ORDERED: ceFAZolin 1000MG 1,000 MG/7.5 ML SYR IV ONE (12:00)
[2022-05-09] MEDS: VALSARTAN/SACUBITRIL 26/24MG TAB PO SCH (12:35)
--- NOTE | 2022-05-09 14:56 | Discharge Summary ---
Date of Service May 09, 2022 Admission HPI Per Admitting Provider This is a 66-year-old male with a history of ESRD, COPD, type 2 diabetes, peripheral arterial disease, CHF who presented to [facility] for evaluation of visual disturbance. He states that this began yesterday and is present only in his right eye. He feels that he is unable to distinguish movements/objects. He says that up until yesterday morning, he could see "normally. "He says that he went to bed 2 evenings ago and had normal vision. He describes it as "oil over my vision. "Denies any floaters, curtains, flashers. Denies any pain in his eye. Denies any headache. Denies any new weakness in his upper or lower extremities. He endorses chronic periodic numbness within his right lower extremity. Denies any fevers, chills, sweats. Does endorse pain within his right lower extremity. In the ER, patient was found to be mildly tachycardic to 101 with otherwise normal vital signs. Temperature 36.7. Hematology revealed mild persistent anemia with hemoglobin 12.6. INR 1.2. Chemistries revealing elevated bicarb 35 and BUN 27/creatinine 4.9. Blood sugar on arrival 260. Total bilirubin 2.4. 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 He was given 2 mg of morphine and started on vancomycin. Principal Diagnosis jugular vein thrombosis Discharge Exam The patient is awake, alert and oriented 3, HEENT--right periorbital hematoma Neck--supple. No JVD. No bruits. Thyroid normal, trachea midline, no adenopathy. Heart--normal S1 and S2. No murmurs, rubs or gallops. Lungs--clear bilaterally, no respiratory distress, no accessory muscle use. Abdomen--normal bowel sounds and soft. Mild epigastric and left sided abdominal pain Extremities--bilateral lower extremity cellulitis, scarification valentine, left mid tarsal amputation Dermatologic--scarification valentine Neurologic--cranial nerves II through XII grossly intact. Rheumatologic--normal range of motion. Psychiatric--normal affect. Discharge Data Allergies Allergy/AdvReac Type Severity Reaction Status Date / Time No Known Allergies Allergy Verified 05/02/22 17:58 Consultations 05/02/22 19:47 ED Decision to Admit Stat 05/02/22 20:00 Consult Nephrology Routine 05/03/22 09:17 Consult Neurology Routine 05/03/22 09:19 Consult Ophthalmology Routine 05/03/22 09:25 Consult Vascular Surgery Routine Ordered Studies 05/02/22 14:38 CT head/brain wo con Stat 05/02/22 19:37 US carotid doppler BI Stat 05/03/22 00:00 MR brain wo con Routine 05/03/22 05:[address] [CT head/brain wo con] Urgent 05/03/22 10:39 CTA head w con [CT angio head w con] Stat CTA neck with con [CT angio neck with con] Stat Hospital Course (1) Unilateral visual loss: This is a 66-year-old male with a history of ESRD, COPD, type 2 diabetes, peripheral arterial disease, HFrEF who presented to [facility] for evaluation of unilateral R-sided vision loss. In the setting of his known other chronic conditions, his appearance is most concerning for a stroke or intraocular process. RIGHT Unilateral Vision Loss -Patient with numerous vasculopathic disorders presenting with 2 days of right-sided unilateral vision loss Work-up as follows: CT head without acute processes, however, old infarcts and microvascular disease appreciated Direct/indirect pupillary reflexes intact, extraocular movements intact MRI showed evidence ols parietal stroke, Right-sided retinal versus choroidal detachment -CT angio head and neck showed right internal jugular occlusive thrombus -Evaluated by Vascualr surgery anf Ophthalmology, initially on heparin infusion -Per surgery, no indication for surgery, continue anticoagulation and treat like DVT -Per ophthalmology, ok for anticogulation despite suggestion of retinal hemorrhage and choroid detachment -Has been transitioned to PO Eliquis 5mg BID (2) Non-healing wound of amputation stump: Has chronic bilateral lower extremity cellulitis superimposed on chronic venous changes in the setting of severe peripheral arterial disease status post bypass grafting of the left lower extremity and transmetatarsal left foot amputation Per PCP notes, cellulitis has been improving, though patient says it is worsening (?) --> vascular surgery ([facility]) has preferred to hold off on any interventions to allow for self healing; however, consideration has been given to superficial femoral artery intervention MRI in 04/2021 negative for osteomyelitis Based on prior admission notes, [facility] had a culture that did not reveal evidence of MRSA or gram-negative organisms; was improving on cefazolin No leukocytosis. Check CRP, procalcitonin, MRSA swab Suspect ongoing pain, redness likely secondary to PAD and difficulty clearing infection Renally dosed cefazolin 500 mg every 8h Consult wound care while here, appreciate recommendations. 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 (6) COPD (chronic obstructive pulmonary disease): Continue Trelegy Continues to smoke, down to 1/2 PPD Counseling will be provided (7) ESRD (end stage renal disease) on dialysis: BUN 27/creatinine 4.9 on arrival (from 41/4.15 on 04/23) Receives HD on MWF Follows with Dr. Mccormack in [place] Appreciate nephrology consultation to arrange hemodialysis while here Monitor BMP (8) HFrEF (heart failure with reduced ejection fraction): Last TTE (04/2021): Severe reduction in LV systolic function with ejection fraction 15% Continue Entresto, metoprolol Status post AICD placement Follows with Dr. Campbell with [facility] cardiology they (9) Hyperbilirubinemia: Total bilirubin 2.4 and ALP 105 on arrival; there has been abnormalities noted with his LFTs over the last several months Possible underlying liver disease vs. conjugation disorder (Gilbert's). Synthetic labs (Na, Plt, INR- 1.2) are overall reasonable but noted. Possibly related to underlying ESRD? Liver ultrasound 04/17 demonstrating unremarkable appearance with normal common bile duct size Monitor while here Plan Hopefully d/c in the next 24 hrs Total Time Total Time Spent Total Time Spent (In Minutes): 35 Discharge Plan Discharge Items Patient Disposition: Home - Home Health Services Reason For Visit: R UNILATERAL VISION LOSS Discharge Diagnosis: jugular vein thrombosis, cellulitis Activity: Resume your previous activity Non-emergency contact: Primary Care Provider and Mathematics Education Professor Call non-emergency contact if: you have any medication questions Follow-up/Referrals: Rubina Naqvi DO [Primary Care Provider] - 05/16/22 9:20 am Diet: Regular and Dialysis Renal Addtl Attending Provider Instructions: please make appointment to follow up with your regular doctors Pending Studies at Discharge: No Stand-Alone Forms: My [facility], Smoking Cessation Medications and DC Order Prescriptions: Continued cholecalciferol (vitamin D3) 50 mcg (2,000 unit) capsule 50 mcg PO HS insulin glargine [Lantus Solostar U-100 Insulin] 100 unit/mL (3 mL) insulin pen 10 unit subcut QPM Qty: 15 3RF cyclobenzaprine 10 mg tablet 10 mg PO BID PRN (Reason: Spasms) pramipexole 0.25 mg tablet 0.25 mg PO HS gabapentin 100 mg capsule 100 mg PO HS albuterol sulfate 90 mcg/actuation HFA aerosol inhaler 2 puff INHALATION Q4H PRN (Reason: Shortness Of Breath Or Wheezing) duloxetine 60 mg capsule,delayed release(DR/EC) 60 mg PO HS lanthanum 500 mg tablet,chewable 500 mg PO HS Eliquis 5 mg tablet 5 mg PO BID Rx Instructions: TAKES AT LUNCH & HS. Trelegy Ellipta 100-62.5-25 mcg blister with device 1 inh INHALATION HS Entresto 24-26 mg tablet 1 tab PO BID Qty: 60 0RF Rx Instructions: TAKES AT LUNCH & HS oxycodone 5 mg Tablet 7.5 mg PO Q6H PRN (Reason: pain) Qty: 15 0RF atorvastatin 10 mg tablet 10 mg PO HS metoprolol succinate 50 mg tablet extended release 24 hr 50 mg PO HS clopidogrel 75 mg tablet 75 mg PO HS lidocaine-prilocaine 2.5-2.5 % cream 1.5 g topical DIRECTED PRN (Reason: Pain) Discontinued cephalexin 500 mg capsule 500 mg PO HS Rx Instructions: STARTED 04/23/22 FOR 14 DAYS, 05/01/22 ORDERED ADDITIONAL 7 MORE DAYS. Discharge Orders: Discharge Order (Routine); Ordered 05/09/22 Ordered By: Saman Metz/Other Patient Handouts: Managing Type 2 Diabetes Admission Data Admit Date/Time: 05/02/22 19:31 Attending Provider: Saman Rene Admit Provider: Jaydon Rhodes Primary Care Provider: Rubina Naqvi Other Providers: Brett Wilson ; Mateus Burt ; Tariq Rodriguez ; Juan Royal ; Carlos Hanley Coding Level of Care Code HOSP INP/OBS DISCH >30 MIN Diagnoses Unilateral visual loss H54.60 Non-healing wound of amputation stump T87.89 Anemia due to chronic kidney disease N18.9; D63.1 Peripheral arterial disease I73.9 Diabetes E11.9 COPD (chronic obstructive pulmonary disease) J44.9 ESRD (end stage renal disease) on dialysis N18.6; Z99.2 HFrEF (heart failure with reduced ejection fraction) I50.20 Hyperbilirubinemia E80.6 Time Spent (min) 35
[2022-05-10] MEDS ORDERED: SODIUM CHLORIDE 0.9% 1000ML 1,000 ML IV PRN (07:00)
== END 2022-05-09 15:25 | disposition home health service (06) | DRG 124 ==
LOC: ED 14:22 → SUATTDRO 19:31 → EDINP 19:31 → 2N 05-03 16:46

== ENCOUNTER 2022-05-29 05:55 | Observation (INO) ==
--- NOTE | 2022-05-29 06:31 | Emergency Department Note ---
Impression & Plan Respiratory difficulty, Recurrent left pleural effusion, Lactic acidosis ED Provider Note Name: SENIA HUDDLESTON Age: 66 Sex: M Arrives Via: Walk-In Informant: Patient ED Provider: Abraham Mcgarry MD Chief Complaint: Shortness of breath Impression: As per impressions above Medical Decision Making: Pleasant 66-year-old gentleman arrives for evaluation of shortness of breath with a history of end-stage renal disease, COPD, previous pleural effusions requiring drainage recent treatment for bilateral leg cellulitis. On examination he has moderately tight lung sounds with dyspnea and generally appears unwell. Chest x-ray with increasing left pleural effusion as well as a right pleural effusion. He is not significantly hypoxic. Labs obtained included a lactic acid which is elevated. Procalcitonin is also somewhat elevated. While he does not exhibit other signs or findings of sepsis given the elevated lactate and the erythema both legs it could be that he has a developing cellulitis with systemic response. Given a 250mL NSS IV fluid bolus rather than 30/kg in the setting of his end-stage renal disease as well as congestive heart failure history. He was empirically given IV Rocephin and vancomycin for likely skin infection coverage. He has missed his dialysis the last few days however he is not overtly in severe fluid overload nor does he have elevated potassium this emergent dialysis not indicated at this time. With all of these findings I do think that hospitalization is reasonable and patient is comfortable with this plan. I will note initially give the patient a bit of a DuoNeb which seemed to improve his breathing some though I suspect more the issue is fluid overload on the left pleural effusion then full COPD this held on steroids. Patient was seen in the ER several weeks ago and had a fall while here. He had a head injury at that time and had a work-up which was unremarkable. He does have some bruising under both eyes. He has no headache neck pain nor is there evidence to require repeat imaging at this time. Prior Medical Record and Triage/Nursing Notes reviewed by Me Differentials:Congestive heart failure, pneumonia, fluid overload, COPD, multiple other pathologies considered. Sepsis, septic shock, severe sepsis, cellulitis, other causes of infection were considered as well. Vital Signs: reviewed and remarkable for no significant abnormalities Interventions: DuoNeb, normal saline bolus, Rocephin IV, vancomycin IV Labs:Reviewed and remarkable for elevated lactic acid, elevated procalcitonin, normal white blood cell count I independently reviewed labs done on this visit. Imagin view chest x-ray interpreted by me reveals moderate increase in left pleural effusion, continued right pleural effusion and some diffuse mild congestive findings. EKG:As per my interpretation. Indication shortness of breath. Atrial sensed ventricular paced at 95 bpm ectopy nor ischemia. There is a QTc of 535. When compared to EKG of May 16, 2022 there is no significant change. Cardiac/Tele Monitoring: Cardiac Monitoring: An Order was placed for continuous cardiac monitoring. The monitor shows a rate of 90 with a paced rhythm. Consults:Dr Nicholas JOSÉ hospitalist Plan: Disposition:Hospitalization. Condition: Good History of Present Illness:66-year-old gentleman arrives for evaluation of shortness of breath. Patient with extensive chronic medical conditions including recurrent ER visits and hospitalizations due to his diabetes with multiple complications, CAD, PAF, heart failure, COPD, end-stage renal disease on dialysis amongst others. Patient notes for the last week his breathing is becoming worse. Has been using nebulizers at home without much improvement. He been seen in the ER several weeks ago for similar. He notes he can no longer lay flat or even walk across the room without severe shortness of breath. His legs have increased swelling and are turning red similar to previous episodes of cellulitis. He denies any fevers, chills, syncope, chest pain, abdominal pain, back pain, headache, neck pain or other concerning signs or symptoms. He had a fall last week while in the ER and struck his head. He has had no headache or neck pain since then. Neurologically intact. Patient notes his primary reason for being here is due to shortness of breath. He does admit he missed his di alysis twice last week. Past History:See Below Home Medications:See Below Allergies:NKDA Vitals:Blood Pressure: 124/66, Pulse 91, RR 24, T 36.2C, O2 95% on RA Physical Exam: GENERAL: Patient is chronically unwell appearing and in moderate distress. HEAD: healing abrasion right forehead FACE: Bilateral periorbital bruising EYES: No scleral icterus, unremarkable pupils. RESPIRATORY: Moderately tight lung sounds and dyspnea CARDIOVASCULAR: Irregular.No murmurs, rubs, gallops appreciated. GASTROINTESTINAL: Abdomen soft, non-tender, no peritonitis.Bowel sounds positive.No masses appreciated. BACK: No midline tenderness, no CVA tenderness EXTREMITIES: 3+ tense pitting edema bilateral lower legs to knees with erythema NEUROLOGIC: Alert and oriented, no focal weakness appreciated SKIN: extensive bruising varying aging, old scaps throughout PSYCH: Appropriate GCS: 15 ED Course: Times/Reassessments: Patient is breathing a bit better with DuoNeb but over all appears chronically unwell given these findings I believe hospitalization is indicated which she agrees with Abraham Mcgarry MD Past Med/Surg History Medical History Anemia due to chronic kidney disease COPD (chronic obstructive pulmonary disease) Coronary artery disease Diabetes mellitus with complication ESRD (end stage renal disease) on dialysis H/O: CVA (cerebrovascular accident) 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 Nonischemic cardiomyopathy PAF (paroxysmal atrial fibrillation) Peripheral arterial disease Proliferative diabetic retinopathy Venous stasis dermatitis Surgical History A-V fistula History of cardiac defibrillator placement (04/13/21) S/P arterial stent L femoral artery stent S/P transmetatarsal amputation of foot L foot Family History Other Family history non-contributory Social History Smoking Status: Current every day smoker Tobacco Type: Cigarettes Age Started Using Tobacco: 11; packs per day: 1; Cigarettes Per Day: used to smoke 5PPD - recently cut back to 1; Second Hand Exposure: No; Hx Alcohol Use: No Hx Substance Use: Yes Prescribed Medications: Marijuana Preferred Language: German Communication Ability: Effective Visual Impairment: Partially Limited Hearing Ability: Hard of Hearing Knockout Man Required: No Beliefs That Will Affect Care: None marital status: Current Living Situation: Spouse current occupational status: disabled Feels Safe at Home: Yes during the past year weight has: remained stable Dental Care, Regularly: No Physical Activity Frequency: Does not Exercise Assistive Devices: Walker Allergies Allergies Allergy/AdvReac Type Severity Reaction Status Date / Time No Known Allergies Allergy Verified 05/23/22 16:39 Home Meds Home Medications Medication Instructions Recorded Confirmed albuterol sulfate 90 mcg/actuation 2 puff inhalation Q4H PRN 04/16/22 05/23/22 aerosol inhaler Shortness Of Breath Or Wheezing apixaban 5 mg tablet (Eliquis) 5 mg PO BID 04/16/22 05/23/22 cyclobenzaprine 10 mg tablet 10 mg PO BID PRN Spasms 04/16/22 05/23/22 duloxetine 60 mg capsule,delayed 60 mg PO HS 04/16/22 05/23/22 release fluticasone fur. 100 mcg-umeclid 1 inh inhalation HS 04/16/22 05/23/22 62.5 mcg-vilant 25 mcg inhalat.powder (Trelegy Ellipta) gabapentin 100 mg capsule 100 mg PO HS 04/16/22 05/23/22 lanthanum 500 mg chewable tablet 500 mg PO HS 04/16/22 05/23/22 pramipexole 0.25 mg tablet 0.25 mg PO HS 04/16/22 05/23/22 cholecalciferol (vitamin D3) 50 50 mcg PO HS 04/27/22 05/23/22 mcg (2,000 unit) capsule atorvastatin 10 mg tablet 10 mg PO HS 05/02/22 05/23/22 clopidogrel 75 mg tablet 75 mg PO HS 05/02/22 05/23/22 lidocaine-prilocaine 2.5 %-2.5 % 1.5 g topical DIRECTED PRN Pain 05/02/22 05/23/22 topical cream metoprolol succinate 50 mg 50 mg PO HS 05/02/22 05/23/22 tablet,extended release 24 hr Previous Rx's Medication Instructions Recorded sacubitril 24 mg-valsartan 26 mg 1 tab PO BID #60 tabs 04/23/22 tablet (Entresto) insulin glargine 100 unit/mL (3 10 unit (0.1 mL) subcut QPM #15 mL 04/27/22 mL) subcutaneous pen (Lantus Solostar U-100 Insulin) blood sugar diagnostic ([employer] #100 ea 05/10/22 Ultra Test strips) blood-glucose meter ([employer] #1 ea 05/10/22 Ultra2 Meter) cefazolin 1 gram intravenous 1 g IV DAILY 14 days #25 ea 05/10/22 solution lancets 33 gauge (YappnTouch Delica #100 ea 05/10/22 Lancets) Wheelchair (Manual) (Manual #1 ea 05/19/22 Wheelchair) albuterol sulfate 2.5 mg/0.5 mL 2.5 mg (0.5 mL) inhalation QID PRN 05/19/22 solution for nebulization shortness of breath or wheezing #30 ea Results & Data (ED) Vital Signs Vital Signs - 24 hr 05/29/22 05:59 05/29/22 06:22 05/29/22 06:21 Temperature 36.2 C L Temperature Source Temporal Artery Scan Pulse Rate 95 H 92 H Pulse Rate from SpO2 Sensor Pulse Rhythm Regular Pulse Strength Normal Respiratory Rate 24 24 Respiratory Effort / Characteristics Non-Labored Non-Labored Respiratory Depth Deep Normal Respiratory Pattern Regular Regular Blood Pressure 124/66 Blood Pressure [Left Arm] 120/95 Blood Pressure Mean 85 Blood Pressure Mean [Left Arm] 103 Blood Pressure Position Sitting Blood Pressure Position [Left Arm] Sitting Pulse Oximetry 92 95 95 Oxygen Delivery Method Room Air Room Air Room Air Sepsis Recent Fever Within 48 Hours No Sepsis New/Unexplained Change in Mental Status N/A Sepsis Action Taken by Nursing No Action Required 05/29/22 06:14 05/29/22 06:14 05/29/22 06:23 Temperature Temperature Source Pulse Rate 91 H Pulse Rate from SpO2 Sensor Pulse Rhythm Pulse Strength Respiratory Rate Respiratory Effort / Characteristics Spontaneous Respiratory Depth Normal Respiratory Pattern Regular Blood Pressure Blood Pressure [Left Arm] Blood Pressure Mean Blood Pressure Mean [Left Arm] Blood Pressure Position Blood Pressure Position [Left Arm] Pulse Oximetry 97 Oxygen Delivery Method Room Air Room Air Sepsis Recent Fever Within 48 Hours Sepsis New/Unexplained Change in Mental Status Sepsis Action Taken by Nursing 05/29/22 06:21 05/29/22 06:22 05/29/22 06:30 Temperature Temperature Source Pulse Rate 92 H 92 H Pulse Rate from SpO2 Sensor 90 95 H Pulse Rhythm Pulse Strength Respiratory Rate 23 22 Respiratory Effort / Characteristics Respiratory Depth Respiratory Pattern Blood Pressure 120/95 Blood Pressure [Left Arm] Blood Pressure Mean 103 Blood Pressure Mean [Left Arm] Blood Pressure Position Blood Pressure Position [Left Arm] Pulse Oximetry 96 96 Oxygen Delivery Method Sepsis Recent Fever Within 48 Hours Sepsis New/Unexplained Change in Mental Status Sepsis Action Taken by Nursing 05/29/22 07:00 05/29/22 07:30 05/29/22 07:41 Temperature Temperature Source Pulse Rate 81 91 H Pulse Rate from SpO2 Sensor 89 91 H Pulse Rhythm Pulse Strength Respiratory Rate 17 26 H 25 H Respiratory Effort / Characteristics Respiratory Depth Respiratory Pattern Blood Pressure 124/97 Blood Pressure [Left Arm] Blood Pressure Mean 106 Blood Pressure Mean [Left Arm] Blood Pressure Position Blood Pressure Position [Left Arm] Pulse Oximetry 95 96 90 Oxygen Delivery Method Sepsis Recent Fever Within 48 Hours Sepsis New/Unexplained Change in Mental Status Sepsis Action Taken by Nursing 05/29/22 07:41 05/29/22 08:00 05/29/22 08:30 Temperature Temperature Source Pulse Rate 89 94 H Pulse Rate from SpO2 Sensor 92 H 93 H Pulse Rhythm Pulse Strength Respiratory Rate 20 32 H Respiratory Effort / Characteristics Respiratory Depth Respiratory Pattern Blood Pressure 124/97 Blood Pressure [Left Arm] Blood Pressure Mean 106 Blood Pressure Mean [Left Arm] Blood Pressure Position Blood Pressure Position [Left Arm] Pulse Oximetry 92 90 Oxygen Delivery Method Sepsis Recent Fever Within 48 Hours Sepsis New/Unexplained Change in Mental Status Sepsis Action Taken by Nursing 05/29/22 09:11 05/29/22 09:30 05/29/22 09:57 Temperature Temperature Source Pulse Rate 65 101 H Pulse Rate from SpO2 Sensor 111 H 92 H Pulse Rhythm Pulse Strength Respiratory Rate 23 30 H Respiratory Effort / Characteristics Respiratory Depth Respiratory Pattern Blood Pressure 128/77 Blood Pressure [Left Arm] Blood Pressure Mean 94 Blood Pressure Mean [Left Arm] Blood Pressure Position Blood Pressure Position [Left Arm] Pulse Oximetry 94 93 Oxygen Delivery Method Sepsis Recent Fever Within 48 Hours Sepsis New/Unexplained Change in Mental Status Sepsis Action Taken by Nursing 05/29/22 09:57 05/29/22 12:12 Temperature Temperature Source Pulse Rate 92 H Pulse Rate from SpO2 Sensor 93 H Pulse Rhythm Pulse Strength Respiratory Rate 23 Respiratory Effort / Characteristics Respiratory Depth Respiratory Pattern Blood Pressure Blood Pressure [Left Arm] Blood Pressure Mean Blood Pressure Mean [Left Arm] Blood Pressure Position Blood Pressure Position [Left Arm] Pulse Oximetry 92 Oxygen Delivery Method Room Air Sepsis Recent Fever Within 48 Hours Sepsis New/Unexplained Change in Mental Status Sepsis Action Taken by Nursing Laboratory Data 05/29/22 06:19 05/29/22 06:19 Lab Results 05/29/22 05/29/22 05/29/22 Range/Units 06:19 06:19 06:19 WBC 6.62 (4.8-10.8) K/ul RBC 4.10 L (4.70-6.10) M/uL Hgb 12.2 L (14.0-18.0) g/dl POC Hgb (14.0-18.0) g/dl Hct 38.5 L (42.0-52.0) % POC Hct (42-52) % MCV 93.9 (80.0-100.0) fL MCH 29.8 (25.0-34.0) pg MCHC 31.7 L (32.0-36.0) g/dL RDW Std Deviation 63.7 H (36.4-46.3) fL RDW Coeff of Wendy 18.7 H (11.5-14.5) % Plt Count 181 (130-400) K/uL MPV 10.9 (9.4-12.4) fL Immature Gran % (Auto) 0.6 % Neut % (Auto) 86.2 % Lymph % (Auto) 4.8 % Thurston % (Auto) 5.1 % Eos % (Auto) 2.1 % Baso % (Auto) 1.2 % Neut # (Auto) 5.70 (1.40-6.50) K/uL Lymph # (Auto) 0.32 L (1.2-3.4) K/uL Thurston # (Auto) 0.34 (0.11-0.59) K/uL Eos # (Auto) 0.14 (0-0.50) K/uL Baso # (Auto) 0.08 (0-0.2) K/uL Immature Gran # (Auto) 0.04 (0.01-0.20) K/uL PT 13.0 H (9.0-12.0) Seconds INR 1.2 H (0.9-1.1) APTT 28.4 (21.0-31.0) Seconds PTT Ratio 1.0 POC Sodium (135-144) mmol/L Sodium 135 L (136-145) mmol/L POC Potassium (3.3-5.0) mmol/L Potassium 4.3 (3.5-5.1) mmol/L POC Chloride (101-112) mmol/L Chloride 89 L (98-107) mmol/L Carbon Dioxide 31 (21-32) mmol/L POC Total CO2 (24-31) mmol/L Anion Gap 15 H (3-11) POC Anion Gap (16-25) mmol/L POC BUN (7-18) mg/dl BUN 67 H (6-23) mg/dl Creatinine 7.86 H* (0.6-1.4) mg/dl POC Creatinine (0.6-1.3) mg/dl Est Cr Clr Drug Dosing 9.2 ml/min Est GFR ( Amer) 7.5 ml/min Est GFR (Non-Af Amer) 6.5 ml/min BUN/Creatinine Ratio 8.5 L (10-20) Glucose 217 H (70-99(Fasting)) mg/dl POC Glucose (other) (70-99) mg/dl Lactate (0.4-2.0) mmol/L Calcium 9.1 (8.5-10.1) mg/dl POC Ioniz Calcium Nic (1.12-1.32) mmol/l Total Bilirubin 2.1 H (0.2-1.0) mg/dl AST 16 (13-39) U/L ALT < 3 L (7-52) U/L Alkaline Phosphatase 107 H (34-104) U/L Troponin I High Sens 48.1 H (0-20) pg/ml B-Natriuretic Peptide (0-100) pg/ml Total Protein 8.3 (6.0-8.3) gm/dl Albumin 3.4 (3.4-5.0) gm/dl Globulin 4.9 H (2.5-4.0) gm/dl Albumin/Globulin Ratio 0.7 L (0.9-2) Lipase 33 (11-82) U/L Procalcitonin (0-0.5) ng/ml SARS-CoV-2, RNA, NAAT (NEGATIVE) 05/29/22 05/29/22 05/29/22 Range/Units 06:19 06:19 06:29 WBC (4.8-10.8) K/ul RBC (4.70-6.10) M/uL Hgb (14.0-18.0) g/dl POC Hgb 15.0 (14.0-18.0) g/dl Hct (42.0-52.0) % POC Hct 44 (42-52) % MCV (80.0-100.0) fL MCH (25.0-34.0) pg MCHC (32.0-36.0) g/dL RDW Std Deviation (36.4-46.3) fL RDW Coeff of Wendy (11.5-14.5) % Plt Count (130-400) K/uL MPV (9.4-12.4) fL Immature Gran % (Auto) % Neut % (Auto) % Lymph % (Auto) % Thurston % (Auto) % Eos % (Auto) % Baso % (Auto) % Neut # (Auto) (1.40-6.50) K/uL Lymph # (Auto) (1.2-3.4) K/uL Thurston # (Auto) (0.11-0.59) K/uL Eos # (Auto) (0-0.50) K/uL Baso # (Auto) (0-0.2) K/uL Immature Gran # (Auto) (0.01-0.20) K/uL PT (9.0-12.0) Seconds INR (0.9-1.1) APTT (21.0-31.0) Seconds PTT Ratio POC Sodium 135 (135-144) mmol/L Sodium (136-145) mmol/L POC Potassium 4.3 (3.3-5.0) mmol/L Potassium (3.5-5.1) mmol/L POC Chloride 92 L (101-112) mmol/L Chloride (98-107) mmol/L Carbon Dioxide (21-32) mmol/L POC Total CO2 29 (24-31) mmol/L Anion Gap (3-11) POC Anion Gap 18.0 (16-25) mmol/L POC BUN 60 H (7-18) mg/dl BUN (6-23) mg/dl Creatinine (0.6-1.4) mg/dl POC Creatinine 8.1 H* (0.6-1.3) mg/dl Est Cr Clr Drug Dosing ml/min Est GFR ( Amer) ml/min Est GFR (Non-Af Amer) ml/min BUN/Creatinine Ratio (10-20) Glucose (70-99(Fasting)) mg/dl POC Glucose (other) 209 H (70-99) mg/dl Lactate 2.5 H* (0.4-2.0) mmol/L Calcium (8.5-10.1) mg/dl POC Ioniz Calcium Nic 0.99 L (1.12-1.32) mmol/l Total Bilirubin (0.2-1.0) mg/dl AST (13-39) U/L ALT (7-52) U/L Alkaline Phosphatase (34-104) U/L Troponin I High Sens (0-20) pg/ml B-Natriuretic Peptide (0-100) pg/ml Total Protein (6.0-8.3) gm/dl Albumin (3.4-5.0) gm/dl Globulin (2.5-4.0) gm/dl Albumin/Globulin Ratio (0.9-2) Lipase (11-82) U/L Procalcitonin 0.69 H (0-0.5) ng/ml SARS-CoV-2, RNA, NAAT (NEGATIVE) 05/29/22 05/29/22 05/29/22 Range/Units 06:36 06:43 08:12 WBC (4.8-10.8) K/ul RBC (4.70-6.10) M/uL Hgb (14.0-18.0) g/dl POC Hgb (14.0-18.0) g/dl Hct (42.0-52.0) % POC Hct (42-52) % MCV (80.0-100.0) fL MCH (25.0-34.0) pg MCHC (32.0-36.0) g/dL RDW Std Deviation (36.4-46.3) fL RDW Coeff of Wendy (11.5-14.5) % Plt Count (130-400) K/uL MPV (9.4-12.4) fL Immature Gran % (Auto) % Neut % (Auto) % Lymph % (Auto) % Thurston % (Auto) % Eos % (Auto) % Baso % (Auto) % Neut # (Auto) (1.40-6.50) K/uL Lymph # (Auto) (1.2-3.4) K/uL Thurston # (Auto) (0.11-0.59) K/uL Eos # (Auto) (0-0.50) K/uL Baso # (Auto) (0-0.2) K/uL Immature Gran # (Auto) (0.01-0.20) K/uL PT (9.0-12.0) Seconds INR (0.9-1.1) APTT (21.0-31.0) Seconds PTT Ratio POC Sodium (135-144) mmol/L Sodium (136-145) mmol/L POC Potassium (3.3-5.0) mmol/L Potassium (3.5-5.1) mmol/L POC Chloride (101-112) mmol/L Chloride (98-107) mmol/L Carbon Dioxide (21-32) mmol/L POC Total CO2 (24-31) mmol/L Anion Gap (3-11) POC Anion Gap (16-25) mmol/L POC BUN (7-18) mg/dl BUN (6-23) mg/dl Creatinine (0.6-1.4) mg/dl POC Creatinine (0.6-1.3) mg/dl Est Cr Clr Drug Dosing ml/min Est GFR ( Amer) ml/min Est GFR (Non-Af Amer) ml/min BUN/Creatinine Ratio (10-20) Glucose (70-99(Fasting)) mg/dl POC Glucose (other) (70-99) mg/dl Lactate 2.5 H* (0.4-2.0) mmol/L Calcium (8.5-10.1) mg/dl POC Ioniz Calcium Nic (1.12-1.32) mmol/l Total Bilirubin (0.2-1.0) mg/dl AST (13-39) U/L ALT (7-52) U/L Alkaline Phosphatase (34-104) U/L Troponin I High Sens (0-20) pg/ml B-Natriuretic Peptide > 4700 H (0-100) pg/ml Total Protein (6.0-8.3) gm/dl Albumin (3.4-5.0) gm/dl Globulin (2.5-4.0) gm/dl Albumin/Globulin Ratio (0.9-2) Lipase (11-82) U/L Procalcitonin (0-0.5) ng/ml SARS-CoV-2, RNA, NAAT NEGATIVE (NEGATIVE) Administered Medications Apixaban (Apixaban 5 Mg Tablet) 5 mg PO BID FRANSICO Stop: 06/28/22 08:59 Last Admin: 05/29/22 09:57 Dose: 5 mg Documented By: HS Sacubitril/Valsartan (Valsartan/Sacubitril 26/24mg Tab) 1 tab PO BID FRANSICO Stop: 06/28/22 08:59 Last Admin: 05/29/22 09:57 Dose: 1 tab Documented By: HS Discontinued Medications Acetaminophen (Acetaminophen 325 Mg Tab) 650 mg PO NOW STA Stop: 05/29/22 09:38 Last Admin: 05/29/22 09:57 Dose: 650 mg Documented By: HS Albuterol (Albut/Ipratrop 3mg/0.5mg Neb 3 Ml Vial) 12 ml NEB ONE ONE; Protocol Stop: 05/29/22 06:34 Last Admin: 05/29/22 07:02 Dose: 12 ml Documented By: HS Ceftriaxone Sodium (Rocephin) 2,000 mg in 70 mls @ 140 mls/hr IV NOW STA Stop: 05/29/22 07:36 Last Infusion: 05/29/22 07:54 Dose: 0 mls/hr Documented By: Admin: 05/29/22 07:21 Dose: 140 mls/hr Documented By: HS Vancomycin HCl 1,500 mg/ (Sodium Chloride) 530 mls @ 200 mls/hr IV NOW ONE Stop: 05/29/22 09:45 Last Admin: 05/29/22 07:37 Dose: 200 mls/hr Documented By: HS Sodium Chloride (Nss) 250 mls @ 999 mls/hr IV .Q16M ONE Stop: 05/29/22 07:22 Last Infusion: 05/29/22 07:49 Dose: 0 mls/hr Documented By: Admin: 05/29/22 07:23 Dose: 999 mls/hr Documented By: HS Tramadol HCl (Tramadol Hcl 50 Mg Tablet) 50 mg PO NOW STA Stop: 05/29/22 09:38 Last Admin: 05/29/22 09:57 Dose: 50 mg Documented By: HS Imaging Data Radiologist's Impression: Chest X-Ray 05/29/22 06:04 XR chest 1V portable CLINICAL HISTORY: Chest pain, nonspecific TECHNIQUE: Single frontal radiograph of the chest was obtained. Comparison: Comparison is made to chest radiographs 05/16/2022 FINDINGS: Pacemaker defibrillator is seen. Cardiomegaly is noted. The aortic arch is calcified. Prominence and cephalization of the vasculature is seen. Left retrocardiac airspace opacity is increased from prior exam. Moderate left and small right pleural effusions, stable to increased from prior. IMPRESSION: 1. Moderate left and small right pleural effusions are stable to increased from prior. Left retrocardiac airspace opacity likely reflects atelectasis with or without superimposed aspiration/pneumonia. 2. Cardiomegaly with mild pulmonary edema. ACT 112: Negative or not required by law. Electronically signed by: Luis De La Cruz M.D. 05/29/2022 7:11 AM Discharge Plan Visit Data Chief Complaint: Shortness of Breath/Dyspnea Stated Complaint: TROUBLE BREATHING,SOB ED Provider: Abraham Mcgarry Discharge Problem: Respiratory difficulty, Recurrent left pleural effusion, Lactic acidosis Patient Disposition: Admitted As Inpatient Discharge Instructions Interventions: ED Discharge Assessment Last Done: 05/29/22 12:12 Forms Stand Alone Forms: Sequent Prescriptions Prescriptions: No Action (DME) blood-glucose meter [OneTouch Ultra2 Meter] Misc See Rx Instructions .Route Qty: 1 0RF Rx Instructions: TEST BSG ONCE DAILY; DX CODE- E11.9 (DME) OneTouch Ultra Test Strip See Rx Instructions .Route Qty: 100 5RF Rx Instructions: TEST BSG ONCE DAILY; DX CODE- E11.9 (DME) lancets [OneTouch Delica Lancets] 33 gauge misc See Rx Instructions .Route Qty: 100 5RF Rx Instructions: TEST BSG ONCE DAILY; DX CODE- E11.9 (DME) Manual Wheelchair Device See Rx Instructions .Route Qty: 1 0RF Rx Instructions: As directed. albuterol sulfate 2.5 mg/0.5 mL solution for nebulization 2.5 mg inhalation QID PRN (Reason: shortness of breath or wheezing) Qty: 30 0RF cholecalciferol (vitamin D3) 50 mcg (2,000 unit) capsule 50 mcg PO HS insulin glargine [Lantus Solostar U-100 Insulin] 100 unit/mL (3 mL) insulin pen 10 unit subcut QPM Qty: 15 3RF cefazolin 1 gram recon soln 1 g IV DAILY 14 Days Qty: 25 0RF Rx Instructions: PER [facility] D/C- CONFIRMED MEDICATION AND DOSAGE WITH [facility]. INFUSIONS WILL OCCUR DAILY THROUGH 05/23/22. cyclobenzaprine 10 mg tablet 10 mg PO BID PRN (Reason: Spasms) pramipexole 0.25 mg tablet 0.25 mg PO HS gabapentin 100 mg capsule 100 mg PO HS albuterol sulfate 90 mcg/actuation HFA aerosol inhaler 2 puff INHALATION Q4H PRN (Reason: Shortness Of Breath Or Wheezing) duloxetine 60 mg capsule,delayed release(DR/EC) 60 mg PO HS lanthanum 500 mg tablet,chewable 500 mg PO HS Eliquis 5 mg tablet 5 mg PO BID Rx Instructions: TAKES AT LUNCH & HS. Trelegy Ellipta 100-62.5-25 mcg blister with device 1 inh INHALATION HS Entresto 24-26 mg tablet 1 tab PO BID Qty: 60 0RF Rx Instructions: TAKES AT LUNCH & HS atorvastatin 10 mg tablet 10 mg PO HS metoprolol succinate 50 mg tablet extended release 24 hr 50 mg PO HS clopidogrel 75 mg tablet 75 mg PO HS lidocaine-prilocaine 2.5-2.5 % cream 1.5 g topical DIRECTED PRN (Reason: Pain) Referrals Referrals: Rubina Naqvi DO [Primary Care Provider] -
[2022-05-29] MEDS ORDERED: ALBUT/IPRATROP 3MG/0.5MG NEB 3 ML VIAL NEB ONE (06:33)
[2022-05-29 06:43] LABS: iSTAT Creatinine 8.1 mg/dl (0.6-1.3); iSTAT Ionized Calcium 0.99 mmol/l (1.12-1.32); iSTAT Potassium 4.3 mmol/L (3.3-5.0)
[2022-05-29 06:49] LABS: Basophils # (auto) 0.08 K/uL (0-0.2); Basophils % (auto) 1.2 %; Eosinophils # (auto) 0.14 K/uL (0-0.50); Eosinophils % (auto) 2.1 %; Hematocrit (blood only) 38.5 % (42.0-52.0); Hemoglobin 12.2 g/dl (14.0-18.0); Immature Granulocytes # (auto) 0.04 K/uL (0.01-0.20); Immature Granulocytes % (auto) 0.6 %; Lymphocytes # (auto) 0.32 K/uL (1.2-3.4); Lymphocytes % (auto) 4.8 %; Mean Corpuscular Hemoglobin 29.8 pg (25.0-34.0); Mean Corpuscular Hgb Conc 31.7 g/dL (32.0-36.0); Mean Corpuscular Volume 93.9 fL (80.0-100.0); Mean Platelet Volume 10.9 fL (9.4-12.4); Monocytes # (auto) 0.34 K/uL (0.11-0.59); Monocytes % (auto) 5.1 %; Neutrophils % (auto) 86.2 %; Platelet Count 181 K/uL (130-400); RDW Coefficient of Variation 18.7 % (11.5-14.5); RDW Standard Deviation 63.7 fL (36.4-46.3); White Blood Count 6.62 K/ul (4.8-10.8)
[2022-05-29] MEDS ORDERED: VANCOMYCIN CONSULT ACTIVE PRN (07:07)
[2022-05-29] MEDS ORDERED: SODIUM CHLORIDE 0.9% 250 ML IV ONE (07:07)
[2022-05-29] MEDS ORDERED: VANCOMYCIN HCL 1,500 MG in SODIUM CHLORIDE 0.9% 500 ML IV ONE (07:07)
[2022-05-29] MEDS ORDERED: cefTRIAXone SODIUM 2,000 MG/70 ML BAG IV STA (07:07)
[2022-05-29 07:08] LABS: Alanine Aminotransferase < 3 U/L (7-52); Albumin Globulin Ratio 0.7 (0.9-2); Albumin Level 3.4 gm/dl (3.4-5.0); Alkaline Phosphatase 107 U/L (34-104); Anion Gap 15 (3-11); Aspartate Aminotransferase 16 U/L (13-39); BUN Creatinine Ratio 8.5 (10-20); Bilirubin,Total 2.1 mg/dl (0.2-1.0); Blood Urea Nitrogen 67 mg/dl (6-23); Calcium 9.1 mg/dl (8.5-10.1); Carbon Dioxide 31 mmol/L (21-32); Chloride 89 mmol/L (98-107); Creatinine Clr Calc Pharmacy 9.2 ml/min; Est GFR (African American) 7.5 ml/min; Est GFR (Non-African American) 6.5 ml/min; Globulin 4.9 gm/dl (2.5-4.0); Glucose 217 mg/dl (70-99(Fasting)); Lipase 33 U/L (11-82); Potassium 4.3 mmol/L (3.5-5.1); Sodium 135 mmol/L (136-145); Total Protein 8.3 gm/dl (6.0-8.3); Troponin I High Sensitivity 48.1 pg/ml (0-20)
[2022-05-29 07:12] LABS: INR 1.2 (0.9-1.1); Partial Thromboplastin Time 28.4 Seconds (21.0-31.0)
--- NOTE | 2022-05-29 07:12 | XRay Report ---
XR chest 1V portable CLINICAL HISTORY: Chest pain, nonspecific TECHNIQUE: Single frontal radiograph of the chest was obtained. Comparison: Comparison is made to chest radiographs 05/16/2022 FINDINGS: Pacemaker defibrillator is seen. Cardiomegaly is noted. The aortic arch is calcified. Prominence and cephalization of the vasculature is seen. Left retrocardiac airspace opacity is increased from prior exam. Moderate left and small right pleural effusions, stable to increased from prior. IMPRESSION: 1. Moderate left and small right pleural effusions are stable to increased from prior. Left retrocar diac airspace opacity likely reflects atelectasis with or without superimposed aspiration/pneumonia. 2. Cardiomegaly with mild pulmonary edema. ACT 112: Negative or not required by law. Electronically signed by: Luis De La Cruz M.D. 05/29/2022 7:11 AM
[2022-05-29] MEDS ORDERED: LIDOCAINE/PRILOCAINE 2.5% EA CRM EXT PRN (08:25)
[2022-05-29] MEDS ORDERED: PHARMACY GLYCEMIC MGMT CONSULT PRN (08:34)
--- NOTE | 2022-05-29 08:39 | History & Physical Report ---
Date of Service May 29, 2022 Assessment & Plan (1) Acute respiratory failure with hypoxia: Plan: SOB in a 66 yo male with ESRD Patient has missed at least 2 dialysis sessions. Patient has pleural effussions contributing to his SOB. Patient will get dialysis today. consulted nephro will monitor improvement. (2) Diabetes mellitus with complication: Plan: consult glycemic control will place on insulin sliding scale (3) HFrEF (heart failure with reduced ejection fraction): Plan: will resume home meds Patient is having pleural effusions on exam. HD will help get fluid off. (4) COPD (chronic obstructive pulmonary disease): Plan: resume home meds (5) ESRD (end stage renal disease) on dialysis: Plan: consulted Nephro will get HD today (6) Bilateral lower leg cellulitis: Plan: Patient has lower extremity cellulitis, will contiue antibiotics ceftriaxone and vanco (7) PAF (paroxysmal atrial fibrillation): Plan: resume home meds. rate appears controlled (8) History of venous thrombosis: Plan: continue anticoagulant (9) History of pleural effusion: (10) Vitreous hemorrhage: Plan: stable History of Present Illness Chief Complaint: SOB Primary Care Provider: Rubina Naqvi DO This is a 66-year-old male with a history of ESRD, COPD, type 2 diabetes, peripheral arterial disease, CHF who presented to [facility] for evaluation of SOB. Patient was recently seen at [facility] (05/03-05/09) for his vitreous hemorrhage which caused a permannet loss of vision of his right eye. Patient has missed at least 2 dialysis session. Patient reports over past few days his SOB has worsened. Patient also reports that over this past week, his lower extremities have become more swollen and red. His legs are tender to palpation. Patient denies any fever, chills, nausea and vomiting. Allergies Allergy/AdvReac Type Severity Reaction Status Date / Time No Known Allergies Allergy Verified 05/23/22 16:39 Home Medications Medication Instructions Recorded Confirmed Type albuterol sulfate 90 mcg/actuation 2 puff inhalation Q4H PRN 04/16/22 05/23/22 History aerosol inhaler Shortness Of Breath Or Wheezing apixaban 5 mg tablet (Eliquis) 5 mg PO BID 04/16/22 05/23/22 History cyclobenzaprine 10 mg tablet 10 mg PO BID PRN Spasms 04/16/22 05/23/22 History duloxetine 60 mg capsule,delayed 60 mg PO HS 04/16/22 05/23/22 History release fluticasone fur. 100 mcg-umeclid 1 inh inhalation HS 04/16/22 05/23/22 History 62.5 mcg-vilant 25 mcg inhalat.powder (Trelegy Ellipta) gabapentin 100 mg capsule 100 mg PO HS 04/16/22 05/23/22 History lanthanum 500 mg chewable tablet 500 mg PO HS 04/16/22 05/23/22 History pramipexole 0.25 mg tablet 0.25 mg PO HS 04/16/22 05/23/22 History sacubitril 24 mg-valsartan 26 mg 1 tab PO BID #60 tabs 04/23/22 05/23/22 Rx tablet (Entresto) cholecalciferol (vitamin D3) 50 50 mcg PO HS 04/27/22 05/23/22 History mcg (2,000 unit) capsule insulin glargine 100 unit/mL (3 10 unit (0.1 mL) subcut QPM #15 mL 04/27/22 05/23/22 Rx mL) subcutaneous pen (Lantus Solostar U-100 Insulin) atorvastatin 10 mg tablet 10 mg PO HS 05/02/22 05/23/22 History clopidogrel 75 mg tablet 75 mg PO HS 05/02/22 05/23/22 History lidocaine-prilocaine 2.5 %-2.5 % 1.5 g topical DIRECTED PRN Pain 05/02/22 05/23/22 History topical cream metoprolol succinate 50 mg 50 mg PO HS 05/02/22 05/23/22 History tablet,extended release 24 hr blood sugar diagnostic (mTraksTouch #100 ea 05/10/22 05/23/22 Rx Ultra Test strips) blood-glucose meter (mTraksTouch #1 ea 05/10/22 05/23/22 Rx Ultra2 Meter) cefazolin 1 gram intravenous 1 g IV DAILY 14 days #25 ea 05/10/22 05/23/22 Rx solution lancets 33 gauge (OneTouch Delica #100 ea 05/10/22 05/23/22 Rx Lancets) Wheelchair (Manual) (Manual #1 ea 05/19/22 05/23/22 Rx Wheelchair) albuterol sulfate 2.5 mg/0.5 mL 2.5 mg (0.5 mL) inhalation QID PRN 05/19/22 05/23/22 Rx solution for nebulization shortness of breath or wheezing #30 ea Past Med/Surg History Medical History Anemia due to chronic kidney disease COPD (chronic obstructive pulmonary disease) Coronary artery disease Diabetes mellitus with complication ESRD (end stage renal disease) on dialysis H/O: CVA (cerebrovascular accident) 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 Nonischemic cardiomyopathy PAF (paroxysmal atrial fibrillation) Peripheral arterial disease Proliferative diabetic retinopathy Venous stasis dermatitis Surgical History A-V fistula History of cardiac defibrillator placement (04/13/21) S/P arterial stent L femoral artery stent S/P transmetatarsal amputation of foot L foot Family History Other Family history non-contributory Social History Smoking Status: Current every day smoker Tobacco Type: Cigarettes Age Started Using Tobacco: 11; packs per day: 1; Cigarettes Per Day: used to smoke 5PPD - recently cut back to 1; Second Hand Exposure: No; Hx Alcohol Use: No Hx Substance Use: Yes Prescribed Medications: Marijuana Preferred Language: Kinyarwanda Communication Ability: Effective Visual Impairment: Partially Limited Hearing Ability: Hard of Hearing Chief Solution Architect Required: No Beliefs That Will Affect Care: None marital status: Current Living Situation: Spouse current occupational status: disabled Feels Safe at Home: Yes during the past year weight has: remained stable Dental Care, Regularly: No Physical Activity Frequency: Does not Exercise Assistive Devices: Glasses Review of Systems Constitutional: no fever Eyes: no blind spots Ear, Nose, Mouth, Throat: no ear pain Respiratory: no cough Cardiovascular: no chest pain Gastrointestinal: no abdominal pain Genitourinary: no dysuria Musculoskeletal: no back pain Integumentary: + rash and + lesions Neurologic: no tremor(s) Psychiatric: no behavioral changes Endocrine: + fatigue Hematologic / Lymphatic: no easy bleeding Allergy / Immunological: no GI upset with certain foods Physical Exam Constitutional: WD/WN, vitals as above Eyes: PERRL, conjunctivae normal, anicteric sclerae ENMT: external ear and nose normal, oropharynx normal Neck: trachea midline, no thyromegaly Respiratory: + uses accessory muscles Auscultation: + rales and + wheezes Cardiovascular: RRR, no murmur, no edema Rate/Rhythm: regular rhythm Gastrointestinal (Abdomen): normal bowel sounds, soft, nontender, no hepatosplenomegaly Musculoskeletal: no cyanosis or clubbing, extremities motor strength 5/5 Skin: + erythema (bilateral lower extremity erythema with multiple excoriations) and + excoriations Neurologic: PERRL, EOMI, accommodation nl, no face palsy, no dysarthria Psychiatric: A+Ox3, euthymic affect Lymphatic: no cervical or axillary lymphadenopathy Results & Data Results & Data ([facility]) Vital Signs (Past 12 Hours) Vital Signs Temp Pulse Resp BP BP Pulse Ox O2 Del Method 05/29/22 07:00 81 17 124/97 95 05/29/22 06:30 92 H 22 96 05/29/22 06:22 92 H 23 96 05/29/22 06:21 120/95 05/29/22 06:23 91 H 05/29/22 06:14 97 Room Air 05/29/22 06:14 Room Air 05/29/22 06:21 24 120/95 95 Room Air 05/29/22 06:22 92 H 95 Room Air 05/29/22 05:59 36.2 C L 95 H 24 124/66 92 Room Air PG Care Time/CCT Total # of Minutes Spent Total Time Spent with Patient: Total time spent is greater than 50% in coordination of care (as documented) at patient's floor/unit and/or counseling patient: Coding Level of Care Code 85415 INT INP/OBS CARE 3/75MIN Diagnoses Acute respiratory failure with hypoxia J96.01 Diabetes mellitus with complication E11.8 HFrEF (heart failure with reduced ejection fraction) I50.20 COPD (chronic obstructive pulmonary disease) J44.9 ESRD (end stage renal disease) on dialysis N18.6; Z99.2 Bilateral lower leg cellulitis L03.116; L03.115 PAF (paroxysmal atrial fibrillation) I48.0 History of venous thrombosis Z86.718 History of pleural effusion Z87.09 Vitreous hemorrhage H43.10
--- NOTE | 2022-05-29 08:53 | Nephrology Consultation ---
Date of Consultation May 29, 2022 Assessment & Plan (1) ESRD (end stage renal disease) on dialysis: * Will provide urgent HD this am. Orders placed in EMR and HD RN notified. Will attempt 3 L UF * AVF w/ + bruit * Outpatient HD Rx: TTS, 3 hr, F-180NR, 2K, Qb 350/Qd 800, EDW 80 kg (2) Anemia due to chronic kidney disease: * Chronic, stable. Hgb >11. No additional JODIE therapy required with HD today. (3) HFrEF (heart failure with reduced ejection fraction): * Continue Entresto and metoprolol as Rx * Daily weights while inpatient (4) Monocular vision loss: * s/p R vitreal hemorrhage 05/03/22 History of Present Illness Reason for Consultation: ESKD on IHD History of Present Illness Mr. Sanchez is a 66 year old male who is seen at the request of Dr. Peterson to provide HD and assist w/ medical management. Mr. Sanchez has ESKD due to DKD and renal vascular disease. He dialyzes at [facility] under the care of Dr. Mccormack (TTS, 3 hr, F-180NR, 2K, Qb 350/Qd 800, EDW 80 kg). Mr. Sanchez's medical history is significant for AODM, PAD, HFrEF s/p AICD, COPD, chronic LE venous stasis ulcers. He was last hospitalized at [facility] 05/03/22 - 05/09/22 due to R vision loss. He was diagnosed w/ vitreal hemorrhage. Following discharge from the hospital Mr. Sanchez reports that he was evaluated by a re tinal specialist but told that he likely will not regain vision in his R eye. Last week Mr. Sanchez reports that he lost cell phone service and was unable to call transportation to attend his dialysis treatments. His last treatment was Sunday. Since that time he has become progressively dyspneic. EMD evaluation revealed SaO2 92% on RA, CXR - CMG with pulmonary edema and bilateral pleural effusions, BNP > 4700, K 4.3 and paced rhythm on telemetry. Nephrology consultation was requested to provide urgent HD due to CHF Allergies Allergy/AdvReac Type Severity Reaction Status Date / Time No Known Allergies Allergy Verified 05/23/22 16:39 Home Medications Medication Instructions Recorded Confirmed Type albuterol sulfate 90 mcg/actuation 2 puff inhalation Q4H PRN 04/16/22 05/23/22 History aerosol inhaler Shortness Of Breath Or Wheezing apixaban 5 mg tablet (Eliquis) 5 mg PO BID 04/16/22 05/23/22 History cyclobenzaprine 10 mg tablet 10 mg PO BID PRN Spasms 04/16/22 05/23/22 History duloxetine 60 mg capsule,delayed 60 mg PO HS 04/16/22 05/23/22 History release fluticasone fur. 100 mcg-umeclid 1 inh inhalation HS 04/16/22 05/23/22 History 62.5 mcg-vilant 25 mcg inhalat.powder (Trelegy Ellipta) gabapentin 100 mg capsule 100 mg PO HS 04/16/22 05/23/22 History lanthanum 500 mg chewable tablet 500 mg PO HS 04/16/22 05/23/22 History pramipexole 0.25 mg tablet 0.25 mg PO HS 04/16/22 05/23/22 History sacubitril 24 mg-valsartan 26 mg 1 tab PO BID #60 tabs 04/23/22 05/23/22 Rx tablet (Entresto) cholecalciferol (vitamin D3) 50 50 mcg PO HS 04/27/22 05/23/22 History mcg (2,000 unit) capsule insulin glargine 100 unit/mL (3 10 unit (0.1 mL) subcut QPM #15 mL 04/27/22 05/23/22 Rx mL) subcutaneous pen (Lantus Solostar U-100 Insulin) atorvastatin 10 mg tablet 10 mg PO HS 05/02/22 05/23/22 History clopidogrel 75 mg tablet 75 mg PO HS 05/02/22 05/23/22 History lidocaine-prilocaine 2.5 %-2.5 % 1.5 g topical DIRECTED PRN Pain 05/02/22 05/23/22 History topical cream metoprolol succinate 50 mg 50 mg PO HS 05/02/22 05/23/22 History tablet,extended release 24 hr blood sugar diagnostic (OneTouch #100 ea 05/10/22 05/23/22 Rx Ultra Test strips) blood-glucose meter (OneTouch #1 ea 05/10/22 05/23/22 Rx Ultra2 Meter) cefazolin 1 gram intravenous 1 g IV DAILY 14 days #25 ea 05/10/22 05/23/22 Rx solution lancets 33 gauge (ThaddeusTouch Delica #100 ea 05/10/22 05/23/22 Rx Lancets) Wheelchair (Manual) (Manual #1 ea 05/19/22 05/23/22 Rx Wheelchair) albuterol sulfate 2.5 mg/0.5 mL 2.5 mg (0.5 mL) inhalation QID PRN 05/19/22 05/23/22 Rx solution for nebulization shortness of breath or wheezing #30 ea Patient History Medical History Anemia due to chronic kidney disease COPD (chronic obstructive pulmonary disease) Coronary artery disease Diabetes mellitus with complication ESRD (end stage renal disease) on dialysis H/O: CVA (cerebrovascular accident) 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 Nonischemic cardiomyopathy PAF (paroxysmal atrial fibrillation) Peripheral arterial disease Proliferative diabetic retinopathy Venous stasis dermatitis Surgical History A-V fistula History of cardiac defibrillator placement (04/13/21) S/P arterial stent L femoral artery stent S/P transmetatarsal amputation of foot L foot Family History Other Family history non-contributory Social History Smoking Status: Current every day smoker Tobacco Type: Cigarettes Age Started Using Tobacco: 11; packs per day: 1; Cigarettes Per Day: used to smoke 5PPD - recently cut back to 1; Second Hand Exposure: No; Hx Alcohol Use: No Hx Substance Use: Yes Prescribed Medications: Marijuana Preferred Language: Bahamian Communication Ability: Effective Visual Impairment: Partially Limited Hearing Ability: Hard of Hearing Showroom Consultant Required: No Beliefs That Will Affect Care: None marital status: Current Living Situation: Spouse current occupational status: disabled Feels Safe at Home: Yes during the past year weight has: remained stable Dental Care, Regularly: No Physical Activity Frequency: Does not Exercise Assistive Devices: Walker Review of Systems Constitutional: no fever Eyes: + problem reported (R vision loss) Ear, Nose, Mouth, Throat: no problem reported Respiratory: no dyspnea Cardiovascular: no chest pain Gastrointestinal: no abdominal pain Neurologic: no localized weakness Physical Exam Constitutional: + in distress (mild respiratory distress) Eyes: PERRL, conjunctivae normal, anicteric sclerae ENMT: external ear and nose normal, oropharynx normal Neck: trachea midline, no thyromegaly Respiratory: normal respiratory effort, lungs clear to auscultation Cardiovascular: RRR, no murmur, no edema Extremities: + edema (tense LE swelling) and + AV fistula (+ bruit) Gastrointestinal (Abdomen): normal bowel sounds, soft, nontender, no hepatosplenomegaly Neurologic: awake; not confused Results & Data ([facility]) Vital Signs (Past 12 Hours) Vital Signs Temp Pulse Resp BP BP Pulse Ox O2 Del Method 05/29/22 07:00 81 17 124/97 95 05/29/22 06:30 92 H 22 96 05/29/22 06:22 92 H 23 96 05/29/22 06:21 120/95 05/29/22 06:23 91 H 05/29/22 06:14 97 Room Air 05/29/22 06:14 Room Air 05/29/22 06:21 24 120/95 95 Room Air 05/29/22 06:22 92 H 95 Room Air 05/29/22 05:59 36.2 C L 95 H 24 124/66 92 Room Air Laboratory Results Laboratory Tests 05/29/22 05/29/22 05/29/22 06:19 06:19 06:29 WBC 6.62 Hgb 12.2 L POC Hgb 15.0 Plt Count 181 POC Sodium 135 POC Potassium 4.3 POC Chloride 92 L POC Total CO2 29 BUN 67 H POC Creatinine 8.1 H* B-Natriuretic Peptide Albumin 3.4 SARS-CoV-2, RNA, NAAT 05/29/22 05/29/22 06:36 06:43 WBC Hgb POC Hgb Plt Count POC Sodium POC Potassium POC Chloride POC Total CO2 BUN POC Creatinine B-Natriuretic Peptide > 4700 H Albumin SARS-CoV-2, RNA, NAAT NEGATIVE Diagnostic Findings 05/29/22 CXR: Pacemaker defibrillator is seen. Cardiomegaly is noted. The aortic arch is calcified. Prominence and cephalization of the vasculature is seen. Left retrocardiac airspace opacity is increased from prior exam. Moderate left and small right pleural effusions, stable to increased from prior. PG Care Time/CCT Total # of Minutes Spent Total Time Spent with Patient: Total time spent is greater than 50% in coordination of care (as documented) at patient's floor/unit and/or counseling patient: Coding Level of Care Code INP/OBS CONSULT LVL 5, 80 MIN Diagnoses ESRD (end stage renal disease) on dialysis N18.6; Z99.2 Anemia due to chronic kidney disease N18.9; D63.1 HFrEF (heart failure with reduced ejection fraction) I50.20 Monocular vision loss H54.60
[2022-05-29] MEDS ORDERED: SODIUM CHLORIDE 0.9% 1000ML 1,000 ML IV PRN (09:29)
[2022-05-29] MEDS ORDERED: traMADol HCL 50 MG TABLET PO STA (09:37)
[2022-05-29] MEDS ORDERED: ACETAMINOPHEN 325 MG TAB PO STA (09:37)
[2022-05-29] MEDS ORDERED: traMADol HCL 50 MG TABLET ONE (09:52)
[2022-05-29] MEDS: APIXABAN 5 MG TABLET PO SCH ×2 (09:57→20:40)
[2022-05-29] MEDS: VALSARTAN/SACUBITRIL 26/24MG TAB PO SCH ×2 (09:57→20:42)
[2022-05-29] MEDS ORDERED: INSULIN ASPART PER UNIT CHARGE SC ONE (12:15)
--- NOTE | 2022-05-29 12:40 | Electrocardiogram Report ---
Test Reason : Blood Pressure : / mmHG Vent. Rate : 095 BPM Atrial Rate : 095 BPM P-R Int : 122 ms QRS Dur : 122 ms QT Int : 426 ms P-R-T Axes : 037 -78 088 degrees QTc Int : 535 ms Poor data quality, interpretation may be adversely affected Atrial-sensed ventricular-paced rhythm Biventricular pacemaker detected Abnormal ECG When compared with ECG of 16-MAY-2022 15:23, Premature ventricular complexes are no longer Present Confirmed by Frankie Jenkins ([id number]) on 05/29/2022 12:39:39 PM Referred By: REFERRED SELF Confirmed By:Frankie Jenkins
--- NOTE | 2022-05-29 14:51 | Pharmacy Report ---
Pharmacy Glycemic Short Note 2 - Date of Service May 29, 2022 - Glycemic Short BSG Results (Last 24 hours): 05/29/22 05/29/22 06:19 06:29 Glucose 217 H POC Glucose (other) 209 H OUTPATIENT ANTIDIABETIC REGIMEN: * A1c unreliable in setting of hemodialysis * Lantus 10 units HS ASSESSMENT: * Patient with recent admission, did not require basal insulin or carb coverage. * will set basal scale for PM, hold on PLAN FOR INPATIENT GLYCEMIC CONTROL: * Hold outpatient oral diabetes medications * Basal insulin * Lantus 0-10 units SQ Hsx1 reassess in AM * Bolus insulin * NovoLog per scale ACHS or Q6hrs while NPO * Goal Range: Low 120 mg/dL - High 160 mg/dL * Correction Factor: 45 mg/dL/unit * Nutritional / Prandial insulin per carb ratio of 1 unit per - grams CHO consumed
[2022-05-29] MEDS: INSULIN ASPART PER UNIT CHARGE SC SCH ×3 (17:10→21:50)
[2022-05-29] MEDS: ACETAMINOPHEN 325 MG TAB PO SCH ×2 (17:58→23:39)
[2022-05-29] MEDS: ATORVASTATIN 10 MG TAB PO SCH (20:41)
[2022-05-29] MEDS: METOPROLOL SUCC 50MG EXT REL TAB PO SCH (20:42)
[2022-05-29] MEDS: PRAMIPEXOLE DIHYDROCHLO 0.25 MG TAB PO SCH (20:42)
[2022-05-29] MEDS: CHOLECALCIFEROL 1,000 UNITS 25 MCG TAB PO SCH (20:42)
[2022-05-29] MEDS: DULoxetine HCL 60 MG CAP PO SCH (20:42)
[2022-05-29] MEDS: GABAPENTIN 100 MG CAP PO SCH (20:42)
[2022-05-29] MEDS: CLOPIDOGREL BISULFATE 75 MG TAB PO SCH (20:42)
[2022-05-29] MEDS: UMECLIDINIUM/VILANTEROL 62.5/25MCG 7 PUFFS/INHALER INH SCH (20:43)
[2022-05-29] MEDS: FLUTICASONE FUROATE 100MCG 14 PUFFS/INHALER INH SCH (20:44)
[2022-05-29] MEDS ORDERED: LANTUS PER UNIT CHARGE SQ ONE (21:00)
[2022-05-29] MEDS ORDERED: NON-FORMULARY MEDICATION (Insulin Glargine [Lantus Solostar U-100 Insulin] 100 unit/mL (3 SQ SCH (21:00)
[2022-05-29] MEDS ORDERED: VANCOMYCIN HCL 750 MG in SODIUM CHLORIDE 0.9% 250 ML IV SCH (21:30)
[2022-05-29] MEDS ORDERED: DEXTROSE 50% 50 ML SYRINGE IV PRN (23:45)
[2022-05-29] MEDS ORDERED: CARBOHYDRATES FOR HYPOGLYCEMIA PO PRN (23:45)
[2022-05-29] MEDS ORDERED: GLUCOSE 10 TAB/TUBE PO PRN (23:45)
[2022-05-29] MEDS ORDERED: CARBOHYDRATES FOR HYPOGLYCEMIA PO ONE (23:45)
[2022-05-29] MEDS ORDERED: GLUCAGON FOR INJ 1 MG VIAL IM PRN (23:45)
[2022-05-29] MEDS ORDERED: GLUCOSE 40% GEL 15 GM TUBE PO PRN (23:45)
[2022-05-30] MEDS: ACETAMINOPHEN 325 MG TAB PO SCH ×4 (05:58→23:26)
[2022-05-30 06:46] LABS: Hematocrit (blood only) 32.8 % (42.0-52.0); Hemoglobin 10.5 g/dl (14.0-18.0); Mean Corpuscular Hemoglobin 29.7 pg (25.0-34.0); Mean Corpuscular Volume 92.7 fL (80.0-100.0); Mean Platelet Volume 10.6 fL (9.4-12.4); Platelet Count 128 K/uL (130-400); RDW Coefficient of Variation 18.8 % (11.5-14.5); Red Blood Count 3.54 M/uL (4.70-6.10); White Blood Count 5.06 K/ul (4.8-10.8)
[2022-05-30 07:29] LABS: BUN Creatinine Ratio 6.9 (10-20); Calcium 8.3 mg/dl (8.5-10.1); Est GFR (African American) 12.2 ml/min; Est GFR (Non-African American) 10.6 ml/min; Potassium 4.6 mmol/L (3.5-5.1)
[2022-05-30] MEDS: INSULIN ASPART PER UNIT CHARGE SC SCH ×4 (08:18→20:40)
[2022-05-30] MEDS: APIXABAN 5 MG TABLET PO SCH ×2 (08:34→19:30)
[2022-05-30] MEDS: VALSARTAN/SACUBITRIL 26/24MG TAB PO SCH ×2 (08:35→19:31)
--- NOTE | 2022-05-30 08:36 | Nephrology Progress Note ---
Date of Service May 30, 2022 Assessment & Plan (1) ESRD (end stage renal disease) on dialysis: Plan: * Patient dialyzed yesterday for 3 L UF without complication. His breathing and LE swelling are now subjectively improved * AVF w/ + bruit * Outpatient HD Rx: TTS, 3 hr, F-180NR, 2K, Qb 350/Qd 800, EDW 80 kg * No acute indication for HD today. Will plan on next treatment in am (2) Anemia due to chronic kidney disease: Plan: * Chronic, stable. Hgb >11. No additional JODIE therapy required with HD today. (3) HFrEF (heart failure with reduced ejection fraction): Plan: * Continue Entresto and metoprolol as Rx * Daily weights while inpatient (4) Monocular vision loss: Plan: * s/p R vitreal hemorrhage 05/03/22 Admission and Anticipated Discharge Date Admission Date: May 29, 2022 Subjective Mr. Sanchez was evaluated in his hospital room this morning. He was dialyzed yesterday for 3 L UF. He tolerated dialysis without complication. He notes that his breathing and LE swelling are improved Review of Systems Constitutional: no fever Eyes: + problem reported (R vision loss) Ear, Nose, Mouth, Throat: no problem reported Respiratory: no dyspnea Cardiovascular: no chest pain Gastrointestinal: no abdominal pain Neurologic: no localized weakness Physical Exam Constitutional: not in distress Eyes: PERRL, conjunctivae normal, anicteric sclerae ENMT: external ear and nose normal, oropharynx normal Neck: trachea midline, no thyromegaly Respiratory: normal respiratory effort, lungs clear to auscultation Cardiovascular: RRR, no murmur, no edema Extremities: + edema (1+ LE swelling) and + AV fistula (+ bruit) Gastrointestinal (Abdomen): normal bowel sounds, soft, nontender, no hepatosplenomegaly Neurologic: awake; not confused Results & Data ([facility]) Vital Signs (Past 12 Hours) Vital Signs Temp Pulse Resp BP Pulse Ox O2 Del Method 05/30/22 07:23 35.6 C L 79 18 103/59 L 94 Room Air 05/30/22 02:56 35.7 C L 75 18 108/66 94 Room Air 05/30/22 01:08 35.9 C L 72 18 112/65 96 Room Air 05/29/22 22:40 36.3 C L 75 18 114/66 95 Room Air 05/29/22 22:11 Room Air Laboratory Results Laboratory Tests 05/30/22 05/30/22 05:50 05:50 WBC 5.06 Hgb 10.5 L Hct 32.8 L Plt Count 128 L Sodium 138 Potassium 4.6 Chloride 100 Carbon Dioxide 29 BUN 36 H D Creatinine 5.23 H* D Glucose 125 H PG Care Time/CCT Total # of Minutes Spent Total Time Spent with Patient: Total time spent is greater than 50% in coordination of care (as documented) at patient's floor/unit and/or counseling patient: Coding Level of Care Code 15179 SUB INP/OBS CARE 3/50MIN Diagnoses ESRD (end stage renal disease) on dialysis N18.6; Z99.2 Anemia due to chronic kidney disease N18.9; D63.1 HFrEF (heart failure with reduced ejection fraction) I50.20 Monocular vision loss H54.60
--- NOTE | 2022-05-30 10:35 | Pharmacy Report ---
Pharmacy PK ABX Note - Date of Service May 30, 2022 - Assessment and Plan Assessment 66 year old M receiving vancomycin/ceftriaxone for treatment of cellulitis. Pertinent microbiologic data includes: Blood cultures negative at 24 hours, afebrile, normal white count. ESRD with next planned dialysis 05/31/22. Day # 2 of antimicrobial therapy. Plan Vancomycin * Loading dose: 1500 mg IV x 1 on 05/29 am * Received additional 750 mg on 05/29 PM for post dialysis level of 11.4. * Will obtain random level on 05/31 AM (pre-dialysis) to assist with further dosing Pharmacy will continue to follow and will adjust dose/frequency as necessary. Thank you. Pharmacy has transitioned to AUC monitoring for vancomycin. AUC/SATHISH is the preferred PK/PD target and is associated with decreased risk of nephrotoxicity compared to traditional trough targets.
[2022-05-30] MEDS: cefTRIAXone SODIUM 2,000 MG in DEXTROSE 5% 50 ML IV SCH (12:36)
--- NOTE | 2022-05-30 13:42 | Pharmacy Report ---
Pharmacy Glycemic Short Note 2 - Date of Service May 30, 2022 - Glycemic Short BSG Results (Last 24 hours): 05/29/22 05/29/22 05/29/22 16:17 20:12 23:28 Glucose POC Glucose 137 H 213 H 49 L* 05/30/22 05/30/22 05/30/22 00:00 00:58 05:50 Glucose 125 H POC Glucose 89 91 05/30/22 05/30/22 05/30/22 07:29 11:21 11:22 Glucose POC Glucose 122 H 51 L* 58 L* 05/30/22 11:41 Glucose POC Glucose 104 H OUTPATIENT ANTIDIABETIC REGIMEN: * A1c unreliable in setting of hemodialysis * Lantus 10 units HS ASSESSMENT: 05/30 * Patient with two hypoglycemic events * Will remove carb ratio that was added last PM and loosen correction factor * Hold lantus for now, patient received 5 units last night 05/29 * Patient with recent admission, did not require basal insulin or carb coverage. * will set basal scale for PM, hold on PLAN FOR INPATIENT GLYCEMIC CONTROL: * Hold outpatient oral diabetes medications * Basal insulin * hold * Bolus insulin * NovoLog per scale ACHS or Q6hrs while NPO * Goal Range: Low 120 mg/dL - High 160 mg/dL * Correction Factor: 45 mg/dL/unit * Nutritional / Prandial insulin per carb ratio of 1 unit per - grams CHO consumed
[2022-05-30] MEDS ORDERED: traMADol HCL 50 MG TABLET PO STA (17:00)
--- NOTE | 2022-05-30 17:10 | Hospitalist Progress Note ---
Date of Service May 30, 2022 Assessment & Plan (1) Acute respiratory failure with hypoxia: Plan: SOB in a 66 yo male with ESRD Patient has missed at least 2 dialysis sessions. Patient had pleural effussions contributing to his SOB. consulted nephro will monitor improvement. Patient improved after dialysis on 05/29 will monitor. (2) Diabetes mellitus with complication: Plan: consult glycemic control will place on insulin sliding scale (3) HFrEF (heart failure with reduced ejection fraction): Plan: will resume home meds Patient is having pleural effusions on exam. HD will help get fluid off. (4) COPD (chronic obstructive pulmonary disease): Plan: resume home meds (5) ESRD (end stage renal disease) on dialysis: Plan: consulted Nephro will get HD today (6) Bilateral lower leg cellulitis: Plan: Patient has lower extremity cellulitis, will contiue antibiotics ceftriaxone and vanco Lower extremities continue to appear erythematous. will monitor. (7) PAF (paroxysmal atrial fibrillation): Plan: resume home meds. rate appears controlled (8) History of venous thrombosis: Plan: continue anticoagulant (9) History of pleural effusion: (10) Vitreous hemorrhage: Plan: stable Admission and Anticipated Discharge Date Admission Date: May 29, 2022 Subjective Patient reports he is breathing better but continnues to get SOB when he ambulates. Review of Systems Review of Systems: All systems reviewed & are unremarkable except as noted in HPI & below Physical Exam Constitutional: WD/WN, vitals as above Eyes: PERRL, conjunctivae normal, anicteric sclerae ENMT: external ear and nose normal, oropharynx normal Neck: trachea midline, no thyromegaly Respiratory: + uses accessory muscles Auscultation: + rales and + wheezes Cardiovascular: RRR, no murmur, no edema Rate/Rhythm: regular rhythm Gastrointestinal (Abdomen): normal bowel sounds, soft, nontender, no hepatosplenomegaly Musculoskeletal: no cyanosis or clubbing, extremities motor strength 5/5 Skin: + erythema (bilateral lower extremity erythema with multiple excoriations) and + excoriations Neurologic: PERRL, EOMI, accommodation nl, no face palsy, no dysarthria Psychiatric: A+Ox3, euthymic affect Lymphatic: no cervical or axillary lymphadenopathy Results & Data Results & Data ([facility]) Vital Signs (Past 12 Hours) Vital Signs Temp Pulse Pulse Resp BP Pulse Ox O2 Del Method 05/30/22 16:11 66 05/30/22 15:06 36.6 C 68 18 99/58 L 91 Room Air 05/30/22 11:03 35.8 C L 68 18 99/62 L 96 Room Air 05/30/22 07:15 72 05/30/22 07:15 Room Air 05/30/22 07:23 35.6 C L 79 18 103/59 L 94 Room Air PG Care Time/CCT Total # of Minutes Spent Total Time Spent with Patient: Total time spent is greater than 50% in coordination of care (as documented) at patient's floor/unit and/or counseling patient: Coding Level of Care Code 36343 SUB INP/OBS CARE 2/35MIN Diagnoses Acute respiratory failure with hypoxia J96.01 Diabetes mellitus with complication E11.8 HFrEF (heart failure with reduced ejection fraction) I50.20 COPD (chronic obstructive pulmonary disease) J44.9 ESRD (end stage renal disease) on dialysis N18.6; Z99.2 Bilateral lower leg cellulitis L03.116; L03.115 PAF (paroxysmal atrial fibrillation) I48.0 History of venous thrombosis Z86.718 History of pleural effusion Z87.09 Vitreous hemorrhage H43.10
[2022-05-30] MEDS: CHOLECALCIFEROL 1,000 UNITS 25 MCG TAB PO SCH (19:30)
[2022-05-30] MEDS: ATORVASTATIN 10 MG TAB PO SCH (19:30)
[2022-05-30] MEDS: METOPROLOL SUCC 50MG EXT REL TAB PO SCH (19:30)
[2022-05-30] MEDS: GABAPENTIN 100 MG CAP PO SCH (19:30)
[2022-05-30] MEDS: DULoxetine HCL 60 MG CAP PO SCH (19:30)
[2022-05-30] MEDS: CLOPIDOGREL BISULFATE 75 MG TAB PO SCH (19:31)
[2022-05-30] MEDS: PRAMIPEXOLE DIHYDROCHLO 0.25 MG TAB PO SCH (19:31)
[2022-05-30] MEDS: FLUTICASONE FUROATE 100MCG 14 PUFFS/INHALER INH SCH (19:31)
[2022-05-30] MEDS: UMECLIDINIUM/VILANTEROL 62.5/25MCG 7 PUFFS/INHALER INH SCH (19:31)
[2022-05-30] MEDS: LANTHANUM 500 MG PO SCH (19:32)
[2022-05-30] MEDS ORDERED: LIDOCAINE 5% 1 PATCH TD STA (23:04)
[2022-05-31 01:03] LABS: Basophils # (auto) 0.05 K/uL (0-0.2); Basophils % (auto) 1.2 %; Eosinophils # (auto) 0.09 K/uL (0-0.50); Eosinophils % (auto) 2.1 %; Hematocrit (blood only) 35.3 % (42.0-52.0); Hemoglobin 11.1 g/dl (14.0-18.0); Immature Granulocytes # (auto) 0.04 K/uL (0.01-0.20); Immature Granulocytes % (auto) 0.9 %; Lymphocytes # (auto) 0.49 K/uL (1.2-3.4); Lymphocytes % (auto) 11.3 %; Mean Corpuscular Hemoglobin 30.2 pg (25.0-34.0); Mean Corpuscular Hgb Conc 31.4 g/dL (32.0-36.0); Mean Corpuscular Volume 95.9 fL (80.0-100.0); Mean Platelet Volume 10.7 fL (9.4-12.4); Monocytes # (auto) 0.32 K/uL (0.11-0.59); Monocytes % (auto) 7.4 %; Neutrophils # (auto) 3.33 K/uL (1.40-6.50); Neutrophils % (auto) 77.1 %; Platelet Count 152 K/uL (130-400); RDW Coefficient of Variation 19.5 % (11.5-14.5); RDW Standard Deviation 66.6 fL (36.4-46.3); Red Blood Count 3.68 M/uL (4.70-6.10); White Blood Count 4.32 K/ul (4.8-10.8)
[2022-05-31 01:43] LABS: Fibrinogen 350 mg/dl (184-400); INR 1.3 (0.9-1.1); Prothrombin Time 13.5 Seconds (9.0-12.0)
--- NOTE | 2022-05-31 04:34 | Communication Note ---
Date of Service: May 31, 2022 I was initially notified about the development of a rash on his L proximal thigh. He did have a non-blanching purpuric rash and associated pain for which I ordered a lidocaine patch. This did provide him some relief. His rash progressed to eventually involve all 4 extremities. I did order repeat labwork including a CBC, PT/INR and fibrinogen/fibrin degradation products. The labwork was unremarkable although he did have FDP elevation 10-40. He remained hemodynamically stable and afebrile during this time. On re-evaluation, I did appreciate the same purpuric rash which progressed to involve all 4 extremities and his L lower back as well. The pt endorsed pain but no new symptoms associated with rash progression. I ordered a consult for dermatology and held his Eliquis, Plavix and Entresto out of concern for potential contribution to the rash. I also ordered Solumedrol 20 mg IV to see if steroid therapy may address the rash if there is a vasculitic component involved. Resident Activity Tracking Resident Involvement: Resident Care Provided Care Provided: Adult Hospital Medicine
[2022-05-31] MEDS ORDERED: methylPREDNISolone 20 MG in SYRINGE 0 ML IV ONE (05:00)
[2022-05-31] MEDS: ACETAMINOPHEN 325 MG TAB PO SCH ×3 (05:09→20:16)
[2022-05-31] MEDS ORDERED: EPOETIN ALFA 10,000 UNITS/ML VIAL IV SCH (07:00)
[2022-05-31] MEDS ORDERED: SODIUM CHLORIDE 0.9% 1000ML 1,000 ML IV PRN (07:00)
[2022-05-31] MEDS: APIXABAN 5 MG TABLET PO SCH ×2 (08:32→20:16)
[2022-05-31] MEDS: CYCLOBENZAPRINE HCL 10 MG TAB PO PRN (08:37)
[2022-05-31] MEDS: INSULIN ASPART PER UNIT CHARGE SC SCH ×4 (08:37→20:11)
--- NOTE | 2022-05-31 08:40 | Nephrology Progress Note ---
Date of Service May 31, 2022 Assessment & Plan (1) ESRD (end stage renal disease) on dialysis: Plan: * HD today. Orders entered into EMR and HD RN notified * AVF w/ + bruit * Outpatient HD Rx: TTS, 3 hr, F-180NR, 2K, Qb 350/Qd 800, EDW 80 kg (2) Macular erythematous rash: Plan: * Although FDP, PT/INR are mildly elevated, fibrinogen is normal. Patient does not have significant anemia or thrombocytopenia. Differential is negative for eosinophilia or schistocytes. Favor drug eruption over DIC * Recommend holding Cephalosporin and providing steroid therapy * Monitor H&H, plt count (3) Anemia due to chronic kidney disease: Plan: * Chronic, stable. Hgb >11. No additional JODIE therapy required with HD today. (4) HFrEF (heart failure with reduced ejection fraction): Plan: * Continue Entresto and metoprolol as Rx * Daily weights while inpatient (5) Monocular vision loss: Plan: * s/p R vitreal hemorrhage 05/03/22 Admission and Anticipated Discharge Date Admission Date: May 29, 2022 Subjective Mr. Sanchez was evaluated in his hospital room this morning. He c/o a confluent macular rash on his arms, trunk and legs. This is occurred rapidly overnight. He denies fever, angina, dyspnea or abdominal pain. He denies drug allergies. Mr. Sanchez has been on Cephalosporin therapy due to his leg wounds Review of Systems Constitutional: no fever Eyes: + problem reported (R vision loss) Ear, Nose, Mouth, Throat: no problem reported Respiratory: no dyspnea Cardiovascular: no chest pain Gastrointestinal: no abdominal pain Neurologic: no localized weakness Physical Exam Constitutional: not in distress Eyes: PERRL, conjunctivae normal, anicteric sclerae ENMT: external ear and nose normal, oropharynx normal Neck: trachea midline, no thyromegaly Respiratory: normal respiratory effort, lungs clear to auscultation Cardiovascular: RRR, no murmur, no edema Extremities: + edema (1+ LE swelling) and + AV fistula (+ bruit) Gastrointestinal (Abdomen): normal bowel sounds, soft, nontender, no hepatosplenomegaly Neurologic: awake; not confused Results & Data ([facility]) Vital Signs (Past 12 Hours) Vital Signs Temp Pulse Pulse Resp BP Pulse Ox O2 Del Method 05/31/22 07:31 61 05/31/22 03:04 36.4 C L 67 16 107/67 96 Room Air 05/30/22 23:17 36.5 C 62 12 107/70 92 Room Air 05/30/22 21:16 Room Air Laboratory Results Laboratory Results - last 24 hr 05/30/22 05/30/22 05/30/22 11:21 11:22 11:41 WBC RBC Hgb Hct MCV MCH MCHC RDW Std Deviation RDW Coeff of Wendy Plt Count MPV Immature Gran % (Auto) Neut % (Auto) Lymph % (Auto) [place] % (Auto) Eos % (Auto) Baso % (Auto) Neut # (Auto) Lymph # (Auto) [place] # (Auto) Eos # (Auto) Baso # (Auto) Immature Gran # (Auto) PT INR Fibrinogen Fibrin Degrad Products POC Glucose 51 L* 58 L* 104 H Lactate Random Vancomycin 05/30/22 05/30/22 05/30/22 15:45 20:07 22:19 WBC RBC Hgb Hct MCV MCH MCHC RDW Std Deviation RDW Coeff of Wnedy Plt Count MPV Immature Gran % (Auto) Neut % (Auto) Lymph % (Auto) [place] % (Auto) Eos % (Auto) Baso % (Auto) Neut # (Auto) Lymph # (Auto) [place] # (Auto) Eos # (Auto) Baso # (Auto) Immature Gran # (Auto) PT INR Fibrinogen Fibrin Degrad Products POC Glucose 142 H 205 H 187 H Lactate Random Vancomycin 05/31/22 05/31/22 05/31/22 00:38 00:38 00:38 WBC 4.32 L RBC 3.68 L Hgb 11.1 L Hct 35.3 L MCV 95.9 MCH 30.2 MCHC 31.4 L RDW Std Deviation 66.6 H RDW Coeff of Wendy 19.5 H Plt Count 152 MPV 10.7 Immature Gran % (Auto) 0.9 Neut % (Auto) 77.1 Lymph % (Auto) 11.3 [place] % (Auto) 7.4 Eos % (Auto) 2.1 Baso % (Auto) 1.2 Neut # (Auto) 3.33 Lymph # (Auto) 0.49 L [place] # (Auto) 0.32 Eos # (Auto) 0.09 Baso # (Auto) 0.05 Immature Gran # (Auto) 0.04 PT 13.5 H INR 1.3 H Fibrinogen 350 Fibrin Degrad Products POC Glucose Lactate 2.0 Random Vancomycin 05/31/22 05/31/22 05/31/22 00:45 05:59 07:12 WBC RBC Hgb Hct MCV MCH MCHC RDW Std Deviation RDW Coeff of Wendy Plt Count MPV Immature Gran % (Auto) Neut % (Auto) Lymph % (Auto) [place] % (Auto) Eos % (Auto) Baso % (Auto) Neut # (Auto) Lymph # (Auto) [place] # (Auto) Eos # (Auto) Baso # (Auto) Immature Gran # (Auto) PT INR Fibrinogen Fibrin Degrad Products 10-40 H POC Glucose 169 H Lactate Random Vancomycin 13.2 PG Care Time/CCT Total # of Minutes Spent Total Time Spent with Patient: Total time spent is greater than 50% in coordination of care (as documented) at patient's floor/unit and/or counseling patient: Coding Level of Care Code 21831 SUB INP/OBS CARE 3/50MIN Diagnoses ESRD (end stage renal disease) on dialysis N18.6; Z99.2 Macular erythematous rash L53.8 Anemia due to chronic kidney disease N18.9; D63.1 HFrEF (heart failure with reduced ejection fraction) I50.20 Monocular vision loss H54.60
[2022-05-31] MEDS: cefTRIAXone SODIUM 2,000 MG in DEXTROSE 5% 50 ML IV SCH (14:03)
--- NOTE | 2022-05-31 14:56 | Pharmacy Report ---
Pharmacy PK ABX Note - Date of Service May 31, 2022 - Assessment and Plan Assessment * Mr Sanchez is a 66 year old M receiving vancomycin/ceftriaxone for treatment of cellulitis. * Pertinent microbiologic data includes: Blood cultures negative at 48 hours, afebrile, normal white count. * ESRD with HD today. Next HD planned for 06/02. * Vanc level obtained this morning, indicating re-dose. * Will plan to check another pre-HD level prior to next session. Plan Vancomycin * Vanc level obtained this mornin.2 mcg/mL * Vancomycin 1gm IV x1 dose this afternoon post-HD * Will obtain random level on 3 AM (pre-dialysis) to assist with further dosing Pharmacy will continue to follow and will adjust dose/frequency as necessary. Thank you. Pharmacy has transitioned to AUC monitoring for vancomycin. AUC/SATHISH is the preferred PK/PD target and is associated with decreased risk of nephrotoxicity compared to traditional trough targets.
[2022-05-31] MEDS ORDERED: VANCOMYCIN HCL 1,000 MG in SODIUM CHLORIDE 0.9% 250 ML IV SCH (16:00)
--- NOTE | 2022-05-31 19:07 | Dermatology Consultation ---
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 Vasculopathy (less likely given that he has been anticoagulated on Eliquis and Plavix): 1) Punch biopsies x 3 taken from the right and left thigh today for DIF and H&E evaluation. Will follow-up results. 2) Change bandaids on biopsy sites once daily. 3) Sutures need to be removed from punch biopsy sites in 14 days. 4) Check ESR, CRP, MINISTERIO, ANCA, C3, C4, CH50, RF, cryoglobulins, Hepatitis C, HepBsAg 5) Start prednisone 40mg once daily x 7 days, then 30mg once daily x 7 days, then 20mg once daily x 7 days, then 10mg once daily x 7 days. Present on Admission?: No History of Present Illness Reason for Consultation: Rash on trunk, arms and legs Requesting Physician: Yovanny Peterson Attending Physician: Yovanny Peterson History of Present Illness Patient is a 66 y/o male with PMHx of ESRD on HD, COPD, type 2 diabetes, PAD, history of venous thrombosis and CHF admitted to [facility] on 05/29/2022 for acute respiratory failure. I have been consulted for evaluation of rash on the legs, arms and abdomen. This current flare began 1-2 days ago as per patient report, but he states that he had a milder outbreak on the legs that started about 5 weeks ago. He describes red "pimple-like" areas that would come and go. Areas are itchy when they appear, and he admits to scratching some areas open. This current flare is the most severe that it has been. He reports being treated with "antibiotics" as an outpatient, but he does not recall the names. They were reportedly not helpful. During this admission he is being treated with vancomycin and ceftriaxone for cellulitis in his lower legs. He does not recall being started on any new medications prior to onset. He did receive a dose of solumedrol 20mg IV last night when rash was noticed by hospitalist. Allergies Allergy/AdvReac Type Severity Reaction Status Date / Time No Known Allergies Allergy Verified 05/23/22 16:39 Home Medications Medication Instructions Recorded Confirmed Type albuterol sulfate 90 mcg/actuation 2 puff inhalation Q4H PRN 04/16/22 05/23/22 History aerosol inhaler Shortness Of Breath Or Wheezing apixaban 5 mg tablet (Eliquis) 5 mg PO BID 04/16/22 05/23/22 History cyclobenzaprine 10 mg tablet 10 mg PO BID PRN Spasms 04/16/22 05/23/22 History duloxetine 60 mg capsule,delayed 60 mg PO HS 04/16/22 05/23/22 History release fluticasone fur. 100 mcg-umeclid 1 inh inhalation HS 04/16/22 05/23/22 History 62.5 mcg-vilant 25 mcg inhalat.powder (Trelegy Ellipta) gabapentin 100 mg capsule 100 mg PO HS 04/16/22 05/23/22 History lanthanum 500 mg chewable tablet 500 mg PO HS 04/16/22 05/23/22 History pramipexole 0.25 mg tablet 0.25 mg PO HS 04/16/22 05/23/22 History sacubitril 24 mg-valsartan 26 mg 1 tab PO BID #60 tabs 04/23/22 05/23/22 Rx tablet (Entresto) cholecalciferol (vitamin D3) 50 50 mcg PO HS 04/27/22 05/23/22 History mcg (2,000 unit) capsule insulin glargine 100 unit/mL (3 10 unit (0.1 mL) subcut QPM #15 mL 04/27/22 05/23/22 Rx mL) subcutaneous pen (Lantus Solostar U-100 Insulin) atorvastatin 10 mg tablet 10 mg PO HS 05/02/22 05/23/22 History clopidogrel 75 mg tablet 75 mg PO HS 05/02/22 05/23/22 History lidocaine-prilocaine 2.5 %-2.5 % 1.5 g topical DIRECTED PRN Pain 05/02/22 05/23/22 History topical cream metoprolol succinate 50 mg 50 mg PO HS 05/02/22 05/23/22 History tablet,extended release 24 hr blood sugar diagnostic (OneTouch #100 ea 05/10/22 05/23/22 Rx Ultra Test strips) blood-glucose meter (OneTouch #1 ea 05/10/22 05/23/22 Rx Ultra2 Meter) cefazolin 1 gram intravenous 1 g IV DAILY 14 days #25 ea 05/10/22 05/23/22 Rx solution lancets 33 gauge (OneTouch Delica #100 ea 05/10/22 05/23/22 Rx Lancets) Wheelchair (Manual) (Manual #1 ea 05/19/22 05/23/22 Rx Wheelchair) albuterol sulfate 2.5 mg/0.5 mL 2.5 mg (0.5 mL) inhalation QID PRN 05/19/22 05/23/22 Rx solution for nebulization shortness of breath or wheezing #30 ea Patient History Medical History (Updated 05/31/22 @ 20:15 by Christopher Yen MD) Anemia due to chronic kidney disease COPD (chronic obstructive pulmonary disease) Coronary artery disease Dermatitis, unspecified Diabetes mellitus with complication ESRD (end stage renal disease) on dialysis H/O: CVA (cerebrovascular accident) 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 Nonischemic cardiomyopathy PAF (paroxysmal atrial fibrillation) Peripheral arterial disease Proliferative diabetic retinopathy Venous stasis dermatitis Surgical History A-V fistula History of cardiac defibrillator placement (04/13/21) S/P arterial stent L femoral artery stent S/P transmetatarsal amputation of foot L foot Family History Other Family history non-contributory Social History Smoking Status: Current every day smoker Tobacco Type: Cigarettes Age Started Using Tobacco: 11; packs per day: 1; Cigarettes Per Day: used to smoke 5PPD - recently cut back to 1; Second Hand Exposure: No; Hx Alcohol Use: No Hx Substance Use: Yes Prescribed Medications: Marijuana Preferred Language: Romansh Communication Ability: Effective Visual Impairment: Partially Limited Hearing Ability: Hard of Hearing Karate Black Belt Required: No Beliefs That Will Affect Care: None marital status: Current Living Situation: Spouse current occupational status: disabled Feels Safe at Home: Yes during the past year weight has: remained stable Dental Care, Regularly: No Physical Activity Frequency: Does not Exercise Assistive Devices: Cane and Walker Review of Systems Constitutional: no fever and no chills Eyes: no eye pain Ear, Nose, Mouth, Throat: no nasal congestion, no mouth lesions and no sore throat Respiratory: + dyspnea on exertion (chronic) Cardiovascular: no chest pain Gastrointestinal: no abdominal pain, no nausea, no vomiting and no change in bowel habits Integumentary: as per Subjective / HPI Hematologic / Lymphatic: + easy bleeding and + easy bruising Physical Exam Physical Exam: General Appearance:Well developed and in no acute distress Psych:Alert, Oriented and Appropriate Skin Type:2 Scalp/Hair:few geometric, crusted ulcerations on the posterior vertex scalp Face:+resolving ecchymosis on the right cheek, left cheek (secondary to recent fall during last hospitalization) Eyelids/Ocular Mucosa: no abnormalities noted Lips/Teeth/Gums: no abnormalities noted Neck: no abnormalities noted Right Lower Extremity:scattered nonblanchable, slightly palpable purpuric macules/papules on the thigh +scattered geometric, crusted ulcerations on the knee, calf, ankle Left Lower Extremity: large nonblanchable, slightly palpable purpuric patch on the thigh +scattered geometric, crusted ulcerations on the knee, calf, ankle Back:scattered nonblanchable purpuric macules on the lower back Buttocks/Groin/Genitalia: no abnormalities noted Right Upper Extremity:scattered nonblanchable, slightly palpable purpuric macules/patches on the forearm, upper arm +scattered geometric, crusted ulcerations on the dorsal hand, fingers Left Upper Extremity:scattered nonblanchable, slightly palpable purpuric macules/patches on the forearm, upper arm +scattered geometric, crusted ulcerations on the dorsal hand, fingers Chest/Breast/Axillae:no abnormalities noted Abdomen:scattered nonblanchable purpuric macules on the lower abdomen Results & Data ([facility]) Vital Signs (Past 12 Hours) Vital Signs Temp Pulse Pulse Resp BP BP Pulse Ox 05/31/22 17:03 36.3 C L 69 20 101/67 96 05/31/22 16:00 72 05/31/22 13:00 71 117/94 05/31/22 12:30 65 112/83 05/31/22 13:30 36.5 C 66 136/80 05/31/22 12:00 70 129/80 05/31/22 11:30 64 137/76 05/31/22 11:00 55 L 117/43 L 05/31/22 10:30 62 97/60 L 05/31/22 10:00 66 114/61 05/31/22 09:30 63 109/73 05/31/22 09:15 70 107/83 05/31/22 09:07 36.4 C L 05/31/22 08:09 05/31/22 07:31 61 O2 Del Method 05/31/22 17:03 Room Air 05/31/22 16:00 05/31/22 13:00 05/31/22 12:30 05/31/22 13:30 05/31/22 12:00 05/31/22 11:30 05/31/22 11:00 05/31/22 10:30 05/31/22 10:00 05/31/22 09:30 05/31/22 09:15 05/31/22 09:07 05/31/22 08:09 Room Air 05/31/22 07:31 Laboratory Results 05/31/22 05/31/22 05/31/22 Range/Units 16:28 14:04 07:12 WBC (4.8-10.8) K/ul RBC (4.70-6.10) M/uL Hgb (14.0-18.0) g/dl Hct (42.0-52.0) % MCV (80.0-100.0) fL MCH (25.0-34.0) pg MCHC (32.0-36.0) g/dL RDW Std Deviation (36.4-46.3) fL RDW Coeff of Wendy (11.5-14.5) % Plt Count (130-400) K/uL MPV (9.4-12.4) fL Immature Gran % (Auto) % Neut % (Auto) % Lymph % (Auto) % [place] % (Auto) % Eos % (Auto) % Baso % (Auto) % Neut # (Auto) (1.40-6.50) K/uL Lymph # (Auto) (1.2-3.4) K/uL [place] # (Auto) (0.11-0.59) K/uL Eos # (Auto) (0-0.50) K/uL Baso # (Auto) (0-0.2) K/uL Immature Gran # (Auto) (0.01-0.20) K/uL PT (9.0-12.0) Seconds INR (0.9-1.1) Fibrinogen (184-400) mg/dl Fibrin Degrad Products (<10) mcg/ml POC Glucose 140 H 184 H 169 H (70-99) mg/dl Lactate (0.4-2.0) mmol/L Random Vancomycin (10-20) mcg/ml 05/31/22 05/31/22 05/31/22 Range/Units 05:59 00:45 00:38 WBC (4.8-10.8) K/ul RBC (4.70-6.10) M/uL Hgb (14.0-18.0) g/dl Hct (42.0-52.0) % MCV (80.0-100.0) fL MCH (25.0-34.0) pg MCHC (32.0-36.0) g/dL RDW Std Deviation (36.4-46.3) fL RDW Coeff of Wendy (11.5-14.5) % Plt Count (130-400) K/uL MPV (9.4-12.4) fL Immature Gran % (Auto) % Neut % (Auto) % Lymph % (Auto) % [place] % (Auto) % Eos % (Auto) % Baso % (Auto) % Neut # (Auto) (1.40-6.50) K/uL Lymph # (Auto) (1.2-3.4) K/uL [place] # (Auto) (0.11-0.59) K/uL Eos # (Auto) (0-0.50) K/uL Baso # (Auto) (0-0.2) K/uL Immature Gran # (Auto) (0.01-0.20) K/uL PT (9.0-12.0) Seconds INR (0.9-1.1) Fibrinogen (184-400) mg/dl Fibrin Degrad Products 10-40 H (<10) mcg/ml POC Glucose (70-99) mg/dl Lactate 2.0 (0.4-2.0) mmol/L Random Vancomycin 13.2 (10-20) mcg/ml 05/31/22 05/31/22 05/30/22 Range/Units 00:38 00:38 22:19 WBC 4.32 L (4.8-10.8) K/ul RBC 3.68 L (4.70-6.10) M/uL Hgb 11.1 L (14.0-18.0) g/dl Hct 35.3 L (42.0-52.0) % MCV 95.9 (80.0-100.0) fL MCH 30.2 (25.0-34.0) pg MCHC 31.4 L (32.0-36.0) g/dL RDW Std Deviation 66.6 H (36.4-46.3) fL RDW Coeff of Wendy 19.5 H (11.5-14.5) % Plt Count 152 (130-400) K/uL MPV 10.7 (9.4-12.4) fL Immature Gran % (Auto) 0.9 % Neut % (Auto) 77.1 % Lymph % (Auto) 11.3 % [place] % (Auto) 7.4 % Eos % (Auto) 2.1 % Baso % (Auto) 1.2 % Neut # (Auto) 3.33 (1.40-6.50) K/uL Lymph # (Auto) 0.49 L (1.2-3.4) K/uL [place] # (Auto) 0.32 (0.11-0.59) K/uL Eos # (Auto) 0.09 (0-0.50) K/uL Baso # (Auto) 0.05 (0-0.2) K/uL Immature Gran # (Auto) 0.04 (0.01-0.20) K/uL PT 13.5 H (9.0-12.0) Seconds INR 1.3 H (0.9-1.1) Fibrinogen 350 (184-400) mg/dl Fibrin Degrad Products (<10) mcg/ml POC Glucose 187 H (70-99) mg/dl Lactate (0.4-2.0) mmol/L Random Vancomycin (10-20) mcg/ml 05/30/22 Range/Units 20:07 WBC (4.8-10.8) K/ul RBC (4.70-6.10) M/uL Hgb (14.0-18.0) g/dl Hct (42.0-52.0) % MCV (80.0-100.0) fL MCH (25.0-34.0) pg MCHC (32.0-36.0) g/dL RDW Std Deviation (36.4-46.3) fL RDW Coeff of Wendy (11.5-14.5) % Plt Count (130-400) K/uL MPV (9.4-12.4) fL Immature Gran % (Auto) % Neut % (Auto) % Lymph % (Auto) % [place] % (Auto) % Eos % (Auto) % Baso % (Auto) % Neut # (Auto) (1.40-6.50) K/uL Lymph # (Auto) (1.2-3.4) K/uL [place] # (Auto) (0.11-0.59) K/uL Eos # (Auto) (0-0.50) K/uL Baso # (Auto) (0-0.2) K/uL Immature Gran # (Auto) (0.01-0.20) K/uL PT (9.0-12.0) Seconds INR (0.9-1.1) Fibrinogen (184-400) mg/dl Fibrin Degrad Products (<10) mcg/ml POC Glucose 205 H (70-99) mg/dl Lactate (0.4-2.0) mmol/L Random Vancomycin (10-20) mcg/ml Diagnostic Findings Imaging and Microbiology reviewed in [facility]. Blood cultures 05/29/2022: no growth to date Medications Administered MAR reviewed in [facility]. PG Care Time/CCT Total # of Minutes Spent Total Time Spent with Patient: Total time spent is greater than 50% in coordination of care (as documented) at patient's floor/unit and/or counseling patient: Coding Level of Care Code 67559 INT INP/OBS CARE 255MIN Diagnoses Dermatitis, unspecified L30.9 CPT Codes Punch Biopsy of 1 Lesion - 69914 ([id number]) Punch Biopsy of Each Additional Lesion - 28249 ([id number]) Punch Biopsy of Each Additional Lesion - 71937 ([id number]) Derm Punch Biopsy Skin Lesion Number Lesion #1: Procedure performed by: Christopher Yen Indication: Vasculitis vs. Vasculopathy Discussed: Patient, Risks, Benefits, Alternatives, Infection, Bleeding and Consent Obtained Anesthesia:: Lidocaine Lidocaine: with Epi Lidocaine with Epi: 1% (1cc) Location: right thigh Type of Biopsy: DIF(perilesional) Preparation: Alcohol Biopsy Technique: Punch, mm: (4) Closure:: Cutaneous (5-0 nylon x 1) Dressing: Vaseline and Dressing Applied Specimen Sent to Pathology: Yes Patient Status: Tolerated Well Complications:: No Complications Lesion #2: Procedure performed by: Christopher Yen Indication: Vasculitis vs. Vasculopathy Discussed: Patient, Risks, Benefits, Alternatives, Infection, Bleeding and Consent Obtained Anesthesia:: Lidocaine Lidocaine: with Epi Lidocaine with Epi: 1% (1cc) Location: right thigh Type of Biopsy: H & E Preparation: Alcohol Biopsy Technique: Punch, mm: (4) Closure:: Cutaneous (5-0 nylon x 1) Dressing: Vaseline and Dressing Applied Specimen Sent to Pathology: Yes Patient Status: Tolerated Well Complications:: No Complications Lesion #3: Procedure performed by: Christopher Yen Indication: Vasculitis vs. Vasculopathy Discussed: Patient, Risks, Benefits, Alternatives, Infection, Bleeding and Consent Obtained Anesthesia:: Lidocaine Lidocaine: with Epi Lidocaine with Epi: 1% (1cc) Location: left thigh Type of Biopsy: H & E Preparation: Alcohol Biopsy Technique: Punch, mm: (4) Closure:: Cutaneous (5-0 nylon x 1) Dressing: Vaseline and Dressing Applied Specimen Sent to Pathology: Yes Patient Status: Tolerated Well Complications:: No Complications
[2022-05-31] MEDS: CLOPIDOGREL BISULFATE 75 MG TAB PO SCH (20:17)
[2022-05-31] MEDS: ATORVASTATIN 10 MG TAB PO SCH (20:17)
[2022-05-31] MEDS: CHOLECALCIFEROL 1,000 UNITS 25 MCG TAB PO SCH (20:17)
[2022-05-31] MEDS: GABAPENTIN 100 MG CAP PO SCH (20:18)
[2022-05-31] MEDS: DULoxetine HCL 60 MG CAP PO SCH (20:18)
[2022-05-31] MEDS: METOPROLOL SUCC 50MG EXT REL TAB PO SCH (20:18)
[2022-05-31] MEDS: LANTHANUM 500 MG PO SCH (20:19)
[2022-05-31] MEDS: FLUTICASONE FUROATE 100MCG 14 PUFFS/INHALER INH SCH (20:19)
[2022-05-31] MEDS: PRAMIPEXOLE DIHYDROCHLO 0.25 MG TAB PO SCH (20:20)
[2022-05-31] MEDS: UMECLIDINIUM/VILANTEROL 62.5/25MCG 7 PUFFS/INHALER INH SCH (20:20)
--- NOTE | 2022-05-31 21:49 | Hospitalist Progress Note ---
Date of Service May 31, 2022 Assessment & Plan (1) Acute respiratory failure with hypoxia: Plan: SOB in a 66 yo male with ESRD Patient has missed at least 2 dialysis sessions. Patient had pleural effussions contributing to his SOB. consulted nephro will monitor improvement. Patient improved after dialysis on 05/29 and 05/31 Continues to be on room air, he reports he feels SOB when he ambulates, may benefit from a 2 step or ambulatory pulse ox. (2) Diabetes mellitus with complication: Plan: consult glycemic control will place on insulin sliding scale (3) HFrEF (heart failure with reduced ejection fraction): Plan: will resume home meds Patient is having pleural effusions on exam. HD will help get fluid off. (4) COPD (chronic obstructive pulmonary disease): Plan: resume home meds (5) ESRD (end stage renal disease) on dialysis: Plan: consulted Nephro will get HD today on 05/31 (6) Bilateral lower leg cellulitis: Plan: Patient has lower extremity cellulitis, will contiue antibiotics ceftriaxone and vanco Lower extremities continue to appear erythematous. will monitor. Has shown improvement. Now with maculopapular rash. unsure of cause. consulted derm. (7) PAF (paroxysmal atrial fibrillation): Plan: resume home meds. rate appears controlled (8) History of venous thrombosis: Plan: continue anticoagulant (9) History of pleural effusion: (10) Vitreous hemorrhage: Plan: stable Admission and Anticipated Discharge Date Admission Date: May 29, 2022 Subjective Patient reports no new symptoms. He did fhave this new rash on his extremities, but it is not painful nor does it cause any pruritus. He states he had a similar episode weeks ago. Review of Systems Review of Systems: All systems reviewed & are unremarkable except as noted in HPI & below Physical Exam Constitutional: WD/WN, vitals as above Eyes: PERRL, conjunctivae normal, anicteric sclerae ENMT: external ear and nose normal, oropharynx normal Neck: trachea midline, no thyromegaly Respiratory: + uses accessory muscles Auscultation: + rales and + wheezes Cardiovascular: RRR, no murmur, no edema Rate/Rhythm: regular rhythm Gastrointestinal (Abdomen): normal bowel sounds, soft, nontender, no hepatosplenomegaly Musculoskeletal: no cyanosis or clubbing, extremities motor strength 5/5 Skin: + erythema (bilateral lower extremity erythema with multiple excoriations) and + excoriations Also having scattered maculopapular purpuric lesions on all extremities. Neurologic: PERRL, EOMI, accommodation nl, no face palsy, no dysarthria Psychiatric: A+Ox3, euthymic affect Lymphatic: no cervical or axillary lymphadenopathy Results & Data Results & Data ([facility]) Vital Signs (Past 12 Hours) Vital Signs Temp Pulse Pulse Resp BP BP Pulse Ox 05/31/22 19:57 35.5 C L 69 18 106/62 95 05/31/22 19:21 05/31/22 17:03 36.3 C L 69 20 101/67 96 05/31/22 16:00 72 05/31/22 13:00 71 117/94 05/31/22 12:30 65 112/83 05/31/22 13:30 36.5 C 66 136/80 05/31/22 12:00 70 129/80 05/31/22 11:30 64 137/76 05/31/22 11:00 55 L 117/43 L 05/31/22 10:30 62 97/60 L 05/31/22 10:00 66 114/61 O2 Del Method 05/31/22 19:57 Room Air 05/31/22 19:21 Room Air 05/31/22 17:03 Room Air 05/31/22 16:00 05/31/22 13:00 05/31/22 12:30 05/31/22 13:30 05/31/22 12:00 05/31/22 11:30 05/31/22 11:00 05/31/22 10:30 05/31/22 10:00 PG Care Time/CCT Total # of Minutes Spent Total Time Spent with Patient: Total time spent is greater than 50% in coordination of care (as documented) at patient's floor/unit and/or counseling patient: Coding Level of Care Code 42533 SUB INP/OBS CARE 3/50MIN Diagnoses Acute respiratory failure with hypoxia J96.01 Diabetes mellitus with complication E11.8 HFrEF (heart failure with reduced ejection fraction) I50.20 COPD (chronic obstructive pulmonary disease) J44.9 ESRD (end stage renal disease) on dialysis N18.6; Z99.2 Bilateral lower leg cellulitis L03.116; L03.115 PAF (paroxysmal atrial fibrillation) I48.0 History of venous thrombosis Z86.718 History of pleural effusion Z87.09 Vitreous hemorrhage H43.10
[2022-06-01] MEDS: ACETAMINOPHEN 325 MG TAB PO SCH ×4 (01:12→13:13)
[2022-06-01 07:30] LABS: Hematocrit (blood only) 34.6 % (42.0-52.0); Hemoglobin 10.8 g/dl (14.0-18.0); Mean Corpuscular Hemoglobin 29.8 pg (25.0-34.0); Mean Corpuscular Hgb Conc 31.2 g/dL (32.0-36.0); Mean Corpuscular Volume 95.3 fL (80.0-100.0); Mean Platelet Volume 10.3 fL (9.4-12.4); Nucleated RBC # (auto) 0.03 K/uL (0-0.12); Nucleated RBC % (auto) 0.6 %; Platelet Count 175 K/uL (130-400); RDW Coefficient of Variation 19.6 % (11.5-14.5); RDW Standard Deviation 66.9 fL (36.4-46.3); Red Blood Count 3.63 M/uL (4.70-6.10); White Blood Count 4.67 K/ul (4.8-10.8)
--- NOTE | 2022-06-01 07:49 | Hospitalist Progress Note ---
Date of Service June 01, 2022 Assessment & Plan (1) Acute respiratory failure with hypoxia: Plan: acute and serious risk improving SOB in a 66 yo male with ESRD Patient has missed at least 2 dialysis sessions a the time of admission. Patient had pleural effusions contributing to his SOB. consulted nephro to oversee dialysis on 05/29 and 05/31 consider 2 step at discharge (2) Diabetes mellitus with complication: Plan: consult glycemic control will place on insulin sliding scale (3) HFrEF (heart failure with reduced ejection fraction): Plan: Chronic, moderate risk, affects sob when volume not optimized continue home meds Patient is having pleural effusions on exam. 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 Vasculopathy (less likely given that he has been anticoagulated on Eliquis and Plavix): 1) Punch biopsies x 3 taken from the right and left thigh today for DIF and H&E evaluation. Will follow-up results. 2) Change bandaids on biopsy sites once daily. 3) Sutures need to be removed from punch biopsy sites in 14 days. 4) Check ESR, CRP, MINISTERIO, ANCA, C3, C4, CH50, RF, cryoglobulins, Hepatitis C, HepBsAg 5) Start prednisone 40mg once daily x 7 days, then 30mg once daily x 7 days, then 20mg once daily x 7 days, then 10mg once daily x 7 days. (7) PAF (paroxysmal atrial fibrillation): Plan: Chronic and stable, continue home meds. rate appears controlled (8) History of venous thrombosis: Plan: Chronic and stable, continue anticoagulant (9) History of pleural effusion: (10) Vitreous hemorrhage: Plan: stable Admission and Anticipated Discharge Date Admission Date: May 29, 2022 Results & Data Results & Data ([facility]) Vital Signs (Past 12 Hours) Vital Signs Temp Pulse Pulse Pulse Resp BP Pulse Ox 06/01/22 07:21 06/01/22 07:28 67 06/01/22 06:53 97.2 F L 65 18 108/65 94 06/01/22 03:24 96.4 F L 69 18 118/67 94 06/01/22 03:14 96.4 F L 69 18 118/67 94 05/31/22 22:56 97.2 F L 71 18 117/65 94 05/31/22 19:57 95.9 F L 69 18 106/62 95 O2 Del Method 06/01/22 07:21 Room Air 06/01/22 07:28 06/01/22 06:53 Room Air 06/01/22 03:24 Room Air 06/01/22 03:14 Room Air 05/31/22 22:56 Room Air 05/31/22 19:57 Room Air Laboratory Results reviewed cbc PG Care Time/CCT Total # of Minutes Spent Total Time Spent with Patient: Total time spent is greater than 50% in coordination of care (as documented) at patient's floor/unit and/or counseling patient: Coding Diagnoses Acute respiratory failure with hypoxia J96.01 Diabetes mellitus with complication E11.8 HFrEF (heart failure with reduced ejection fraction) I50.20 COPD (chronic obstructive pulmonary disease) J44.9 ESRD (end stage renal disease) on dialysis N18.6; Z99.2 Bilateral lower leg cellulitis L03.116; L03.115 PAF (paroxysmal atrial fibrillation) I48.0 History of venous thrombosis Z86.718 History of pleural effusion Z87.09 Vitreous hemorrhage H43.10
[2022-06-01] MEDS: INSULIN ASPART PER UNIT CHARGE SC SCH ×2 (08:00→11:45)
[2022-06-01] MEDS: APIXABAN 5 MG TABLET PO SCH (08:01)
[2022-06-01] MEDS: CYCLOBENZAPRINE HCL 10 MG TAB PO PRN (08:03)
[2022-06-01 08:28] LABS: BUN Creatinine Ratio 7.7 (10-20); C Reactive Protein 4.81 mg/dl (0-0.5); Calcium 8.6 mg/dl (8.5-10.1); Creatinine Clr Calc Pharmacy 15.6 ml/min; Est GFR (African American) 14.1 ml/min; Est GFR (Non-African American) 12.1 ml/min; Potassium 4.5 mmol/L (3.5-5.1)
--- NOTE | 2022-06-01 08:48 | Nephrology Progress Note ---
Date of Service June 01, 2022 Assessment & Plan (1) ESRD (end stage renal disease) on dialysis: Plan: * Volume status and electrolyte balance are acceptable. No acute indication for HD today * AVF w/ + bruit * Outpatient HD Rx: TTS, 3 hr, F-180NR, 2K, Qb 350/Qd 800, EDW 80 kg (2) Macular erythematous rash: Plan: * Although FDP, PT/INR are mildly elevated, fibrinogen is normal. Patient does not have significant anemia or thrombocytopenia. Differential is negative for eosinophilia or schistocytes. Favor drug eruption over DIC * Recommend holding Cephalosporin and providing steroid therapy * Monitor H&H, plt count (3) Anemia due to chronic kidney disease: Plan: * Chronic, stable. Hgb >11. No additional JODIE therapy required with HD today. (4) HFrEF (heart failure with reduced ejection fraction): Plan: * Continue Entresto and metoprolol as Rx * Daily weights while inpatient (5) Monocular vision loss: Plan: * s/p R vitreal hemorrhage 05/03/22 Admission and Anticipated Discharge Date Admission Date: May 29, 2022 Subjective Mr. Sanchez was evaluated in his hospital room this morning. He reports that his rash is mildly improved. He denies fever, angina, dyspnea or abdominal pain. He denies drug allergies. Mr. Sanchez has been on Cephalosporin therapy due to his leg wounds Review of Systems Constitutional: no fever Eyes: + problem reported (R vision loss) Ear, Nose, Mouth, Throat: no problem reported Respiratory: no dyspnea Cardiovascular: no chest pain Gastrointestinal: no abdominal pain Neurologic: no localized weakness Physical Exam Constitutional: not in distress Eyes: PERRL, conjunctivae normal, anicteric sclerae ENMT: external ear and nose normal, oropharynx normal Neck: trachea midline, no thyromegaly Respiratory: normal respiratory effort, lungs clear to auscultation Cardiovascular: RRR, no murmur, no edema Extremities: + edema (1+ LE swelling) and + AV fistula (+ bruit) Gastrointestinal (Abdomen): normal bowel sounds, soft, nontender, no hepatosplenomegaly Skin: confluent macular rash on chest, back arms and proximal legs Neurologic: awake; not confused Results & Data ([facility] [place]) Vital Signs (Past 12 Hours) Vital Signs Temp Pulse Pulse Resp BP Pulse Ox O2 Del Method 06/01/22 07:57 66 18 100/61 94 Room Air 06/01/22 07:21 Room Air 06/01/22 07:28 67 06/01/22 06:53 36.2 C L 65 18 108/65 94 Room Air 06/01/22 03:24 35.8 C L 69 18 118/67 94 Room Air 06/01/22 03:14 35.8 C L 69 18 118/67 94 Room Air 05/31/22 22:56 36.2 C L 71 18 117/65 94 Room Air Laboratory Results Laboratory Tests 05/31/22 06/01/22 06/01/22 00:38 07:00 07:00 WBC 4.32 L 4.67 L Hgb 11.1 L 10.8 L Hct 35.3 L 34.6 L Plt Count 152 175 Sodium 134 L Potassium 4.5 Chloride 99 Carbon Dioxide 25 BUN 36 H Creatinine 4.66 H* Glucose 189 H Calcium 8.6 PG Care Time/CCT Total # of Minutes Spent Total Time Spent with Patient: Total time spent is greater than 50% in coordination of care (as documented) at patient's floor/unit and/or counseling patient: Coding Level of Care Code 97674 SUB INP/OBS CARE 3/50MIN Diagnoses ESRD (end stage renal disease) on dialysis N18.6; Z99.2 Macular erythematous rash L53.8 Anemia due to chronic kidney disease N18.9; D63.1 HFrEF (heart failure with reduced ejection fraction) I50.20 Monocular vision loss H54.60
[2022-06-01] MEDS ORDERED: predniSONE 10 MG TABLET PO SCH (09:00)
[2022-06-01] MEDS: cefTRIAXone SODIUM 2,000 MG in DEXTROSE 5% 50 ML IV SCH (13:12)
--- NOTE | 2022-06-01 18:00 | Discharge Summary ---
Date of Service June 01, 2022 Admission HPI Per Admitting Provider This is a 66-year-old male with a history of ESRD, COPD, type 2 diabetes, peripheral arterial disease, CHF who presented to [facility] for evaluation of SOB. Patient was recently seen at [facility] (05/03-05/09) for his vitreous hemorrhage which caused a permannet loss of vision of his right eye. Patient has missed at least 2 dialysis session. Patient reports over past few days his SOB has worsened. Patient also reports that over this past week, his lower extremities have become more swollen and red. His legs are tender to palpation. Patient denies any fever, chills, nausea and vomiting. Principal Diagnosis acute and chronic systolic heart failure vasculitis dermatitis multiple wounds to lower extremeties esrd on dialysis Discharge Exam Patient looks chronically ill he is got a diffuse erythematous dermatitis on arms and legs. He got multiple open areas with eschar's on his lower extremities some of them are seeping. Patient does not wish to remain in the hospital and feels his can care for these at home. Patient was given for jno instructions about the possibility of getting infected and creating sepsis or significant infection Despite this he wished to go home Discharge Data Allergies Allergy/AdvReac Type Severity Reaction Status Date / Time No Known Allergies Allergy Verified 05/23/22 16:39 Consultations 05/29/22 08:09 ED Decision to Admit Stat 05/29/22 08:24 Consult Nephrology Routine 05/31/22 04:30 Consult Dermatology Routine Hospital Course (1) Acute respiratory failure with hypoxia: acute and serious risk improving SOB in a 66 yo male with ESRD Patient has missed at least 2 dialysis sessions a the time of admission. Patient had pleural effusions contributing to his SOB. consulted nephro to oversee dialysis on 05/29 and 05/31-> next scheduled dialysis is 06/04/22 consider 2 step at discharge (2) Diabetes mellitus with complication: Continue outpatient glycemic regiment of insulin sliding scale (3) HFrEF (heart failure with reduced ejection fraction): Chronic, moderate risk, affects sob when volume not optimized continue home meds including Entresto, metoprolol Plavix and apixaban Patient is having pleural effusions on exam. 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 Vasculopathy (less likely given that he has been anticoagulated on Eliquis and Plavix): 1) Punch biopsies x 3 taken from the right and left thigh today for DIF and H&E evaluation. Will follow-up results. 2) Change bandaids on biopsy sites once daily. 3) Sutures need to be removed from punch biopsy sites in 14 days. 4) Check ESR, CRP, MINISTERIO, ANCA, C3, C4, CH50, RF, cryoglobulins, Hepatitis C, HepBsAg 5) Start prednisone 40mg once daily x 7 days, then 30mg once daily x 7 days, then 20mg once daily x 7 days, then 10mg once daily x 7 days. (7) PAF (paroxysmal atrial fibrillation): Chronic and stable, continue home meds. rate appears controlled (8) History of venous thrombosis: Chronic and stable, continue anticoagulant (9) History of pleural effusion: (10) Vitreous hemorrhage: stable Total Time Total Time Spent Total Time Spent (In Minutes): It required greater than 30 minutes to prepare this patient for discharge Discharge Plan Discharge Items Patient Disposition: Home - Self-Care Reason For Visit: ESRD/ PLEURAL EFFUSION Discharge Diagnosis: vasculitis requiring daily attention end stage renal failure requiring continued dialysis Activity: Per Instructions section Activity Comment: elevate your legs as much as able Non-emergency contact: Primary Care Provider Call non-emergency contact if: your symptoms worsen Follow-up/Referrals: Rubina Naqvi DO [Primary Care Provider] - 06/02/22 8:20 am (Will see Tiffanie Singh PA-C) Diet: Dialysis Renal and Low Sodium (2gm) Addtl Attending Provider Instructions: wash your legs daily with mild soap and water, use antibiotic ointment on dry hardened areas replace wet dressings as much as needed continue to watch for signs of infection and if present seek medical attention immediately Pending Studies at Discharge: Yes (skin biospy and labs) Stand-Alone Forms: My [employer], Smoking Cessation Medications and DC Order Prescriptions: New oxycodone 10 mg tablet 10 mg PO TID PRN (Reason: pain) Qty: 30 0RF bacitracin zinc [Antibiotic (bacitracin zinc)] 500 unit/gram ointment 1 applic topical DAILY Qty: 28 0RF prednisone 10 mg tablet 10 mg PO DIRECTED Qty: 70 0RF Rx Instructions: 4 a day x 7d->3 a day x 7d->2 a day x 7d->1 a day Continued (DME) blood-glucose meter [OneTouch Ultra2 Meter] Misc See Rx Instructions .Route Qty: 1 0RF Rx Instructions: TEST BSG ONCE DAILY; DX CODE- E11.9 (DME) OneTouch Ultra Test Strip See Rx Instructions .Route Qty: 100 5RF Rx Instructions: TEST BSG ONCE DAILY; DX CODE- E11.9 (DME) lancets [OneTouch Delica Lancets] 33 gauge misc See Rx Instructions .Route Qty: 100 5RF Rx Instructions: TEST BSG ONCE DAILY; DX CODE- E11.9 (DME) Manual Wheelchair Device See Rx Instructions .Route Qty: 1 0RF Rx Instructions: As directed. albuterol sulfate 2.5 mg/0.5 mL solution for nebulization 2.5 mg inhalation QID PRN (Reason: shortness of breath or wheezing) Qty: 30 0RF cholecalciferol (vitamin D3) 50 mcg (2,000 unit) capsule 50 mcg PO HS insulin glargine [Lantus Solostar U-100 Insulin] 100 unit/mL (3 mL) insulin pen 10 unit subcut QPM Qty: 15 3RF cyclobenzaprine 10 mg tablet 10 mg PO BID PRN (Reason: Spasms) pramipexole 0.25 mg tablet 0.25 mg PO HS gabapentin 100 mg capsule 100 mg PO HS albuterol sulfate 90 mcg/actuation HFA aerosol inhaler 2 puff INHALATION Q4H PRN (Reason: Shortness Of Breath Or Wheezing) duloxetine 60 mg capsule,delayed release(DR/EC) 60 mg PO HS lanthanum 500 mg tablet,chewable 500 mg PO HS Eliquis 5 mg tablet 5 mg PO BID Rx Instructions: TAKES AT LUNCH & HS. Trelegy Ellipta 100-62.5-25 mcg blister with device 1 inh INHALATION HS Entresto 24-26 mg tablet 1 tab PO BID Qty: 60 0RF Rx Instructions: TAKES AT LUNCH & HS atorvastatin 10 mg tablet 10 mg PO HS metoprolol succinate 50 mg tablet extended release 24 hr 50 mg PO HS clopidogrel 75 mg tablet 75 mg PO HS lidocaine-prilocaine 2.5-2.5 % cream 1.5 g topical DIRECTED PRN (Reason: Pain) Discontinued cefazolin 1 gram recon soln 1 g IV DAILY 14 Days Qty: 25 0RF Rx Instructions: PER [facility] D/C- CONFIRMED MEDICATION AND DOSAGE WITH [facility]. INFUSIONS WILL OCCUR DAILY THROUGH 05/23/22. Discharge Orders: Discharge Order (Routine); Ordered 06/01/22 Ordered By: Leonard Kilgore Admission Data Admit Date/Time: 05/29/22 08:14 Attending Provider: Leonard Kilgore Admit Provider: Yovanny Peterson Primary Care Provider: Rubina Naqvi Other Providers: Yovanny Peterson ; Mike Turpin ; Babita Ornelas ; Christopher Yen Other Interventions: Discharge Summary Assessment (RN) Last Done: 06/01/22 12:29 Coding Level of Care Code 18138 INP/OBS DISCH >30 MIN Diagnoses Acute respiratory failure with hypoxia J96.01 Diabetes mellitus with complication E11.8 HFrEF (heart failure with reduced ejection fraction) I50.20 COPD (chronic obstructive pulmonary disease) J44.9 ESRD (end stage renal disease) on dialysis N18.6; Z99.2 Bilateral lower leg cellulitis L03.116; L03.115 PAF (paroxysmal atrial fibrillation) I48.0 History of venous thrombosis Z86.718 History of pleural effusion Z87.09 Vitreous hemorrhage H43.10
[2022-06-02] MEDS ORDERED: SODIUM CHLORIDE 0.9% 1000ML 1,000 ML IV PRN (07:00)
[2022-06-06 17:43] LABS: ANCA Screen ATYP P-ANCA POS (Negative); Anti Nuclear Antibody Screen NEGATIVE (NEGATIVE); Complement C3 81 mg/dL (82-185); Complement Total(CH50) 41 U/mL (31-60); HBSAG NON-REACTIVE (NON-REACTIVE); Myeloperoxidase Ab <1.0 AI (<1.0); Proteinase-3 AB <1.0 AI (<1.0); Rheumatoid Factor 109 IU/mL (<14)
[2022-06-08 00:22] LABS: % Cryocrit DNR; Cryoglobulin, QL Negative (Negative)
== END 2022-06-01 15:30 | disposition home health service (06) | DRG 291 ==
LOC: ED 05:55 → SUATTDRO 08:14 → OBSVTOIN 08:14 → 2S 08:14 → INTOOBSV 08:14 → 2S 12:12

== ENCOUNTER 2022-06-30 12:30 | Observation (INO) ==
[2022-06-30] MEDS ORDERED: ALBUT/IPRATROP 3MG/0.5MG NEB 3 ML VIAL NEB STA (12:58)
[2022-06-30] MEDS ORDERED: methylPREDNISolone 125 MG/2 ML VIAL IV STA (13:07)
--- NOTE | 2022-06-30 13:11 | Emergency Department Note ---
Impression & Plan SOB (shortness of breath), Pleural effusion, Missed dialysis, Acute hyperglycemia, Hyponatremia, Elevated troponin, Hypoxia ED Provider Note NAME: SENIA HUDDLESTON AGE: 66 SEX: M : 1955 ARRIVES VIA: Walk-In INFORMANT: [Patient] ED PROVIDER(S): [Chu Ta MD] CHIEF COMPLAINT: Shortness of breath HISTORY OF PRESENT ILLNESS: The patient is a 66-year-old male who goes to dialysis Sunday, Sunday and Sunday. Today, he was extremely short of breath and his dialysis was canceled. He was referred to the ER. Patient admits to some increasing shortness of breath for around 3 days. He admits that he is out of his inhalers and will not have access to new inhalers until next Sunday. The patient finished up a prednisone taper recently, he is not currently on a steroid or antibiotics. The patient does admit to cough, no fever. His shortness of breath is all the time but much worse with any type of exertion. He cannot function like this at home. The patient's pulmonary doctor has suggested home O2, this has not yet been arranged. PMHx/PSHx: See Below SOCIAL HISTORY: See Below. PHYSICAL EXAM: GENERAL: Patient is in no acute distress. HEENT: No acute trauma, normocephalic atraumatic, mucous membranes moist, no nasal congestion. NECK: No stridor, no adenopathy, no meningismus, trachea is midline. LUNGS: Diminished breath sounds bilaterally with wheezing bilaterally, there is an increased respiratory rate, no significant respiratory distress. HEART: Without murmurs gallops or rubs, regular rate and rhythm. ABDOMEN: Soft, nontender, bowel sounds positive, no peritonitis. EXTREMITIES: No cyanosis. He has bilateral wraps on his lower extremities with some moderate bilateral pedal edema NEUROLOGIC: Oriented x 3, no acute motor or sensory deficits, no focal weakness. SKIN: No rash, no jaundice, no diaphoresis. DIFFERENTIAL DIAGNOSIS: Exacerbation of COPD, fluid overload, CHF, electrolyte imbalance, anemia, pneumonia, [place], among others. EMERGENCY DEPARTMENT COURSE/PROCEDURES: Prior/Outside records reviewed: Recent discharge summary note. ECG per my interpretation: Indication was shortness of breath. The ECG shows a ventricular pacemaker with a rate of 92. A [place] beat was seen. There was no concerning ST elevation. The QTc was 531. Continuous Cardiac Monitoring per my interpretation: An order was placed for continuous cardiac monitoring. The monitor shows a rate of 97 with a ventricular pacemaker. Critical Care Note: I have personally spent 41 minutes of critical care time in the direct management of this patient. This includes bedside care, interpretation of diagnostic studies, and testing, discussion with consultants, patient, and family members, and other required patient management activities. This 41 minutes is in excess of all separately billable procedures. MEDICAL DECISION MAKING: There is no leukocytosis. The patient is anemic but this appears baseline when looking back at previous testing. There was a normal platelet count. Sodium was low at 131. Creatinine was high consistent with his dialysis need. Glucose was elevated at over 400. No concerning liver enzyme elevation. ECG showed a ventricular pacemaker, no obvious ischemia. Cardiac troponin was slightly elevated, this troponin elevation has been documented before and may be baseline for the patient. Chest film per my review shows some parenchymal congestion as well as a large left pleural effusion. The left pleural effusion had been seen on recent chest films. COVID, influenza and RSV test returned negative. On exam, the patient was wheezing, his breath sounds were diminished. Patient did develop hypoxia while here in the ED, O2 supplementation was initiated The patient was given IV Solu-Medrol, he was given a DuoNeb. He received IV insulin. The patient is in need of a hospital stay. He is quite short of breath with a large left pleural effusion. He missed dialysis today. He is hypoxic without O2 supplementation. He is hyperglycemic and will require IV insulin to control the blood blood sugar. I spoke with the patient, I talked to case management, the on-call hospitalist was consulted. The patient's dyspnea appears multifactorial. DISPOSITION: Patient's presentation and findings warrant a hospital stay. 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 Nonischemic cardiomyopathy PAF (paroxysmal atrial fibrillation) Peripheral arterial disease Proliferative diabetic retinopathy Venous stasis dermatitis Surgical History A-V fistula History of cardiac defibrillator placement (04/13/21) S/P arterial stent S/P transmetatarsal amputation of foot Family History Other Family history non-contributory Social History Smoking Status: Current every day smoker Tobacco Type: Cigarettes Age Started Using Tobacco: 11; packs per day: 1; Cigarettes Per Day: used to smoke 5PPD - recently cut back to 1; Second Hand Exposure: No; Hx Alcohol Use: No Hx Substance Use: Yes Prescribed Medications: Marijuana Preferred Language: Danish Communication Ability: Effective Visual Impairment: Partially Limited Hearing Ability: Hard of Hearing Lead Vulcanizing Operator Required: No Beliefs That Will Affect Care: None marital status: Current Living Situation: Spouse current occupational status: disabled Feels Safe at Home: Yes during the past year weight has: remained stable Dental Care, Regularly: No Physical Activity Frequency: Does not Exercise Assistive Devices: Cane and Walker Allergies Allergies Allergy/AdvReac Type Severity Reaction Status Date / Time No Known Allergies Allergy Verified 06/26/22 13:28 Home Meds Home Medications Medication Instructions Recorded Confirmed albuterol sulfate 90 mcg/actuation 2 puff inhalation Q4H PRN 04/16/22 06/26/22 aerosol inhaler Shortness Of Breath Or Wheezing apixaban 5 mg tablet (Eliquis) 5 mg PO BID 04/16/22 06/26/22 cyclobenzaprine 10 mg tablet 10 mg PO BID PRN Spasms 04/16/22 06/26/22 gabapentin 100 mg capsule 100 mg PO HS 04/16/22 06/26/22 lanthanum 500 mg chewable tablet 500 mg PO HS 04/16/22 06/26/22 pramipexole 0.25 mg tablet 0.25 mg PO HS 04/16/22 06/26/22 cholecalciferol (vitamin D3) 50 50 mcg PO HS 04/27/22 06/26/22 mcg (2,000 unit) capsule atorvastatin 10 mg tablet 10 mg PO HS 05/02/22 06/26/22 clopidogrel 75 mg tablet 75 mg PO HS 05/02/22 06/26/22 lidocaine-prilocaine 2.5 %-2.5 % 1.5 g topical DIRECTED PRN Pain 05/02/22 06/26/22 topical cream metoprolol succinate 50 mg 50 mg PO HS 05/02/22 06/26/22 tablet,extended release 24 hr Previous Rx's Medication Instructions Recorded sacubitril 24 mg-valsartan 26 mg 1 tab PO BID #60 tabs 04/23/22 tablet (Entresto) insulin glargine 100 unit/mL (3 10 unit (0.1 mL) subcut QPM #15 mL 04/27/22 mL) subcutaneous pen (Lantus Solostar U-100 Insulin) blood sugar diagnostic (OneTouch #100 ea 05/10/22 Ultra Test strips) blood-glucose meter (OneTouch #1 ea 05/10/22 Ultra2 Meter) lancets 33 gauge (OneTouch Delica #100 ea 05/10/22 Lancets) Wheelchair (Manual) (Manual #1 ea 05/19/22 Wheelchair) bacitracin zinc 500 unit/gram 1 applic topical DAILY #28 grams 06/01/22 topical ointment (Antibiotic (bacitracin zinc)) oxycodone 10 mg tablet 10 mg PO TID PRN pain #30 tabs 06/01/22 prednisone 10 mg tablet 10 mg PO DIRECTED #70 tabs 06/01/22 Lift Chair #1 ea 06/09/22 diaper,brief,adult,disposable #30 ea 06/09/22 (Briefs, Adult-Extra Large) duloxetine 60 mg capsule,delayed 60 mg PO DAILY #90 caps 06/09/22 release hydroxyzine pamoate 25 mg capsule 25 mg PO Q8H PRN anxiety #60 caps 06/09/22 (Vistaril) albuterol sulfate 2.5 mg/0.5 mL 2.5 mg (0.5 mL) inhalation QID PRN 06/30/22 solution for nebulization shortness of breath or wheezing #30 ea fluticasone fur. 100 mcg-umeclid 1 inh inhalation HS #60 ea 06/30/22 62.5 mcg-vilant 25 mcg inhalat.powder (Trelegy Ellipta) Results & Data (ED) Vital Signs Vital Signs - 24 hr 06/30/22 12:35 06/30/22 13:17 06/30/22 13:17 Temperature 36.9 C Temperature Source Temporal Artery Scan Pulse Rate 97 H 86 Pulse Rate [Right Apical] 86 Pulse Rate from SpO2 Sensor Pulse Rhythm Regular Pulse Strength Normal Respiratory Rate 22 20 20 Respiratory Effort / Characteristics Non-Labored Spontaneous Non-Labored Spontaneous Respiratory Depth Normal Normal Respiratory Pattern Regular Regular Blood Pressure 120/71 Blood Pressure [Left Arm] 117/79 Blood Pressure Mean 87 Blood Pressure Mean [Left Arm] 91 Blood Pressure Position Sitting Pulse Oximetry 93 92 92 Oxygen Delivery Method Room Air Room Air Room Air Sepsis Recent Fever Within 48 Hours No Sepsis New/Unexplained Change in Mental Status No Sepsis Action Taken by Nursing No Action Required Oxygen Flow Rate - Titration Pulse Oximetry Post Tiitration 06/30/22 13:17 06/30/22 13:17 06/30/22 13:30 Temperature Temperature Source Pulse Rate 86 85 Pulse Rate [Right Apical] Pulse Rate from SpO2 Sensor 85 Pulse Rhythm Pulse Strength Respiratory Rate 20 16 Respiratory Effort / Characteristics Respiratory Depth Respiratory Pattern Blood Pressure 117/79 127/87 Blood Pressure [Left Arm] Blood Pressure Mean 91 100 Blood Pressure Mean [Left Arm] Blood Pressure Position Pulse Oximetry 92 92 99 Oxygen Delivery Method Room Air Room Air Nebulizer Sepsis Recent Fever Within 48 Hours Sepsis New/Unexplained Change in Mental Status Sepsis Action Taken by Nursing Oxygen Flow Rate - Titration Pulse Oximetry Post Tiitration 06/30/22 14:16 06/30/22 14:16 06/30/22 14:30 Temperature Temperature Source Pulse Rate 89 87 Pulse Rate [Right Apical] Pulse Rate from SpO2 Sensor Pulse Rhythm Pulse Strength Respiratory Rate 24 22 Respiratory Effort / Characteristics Respiratory Depth Respiratory Pattern Blood Pressure Blood Pressure [Left Arm] Blood Pressure Mean Blood Pressure Mean [Left Arm] Blood Pressure Position Pulse Oximetry 83 L 96 87 L Oxygen Delivery Method Room Air Room Air Room Air Sepsis Recent Fever Within 48 Hours Sepsis New/Unexplained Change in Mental Status Sepsis Action Taken by Nursing Oxygen Flow Rate - Titration 2 Pulse Oximetry Post Tiitration 94 Home Medications Current Medication List: was personally reviewed by me Laboratory Data Attestation: I reviewed the patient's lab results. 06/30/22 13:00 06/30/22 13:00 Lab Results 06/30/22 06/30/22 06/30/22 Range/Units 13:00 13:00 13:00 WBC 7.53 (4.8-10.8) K/ul RBC 3.79 L (4.70-6.10) M/uL Hgb 11.3 L (14.0-18.0) g/dl Hct 34.6 L (42.0-52.0) % MCV 91.3 (80.0-100.0) fL MCH 29.8 (25.0-34.0) pg MCHC 32.7 (32.0-36.0) g/dL RDW Std Deviation 60.1 H (36.4-46.3) fL RDW Coeff of [place] 18.2 H (11.5-14.5) % Plt Count 189 (130-400) K/uL MPV 10.4 (9.4-12.4) fL Immature Gran % (Auto) 1.2 % Neut % (Auto) 84.4 % Lymph % (Auto) 5.4 % [place] % (Auto) 7.8 % Eos % (Auto) 0.7 % Baso % (Auto) 0.5 % Neut # (Auto) 6.35 (1.40-6.50) K/uL Lymph # (Auto) 0.41 L (1.2-3.4) K/uL [place] # (Auto) 0.59 (0.11-0.59) K/uL Eos # (Auto) 0.05 (0-0.50) K/uL Baso # (Auto) 0.04 (0-0.2) K/uL Immature Gran # (Auto) 0.09 (0.01-0.20) K/uL PT Cancelled INR Cancelled APTT Cancelled PTT Ratio Cancelled Sodium 131 L (136-145) mmol/L Potassium 4.9 (3.5-5.1) mmol/L Chloride 93 L (98-107) mmol/L Carbon Dioxide 29 (21-32) mmol/L Anion Gap 9 (3-11) BUN 34 H (6-23) mg/dl Creatinine 4.97 H* (0.6-1.4) mg/dl Est Cr Clr Drug Dosing 15.9 ml/min Est GFR ( Amer) 13.0 ml/min Est GFR (Non-Af Amer) 11.2 ml/min BUN/Creatinine Ratio 6.8 L (10-20) Glucose 418 H* (70-99(Fasting)) mg/dl Calcium 8.3 L (8.6-10.3) mg/dl Phosphorus 4.8 (2.5-4.9) mg/dl Magnesium 2.4 (1.7-2.4) mg/dl Total Bilirubin 1.6 H (0.2-1.0) mg/dl AST 13 (13-39) U/L ALT 9 (7-52) U/L Alkaline Phosphatase 103 (34-104) U/L Troponin I High Sens 41.8 H (0-20) pg/ml Total Protein 6.6 (6.0-8.3) gm/dl Albumin 3.1 L (3.4-5.0) gm/dl Globulin 3.5 (2.5-4.0) gm/dl Albumin/Globulin Ratio 0.9 (0.9-2) SARS-CoV-2 (PCR) (Negative) Influenza Type A (PCR) (Neg) Influenza Type B (PCR) (Neg) RSV (RT-PCR) (Neg) 06/30/22 Range/Units 13:27 WBC (4.8-10.8) K/ul RBC (4.70-6.10) M/uL Hgb (14.0-18.0) g/dl Hct (42.0-52.0) % MCV (80.0-100.0) fL MCH (25.0-34.0) pg MCHC (32.0-36.0) g/dL RDW Std Deviation (36.4-46.3) fL RDW Coeff of [place] (11.5-14.5) % Plt Count (130-400) K/uL MPV (9.4-12.4) fL Immature Gran % (Auto) % Neut % (Auto) % Lymph % (Auto) % [place] % (Auto) % Eos % (Auto) % Baso % (Auto) % Neut # (Auto) (1.40-6.50) K/uL Lymph # (Auto) (1.2-3.4) K/uL [place] # (Auto) (0.11-0.59) K/uL Eos # (Auto) (0-0.50) K/uL Baso # (Auto) (0-0.2) K/uL Immature Gran # (Auto) (0.01-0.20) K/uL PT INR APTT PTT Ratio Sodium (136-145) mmol/L Potassium (3.5-5.1) mmol/L Chloride (98-107) mmol/L Carbon Dioxide (21-32) mmol/L Anion Gap (3-11) BUN (6-23) mg/dl Creatinine (0.6-1.4) mg/dl Est Cr Clr Drug Dosing ml/min Est GFR ( Amer) ml/min Est GFR (Non-Af Amer) ml/min BUN/Creatinine Ratio (10-20) Glucose (70-99(Fasting)) mg/dl Calcium (8.6-10.3) mg/dl Phosphorus (2.5-4.9) mg/dl Magnesium (1.7-2.4) mg/dl Total Bilirubin (0.2-1.0) mg/dl AST (13-39) U/L ALT (7-52) U/L Alkaline Phosphatase (34-104) U/L Troponin I High Sens (0-20) pg/ml Total Protein (6.0-8.3) gm/dl Albumin (3.4-5.0) gm/dl Globulin (2.5-4.0) gm/dl Albumin/Globulin Ratio (0.9-2) SARS-CoV-2 (PCR) NEGATIVE (Negative) Influenza Type A (PCR) Negative (Neg) Influenza Type B (PCR) Negative (Neg) RSV (RT-PCR) Negative (Neg) Administered Medications Discontinued Medications Albuterol (Albut/Ipratrop 3mg/0.5mg Neb 3 Ml Vial) 3 ml NEB NOW STA; Protocol Stop: 06/30/22 12:59 Last Admin: 06/30/22 13:23 Dose: 3 ml Documented By: JAYJAY Insulin Human Regular (Novolin-R Insulin Per Unit Charge) 10 units IV NOW STA Stop: 06/30/22 14:04 Last Admin: 06/30/22 14:22 Dose: 10 units Documented By: JAYJAY Co-signed By: MINOO Methylprednisolone (Methylprednisolone 125 Mg/2 Ml Vial) 125 mg IV NOW STA Stop: 06/30/22 13:08 Last Admin: 06/30/22 13:23 Dose: 125 mg Documented By: JAYJAY Imaging Data Radiologist's Impression: Chest X-Ray 06/30/22 12:59 XR chest 1V portable HISTORY: 66 years-old Male Dyspnea acute shortness of breath COMPARISON: 05/29/2022 TECHNIQUE: AP view the chest FINDINGS: Cardiac silhouette is enlarged. Left subclavian pacer/AICD. Pulmonary vascular congestion with interstitial coarsening again noted. Moderate left with small right pleural effusions and bibasilar consolidation is similar to prior. Bones appear grossly intact. No pneumothorax. IMPRESSION: 1. Cardiomegaly with pulmonary edema. 2. Unchanged appearance of the moderate left and small right pleural effusions with bibasilar consolidation. ACT 112: Negative or not required by law. The above report was generated using voice recognition software. It may contain grammatical, syntax or spelling errors. Electronically signed by: Christoph Palmer M.D. 06/30/2022 1:13 PM Discharge Plan Visit Data Chief Complaint: Shortness of Breath/Dyspnea Stated Complaint: SOB, REF BY DIALYSIS ED Provider: Chu Ta Discharge Problem: SOB (shortness of breath), Pleural effusion, Missed dialysis, Acute hyperglycemia, Hyponatremia, Elevated troponin, Hypoxia Patient Disposition: Admitted As Inpatient Condition: Fair Forms Stand Alone Forms: [email or web address] Prescriptions Prescriptions: No Action (DME) blood-glucose meter [OneTouch Ultra2 Meter] Misc See Rx Instructions .Route Qty: 1 0RF Rx Instructions: TEST BSG ONCE DAILY; DX CODE- E11.9 (DME) OneTouch Ultra Test Strip See Rx Instructions .Route Qty: 100 5RF Rx Instructions: TEST BSG ONCE DAILY; DX CODE- E11.9 (DME) lancets [OneTouch Delica Lancets] 33 gauge misc See Rx Instructions .Route Qty: 100 5RF Rx Instructions: TEST BSG ONCE DAILY; DX CODE- E11.9 (DME) Manual Wheelchair Device See Rx Instructions .Route Qty: 1 0RF Rx Instructions: As directed. albuterol sulfate 2.5 mg/0.5 mL solution for nebulization 2.5 mg inhalation QID PRN (Reason: shortness of breath or wheezing) Qty: 30 0RF Trelegy Ellipta 100-62.5-25 mcg blister with device 1 inh INHALATION HS Qty: 60 5RF cholecalciferol (vitamin D3) 50 mcg (2,000 unit) capsule 50 mcg PO HS insulin glargine [Lantus Solostar U-100 Insulin] 100 unit/mL (3 mL) insulin p en 10 unit subcut QPM Qty: 15 3RF hydroxyzine pamoate [Vistaril] 25 mg capsule 25 mg PO Q8H PRN (Reason: anxiety) Qty: 60 0RF duloxetine 60 mg capsule,delayed release(DR/EC) 60 mg PO DAILY Qty: 90 0RF (DME) Briefs, Adult-Extra Large Misc See Rx Instructions .Route Qty: 30 5RF Rx Instructions: As directed (DME) Lift Chair Misc See Rx Instructions .Route Qty: 1 0RF Rx Instructions: As directed cyclobenzaprine 10 mg tablet 10 mg PO BID PRN (Reason: Spasms) pramipexole 0.25 mg tablet 0.25 mg PO HS gabapentin 100 mg capsule 100 mg PO HS albuterol sulfate 90 mcg/actuation HFA aerosol inhaler 2 puff INHALATION Q4H PRN (Reason: Shortness Of Breath Or Wheezing) lanthanum 500 mg tablet,chewable 500 mg PO HS Eliquis 5 mg tablet 5 mg PO BID Rx Instructions: TAKES AT LUNCH & HS. Entresto 24-26 mg tablet 1 tab PO BID Qty: 60 0RF Rx Instructions: TAKES AT LUNCH & HS oxycodone 10 mg tablet 10 mg PO TID PRN (Reason: pain) Qty: 30 0RF bacitracin zinc [Antibiotic (bacitracin zinc)] 500 unit/gram ointment 1 applic topical DAILY Qty: 28 0RF prednisone 10 mg tablet 10 mg PO DIRECTED Qty: 70 0RF Rx Instructions: 4 a day x 7d->3 a day x 7d->2 a day x 7d->1 a day atorvastatin 10 mg tablet 10 mg PO HS metoprolol succinate 50 mg tablet extended release 24 hr 50 mg PO HS clopidogrel 75 mg tablet 75 mg PO HS lidocaine-prilocaine 2.5-2.5 % cream 1.5 g topical DIRECTED PRN (Reason: Pain) Referrals Referrals: Rubina Naqvi DO [Primary Care Provider] -
--- NOTE | 2022-06-30 13:15 | XRay Report ---
XR chest 1V portable HISTORY: 66 years-old Male Dyspnea acute shortness of breath COMPARISON: 05/29/2022 TECHNIQUE: AP view the chest FINDINGS: Cardiac silhouette is enlarged. Left subclavian pacer/AICD. Pulmonary vascular congestion with inters titial coarsening again noted. Moderate left with small right pleural effusions and bibasilar consoli dation is similar to prior. Bones appear grossly intact. No pneumothorax. IMPRESSION: 1. Cardiomegaly with pulmonary edema. 2. Unchanged appearance of the moderate left and small right pleural effusions with bibasilar consoli dation. ACT 112: Negative or not required by law. The above report was generated using voice recognition software. It may contain grammatical, syntax o r spelling errors. Electronically signed by: Christoph Palmer M.D. 06/30/2022 1:13 PM
[2022-06-30 13:38] LABS: Basophils # (auto) 0.04 K/uL (0-0.2); Basophils % (auto) 0.5 %; Eosinophils # (auto) 0.05 K/uL (0-0.50); Eosinophils % (auto) 0.7 %; Hematocrit (blood only) 34.6 % (42.0-52.0); Hemoglobin 11.3 g/dl (14.0-18.0); Immature Granulocytes # (auto) 0.09 K/uL (0.01-0.20); Immature Granulocytes % (auto) 1.2 %; Lymphocytes # (auto) 0.41 K/uL (1.2-3.4); Lymphocytes % (auto) 5.4 %; Mean Corpuscular Hemoglobin 29.8 pg (25.0-34.0); Mean Corpuscular Hgb Conc 32.7 g/dL (32.0-36.0); Mean Corpuscular Volume 91.3 fL (80.0-100.0); Mean Platelet Volume 10.4 fL (9.4-12.4); Monocytes # (auto) 0.59 K/uL (0.11-0.59); Monocytes % (auto) 7.8 %; Neutrophils # (auto) 6.35 K/uL (1.40-6.50); Neutrophils % (auto) 84.4 %; Platelet Count 189 K/uL (130-400); RDW Coefficient of Variation 18.2 % (11.5-14.5); RDW Standard Deviation 60.1 fL (36.4-46.3); Red Blood Count 3.79 M/uL (4.70-6.10); White Blood Count 7.53 K/ul (4.8-10.8)
[2022-06-30] MEDS ORDERED: NovoLIN-R INSULIN PER UNIT CHARGE IV STA (14:03)
[2022-06-30 14:13] LABS: Albumin Globulin Ratio 0.9 (0.9-2); Albumin Level 3.1 gm/dl (3.4-5.0); BUN Creatinine Ratio 6.8 (10-20); Bilirubin,Total 1.6 mg/dl (0.2-1.0); Calcium 8.3 mg/dl (8.6-10.3); Creatinine Clr Calc Pharmacy 15.9 ml/min; Est GFR (Non-African American) 11.2 ml/min; Globulin 3.5 gm/dl (2.5-4.0); Magnesium 2.4 mg/dl (1.7-2.4); Phosphorus 4.8 mg/dl (2.5-4.9); Potassium 4.9 mmol/L (3.5-5.1); Total Protein 6.6 gm/dl (6.0-8.3); Troponin I High Sensitivity 41.8 pg/ml (0-20)
[2022-06-30 14:36] LABS: Influenza A virus by PCR Negative (Neg); Influenza B virus by PCR Negative (Neg); RSV by PCR Negative (Neg); SARS CoV2 RNA(COVID-19) Ceph NEGATIVE (Negative)
--- NOTE | 2022-06-30 14:45 | History & Physical Report ---
Date of Service June 30, 2022 Assessment & Plan (1) Acute and chronic respiratory failure with hypoxia: Plan: Acute hypoxic respiratory failure ?COPD VS CHF in setting of ESRD-DD With PFTs showing restrictive disease and reduced DLCO as noted below. Patient was pending testing and set up for outpatient oxygen but has not yet done last Clinically volume overloaded. Has had pleural effusions before which were drained and gave brief symptomatic improvement, however in setting of heart failure dialysis dependent is likely transudative and Patient with severe exertional dyspnea and hypoxia. On 2 L nasal cannula satting well on room air Treatment of COPD, ESRD with fluid overload, CHF as noted below. Overall acute on chronic respiratory failure multifactorial (2) ESRD (end stage renal disease): Plan: ESRD hx DM2 Nephrology consulted. Anticipate dialysis session this afternoon, short session due to availability and then full session tomorrow Dialysis dosing Renal diet BMP daily - No indication for epo at this time (3) HFrEF (heart failure with reduced ejection fraction): Plan: Acute on chronic CHF - Echo 05/2022 EF 25-30%, LV SF moderate to severely reduced with global hypokinesis With AICD in place, reduced EF Fluid management with dialysis. Patient used to take Lasix, makes less than 500 cc of urine per day and was taken off of this previously Dialysis anticipated this afternoon for short session, and then repeat session tomorrow as noted Continue metoprolol, Entresto, Plavix, atorvastatin (4) COPD (chronic obstructive pulmonary disease): Plan: COPD PFTs 12/2021: Moderate restrictive disease with preserved ratio. FVC 2.74 (64%), FEV1 1.89 (58%), FEV1/FVC 69 (89% predicted) DLCO 43% predicted Patient is with reactive wheezing and COPD symptoms, however PFTs are consistent with restrictive rather than obstructive disease -Patient ran out of ModaMi several days approximately 1 week ago and has not been using. Just received today. Will convert formulary equivalent and continue DuoNebs every 4 hours as needed Flutter valve, incentive spirometry Do not hyperoxygenated, target SPO2 89-94% VBG pending DDx includes acute exacerbation, may also be cardiac wheeze with volume overload. Doxy 100 mg twice daily x5 days started given acute worsened symptoms, azithromycin deferred as QT is prolonged (5) Diabetes mellitus with complication: Plan: Type II DM BSG 481 on admit, recieved 10u IV insulin in ER -Potassium 4.9 on admission 1 hour repeat pending Patient on home glargine 10 units every afternoon Patient recently on steroids for respiratory exacerbation - Prednisone for SoB last week, finished 1 week ago Basal bolus SSI versus insulin gtt. based on clinical response to initial IV treatment in ER - Weight-based calculation: Basal 8 units twice daily, correction factor 50, carb ratio 17 (6) Arterial leg ulcer: Plan: Chronic lower extremity wounds/ulceration with bony exposure - PAD s/p LEFT SFA stend 09/17/20 - R brachiocephalic AV fisula August 2021 with MWF dialysis - Vascular f/u 06/15/22 showed patent SFA stent, edema 2/2 HF with additional chronic venous stasis. Photos updated in chart, see admitting H&P patient reports his prior cellulitis has completely resolved and has not worsened, no warmth/tenderness/erythema rec ently. 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 Cannot even walk from couch to door/car which is only 15-20 steps. Pending home oxygen but had not been set up yet. Wheezing grealty increased for 1 day. Started yesterday morning. Increased cough x24 hours, nonproductive wet sounding. Filled albuterol yesterday. Had been using albuterol inhaler 8-10 times this morning which 'just barely got me through.' Has been out of trelegy for a few days, ~1 week. Refill just coming into the pharmacy today. No chest pain, no chest pressure. Has felt 'a little tight' in chest and ribs intermittently but denies chest pain/squeezing/pressur e. Last thorocentesis was 8-10 months ago. Helped 'for a while, but had to go back again 8 weeks again and got fluid take off again then treated me with medicines.' Still makes a small amount of urine every day. Thinks about 500cc today per day. On eliquis. No problems with bleeding as long as he does not get cuts. No melena. Medical History: Reviewed Medications: Reviewed Surgical History: Reviewed Family history: Reviewed Allergies: Reviewed Social History: Reviewed Code Status: Full code Allergies Allergy/AdvReac Type Severity Reaction Status Date / Time No Known Allergies Allergy Verified 06/26/22 13:28 Home Medications Medication Instructions Recorded Confirmed Type albuterol sulfate 90 mcg/actuation 2 puff inhalation Q4H PRN 04/16/22 06/26/22 History aerosol inhaler Shortness Of Breath Or Wheezing apixaban 5 mg tablet (Eliquis) 5 mg PO BID 04/16/22 06/26/22 History cyclobenzaprine 10 mg tablet 10 mg PO BID PRN Spasms 04/16/22 06/26/22 History gabapentin 100 mg capsule 100 mg PO HS 04/16/22 06/26/22 History lanthanum 500 mg chewable tablet 500 mg PO HS 04/16/22 06/26/22 History pramipexole 0.25 mg tablet 0.25 mg PO HS 04/16/22 06/26/22 History sacubitril 24 mg-valsartan 26 mg 1 tab PO BID #60 tabs 04/23/22 06/26/22 Rx tablet (Entresto) cholecalciferol (vitamin D3) 50 50 mcg PO HS 04/27/22 06/26/22 History mcg (2,000 unit) capsule insulin glargine 100 unit/mL (3 10 unit (0.1 mL) subcut QPM #15 mL 04/27/22 06/26/22 Rx mL) subcutaneous pen (Lantus Solostar U-100 Insulin) atorvastatin 10 mg tablet 10 mg PO HS 05/02/22 06/26/22 History clopidogrel 75 mg tablet 75 mg PO HS 05/02/22 06/26/22 History lidocaine-prilocaine 2.5 %-2.5 % 1.5 g topical DIRECTED PRN Pain 05/02/22 06/26/22 History topical cream metoprolol succinate 50 mg 50 mg PO HS 05/02/22 06/26/22 History tablet,extended release 24 hr blood sugar diagnostic (OneTouch #100 ea 05/10/22 06/26/22 Rx Ultra Test strips) blood-glucose meter (OneTouch #1 ea 05/10/22 06/26/22 Rx Ultra2 Meter) lancets 33 gauge (OneTouch Delica #100 ea 05/10/22 06/26/22 Rx Lancets) Wheelchair (Manual) (Manual #1 ea 05/19/22 06/26/22 Rx Wheelchair) bacitracin zinc 500 unit/gram 1 applic topical DAILY #28 grams 06/01/22 06/26/22 Rx topical ointment (Antibiotic (bacitracin zinc)) oxycodone 10 mg tablet 10 mg PO TID PRN pain #30 tabs 06/01/22 06/26/22 Rx prednisone 10 mg tablet 10 mg PO DIRECTED #70 tabs 06/01/22 06/26/22 Rx Lift Chair #1 ea 06/09/22 06/26/22 Rx diaper,brief,adult,disposable #30 ea 06/09/22 06/26/22 Rx (Briefs, Adult-Extra Large) duloxetine 60 mg capsule,delayed 60 mg PO DAILY #90 caps 06/09/22 06/26/22 Rx release hydroxyzine pamoate 25 mg capsule 25 mg PO Q8H PRN anxiety #60 caps 06/09/22 06/26/22 Rx (Vistaril) albuterol sulfate 2.5 mg/0.5 mL 2.5 mg (0.5 mL) inhalation QID PRN 06/30/22 Rx solution for nebulization shortness of breath or wheezing #30 ea fluticasone fur. 100 mcg-umeclid 1 inh inhalation HS #60 ea 06/30/22 Rx 62.5 mcg-vilant 25 mcg inhalat.powder (Trelegy Ellipta) 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 Nonischemic cardiomyopathy PAF (paroxysmal atrial fibrillation) Peripheral arterial disease Proliferative diabetic retinopathy Venous stasis dermatitis Surgical History A-V fistula History of cardiac defibrillator placement (04/13/21) S/P arterial stent L femoral artery stent S/P transmetatarsal amputation of foot L foot Family History Other Family history non-contributory Social History Smoking Status: Current every day smoker Tobacco Type: Cigarettes Age Started Using Tobacco: 11; packs per day: 1; Cigarettes Per Day: used to smoke 5PPD - recently cut back to 1; Second Hand Exposure: No; Hx Alcohol Use: No Hx Substance Use: Yes Prescribed Medications: Marijuana Preferred Language: Korean Communication Ability: Effective Visual Impairment: Partially Limited Hearing Ability: Hard of Hearing 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 NAD. Cooperative. HEENT: Atraumatic, normocephalic. JOB. Vision intact, [place]. Pulm: Diminished in bases, High pitched inspiratory wheeze, trace expiratory wheeze RLL>Left. Symmetrical chest rise, no distress Cardiac: RRR, -mrg. Radial pulses intact and symmetrical. Abdominal: Nontender, nondistended, soft. BS present. Ext: See photos. No warmth/erythema and improved from prior cellulitis per pt Results & Data Results & Data Vital Signs (Past 12 Hours) Vital Signs Temp Pulse Pulse Resp BP BP Pulse Ox 06/30/22 14:30 87 L 03/31/23 14:16 87 22 96 06/30/22 14:16 89 24 83 L 06/30/22 13:30 85 16 127/87 99 06/30/22 13:17 86 20 117/79 92 06/30/22 13:17 92 06/30/22 13:17 86 20 92 06/30/22 13:17 86 20 117/79 92 06/30/22 12:35 36.9 C 97 H 22 120/71 93 O2 Del Method 06/30/22 14:30 Room Air 06/30/22 14:16 Room Air 06/30/22 14:16 Room Air 06/30/22 13:30 Nebulizer 06/30/22 13:17 Room Air 06/30/22 13:17 Room Air 06/30/22 13:17 Room Air 06/30/22 13:17 Room Air 06/30/22 12:35 Room Air PG Care Time/CCT Total # of Minutes Spent Total Time Spent with Patient: Total time spent is greater than 50% in coordination of care (as documented) at patient's floor/unit and/or counseling patient: Coding Level of Care Code 14935 INT INP/OBS CARE 3/75MIN Diagnoses Acute and chronic respiratory failure with hypoxia J96.21 ESRD (end stage renal disease) N18.6 HFrEF (heart failure with reduced ejection fraction) I50.20 COPD (chronic obstructive pulmonary disease) J44.9 Diabetes mellitus with complication E11.8 Arterial leg ulcer L97.909 Nonischemic cardiomyopathy I42.8 PAF (paroxysmal atrial fibrillation) I48.0 ESRD (end stage renal disease) on dialysis N18.6; Z99.2
[2022-06-30 14:49] LABS: INR 1.2 (0.9-1.1); Partial Thromboplastin Ratio 1.1; Partial Thromboplastin Time 28.9 Seconds (21.0-31.0); Prothrombin Time 12.3 Seconds (9.0-12.0)
--- NOTE | 2022-06-30 14:55 | Electrocardiogram Report ---
Test Reason : Blood Pressure : / mmHG Vent. Rate : 092 BPM Atrial Rate : 092 BPM P-R Int : 154 ms QRS Dur : 124 ms QT Int : 430 ms P-R-T Axes : 062 -67 093 degrees QTc Int : 531 ms Atrial-sensed ventricular-paced rhythm with occasional Premature ventricular complexes Biventricular pacemaker detected Abnormal ECG When compared with ECG of 29-MAY-2022 06:07, Premature ventricular complexes are now Present Vent. rate has decreased BY 3 BPM Confirmed by Frankie Jenkins ([id number]) on 06/30/2022 2:55:40 PM Referred By: REFERRED SELF Confirmed By:Frankie Jenkins
--- NOTE | 2022-06-30 15:03 | Nephrology Consultation ---
Date of Consultation June 30, 2022 Assessment & Plan (1) ESRD (end stage renal disease) on dialysis: (2) Bilateral lower leg cellulitis: (3) Anemia due to chronic kidney disease: (4) Hypoxia: (5) SOB (shortness of breath): (6) Pleural effusion: (7) Missed dialysis: Plan ESRD on hemodialysis, admitted with volume overload, respiratory failure and hypoxia with COPD and missed dialysis. On dialysis Sunday, Sunday, Sunday, last dialysis was Sunday. CXR showed bilateral moderate pulmonary pleural effusion and pulmonary vascular congestion. O2 sat was 87 % on supplemental O2. lab showed hyponatremia, normal potassium. Hb >11 Blood pressure was well controlled. -- emergency Dialysis now to improve volume status and respiratory distress, will get dialysis prescription from outpatient dialysis unit. -- Fluid restriction to less than 1200 mL per day, avoid high potassium food -- dose medications for eGFR less than 10, RT UE nephrology precaution ( AVF) -- continue nephro caps, PhosLo as phosphate binder while inpatient Will follow Thank you for allowing me to participate in your patient's care. It was a pleasure to see Cooper. History of Present Illness Reason for Consultation: ESRD on hemodialysis. Attending Physician: Yovanny Peterson History of Present Illness Mr. Fernando Sanchez is a 66yo male with PMH of ESRD on HD q //, COPD, CAD, DM, CHF presented to ER with SOB, hypoxic respiratory failure, missed dialysis. Nephrology consult requested to provide emergency hemodialysis for hypoxic respiratory failure. EMR records were reviewed in detail during patient's visit. Cooper presented with complain of progressing shortness of breath for around 3 days and he went for regular HD but his dialysis was canceled and he was referred to the ER. He was also out of his inhalers. Has COPD and he finished up a course of prednisone taper recently, he is not currently on a steroid or antibiotics. He also has been having cough but no fever.He was recently in the process of getting home O2 for severe COPD. In ER CXR showed bilateral moderate pulmonary pleural effusion and pulmonary vascular congestion. O2 sat was 87 % on supplemental O2. lab showed hyponatremia, normal potassium. Hb >11 Blood pressure was well controlled. ESRD secondary to DM nephropathy for last 1 year, dialysis at [facility] via Rt brachiocephalic AV fistula, on ,, but he has been having irregular schedule because of missed HD last week. He missed HD last Sunday and had HD Sunday and Sunday then he was supposed to have HD today but since he was having significant SOB, they advised him to go to ER. PMH significant for nonischemic cardiomyopathy s/p AICD in place, on Entresto, P A fib on Eliquis, HTN, DM with proliferative retinopathy, chronic diabetic foot ulcer, osteomyelitis and repeated episodes of cellulitis and multiple hospitalization last few months, follows with wound care, PVD, COPD. Has recurrent left pleural effusion, previously had pleural tap. Blood pressure stable, na 131 Allergies Allergy/AdvReac Type Severity Reaction Status Date / Time No Known Allergies Allergy Verified 06/26/22 13:28 Home Medications Medication Instructions Recorded Confirmed Type albuterol sulfate 90 mcg/actuation 2 puff inhalation Q4H PRN 04/16/22 06/26/22 History aerosol inhaler Shortness Of Breath Or Wheezing apixaban 5 mg tablet (Eliquis) 5 mg PO BID 04/16/22 06/26/22 History cyclobenzaprine 10 mg tablet 10 mg PO BID PRN Spasms 04/16/22 06/26/22 History gabapentin 100 mg capsule 100 mg PO HS 04/16/22 06/26/22 History lanthanum 500 mg chewable tablet 500 mg PO HS 04/16/22 06/26/22 History pramipexole 0.25 mg tablet 0.25 mg PO HS 04/16/22 06/26/22 History sacubitril 24 mg-valsartan 26 mg 1 tab PO BID #60 tabs 04/23/22 06/26/22 Rx tablet (Entresto) cholecalciferol (vitamin D3) 50 50 mcg PO HS 04/27/22 06/26/22 History mcg (2,000 unit) capsule insulin glargine 100 unit/mL (3 10 unit (0.1 mL) subcut QPM #15 mL 04/27/22 06/26/22 Rx mL) subcutaneous pen (Lantus Solostar U-100 Insulin) atorvastatin 10 mg tablet 10 mg PO HS 05/02/22 06/26/22 History clopidogrel 75 mg tablet 75 mg PO HS 05/02/22 06/26/22 History lidocaine-prilocaine 2.5 %-2.5 % 1.5 g topical DIRECTED PRN Pain 05/02/22 06/26/22 History topical cream metoprolol succinate 50 mg 50 mg PO HS 05/02/22 06/26/22 History tablet,extended release 24 hr blood sugar diagnostic (OneTouch #100 ea 05/10/22 06/26/22 Rx Ultra Test strips) blood-glucose meter (OneTouch #1 ea 05/10/22 06/26/22 Rx Ultra2 Meter) lancets 33 gauge (OneTouch Delica #100 ea 05/10/22 06/26/22 Rx Lancets) Wheelchair (Manual) (Manual #1 ea 05/19/22 06/26/22 Rx Wheelchair) bacitracin zinc 500 unit/gram 1 applic topical DAILY #28 grams 06/01/22 06/26/22 Rx topical ointment (Antibiotic (bacitracin zinc)) oxycodone 10 mg tablet 10 mg PO TID PRN pain #30 tabs 06/01/22 06/26/22 Rx prednisone 10 mg tablet 10 mg PO DIRECTED #70 tabs 06/01/22 06/26/22 Rx Lift Chair #1 ea 06/09/22 06/26/22 Rx diaper,brief,adult,disposable #30 ea 06/09/22 06/26/22 Rx (Briefs, Adult-Extra Large) duloxetine 60 mg capsule,delayed 60 mg PO DAILY #90 caps 06/09/22 06/26/22 Rx release hydroxyzine pamoate 25 mg capsule 25 mg PO Q8H PRN anxiety #60 caps 06/09/22 06/26/22 Rx (Vistaril) albuterol sulfate 2.5 mg/0.5 mL 2.5 mg (0.5 mL) inhalation QID PRN 06/30/22 Rx solution for nebulization shortness of breath or wheezing #30 ea fluticasone fur. 100 mcg-umeclid 1 inh inhalation HS #60 ea 06/30/22 Rx 62.5 mcg-vilant 25 mcg inhalat.powder (Trelegy Ellipta) Patient History Medical History Acute respiratory failure with hypoxia Anemia due to chronic kidney disease COPD (chronic obstructive pulmonary disease) Coronary artery disease Dermatitis, unspecified Diabetes mellitus with complication ESRD (end stage renal disease) on dialysis H/O: CVA (cerebrovascular accident) 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 Nonischemic cardiomyopathy PAF (paroxysmal atrial fibrillation) Peripheral arterial disease Proliferative diabetic retinopathy Venous stasis dermatitis Surgical History A-V fistula History of cardiac defibrillator placement (04/13/21) S/P arterial stent S/P transmetatarsal amputation of foot Family History Other Family history non-contributory Social History Smoking Status: Current every day smoker Tobacco Type: Cigarettes Age Started Using Tobacco: 11; packs per day: 1; Cigarettes Per Day: used to smoke 5PPD - recently cut back to 1; Second Hand Exposure: No; Hx Alcohol Use: No Hx Substance Use: Yes Prescribed Medications: Marijuana Preferred Language: Fijian Communication Ability: Effective Visual Impairment: Partially Limited Hearing Ability: Hard of Hearing 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 Physical Exam Constitutional: WD/WN, vitals as above + acute distress and + ill appearing Eyes: + anicteric sclerae ENMT: Ears: no hearing impairment Neck: normal visual inspection Respiratory: + respiratory distress; no cough Auscultation: + diminished lung sounds, + crackles and + wheezes Cardiovascular: Rate/Rhythm: regular rate and regular rhythm Heart Sounds: normal S1 and normal S2 Extremities: + edema Gastrointestinal (Abdomen): Inspection/Auscultation: abdomen normal to inspection and normal bowel sounds Percussion/Palpation: abdomen soft; abdomen nontender Musculoskeletal: Bilateral lower extremity with significant erythema, excoriation, ulcer and swelling Skin: + rash, + lesion, + ulcer and + erythema Neurologic: no focal motor deficits and not confused Psychiatric: Orientation: alert and oriented x 3 Affect: euthymic affect Results & Data Vital Signs (Past 12 Hours) Vital Signs Temp Pulse Pulse Resp BP BP Pulse Ox 06/30/22 14:30 87 L 06/30/22 14:16 87 22 96 06/30/22 14:16 89 24 83 L 06/30/22 13:30 85 16 127/87 99 06/30/22 13:17 86 20 117/79 92 06/30/22 13:17 92 06/30/22 13:17 86 20 92 06/30/22 13:17 86 20 117/79 92 06/30/22 12:35 36.9 C 97 H 22 120/71 93 O2 Del Method 06/30/22 14:30 Room Air 06/30/22 14:16 Room Air 06/30/22 14:16 Room Air 06/30/22 13:30 Nebulizer 06/30/22 13:17 Room Air 06/30/22 13:17 Room Air 06/30/22 13:17 Room Air 06/30/22 13:17 Room Air 06/30/22 12:35 Room Air PG Care Time/CCT Total # of Minutes Spent Total Time Spent with Patient: Total time spent is greater than 50% in coordination of care (as documented) at patient's floor/unit and/or counseling patient: Coding Level of Care Code 86992 ER DEPT VISIT HIGH LVL 5 Diagnoses ESRD (end stage renal disease) on dialysis N18.6; Z99.2 Bilateral lower leg cellulitis L03.116; L03.115 Anemia due to chronic kidney disease N18.9; D63.1 Hypoxia R09.02 SOB (shortness of breath) R06.02 Pleural effusion J90 Missed dialysis
[2022-06-30] MEDS ORDERED: GLUCOSE 40% GEL 15 GM TUBE PO PRN (16:12)
[2022-06-30] MEDS ORDERED: CARBOHYDRATES FOR HYPOGLYCEMIA PO PRN (16:12)
[2022-06-30] MEDS ORDERED: DEXTROSE 50% 50 ML SYRINGE IV PRN (16:12)
[2022-06-30] MEDS ORDERED: GLUCOSE 10 TAB/TUBE PO PRN (16:12)
[2022-06-30] MEDS ORDERED: GLUCAGON FOR INJ 1 MG VIAL SQ PRN (16:12)
[2022-06-30] MEDS ORDERED: CYCLOBENZAPRINE HCL 10 MG TAB PO PRN (20:35)
[2022-06-30] MEDS ORDERED: ALBUT/IPRATROP 3MG/0.5MG NEB 3 ML VIAL NEB PRN (20:35)
[2022-06-30] MEDS ORDERED: LIDOCAINE/PRILOCAINE 2.5% EA CRM EXT PRN (20:35)
[2022-06-30] MEDS ORDERED: oxyCODONE HCL IR 5 MG TAB (IMMEDIATE RELEASE) PO PRN (20:35)
[2022-06-30] MEDS ORDERED: ACETAMINOPHEN 325 MG TAB PO PRN (20:35)
[2022-06-30] MEDS ORDERED: hydrOXYzine HCl 25 MG TAB PO PRN (20:35)
[2022-06-30] MEDS: INSULIN ASPART PER UNIT CHARGE SC SCH ×2 (21:30→21:34)
[2022-06-30] MEDS: LANTUS PER UNIT CHARGE SQ SCH (21:34)
[2022-06-30] MEDS: DOXYCYCLINE HYCLATE 100 MG in DEXTROSE 5% 100 ML IV SCH (21:46)
[2022-06-30] MEDS: FLUTICASONE FUROATE 100MCG 14 PUFFS/INHALER INH SCH (21:49)
[2022-06-30] MEDS: UMECLIDINIUM/VILANTEROL 62.5/25MCG 7 PUFFS/INHALER INH SCH (21:50)
[2022-06-30] MEDS: APIXABAN 5 MG TABLET PO SCH (21:50)
[2022-06-30] MEDS: ATORVASTATIN 10 MG TAB PO SCH (21:50)
[2022-06-30] MEDS: VALSARTAN/SACUBITRIL 26/24MG TAB PO SCH (21:51)
[2022-06-30] MEDS: PRAMIPEXOLE DIHYDROCHLO 0.25 MG TAB PO SCH (21:51)
[2022-06-30] MEDS: CLOPIDOGREL BISULFATE 75 MG TAB PO SCH (21:51)
[2022-06-30] MEDS: GABAPENTIN 100 MG CAP PO SCH (21:51)
[2022-06-30] MEDS: METOPROLOL SUCC 50MG EXT REL TAB PO SCH (21:53)
[2022-07-01] MEDS: INSULIN ASPART PER UNIT CHARGE SC SCH ×4 (07:31→20:18)
[2022-07-01 07:35] LABS: Basophils # (auto) 0.01 K/uL (0-0.2); Basophils % (auto) 0.2 %; Hematocrit (blood only) 34.5 % (42.0-52.0); Hemoglobin 11.1 g/dl (14.0-18.0); Immature Granulocytes # (auto) 0.06 K/uL (0.01-0.20); Lymphocytes # (auto) 0.23 K/uL (1.2-3.4); Lymphocytes % (auto) 3.8 %; Mean Corpuscular Hemoglobin 30.3 pg (25.0-34.0); Mean Corpuscular Hgb Conc 32.2 g/dL (32.0-36.0); Mean Corpuscular Volume 94.3 fL (80.0-100.0); Mean Platelet Volume 10.4 fL (9.4-12.4); Monocytes # (auto) 0.31 K/uL (0.11-0.59); Monocytes % (auto) 5.1 %; Neutrophils # (auto) 5.52 K/uL (1.40-6.50); Neutrophils % (auto) 89.9 %; Platelet Count 200 K/uL (130-400); RDW Coefficient of Variation 17.7 % (11.5-14.5); RDW Standard Deviation 61.6 fL (36.4-46.3); Red Blood Count 3.66 M/uL (4.70-6.10); White Blood Count 6.13 K/ul (4.8-10.8)
[2022-07-01 07:54] LABS: BUN Creatinine Ratio 7.7 (10-20); Calcium 8.2 mg/dl (8.6-10.3); Creatinine Clr Calc Pharmacy 21.6 ml/min; Est GFR (African American) 20.9 ml/min
--- NOTE | 2022-07-01 09:43 | Nephrology Progress Note ---
Date of Service July 01, 2022 Assessment & Plan (1) ESRD (end stage renal disease) on dialysis: Plan: ESRD on hemodialysis MWF at [facility]. Outpatient EDW 79 kg. Completed 3 hr emergent HD treatment yesterday for UF. Orders 2 hour treatment today entered into EHR and reviewed with dialysis nurse. Will attempt additional UF, as tolerated. Admitted with respiratory failure with hypoxia attributed to COPD and volume overload from missed dialysis. CXR demonstrating pulmonary edema with moderate L and small R pleural effusion. Completed 4 hours HD yesterday with UF 4.5 L. Electrolytes reasonably controlled. Low sodium, low potassium, renal diet. Daily fluid restriction <1.2 L/d. Medications are appropriately dosed for kidney function. AVF functioning well. (2) Anemia due to chronic kidney disease: Plan: Chronic, stable. JODIE therapy held for Hgb >11. (3) Hypoxia: Plan: Improving with treatment. Remains on doxycycline for underlying COPD. (4) Pleural effusion: Admission and Anticipated Discharge Date Admission Date: June 30, 2022 Subjective No acute events overnight. Fernando is breathing much more comfortably this AM. He was resting in bed on 2 L NC. Denies chest pain or palpitations. Tolerated 4 hour HD treatment yesterday afternoon with net UF 4.5 L. Review of Systems Review of Systems: All systems reviewed & are unremarkable except as noted in HPI & below Physical Exam Constitutional: + frail appearing; no acute distress Eyes: + anicteric sclerae; pupils not irregular Neck: normal visual inspection and trachea midline Respiratory: normal respiratory effort Auscultation: lungs clear to auscultation bilaterally and + rales Cardiovascular: Rate/Rhythm: regular rate Heart Sounds: normal S1, normal S2 and + murmur Extremities: + edema and + AV fistula Musculoskeletal: Extremities: no cyanosis and no clubbing Skin: + turgor decreased and + ecchymosis; no jaundice Legs wrapped. Multiple superficial excoriations. Neurologic: not confused Motor/Sensory: no asterixis Psychiatric: Orientation: alert and oriented x 3 Results & Data Vital Signs (Past 12 Hours) Vital Signs Temp Pulse Pulse Pulse Resp BP Pulse Ox 07/01/22 07:55 36.8 C 73 19 110/69 99 07/01/22 03:02 36.5 C 93 H 81 20 109/69 98 06/30/22 22:02 92 H 06/30/22 22:53 36.6 C 89 18 125/69 98 06/30/22 21:49 89 114/67 O2 Del Method O2 Flow Rate 07/01/22 07:55 Nasal Cannula 07/01/22 03:02 Nasal Cannula 1 06/30/22 22:02 06/30/22 22:53 Nasal Cannula 06/30/22 21:49 Laboratory Results Laboratory Results - last 24 hr 06/30/22 06/30/22 06/30/22 13:00 13:00 13:00 WBC 7.53 RBC 3.79 L Hgb 11.3 L Hct 34.6 L MCV 91.3 MCH 29.8 MCHC 32.7 RDW Std Deviation 60.1 H RDW Coeff of Wendy 18.2 H Plt Count 189 MPV 10.4 Immature Gran % (Auto) 1.2 Neut % (Auto) 84.4 Lymph % (Auto) 5.4 [place] % (Auto) 7.8 Eos % (Auto) 0.7 Baso % (Auto) 0.5 Neut # (Auto) 6.35 Lymph # (Auto) 0.41 L [place] # (Auto) 0.59 Eos # (Auto) 0.05 Baso # (Auto) 0.04 Immature Gran # (Auto) 0.09 PT Cancelled INR Cancelled APTT Cancelled PTT Ratio Cancelled VBG pH Sodium 131 L Potassium 4.9 Chloride 93 L Carbon Dioxide 29 Anion Gap 9 BUN 34 H Creatinine 4.97 H* Est Cr Clr Drug Dosing 15.9 Est GFR ( Amer) 13.0 Est GFR (Non-Af Amer) 11.2 BUN/Creatinine Ratio 6.8 L Glucose 418 H* POC Glucose Calcium 8.3 L Phosphorus 4.8 Magnesium 2.4 Total Bilirubin 1.6 H AST 13 ALT 9 Alkaline Phosphatase 103 Troponin I High Sens 41.8 H Total Protein 6.6 Albumin 3.1 L Globulin 3.5 Albumin/Globulin Ratio 0.9 Nasal Screen MRSA (PCR) SARS-CoV-2 (PCR) Influenza Type A (PCR) Influenza Type B (PCR) RSV (RT-PCR) 06/30/22 06/30/22 06/30/22 13:27 14:01 15:57 WBC RBC Hgb Hct MCV MCH MCHC RDW Std Deviation RDW Coeff of Wendy Plt Count MPV Immature Gran % (Auto) Neut % (Auto) Lymph % (Auto) [place] % (Auto) Eos % (Auto) Baso % (Auto) Neut # (Auto) Lymph # (Auto) [place] # (Auto) Eos # (Auto) Baso # (Auto) Immature Gran # (Auto) PT 12.3 H INR 1.2 H APTT 28.9 PTT Ratio 1.1 VBG pH Sodium Potassium Chloride Carbon Dioxide Anion Gap BUN Creatinine Est Cr Clr Drug Dosing Est GFR ( Amer) Est GFR (Non-Af Amer) BUN/Creatinine Ratio Glucose POC Glucose 167 H Calcium Phosphorus Magnesium Total Bilirubin AST ALT Alkaline Phosphatase Troponin I High Sens Total Protein Albumin Globulin Albumin/Globulin Ratio Nasal Screen MRSA (PCR) SARS-CoV-2 (PCR) NEGATIVE Influenza Type A (PCR) Negative Influenza Type B (PCR) Negative RSV (RT-PCR) Negative 06/30/22 06/30/22 06/30/22 20:47 21:20 21:20 WBC RBC Hgb Hct MCV MCH MCHC RDW Std Deviation RDW Coeff of Wendy Plt Count MPV Immature Gran % (Auto) Neut % (Auto) Lymph % (Auto) [place] % (Auto) Eos % (Auto) Baso % (Auto) Neut # (Auto) Lymph # (Auto) [place] # (Auto) Eos # (Auto) Baso # (Auto) Immature Gran # (Auto) PT INR APTT PTT Ratio VBG pH 7.43 H Sodium Potassium Chloride Carbon Dioxide Anion Gap BUN Creatinine Est Cr Clr Drug Dosing Est GFR ( Amer) Est GFR (Non-Af Amer) BUN/Creatinine Ratio Glucose POC Glucose 174 H Calcium Phosphorus Magnesium Total Bilirubin AST ALT Alkaline Phosphatase Troponin I High Sens 45.5 H Total Protein Albumin Globulin Albumin/Globulin Ratio Nasal Screen MRSA (PCR) SARS-CoV-2 (PCR) Influenza Type A (PCR) Influenza Type B (PCR) RSV (RT-PCR) 06/30/22 07/01/22 07/01/22 Unknown 07:12 07:14 WBC 6.13 RBC 3.66 L Hgb 11.1 L Hct 34.5 L MCV 94.3 MCH 30.3 MCHC 32.2 RDW Std Deviation 61.6 H RDW Coeff of Wendy 17.7 H Plt Count 200 MPV 10.4 Immature Gran % (Auto) 1.0 Neut % (Auto) 89.9 Lymph % (Auto) 3.8 [place] % (Auto) 5.1 Eos % (Auto) 0.0 Baso % (Auto) 0.2 Neut # (Auto) 5.52 Lymph # (Auto) 0.23 L [place] # (Auto) 0.31 Eos # (Auto) 0.00 Baso # (Auto) 0.01 Immature Gran # (Auto) 0.06 PT INR APTT PTT Ratio VBG pH Sodium Potassium Chloride Carbon Dioxide Anion Gap BUN Creatinine Est Cr Clr Drug Dosing Est GFR ( Amer) Est GFR (Non-Af Amer) BUN/Creatinine Ratio Glucose POC Glucose 325 H* Calcium Phosphorus Magnesium Total Bilirubin AST ALT Alkaline Phosphatase Troponin I High Sens Total Protein Albumin Globulin Albumin/Globulin Ratio Nasal Screen MRSA (PCR) Negative SARS-CoV-2 (PCR) Influenza Type A (PCR) Influenza Type B (PCR) RSV (RT-PCR) 07/01/22 07:14 WBC RBC Hgb Hct MCV MCH MCHC RDW Std Deviation RDW Coeff of Wendy Plt Count MPV Immature Gran % (Auto) Neut % (Auto) Lymph % (Auto) [place] % (Auto) Eos % (Auto) Baso % (Auto) Neut # (Auto) Lymph # (Auto) [place] # (Auto) Eos # (Auto) Baso # (Auto) Immature Gran # (Auto) PT INR APTT PTT Ratio VBG pH Sodium 135 L Potassium 5.0 Chloride 96 L Carbon Dioxide 31 Anion Gap 8 BUN 26 H Creatinine 3.36 H D Est Cr Clr Drug Dosing 21.6 Est GFR ( Amer) 20.9 Est GFR (Non-Af Amer) 18.0 BUN/Creatinine Ratio 7.7 L Glucose 350 H* POC Glucose Calcium 8.2 L Phosphorus Magnesium Total Bilirubin AST ALT Alkaline Phosphatase Troponin I High Sens Total Protein Albumin Globulin Albumin/Globulin Ratio Nasal Screen MRSA (PCR) SARS-CoV-2 (PCR) Influenza Type A (PCR) Influenza Type B (PCR) RSV (RT-PCR) PG Care Time/CCT Total # of Minutes Spent Total Time Spent with Patient: Total time spent is greater than 50% in coordination of care (as documented) at patient's floor/unit and/or counseling patient: Coding Level of Care Code 21561 SUB INP/OBS CARE 3/50MIN Diagnoses ESRD (end stage renal disease) on dialysis N18.6; Z99.2 Anemia due to chronic kidney disease N18.9; D63.1 Hypoxia R09.02 Pleural effusion J90
[2022-07-01] MEDS: APIXABAN 5 MG TABLET PO SCH ×3 (09:52→20:31)
[2022-07-01] MEDS: VALSARTAN/SACUBITRIL 26/24MG TAB PO SCH ×3 (09:52→20:29)
[2022-07-01] MEDS: FLUTICASONE FUROATE 100MCG 14 PUFFS/INHALER INH SCH (09:53)
[2022-07-01] MEDS: UMECLIDINIUM/VILANTEROL 62.5/25MCG 7 PUFFS/INHALER INH SCH (09:53)
[2022-07-01] MEDS: DULoxetine HCL 60 MG CAP PO SCH ×2 (09:53→14:22)
[2022-07-01] MEDS: DOXYCYCLINE HYCLATE 100 MG in DEXTROSE 5% 100 ML IV SCH ×2 (14:21→21:08)
[2022-07-01] MEDS: LANTUS PER UNIT CHARGE SQ SCH ×2 (14:22→20:19)
--- NOTE | 2022-07-01 14:25 | Hospitalist Progress Note ---
Date of Service July 01, 2022 Assessment & Plan (1) Acute and chronic respiratory failure with hypoxia: Plan: 66 M with past medical history of ESRD (MWF dialysis), PAD (s/p left femoral stent), permanent atrial fibrillation, HFrEF (s/p AICD in 2021, [place] [facility] [place] COPD (on Trelegy, pending home O2), who presented to the ED from dialysis center for worsening shortness of breath. Now admitted for management of acute on chronic respiratory failure with hypoxia, ESRD, HFrEF. Acute and chronic respiratory failure with hypoxiahypoxia resolved -PFTs showing restrictive disease and reduced DLCO as noted below. Patient was pending testing and set up for outpatient oxygen. -Severe exertional dyspnea and hypoxia. Clinically volume overloaded. CXR showing pulmonary edema with moderate L, small R pleural effusion. -S/p emergency dialysis to improve volume status, respiratory distress. -On 2 L nasal cannula satting well on room air. Admitted to PCU. * Repeat dialysis * Fluid restriction <1200 mL/day; renal diet ESRD -Nephrology consulted: S/p emergency dialysis to improve volume status, respiratory distress. * Fluid restriction <1200 mL/day; low potassium diet * Renal diet * Trend BMP daily HFrEF -Most recent Echo 05/2022 showing EF 25-30%, LV SF moderate to severely reduced with global hypokinesis -AICD in place, reduced EF -3x weekly dialysis. Patient used to take Lasix but makes <500 cc of urine per day, Lasix was stopped. * Continue metoprolol, Entresto, Plavix, atorvastatin COPD -PFTs 12/2021: Moderate restrictive disease with preserved ratio. FVC 2.74 (64%), FEV1 1.89 (58%), FEV1/FVC 69 (89% predicted) DLCO 43% predicted -Patient with reactive wheezing and COPD symptoms, however PFTs are consistent with restrictive rather than obstructive disease -Patient ran out of Trelegy x1 week and has not been using. Just received today. 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 -Photos updated in chart, see admitting H&P patient reports his prior cellulitis has completely resolved and has not worsened, no warmth/tenderness/erythema recently. He is not currently on antibiotics * Wound care consulted Code: Full code Dispo: PCU FEN/GI: Renal dialysis diet; carb consistent/DM2 with fluid restriction <1200 mL DVT Prophylaxis: Continue DOAC PT/OT: Yes Consults: Nephrology (2) ESRD (end stage renal disease): (3) HFrEF (heart failure with reduced ejection fraction): (4) COPD (chronic obstructive pulmonary disease): (5) Diabetes mellitus with complication: (6) Arterial leg ulcer: Admission and Anticipated Discharge Date Admission Date: June 30, 2022 Supervising Physician Co-Signing Physician Notes I personally examined the patient and verified all nguyen points of history and exam, discussed case, and agree with decision making with Dr Dominguez feeling better after HD. notes that he needs oxygen for home but just did not qualify last testing. Vitals noted, in general he is awake and alert pleasant no distress. HEENT normocephalic atraumatic mucous membranes moist. Breathing unlabored no accessory muscle use good effort she is me. Skin no rashes no pallor or icteru s. CBC BMP troponins noted. Hypoxiaacute on chronic multifactorial respiratory failure (predominantly hypoxic)feels better after dialysis. Continue inhalers, continue home meds, try to set up again for home oxygen. If he qualifies, should be easy to set up and safe for home tomorrow. Anticoagulated on Eliquis. Otherwise as above. Subjective Patient seated upright at bedside on arrival. Recently returned from dialysis. Feels much better than he did this morning. Reports right LE pain but denies any open ulcers or weeping. He would like to have it redressed. Review of Systems Review of Systems: All systems reviewed & are unremarkable except as noted in HPI & below Physical Exam Physical Exam: General: No acute distress HEENT: PERRLA. Normal conjunctiva, anicteric sclera. Oropharynx normal. Respiratory: Normal respiratory effort. Diminished breath sounds at base, mid lung khanna. Diffuse inspiratory wheeze heard on auscultation. Cardiovascular: RRR without murmurs, gallops, or rubs. No edema. GI: Soft abdomen with normal bowel sounds heard on auscultation. Nontender x4 quadrants Skin: Multiple healing scabs/sores across torso, back, upper and lower extremities. Venous stasis discoloration of right LE. Neuro: Alert and oriented x3. Results & Data Results & Data Vital Signs (Past 12 Hours) Vital Signs Temp Pulse Pulse Pulse Resp BP BP 07/01/22 12:30 36.6 C 78 114/66 07/01/22 12:00 72 123/77 07/01/22 11:30 72 131/71 07/01/22 11:00 71 122/78 07/01/22 10:30 70 117/71 07/01/22 10:52 75 07/01/22 10:52 07/01/22 10:23 36.7 C 70 07/01/22 07:55 36.8 C 73 19 110/69 07/01/22 03:02 36.5 C 93 H 81 20 109/69 Pulse Ox O2 Del Method O2 Flow Rate 07/01/22 12:30 07/01/22 12:00 07/01/22 11:30 07/01/22 11:00 07/01/22 10:30 07/01/22 10:52 07/01/22 10:52 Nasal Cannula 2 07/01/22 10:23 07/01/22 07:55 99 Nasal Cannula 07/01/22 03:02 98 Nasal Cannula 1 Resident Activity Tracking Resident Involvement: Resident Care Provided Care Provided: Adult Hospital Medicine
--- NOTE | 2022-07-01 16:24 | Billing Data ---
Date of Service July 01, 2022 Coding Level of Care Code 73923 SUB INP/OBS CARE
[2022-07-01] MEDS: PRAMIPEXOLE DIHYDROCHLO 0.25 MG TAB PO SCH (20:29)
[2022-07-01] MEDS: METOPROLOL SUCC 50MG EXT REL TAB PO SCH (20:30)
[2022-07-01] MEDS: GABAPENTIN 100 MG CAP PO SCH (20:30)
[2022-07-01] MEDS: CLOPIDOGREL BISULFATE 75 MG TAB PO SCH (20:30)
[2022-07-01] MEDS: ATORVASTATIN 10 MG TAB PO SCH (20:30)
--- NOTE | 2022-07-02 07:05 | Hospitalist Progress Note ---
Date of Service July 02, 2022 Assessment & Plan (1) Acute and chronic respiratory failure with hypoxia: Plan: 66 M with past medical history of ESRD (MWF dialysis), PAD (s/p left femoral stent), permanent atrial fibrillation, HFrEF (s/p AICD in 2021, follows [facility] [place]ology), COPD (on Trelegy, pending home O2), who presented to the ED from dialysis center for worsening shortness of breath. Now admitted for management of acute on chronic respiratory failure with hypoxia, ESRD, HFrEF. Acute and chronic respiratory failure with hypoxiahypoxia resolved -PFTs showing restrictive disease and reduced DLCO as noted below. Patient was pending testing and set up for outpatient oxygen. -Severe exertional dyspnea and hypoxia. Clinically volume overloaded. CXR showing pulmonary edema with moderate L, small R pleural effusion. -S/p emergency dialysis to improve volume status, respiratory distress. -On 2 L nasal cannula satting well on room air. Admitted to PCU. * Fluid restriction <1200 mL/day; renal diet. ESRD -Nephrology consulted: S/p emergency dialysis (6.5 L total UF x2 dialysis sessions) to improve volume status, respiratory distress. * Fluid restriction <1200 mL/day * Renal diet * Trend BMP daily HFrEF -Most recent Echo 05/2022 showing EF 25-30%, LV SF moderate to severely reduced with global hypokinesis -AICD in place >reduced EF -3x weekly dialysis. Patient used to take Lasix but makes <500 cc of urine per day, Lasix was stopped. * Continue metoprolol, Entresto, Plavix, atorvastatin COPD -PFTs 12/2021: Moderate restrictive disease with preserved ratio. FVC 2.74 (64%), FEV1 1.89 (58%), FEV1/FVC 69 (89% predicted) DLCO 43% predicted -Patient with reactive wheezing and COPD symptoms, however PFTs are consistent with restrictive rather than obstructive disease -Patient ran out of WemoLablegy x1 week and has not been using. Just received today. Will convert formulary equivalent and continue * DuoNeb every 4 hours as needed * Flutter valve, incentive spirometry * Target SPO2 89-94% * Continue doxycycline as above Type 2 diabetes -BSG 481 on admit, received 10u IV insulin in ER -K+ 4.9 on admission -Patient on home glargine 10 units every afternoon -Patient recently on prednisone for shortness of breath, finished course a week ago * Basal bolus insulin: SQ glargine 5 units twice daily Arterial leg ulcer/Chronic lower extremity wounds/ulceration with bony exposure -PAD s/p LEFT SFA stent 09/17/20 -R brachiocephalic AV fistula August 2021 with MWF dialysis -Vascular f/u 06/15/22 showed patent SFA stent, edema 2/2 HF with additional chronic venous stasis. -Photos updated in chart, see admitting H&P patient reports his prior cellulitis has completely resolved and has not worsened, no warmth/tenderness/erythema recently. Not currently on antibiotics * Wound care consulted Code: Full code Dispo: PCU FEN/GI: Renal dialysis diet; carb consistent/DM2 with fluid restriction <1200 mL DVT Prophylaxis: Continue DOAC PT/OT: Yes Consults: Nephrology (2) ESRD (end stage renal disease): (3) HFrEF (heart failure with reduced ejection fraction): (4) COPD (chronic obstructive pulmonary disease): (5) Diabetes mellitus with complication: (6) Arterial leg ulcer: Admission and Anticipated Discharge Date Admission Date: June 30, 2022 Subjective Patient is seated up at bedside this morning. He is upset that he passed his two-step evaluation this morning. He now believes that he will not qualify for home oxygen even though it is been recommended to him. He would like to go home now. Review of Systems Review of Systems: All systems reviewed & are unremarkable except as noted in HPI & below Physical Exam Physical Exam: General: No acute distress HEENT: PERRLA. Normal conjunctiva, anicteric sclera. Oropharynx normal. Respiratory: Normal respiratory effort. Diminished breath sounds at base, mid lung khanna. Diffuse inspiratory wheeze heard on auscultation. Cardiovascular: RRR without murmurs, gallops, or rubs. No edema. GI: Soft abdomen with normal bowel sounds heard on auscultation. Nontender x4 quadrants Skin: Multiple healing scabs/sores across torso, back, upper and lower extremities. Venous stasis discoloration of right LE. Neuro: Alert and oriented x3. Results & Data Results & Data Vital Signs (Past 12 Hours) Vital Signs Temp Pulse Pulse Pulse Resp BP Pulse Ox 07/01/22 22:18 73 07/02/22 02:20 36.5 C 74 18 128/80 99 07/01/22 22:57 36.5 C 73 18 106/64 100 07/01/22 19:21 07/01/22 21:16 07/01/22 20:26 76 116/78 07/01/22 19:37 36.4 C L 72 18 111/66 96 Pulse Ox O2 Del Method O2 Del Method O2 Flow Rate 07/01/22 22:18 07/02/22 02:20 Nasal Cannula 07/01/22 22:57 Nasal Cannula 2 07/01/22 19:21 Nasal Cannula 2 07/01/22 21:16 94 Room Air 07/01/22 20:26 07/01/22 19:37 Room Air Resident Activity Tracking Resident Involvement: Resident Care Provided Care Provided: Adult Hospital Medicine
[2022-07-02 07:43] LABS: Basophils # (auto) 0.03 K/uL (0-0.2); Basophils % (auto) 0.4 %; Eosinophils # (auto) 0.05 K/uL (0-0.50); Eosinophils % (auto) 0.6 %; Hematocrit (blood only) 36.8 % (42.0-52.0); Hemoglobin 11.4 g/dl (14.0-18.0); Immature Granulocytes # (auto) 0.09 K/uL (0.01-0.20); Immature Granulocytes % (auto) 1.1 %; Lymphocytes % (auto) 11.4 %; Mean Corpuscular Hemoglobin 29.8 pg (25.0-34.0); Mean Corpuscular Volume 96.1 fL (80.0-100.0); Mean Platelet Volume 10.1 fL (9.4-12.4); Monocytes # (auto) 0.78 K/uL (0.11-0.59); Monocytes % (auto) 9.9 %; Neutrophils # (auto) 6.02 K/uL (1.40-6.50); Neutrophils % (auto) 76.6 %; Platelet Count 222 K/uL (130-400); RDW Standard Deviation 63.8 fL (36.4-46.3); Red Blood Count 3.83 M/uL (4.70-6.10); White Blood Count 7.87 K/ul (4.8-10.8)
[2022-07-02 07:51] LABS: BUN Creatinine Ratio 9.5 (10-20); Creatinine Clr Calc Pharmacy 21.6 ml/min; Est GFR (African American) 20.8 ml/min; Magnesium 2.1 mg/dl (1.7-2.4); Phosphorus 4.2 mg/dl (2.5-4.9); Potassium 4.8 mmol/L (3.5-5.1)
[2022-07-02] MEDS: INSULIN ASPART PER UNIT CHARGE SC SCH ×2 (07:55→12:21)
[2022-07-02] MEDS: APIXABAN 5 MG TABLET PO SCH (07:55)
[2022-07-02] MEDS: VALSARTAN/SACUBITRIL 26/24MG TAB PO SCH (07:56)
[2022-07-02] MEDS: FLUTICASONE FUROATE 100MCG 14 PUFFS/INHALER INH SCH (07:56)
[2022-07-02] MEDS: DULoxetine HCL 60 MG CAP PO SCH (07:56)
[2022-07-02] MEDS: UMECLIDINIUM/VILANTEROL 62.5/25MCG 7 PUFFS/INHALER INH SCH (07:57)
[2022-07-02] MEDS: LANTUS PER UNIT CHARGE SQ SCH (08:01)
[2022-07-02] MEDS: DOXYCYCLINE HYCLATE 100 MG in DEXTROSE 5% 100 ML IV SCH (08:02)
--- NOTE | 2022-07-02 10:57 | Discharge Summary ---
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 Cannot even walk from couch to door/car which is only 15-20 steps. Pending home oxygen but had not been set up yet. Wheezing grealty increased for 1 day. Started yesterday morning. Increased cough x24 hours, nonproductive wet sounding. Filled albuterol yesterday. Had been using albuterol inhaler 8-10 times this morning which 'just barely got me through.' Has been out of trelegy for a few days, ~1 week. Refill just coming into the pharmacy today. No chest pain, no chest pressure. Has felt 'a little tight' in chest and ribs intermittently but denies chest pain/squeezing/pressure. Last thorocentesis was 8-10 months ago. Helped 'for a while, but had to go back again 8 weeks again and got fluid take off again then treated me with medicines.' Still makes a small amount of urine every day. Thinks about 500cc today per day. On eliquis. No problems with bleeding as long as he does not get cuts. No melena. Medical History: Reviewed Medications: Reviewed Surgical History: Reviewed Family history: Reviewed Allergies: Reviewed Social History: Reviewed Code Status: Full code Admission Exam Per Admitting Provider General: A&Ox3. NAD. Cooperative. HEENT: Atraumatic, normocephalic. JOB. Vision intact, Douglas. Pulm: Diminished in bases, High pitched inspiratory wheeze, trace expiratory wheeze RLL>Left. Symmetrical chest rise, no distress Cardiac: RRR, -mrg. Radial pulses intact and symmetrical. Abdominal: Nontender, nondistended, soft. BS present. Ext: See photos. No warmth/erythema and improved from prior cellulitis per pt Principal Diagnosis Acute hypoxic respiratory failure, ESRD, CHF Discharge Exam General: No acute distress HEENT: PERRLA. Normal conjunctiva, anicteric sclera. Oropharynx normal. Respiratory: Normal respiratory effort. Diminished breath sounds at base, mid lung khanna. Cardiovascular: RRR without murmurs, gallops, or rubs. No edema. GI: Soft abdomen with normal bowel sounds heard on auscultation. Nontender x4 quadrants Skin: Multiple healing scabs/sores across torso, back, upper and lower extremities. Venous stasis discoloration of right LE. Neuro: Alert and oriented x3. Discharge Data Allergies Allergy/AdvReac Type Severity Reaction Status Date / Time No Known Allergies Allergy Verified 06/30/22 16:11 Consultations 06/30/22 14:24 ED Decision to Admit Stat 06/30/22 20:35 Consult Nephrology Routine Hospital Course (1) Acute and chronic respiratory failure with hypoxia: 66 M with past medical history of ESRD (MWF dialysis), PAD (s/p left femoral stent), permanent atrial fibrillation, HFrEF (s/p AICD in 2021, follows [facility] [place] [facility] c ardiology), COPD (on Trelegy, pending home O2), who presented to the ED from dialysis center for worsening shortness of breath. Now admitted for management of acute on chronic respiratory failure with hypoxia, ESRD, HFrEF. Acute and chronic respiratory failure with hypoxiahypoxia resolved -PFTs showing restrictive disease and reduced DLCO as noted below. Patient was pending testing and set up for outpatient oxygen. -Severe exertional dyspnea and hypoxia. Clinically volume overloaded. CXR showing pulmonary edema with moderate L, small R pleural effusion. -S/p emergency dialysis to improve volume status, respiratory distress. -On 2 L nasal cannula satting well on room air. Admitted to PCU. * Repeat dialysis * Fluid restriction <1200 mL/day; renal diet ESRD -Nephrology consulted: S/p emergency dialysis to improve volume status, respiratory distress. * Fluid restriction <1200 mL/day; low potassium diet * Renal diet * Trend BMP daily HFrEF -Most recent Echo 05/2022 showing EF 25-30%, LV SF moderate to severely reduced with global hypokinesis -AICD in place, reduced EF -3x weekly dialysis. Patient used to take Lasix but makes <500 cc of urine per day, Lasix was stopped. * Continue metoprolol, Entresto, Plavix, atorvastatin COPD -PFTs 12/2021: Moderate restrictive disease with preserved ratio. FVC 2.74 (64%), FEV1 1.89 (58%), FEV1/FVC 69 (89% predicted) DLCO 43% predicted -Patient with reactive wheezing and COPD symptoms, however PFTs are consistent with restrictive rather than obstructive disease -Patient ran out of [employer] x1 week and has not been using. Just received today. 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 -Photos updated in chart, see admitting H&P patient reports his prior cellulitis has completely resolved and has not worsened, no warmth/tenderness/erythema recently. He is not currently on antibiotics * Wound care consulted (2) ESRD (end stage renal disease): (3) HFrEF (heart failure with reduced ejection fraction): (4) COPD (chronic obstructive pulmonary disease): (5) Diabetes mellitus with complication: (6) Arterial leg ulcer: Total Time Total Time Spent Total Time Spent (In Minutes): <30 Discharge Plan Discharge Items Patient Disposition: Home - Self-Care Reason For Visit: SHORTNESS OF BREATH, AOC CHF, ESRD-DD, ?COPD Discharge Diagnosis: CHF, ESRD Condition on Discharge: Fair Activity: Per Instructions section Non-emergency contact: Primary Care Provider and Software Licensing Specialist Call non-emergency contact if: you have any medication questions and your symptoms worsen Follow-up/Referrals: Ricotta,Rubina M., DO [Primary Care Provider] - 07/13/22 9:15 am Diet: Regular Addtl Attending Provider Instructions: Dear Fernando, You were admitted to the hospital for shortness of breath. You were treated with emergent dialysis to remove the excess fluid that made your breathing difficult. A discharge summary will be sent to your primary care physician to ensure continuity of care. Please bring this discharge summary with you to your next office appointment so that your provider can review it at that time. Follow-up appointments: * Make a follow-up appointment with your PCP within the next week. It is very important that you follow up with them shortly after discharge from the hospital. Medications: Your medication list has been reviewed and reconciled upon discharge to ensure accuracy and continuity of care. An updated list of all your medications is included with your hospital discharge paperwork. Please review this list closely, and make note of any changes. We made no changes to your medications. Take your medications as instructed; do not skip a dose of your medicines. Make sure all of your doctors know every medicine you are taking (including yxmn-vnd-keysncc medicines, vitamins, and supplements). Call your primary care provider before taking any new medicines (including uers-cac-qyuerum medicines, vitamins, and supplements), because some of these may interact with your current medications, or may make your symptoms worse. Tell your primary care provider if you cannot afford your medications. CONTACT YOUR PRIMARY CARE PROVIDER if you experience any of the following: * Progressive or gradually worsening shortness of breath * Difficulty following your treatment plan, or difficulty taking medications CALL 911 OR GO TO THE EMERGENCY DEPARTMENT if you experience any of the following: * Sudden, severe abdominal pain or nausea/vomiting * Severe chest pain, or chest pain that radiates (moves) to your jaw or arm * Sudden, severe shortness of breath or difficulty breathing Thank you for allowing us to participate in your care. Pending Studies at Discharge: No Stand-Alone Forms: My [facility] ncyclo, Smoking Cessation Medications and DC Order Prescriptions: Continued (DME) blood-glucose meter [OneTouch Ultra2 Meter] [facility] See Rx Instructions .Route Qty: 1 0RF Rx Instructions: TEST BSG ONCE DAILY; DX CODE- E11.9 (DME) OneTouch Ultra Test Strip See Rx Instructions .Route Qty: 100 5RF Rx Instructions: TEST BSG ONCE DAILY; DX CODE- E11.9 (DME) lancets [OneTouch Delica Lancets] 33 gauge misc See Rx Instructions .Route Qty: 100 5RF Rx Instructions: TEST BSG ONCE DAILY; DX CODE- E11.9 (DME) Manual Wheelchair Device See Rx Instructions .Route Qty: 1 0RF Rx Instructions: As directed. Trelegy Ellipta 100-62.5-25 mcg blister with device 1 inh INHALATION HS Qty: 60 5RF cholecalciferol (vitamin D3) 50 mcg (2,000 unit) capsule 50 mcg PO HS insulin glargine [Lantus Solostar U-100 Insulin] 100 unit/mL (3 mL) insulin pen 10 unit subcut QPM Qty: 15 3RF hydroxyzine pamoate [Vistaril] 25 mg capsule 25 mg PO Q8H PRN (Reason: anxiety) Qty: 60 0RF duloxetine 60 mg capsule,delayed release(DR/EC) 60 mg PO DAILY Qty: 90 0RF (DME) Briefs, Adult-Extra Large Misc See Rx Instructions .Route Qty: 30 5RF Rx Instructions: As directed (DME) Lift Chair Misc See Rx Instructions .Route Qty: 1 0RF Rx Instructions: As directed cyclobenzaprine 10 mg tablet 10 mg PO BID PRN (Reason: Spasms) pramipexole 0.25 mg tablet 0.25 mg PO HS gabapentin 100 mg capsule 100 mg PO HS albuterol sulfate 90 mcg/actuation HFA aerosol inhaler 2 puff INHALATION Q4H PRN (Reason: Shortness Of Breath Or Wheezing) lanthanum 500 mg tablet,chewable 500 mg PO TIDM Eliquis 5 mg tablet 5 mg PO BID Rx Instructions: TAKES AT LUNCH & HS. Entresto 24-26 mg tablet 1 tab PO BID Qty: 60 0RF Rx Instructions: TAKES AT LUNCH & HS oxycodone 10 mg tablet 10 mg PO TID PRN (Reason: pain) Qty: 30 0RF bacitracin zinc [Antibiotic (bacitracin zinc)] 500 unit/gram ointment 1 applic topical DAILY Qty: 28 0RF insulin lispro [Humalog KwikPen Insulin] 100 unit/mL insulin pen 0 unit SUBCUT TIDM albuterol sulfate 2.5 mg/0.5 mL solution for nebulization 2.5 mg inhalation QID PRN (Reason: shortness of breath or wheezing) Qty: 30 0RF atorvastatin 10 mg tablet 10 mg PO HS metoprolol succinate 50 mg tablet extended release 24 hr 50 mg PO HS clopidogrel 75 mg tablet 75 mg PO HS lidocaine-prilocaine 2.5-2.5 % cream 1.5 g topical DIRECTED PRN (Reason: Pain) Discharge Orders: Discharge Order (Routine); Ordered 07/02/22 Ordered By: Chirag Dominguez Admission Data Admit Date/Time: 06/30/22 15:36 Attending Provider: Jaydon Do Admit Provider: Surinder Louise Primary Care Provider: Rubina Naqvi Other Providers: Surinder Louise ; Kathya Warner Other Interventions: Discharge Summary Assessment (RN) Last Done: 07/02/22 12:08 Supervising Physician Co-Signing Physician Notes I personally examined the patient and verified all nguyen points of history and exam, discussed case, and agree with decision making with Dr Dominguez Apologizing about being insistent on leaving AMA even as I am trying to explain to him that we were planning on letting him go home today. Breathing back to baseline. Uses inhalers regularly. Unfortunately did not qualify for home oxygen again, which seems to be a major source of his current frustration. Vitals noted, in general he is awake and alert pleasant no distress. HEENT normocephalic atraumatic mucous membranes moist. Breathing unlabored no accessory muscle use good effort she is me. Skin no rashes no pallor or icterus. Hypoxiaacute on chronic multifactorial respiratory failure (predominantly hypoxic)improved after dialysis. Continue inhalers, continue home meds, unfortunately does not qualify for home oxygen by rule, despite the fact that with his comorbidities I do believe he would benefit. To that end, I have i nstructed him to get a pulse ox at home so that he can follow his numbers and proceed to his PCP to be formally retested if he starts to show numbers below 88. Also recommended retesting at his PCPs office every few months, given that it seems like he is extremely close to qualifying, and it is highly likely that he would be symptomatically better if he had oxygen at home. Anticoagulated on Eliquis. Otherwise as above. Resident Activity Tracking Resident Involvement: Resident Care Provided Care Provided: Adult Hospital Medicine
--- NOTE | 2022-07-02 11:13 | Nephrology Progress Note ---
Date of Service July 02, 2022 Assessment & Plan (1) ESRD (end stage renal disease) on dialysis: Plan: ESRD on hemodialysis MWF at [facility]. Outpatient EDW 79 kg. Completed 2 hr HD treatment yesterday for additional UF. Volume status controlled. Electrolytes acceptable. Next HD treatment planned for tomorrow. Admitted with respiratory failure with hypoxia attributed to COPD and volume overload from missed dialysis. CXR demonstrating pulmonary edema with moderate L and small R pleural effusion. Completed 4 hours HD on 06/30 and 2 hour treatment yesterday with net UF 6.5+ L. Low sodium, low potassium, renal diet. Daily fluid restriction <1.2 L/d. Medications are appropriately dosed for kidney function. AVF functioning well. (2) Anemia due to chronic kidney disease: Plan: Chronic, stable. JODIE therapy held for Hgb >11. (3) Hypoxia: Plan: Improving with treatment. Remains on doxycycline for underlying COPD. (4) Pleural effusion: Admission and Anticipated Discharge Date Admission Date: June 30, 2022 Subjective No acute events overnight. Tolerated HD well yesterday. No complications with treatment. Fernando feels well this AM. Notable improvement in dyspnea. Requesting home oxygen. If O2 can not be arranged at home, Fernando states that he would just like to be discharged. Review of Systems Review of Systems: All systems reviewed & are unremarkable except as noted in HPI & below Physical Exam Constitutional: + frail appearing; no acute distress Eyes: + anicteric sclerae; pupils not irregular Neck: normal visual inspection and trachea midline Respiratory: normal respiratory effort Auscultation: lungs clear to auscultation bilaterally Cardiovascular: Rate/Rhythm: regular rate Heart Sounds: normal S1, normal S2 and + murmur Extremities: + edema and + AV fistula Musculoskeletal: Extremities: no cyanosis and no clubbing Skin: + turgor decreased and + ecchymosis; no jaundice Neurologic: not confused Motor/Sensory: no asterixis Psychiatric: Orientation: alert and oriented x 3 Results & Data Vital Signs (Past 12 Hours) Vital Signs Temp Pulse Pulse Pulse Pulse Pulse Pulse 07/02/22 09:18 07/02/22 08:18 70 63 70 07/02/22 08:07 36.4 C L 65 07/02/22 07:45 07/02/22 07:05 64 04/02/23 02:20 36.5 C 74 Resp Resp Resp Resp BP Pulse Ox Pulse Ox 07/02/22 09:18 07/02/22 08:18 24 20 18 90 07/02/22 08:07 18 103/58 L 97 07/02/22 07:45 07/02/22 07:05 07/02/22 02:20 18 128/80 99 Pulse Ox Pulse Ox Pulse Ox O2 Del Method O2 Flow Rate O2 Flow Rate 07/02/22 09:18 94 0 07/02/22 08:18 95 97 07/02/22 08:07 Room Air 07/02/22 07:45 Nasal Cannula 2 07/02/22 07:05 07/02/22 02:20 Nasal Cannula Laboratory Results Laboratory Results - last 24 hr 07/01/22 07/01/22 07/01/22 13:05 16:13 16:39 WBC RBC Hgb Hct MCV MCH MCHC RDW Std Deviation RDW Coeff of Wendy Plt Count MPV Immature Gran % (Auto) Neut % (Auto) Lymph % (Auto) Mobile % (Auto) Eos % (Auto) Baso % (Auto) Neut # (Auto) Lymph # (Auto) Mobile # (Auto) Eos # (Auto) Baso # (Auto) Immature Gran # (Auto) Sodium Potassium Chloride Carbon Dioxide Anion Gap BUN Creatinine Est Cr Clr Drug Dosing Est GFR ( Amer) Est GFR (Non-Af Amer) BUN/Creatinine Ratio Glucose POC Glucose 91 93 Calcium Phosphorus Magnesium Troponin I High Sens 40.9 H 07/01/22 07/02/22 07/02/22 20:07 07:12 07:12 WBC 7.87 RBC 3.83 L Hgb 11.4 L Hct 36.8 L MCV 96.1 MCH 29.8 MCHC 31.0 L RDW Std Deviation 63.8 H RDW Coeff of Wendy 18.0 H Plt Count 222 MPV 10.1 Immature Gran % (Auto) 1.1 Neut % (Auto) 76.6 Lymph % (Auto) 11.4 Mobile % (Auto) 9.9 Eos % (Auto) 0.6 Baso % (Auto) 0.4 Neut # (Auto) 6.02 Lymph # (Auto) 0.90 L Mobile # (Auto) 0.78 H Eos # (Auto) 0.05 Baso # (Auto) 0.03 Immature Gran # (Auto) 0.09 Sodium 137 Potassium 4.8 Chloride 99 Carbon Dioxide 32 Anion Gap 6 BUN 32 H Creatinine 3.37 H Est Cr Clr Drug Dosing 21.6 Est GFR ( Amer) 20.8 Est GFR (Non-Af Amer) 18.0 BUN/Creatinine Ratio 9.5 L Glucose 108 H POC Glucose 138 H Calcium 8.0 L Phosphorus 4.2 Magnesium 2.1 Troponin I High Sens 07/02/22 07:29 WBC RBC Hgb Hct MCV MCH MCHC RDW Std Deviation RDW Coeff of Wendy Plt Count MPV Immature Gran % (Auto) Neut % (Auto) Lymph % (Auto) Mobile % (Auto) Eos % (Auto) Baso % (Auto) Neut # (Auto) Lymph # (Auto) Mobile # (Auto) Eos # (Auto) Baso # (Auto) Immature Gran # (Auto) Sodium Potassium Chloride Carbon Dioxide Anion Gap BUN Creatinine Est Cr Clr Drug Dosing Est GFR ( Amer) Est GFR (Non-Af Amer) BUN/Creatinine Ratio Glucose POC Glucose 105 H Calcium Phosphorus Magnesium Troponin I High Sens PG Care Time/CCT Total # of Minutes Spent Total Time Spent with Patient: Total time spent is greater than 50% in coordination of care (as documented) at patient's floor/unit and/or counseling patient: Coding Level of Care Code 24316 SUB INP/OBS CARE 3/50MIN Diagnoses ESRD (end stage renal disease) on dialysis N18.6; Z99.2 Anemia due to chronic kidney disease N18.9; D63.1 Hypoxia R09.02 Pleural effusion J90
--- NOTE | 2022-07-02 14:58 | Billing Data ---
Date of Service July 02, 2022 Coding Level of Care Code 20878 IN/OBS DISCH 30 MIN/LESS
== END 2022-07-02 13:30 | disposition home or self-care (01) ==
LOC: ED 12:30 → SUATTDRO 15:36 → EDINP 15:36 → INTOOBSV 15:36 → EDINP 16:42 → 2S 20:34

== ENCOUNTER 2022-08-02 18:31 | Observation (INO) ==
--- NOTE | 2022-08-02 18:47 | ED Triage Note ---
Date of Service August 02, 2022 History of Present Illness This patient was briefly evaluated while in triage. An abbreviated physical exam was performed. This patient is a 66-year-old Male who presents to the ED for evaluation of missed dialysis. He states he missed 3 days because his significant other was u stewle to get him downstairs to the car. He had toes from his right foot amputated last week and has had too much pain to walk. He also feels he needs a home oxygen test because he's been having trouble breathing when getting around his house. Physical Exam VITALS: Vitals are noted on the nurse's note and reviewed by myself. GENERAL: This is a 66-year-old male, chronically unwell appearing. SKIN: Scattered ecchymosis to bilateral arms. HEART: Regular rate and rhythm without murmurs gallops or rubs. LUNGS: Clear to auscultation. EXTREMITIES: Postop shoes on bilateral feet. NEURO: Patient was alert and oriented. Initial orders for labs and / or imaging were placed and patient was placed in the waiting area until a bed is available. Please see further documentation for the full ED course. MDM / Impression Impression Impression: Hyperkalemia, Missed dialysis, Edema, Weakness
[2022-08-02 20:02] LABS: Hematocrit (blood only) 38.1 % (42.0-52.0); Hemoglobin 11.9 g/dl (14.0-18.0); Mean Corpuscular Hemoglobin 29.8 pg (25.0-34.0); Mean Corpuscular Hgb Conc 31.2 g/dL (32.0-36.0); Mean Corpuscular Volume 95.5 fL (80.0-100.0); Mean Platelet Volume 9.6 fL (9.4-12.4); Nucleated RBC # (auto) 0.03 K/uL (0-0.12); Nucleated RBC % (auto) 0.4 %; Platelet Count 265 K/uL (130-400); RDW Coefficient of Variation 19.9 % (11.5-14.5); Red Blood Count 3.99 M/uL (4.70-6.10); White Blood Count 8.07 K/ul (4.8-10.8)
[2022-08-02 20:20] LABS: Alanine Aminotransferase 13 U/L (7-52); Albumin Globulin Ratio 0.9 (0.9-2); Albumin Level 3.3 gm/dl (3.4-5.0); Alkaline Phosphatase 142 U/L (34-104); Anion Gap 20 (3-11); Aspartate Aminotransferase 20 U/L (13-39); BUN Creatinine Ratio 9.1 (10-20); Bilirubin,Total 1.4 mg/dl (0.2-1.0); Blood Urea Nitrogen 84 mg/dl (6-23); Calcium 9.3 mg/dl (8.6-10.3); Carbon Dioxide 22 mmol/L (21-32); Chloride 89 mmol/L (98-107); Est GFR (African American) 6.1 ml/min; Est GFR (Non-African American) 5.3 ml/min; Globulin 3.8 gm/dl (2.5-4.0); Glucose 147 mg/dl (70-99(Fasting)); Potassium 6.6 mmol/L (3.5-5.1); Sodium 131 mmol/L (136-145); Total Protein 7.1 gm/dl (6.0-8.3)
[2022-08-02 20:23] LABS: Anisocytosis Present; Echinocytes 2+; Hypersegmented Neutrophils 1+; Immature Granulocytes # (auto) 0.08 K/uL (0.01-0.20); Lymphocytes # (auto) 0.32 K/uL (1.2-3.4); Monocytes # (auto) 0.38 K/uL (0.11-0.59); Monocytes % (auto) 4.7 %; Neutrophils # (auto) 7.29 K/uL (1.40-6.50); Neutrophils % (auto) 90.3 %; Polychromasia 1+
[2022-08-02] MEDS ORDERED: SODIUM ZIRCONIUM CYCLOSILICATE 10 GM PACKET PO ONE (21:54)
--- NOTE | 2022-08-02 22:11 | Emergency Department Note ---
Impression & Plan Hyperkalemia, Missed dialysis, Edema, Weakness ED Provider Note INFORMANT: Patient ED PROVIDER(S): Brett Rock DO CHIEF COMPLAINT: Missed dialysis, edema and weakness PLAN: Disposition: Admission Outpatient prescription management: none Discussion with: I spoke with the hospitalist, who will see the patient for admission/observation and further evaluation and consultation. MEDICAL DECISION MAKING: This is a 66-year-old male who presents to the ED with a chief complaint of having missed dialysis the last 3 times. The patient states that he missed because he had some toes amputated yesterday. states that she could not get him out today for dialysis. He has had increased edema in his legs. He also reports some generalized weakness. Typically gets dialysis Sunday, Sunday and Sunday. The patient's physical exam was suggestive of some mild crackles in the lung bases. Oxygen saturation is 92% on room air. He is in no respiratory distress. COPD. The patient has some mild pedal edema with some weeping on the right lateral leg. He has a wound in that area. He is otherwise in no distress. The patient CBC shows no leukocytosis or anemia. His potassium was 6.6. BUN is 84 and creatinine is 9.27. Magnesium is 3. EKG shows a ventricular paced rhythm at a rate of 85. Because of his hyperkalemia and the fact that he missed dialysis and is developing edema, he will be seen by the hospitalist for further evaluation and care and probable dialysis. Triage Nursing notes reviewed. Vital Signs: reviewed Prior /Outside records reviewed: none Differential diagnosis: Differential includes hyperkalemia, electrolyte abnormality, anemia, edema, infection, other. Diagnostics, as interpreted by me: 12 lead ECG: Ventricular paced rhythm at a rate of 85. No ST elevation. No PVCs. Normal QTc. Cardiac Monitoring ordered: Atrial paced rhythm in the 80s. Medical decision rules: none Imaging studies: Chest x-ray: Chronic left pleural effusion. No change from previous. Procedures: none. Critical care: none. HPI: See MDM above. PAST MEDICAL HISTORY: See Below PAST SURGICAL HISTORY: See Below SOCIAL HISTORY: See Below HOME MEDICATIONS: See Below ALLERGIES: See Below VITALS: See Below PHYSICAL EXAMINATION: See MDM for positive findings otherwise unremarkable. CONSTITUTIONAL/VITAL SIGNS: Reviewed GENERAL:done as appropriate INTEGUMENTARY: done as appropriate HEAD: done as appropriate EYES: done as appropriate RESPIRATORY: done as appropriate CARDIOVASCULAR:done as appropriate GI/ABDOMEN:done as appropriate EXTREMITIES: done as appropriate NEUROLOGICAL: done as appropriate PSYCHIATRIC:done as appropriate MUSCULOSKELETAL:done as appropriate TRIAGE NURSING DOCUMENTATION REVIEWED. Past Med/Surg History Medical History Anemia due to chronic kidney disease Hgb stable on 07/02/22 labs Anxiety CHF (congestive heart failure) EF 25-30% Nonischemic congestive CM per cardio records Chronic respiratory failure COPD (chronic obstructive pulmonary disease) Coronary artery disease LAD ok/D1 80, LCX ok/smOM3 80/80, RCA 30/smPL 90 per 04/10/21 cath per cardio records Diabetes mellitus ESRD (end stage renal disease) on dialysis [facility]. H/O: CVA (cerebrovascular accident) Pt denies Hx of CVA noted in records Chronic left parietal lobe infarct per 05/03/22 MRI of the brain History of gout History of myocardial infarction "a little over a year ago" [facility] -- follows with Dr. Campbell HLD (hyperlipidemia) [place] (hard of hearing) HTN (hypertension) Jugular vein thrombosis Dx'ed while admitted 05/2022 Per 05/09/22- no indication for surgery- started on Eliquis LBBB (left bundle branch block) Per cardio records Loss of vision Rt eye, chronic. Non-healing wound of amputation stump Nonischemic cardiomyopathy On anticoagulant therapy PAD (peripheral artery disease) S/p left SFA stent 09/17/20 PAF (paroxysmal atrial fibrillation) Poor historian Presence of combination internal cardiac defibrillator (ICD) and pacemaker per pt, pacer + defibrillator. placed 04/[address] [facility] per cardio records- last check unk. poor historian. Proliferative diabetic retinopathy Sleep apnea unable to tolerate CPAP Surgical History A-V fistula RUE History of cardiac defibrillator placement (04/13/21) History of carpal tunnel surgery of left wrist History of carpal tunnel surgery of right wrist History of cholecystectomy History of knee surgery History of shoulder surgery History of tooth extraction S/P arterial stent L femoral artery stent S/P transmetatarsal amputation of foot L foot Family History Other Family history non-contributory Social History Smoking Status: Current every day smoker Tobacco Type: Cigarettes Age Started Using Tobacco: 11; packs per day: 1; Cigarettes Per Day: 0.5ppd; Second Hand Exposure: Yes; Do You Dip or Chew Tobacco: No; Hx Alcohol Use: No Hx Substance Use: Yes Prescribed Medications: Marijuana Substance Use Type Other:: medical marijuana Preferred Language: Lithuanian Communication Ability: Effective Visual Impairment: Partially Limited Hearing Ability: Hard of Hearing Ambulatory Services Representative Required: No Beliefs That Will Affect Care: None marital status: Current Living Situation: Spouse current occupational status: disabled Feels Safe at Home: Yes Diet: regular during the past year weight has: remained stable Dental Care, Regularly: No Physical Activity Frequency: Does not Exercise Assistive Devices: Cane, Glasses, Walker and Wheelchair Allergies Allergies Allergy/AdvReac Type Severity Reaction Status Date / Time No Known Allergies Allergy Verified 08/02/22 22:47 Home Meds Home Medications Medication Instructions Recorded Confirmed albuterol sulfate 90 mcg/actuation 2 puff inhalation Q4H PRN 04/16/22 08/02/22 aerosol inhaler Shortness Of Breath Or Wheezing apixaban 5 mg tablet (Eliquis) 5 mg PO BID 04/16/22 08/02/22 cyclobenzaprine 10 mg tablet 10 mg PO BID PRN Spasms 04/16/22 08/02/22 gabapentin 100 mg capsule 100 mg PO HS 04/16/22 08/02/22 lanthanum 500 mg chewable tablet 500 mg PO TIDM 04/16/22 08/02/22 pramipexole 0.25 mg tablet 0.25 mg PO HS 04/16/22 08/02/22 cholecalciferol (vitamin D3) 50 50 mcg PO HS 04/27/22 08/02/22 mcg (2,000 unit) capsule atorvastatin 10 mg tablet 10 mg PO HS 05/02/22 08/02/22 clopidogrel 75 mg tablet 75 mg PO HS 05/02/22 08/02/22 lidocaine-prilocaine 2.5 %-2.5 % 1.5 g topical DIRECTED PRN Pain 05/02/22 08/02/22 topical cream insulin lispro 100 unit/mL 5 unit subcut DAILY PRN ud 07/13/22 08/02/22 subcutaneous pen (Humalog KwikPen (U-100) Insulin) metoprolol succinate 50 mg 100 mg PO HS 07/13/22 08/02/22 tablet,extended release 24 hr duloxetine 60 mg capsule,delayed 60 mg PO QAM 07/14/22 08/02/22 release levofloxacin 500 mg tablet 500 mg PO Q2D 08/02/22 08/02/22 Previous Rx's Medication Instructions Recorded sacubitril 24 mg-valsartan 26 mg 1 tab PO BID #60 tabs 04/23/22 tablet (Entresto) insulin glargine 100 unit/mL (3 10 unit (0.1 mL) subcut QPM #15 mL 04/27/22 mL) subcutaneous pen (Lantus Solostar U-100 Insulin) blood sugar diagnostic (OneTouch #100 ea 05/10/22 Ultra Test strips) blood-glucose meter (OneTouch #1 ea 05/10/22 Ultra2 Meter) lancets 33 gauge (OneTouch Delica #100 ea 05/10/22 Lancets) Wheelchair (Manual) (Manual #1 ea 05/19/22 Wheelchair) bacitracin zinc 500 unit/gram 1 applic topical DAILY #28 grams 06/01/22 topical ointment (Antibiotic (bacitracin zinc)) Lift Chair #1 ea 06/09/22 diaper,brief,adult,disposable #30 ea 06/09/22 (Briefs, Adult-Extra Large) hydroxyzine pamoate 25 mg capsule 25 mg PO Q8H PRN anxiety #60 caps 06/09/22 (Vistaril) fluticasone fur. 100 mcg-umeclid 1 inh inhalation HS #60 ea 06/30/22 62.5 mcg-vilant 25 mcg inhalat.powder (Trelegy Ellipta) albuterol sulfate 2.5 mg/3 mL 2.5 mg (3 mL) inhalation QID PRN 07/04/22 (0.083 %) solution for nebulization shortness of breath or wheezing #60 ea Bedside Commode #1 ea 08/02/22 Hospital Bed Homecare #1 ea 08/02/22 Results & Data (ED) Vital Signs Vital Signs - 24 hr 08/02/22 18:44 08/02/22 20:35 08/02/22 20:46 Temperature 36.8 C Temperature Source Temporal Artery Scan Pulse Rate 89 88 Pulse Rate [Apical] 88 Respiratory Rate 20 16 Respiratory Depth Normal Blood Pressure 113/66 Blood Pressure [Left Arm] 127/78 Blood Pressure Mean 81 Blood Pressure Mean [Left Arm] 94 Blood Pressure Position Sitting Pulse Oximetry 92 92 Oxygen Delivery Method Room Air Room Air Sepsis Recent Fever Within 48 Hours No Sepsis New/Unexplained Change in Mental Status No Sepsis Action Taken by Nursing No Action Required 08/02/22 22:35 Temperature Temperature Source Pulse Rate Pulse Rate [Apical] 85 Respiratory Rate 20 Respiratory Depth Blood Pressure Blood Pressure [Left Arm] 115/70 Blood Pressure Mean Blood Pressure Mean [Left Arm] 85 Blood Pressure Position Pulse Oximetry 91 Oxygen Delivery Method Room Air Sepsis Recent Fever Within 48 Hours Sepsis New/Unexplained Change in Mental Status Sepsis Action Taken by Nursing Laboratory Data 08/02/22 19:40 08/02/22 19:40 Lab Results 08/02/22 08/02/22 Range/Units 19:40 19:40 WBC 8.07 (4.8-10.8) K/ul RBC 3.99 L (4.70-6.10) M/uL Hgb 11.9 L (14.0-18.0) g/dl Hct 38.1 L (42.0-52.0) % MCV 95.5 (80.0-100.0) fL MCH 29.8 (25.0-34.0) pg MCHC 31.2 L (32.0-36.0) g/dL RDW Std Deviation 68.0 H (36.4-46.3) fL RDW Coeff of Wendy 19.9 H (11.5-14.5) % Plt Count 265 (130-400) K/uL MPV 9.6 (9.4-12.4) fL Immature Gran % (Auto) 1.0 % Neut % (Auto) 90.3 % Lymph % (Auto) 4.0 % [place] % (Auto) 4.7 % Eos % (Auto) 0.0 % Baso % (Auto) 0.0 % Neut # (Auto) 7.29 H (1.40-6.50) K/uL Lymph # (Auto) 0.32 L (1.2-3.4) K/uL [place] # (Auto) 0.38 (0.11-0.59) K/uL Eos # (Auto) 0.00 (0-0.50) K/uL Baso # (Auto) 0.00 (0-0.2) K/uL Immature Gran # (Auto) 0.08 (0.01-0.20) K/uL Absolute Nucleated RBC 0.03 (0-0.12) K/uL Nucleated RBC % (auto) 0.4 % Hypersegmented Neuts 1+ Polychromasia 1+ Anisocytosis Present Echinocytes 2+ Sodium 131 L (136-145) mmol/L Potassium 6.6 H* (3.5-5.1) mmol/L Chloride 89 L (98-107) mmol/L Carbon Dioxide 22 (21-32) mmol/L Anion Gap 20 H (3-11) BUN 84 H (6-23) mg/dl Creatinine 9.27 H* (0.6-1.4) mg/dl Est Cr Clr Drug Dosing Not Reportable Est GFR ( Amer) 6.1 ml/min Est GFR (Non-Af Amer) 5.3 ml/min BUN/Creatinine Ratio 9.1 L (10-20) Glucose 147 H (70-99(Fasting)) mg/dl Calcium 9.3 (8.6-10.3) mg/dl Magnesium 3.0 H (1.7-2.4) mg/dl Total Bilirubin 1.4 H (0.2-1.0) mg/dl AST 20 (13-39) U/L ALT 13 (7-52) U/L Alkaline Phosphatase 142 H (34-104) U/L Total Protein 7.1 (6.0-8.3) gm/dl Albumin 3.3 L (3.4-5.0) gm/dl Globulin 3.8 (2.5-4.0) gm/dl Albumin/Globulin Ratio 0.9 (0.9-2) Administered Medications Discontinued Medications Sodium Zirconium Cyclosilicate (Sodium Zirconium Cyclosilicate 10 Gm Packet) 10 gm PO DAILY ONE Stop: 08/02/22 21:55 Last Admin: 08/02/22 22:01 Dose: 10 gm Documented By: LATA Discharge Plan Visit Data Chief Complaint: Weakness Stated Complaint: MISSED DIALYSIS, FOOT PAIN ED Provider: Brett Rock Discharge Problem: Hyperkalemia, Missed dialysis, Edema, Weakness Forms Stand Alone Forms: [facility] [employer] Prescriptions Prescriptions: No Action (DME) blood-glucose meter [OneTouch Ultra2 Meter] [facility] See Rx Instructions .Route Qty: 1 0RF Rx Instructions: TEST BSG ONCE DAILY; DX CODE- E11.9 (DME) OneTouch Ultra Test Strip See Rx Instructions .Route Qty: 100 5RF Rx Instructions: TEST BSG ONCE DAILY; DX CODE- E11.9 (DME) lancets [OneTouch Delica Lancets] [facility] See Rx Instructions .Route Qty: 100 5RF Rx Instructions: TEST BSG ONCE DAILY; DX CODE- E11.9 (DME) Manual Wheelchair Device See Rx Instructions .Route Qty: 1 0RF Rx Instructions: As directed. Trelegy Ellipta 100-62.5-25 mcg blister with device 1 inh INHALATION HS Qty: 60 5RF albuterol sulfate 2.5 mg /3 mL (0.083 %) solution for nebulization 2.5 mg inhalation QID PRN (Reason: shortness of breath or wheezing) Qty: 60 0RF cholecalciferol (vitamin D3) 50 mcg (2,000 unit) capsule 50 mcg PO HS insulin glargine [Lantus Solostar U-100 Insulin] 100 unit/mL (3 mL) insulin pen 10 unit subcut QPM Qty: 15 3RF hydroxyzine pamoate [Vistaril] 25 mg capsule 25 mg PO Q8H PRN (Reason: anxiety) Qty: 60 0RF (DME) Briefs, Adult-Extra [facility] Instructions .Route Qty: 30 5RF Rx Instructions: As directed (DME) Lift Chair [facility] See Rx Instructions .Route Qty: 1 0RF Rx Instructions: As directed (DME) Bedside Commode [facility] See Rx Instructions .Route Qty: 1 0RF Rx Instructions: As directed (DME) Hospital Bed Homecare [facility] See Rx Instructions .Route Qty: 1 0RF Rx Instructions: As directed cyclobenzaprine 10 mg tablet 10 mg PO BID PRN (Reason: Spasms) pramipexole 0.25 mg tablet 0.25 mg PO HS gabapentin 100 mg capsule 100 mg PO HS albuterol sulfate 90 mcg/actuation HFA aerosol inhaler 2 puff INHALATION Q4H PRN (Reason: Shortness Of Breath Or Wheezing) lanthanum 500 mg tablet,chewable 500 mg PO TIDM Eliquis 5 mg tablet 5 mg PO BID Rx Instructions: TAKE AT LUNCH & HS. Entresto 24-26 mg tablet 1 tab PO BID Qty: 60 0RF Rx Instructions: TAKE AT LUNCH & HS bacitracin zinc [Antibiotic (bacitracin zinc)] 500 unit/gram ointment 1 applic topical DAILY Qty: 28 0RF insulin lispro [Humalog KwikPen Insulin] 100 unit/mL insulin pen 5 unit SUBCUT DAILY PRN (Reason: ud) Rx Instructions: SLIDING SCALE levofloxacin 500 mg tablet 500 mg PO Q2D Rx Instructions: BEGIN 08/02/22 X 14 DAYS atorvastatin 10 mg tablet 10 mg PO HS clopidogrel 75 mg tablet 75 mg PO HS lidocaine-prilocaine 2.5-2.5 % cream 1.5 g topical DIRECTED PRN (Reason: Pain) metoprolol succinate 50 mg tablet extended release 24 hr 100 mg PO HS duloxetine 60 mg capsule,delayed release(DR/EC) 60 mg PO QAM Referrals Referrals: Rubina Naqvi DO [Primary Care Provider] -
--- NOTE | 2022-08-02 22:44 | History & Physical Report ---
Date of Service August 02, 2022 Assessment & Plan (1) Missed dialysis: Plan: 66-year-old male with multiple medical comorbidities, ESRD on hemodialysis presenting with generalized weakness after missing 3 dialysis sessions at home. Mild hyperkalemia with K = 6.6. No acute EKG changes. He has been given 1 dose of Lokelma. Repeat K = 6.4 We will administer calcium gluconate, insulin and D50 Repeat chemistry in the morning Nephrology consultation for hemodialysis in the morning (2) HFrEF (heart failure with reduced ejection fraction): Plan: chronic. Volume overload in setting of missed dialysis - continue Entresto Continue to monitor (3) Diabetes mellitus with complication: Plan: Chronic -Lantus 5u BID -ISS (4) Coronary artery disease: Plan: Chronic. Stable -Continue Atorvastatin -Continue Plavix (5) COPD (chronic obstructive pulmonary disease): Plan: chronic. Continue home inhalers Supplemental oxygen as needed (6) History of transmetatarsal amputation of foot: Plan: Patient on Levaquin 500 mg every other day. Last dose 08/02/2022. Continue Levaquin as directed Wound care History of Present Illness Chief Complaint: generalized weakness Primary Care Provider: Rubina Naqvi DO Fernando Sanchez is a 66yo male with history of ESRD on hemodialysis, CHF, COPD, hypertension, hyperlipidemia presenting from home with generalized weakness. Patient recently had transmetatarsal head resection performed by Dr. Prajapati on 07/25/2022. Dressings in place. Pain is well controlled. Patient has been having difficulty with ambulation since his amputation. He lives in a trailer with his and has been unable to walk down the steps to get to hemodialysis. Hence, he has missed 3 dialysis session. they are trying to have a ramp built at their trailer it has not yet happened. He presents Today with complaint of generalized weakness as well as worsening dyspnea. He has intermittent nausea otherwise denies fever, chills, chest pain, cough, shortness of breath. Denies abdominal pain, vomiting, diarrhea. In the ER he is afebrile, hemodynamically stable. No acute distress. potassium = 6.6. He was administered 1 dose of Lokelma Allergies Allergy/AdvReac Type Severity Reaction Status Date / Time No Known Allergies Allergy Verified 08/02/22 22:47 Home Medications Medication Instructions Recorded Confirmed Type albuterol sulfate 90 mcg/actuation 2 puff inhalation Q4H PRN 04/16/22 08/02/22 History aerosol inhaler Shortness Of Breath Or Wheezing apixaban 5 mg tablet (Eliquis) 5 mg PO BID 04/16/22 08/02/22 History cyclobenzaprine 10 mg tablet 10 mg PO BID PRN Spasms 04/16/22 08/02/22 History gabapentin 100 mg capsule 100 mg PO HS 04/16/22 08/02/22 History lanthanum 500 mg chewable tablet 500 mg PO TIDM 04/16/22 08/02/22 History pramipexole 0.25 mg tablet 0.25 mg PO HS 04/16/22 08/02/22 History sacubitril 24 mg-valsartan 26 mg 1 tab PO BID #60 tabs 04/23/22 08/02/22 Rx tablet (Entresto) cholecalciferol (vitamin D3) 50 50 mcg PO HS 04/27/22 08/02/22 History mcg (2,000 unit) capsule insulin glargine 100 unit/mL (3 10 unit (0.1 mL) subcut QPM #15 mL 04/27/22 08/02/22 Rx mL) subcutaneous pen (Lantus Solostar U-100 Insulin) atorvastatin 10 mg tablet 10 mg PO HS 05/02/22 08/02/22 History clopidogrel 75 mg tablet 75 mg PO HS 05/02/22 08/02/22 History lidocaine-prilocaine 2.5 %-2.5 % 1.5 g topical DIRECTED PRN Pain 05/02/22 08/02/22 History topical cream blood sugar diagnostic (OneTouch #100 ea 05/10/22 07/13/22 Rx Ultra Test strips) blood-glucose meter (OneTouch #1 ea 05/10/22 07/13/22 Rx Ultra2 Meter) lancets 33 gauge (OneTouch Delica #100 ea 05/10/22 07/13/22 Rx Lancets) Wheelchair (Manual) (Manual #1 ea 05/19/22 07/13/22 Rx Wheelchair) bacitracin zinc 500 unit/gram 1 applic topical DAILY #28 grams 06/01/22 08/02/22 Rx topical ointment (Antibiotic (bacitracin zinc)) Lift Chair #1 ea 06/09/22 07/13/22 Rx diaper,brief,adult,disposable #30 ea 06/09/22 07/13/22 Rx (Briefs, Adult-Extra Large) hydroxyzine pamoate 25 mg capsule 25 mg PO Q8H PRN anxiety #60 caps 06/09/22 08/02/22 Rx (Vistaril) fluticasone fur. 100 mcg-umeclid 1 inh inhalation HS #60 ea 06/30/22 08/02/22 Rx 62.5 mcg-vilant 25 mcg inhalat.powder (Trelegy Ellipta) albuterol sulfate 2.5 mg/3 mL 2.5 mg (3 mL) inhalation QID PRN 07/04/22 08/02/22 Rx (0.083 %) solution for nebulization shortness of breath or wheezing #60 ea insulin lispro 100 unit/mL 5 unit subcut DAILY PRN ud 07/13/22 08/02/22 History subcutaneous pen (Humalog KwikPen (U-100) Insulin) metoprolol succinate 50 mg 100 mg PO HS 07/13/22 08/02/22 History tablet,extended release 24 hr duloxetine 60 mg capsule,delayed 60 mg PO QAM 07/14/22 08/02/22 History release Bedside Commode #1 ea 08/02/22 08/02/22 Rx Hospital Bed Homecare #1 ea 08/02/22 08/02/22 Rx levofloxacin 500 mg tablet 500 mg PO Q2D 08/02/22 08/02/22 History Past Med/Surg History Medical History Anemia due to chronic kidney disease Hgb stable on 07/02/22 labs Anxiety CHF (congestive heart failure) EF 25-30% Nonischemic congestive CM per cardio records Chronic respiratory failure COPD (chronic obstructive pulmonary disease) Coronary artery disease LAD ok/D1 80, LCX ok/smOM3 80/80, RCA 30/smPL 90 per 04/10/21 cath per cardio records Diabetes mellitus ESRD (end stage renal disease) on dialysis MWF [facility]. H/O: CVA (cerebrovascular accident) Pt denies Hx of CVA noted in records Chronic left parietal lobe infarct per 05/03/22 MRI of the brain History of gout History of myocardial infarction "a little over a year ago" [facility] -- follows with Dr. Campbell HLD (hyperlipidemia) [place] (hard of hearing) HTN (hypertension) Jugular vein thrombosis Dx'ed while admitted 05/2022 Per 05/09/22- no indication for surgery- started on Eliquis LBBB (left bundle branch block) Per cardio records Loss of vision Rt eye, chronic. Non-healing wound of amputation stump Nonischemic cardiomyopathy On anticoagulant therapy PAD (peripheral artery disease) S/p left SFA stent 09/17/20 PAF (paroxysmal atrial fibrillation) Poor historian Presence of combination internal cardiac defibrillator (ICD) and pacemaker per pt, pacer + defibrillator. placed 04/[address] [facility] per cardio records- last check unk. poor historian. Proliferative diabetic retinopathy Sleep apnea unable to tolerate CPAP Surgical History A-V fistula RUE History of cardiac defibrillator placement (04/13/21) History of carpal tunnel surgery of left wrist History of carpal tunnel surgery of right wrist History of cholecystectomy History of knee surgery History of shoulder surgery History of tooth extraction S/P arterial stent L femoral artery stent S/P transmetatarsal amputation of foot L foot Family History Other Family history non-contributory Social History Smoking Status: Former smoker Tobacco Type: Cigarettes Age Started Using Tobacco: 11; packs per day: 1; Cigarettes Per Day: 0.5ppd; Second Hand Exposure: Yes; Do You Dip or Chew Tobacco: No; Tobacco Cessation Education Requested by Patient: No Hx Alcohol Use: No Hx Substance Use: Yes Prescribed Medications: Marijuana Last Used Substance: Days (ago) Substance Use Type Other:: medical marijuana Preferred Language: Albanian Communication Ability: Effective Visual Impairment: Partially Limited Hearing Ability: Hard of Hearing Grape Crusher Required: No Beliefs That Will Affect Care: None marital status: Current Living Situation: Spouse current occupational status: disabled Other Information That Helps Us Care for You: No Feels Safe at Home: Yes Safety Concerns: Feels Safe At This Time Diet: regular during the past year weight has: remained stable Dental Care, Regularly: No Physical Activity Frequency: Does not Exercise Assistive Devices: Cane, Walker and Wheelchair Review of Systems Review of Systems: All systems reviewed & are unremarkable except as noted in HPI & below Physical Exam Physical Exam: General: patient Chronically ill in appearance, no acute distress Skin: scattered ecchymotic lesions on bilateral arms and legs. No active bleeding or evidence of secondary infection HEENT: NC/AT, PERRL, EOMI, anicteric sclera, conjunctiva without injection, external ear normal to inspection and nontender, nares patent, moist mucus membranes, dentition intact, no oropharyngeal lesions, neck supple, trachea midline, no LAD, no thyromegaly, no JVD Heart: +S1/S2, regular, no m/r/g Lungs: equal air entry bilaterally, no rales/rhonchi/wheezes, diminished in bases bilateral Abd: +BS, soft, NT/ND, no masses/organomegaly/ascites Ext: warm, 2+ pulses in UE/LE bilaterally, no clubbing/cyanosis or edema, AV fistula right upper extremity with palpable thrill Neuro: nonfocal, patient AA&O x 4, speech intact, no facial droop, moving all extremities on command with equal strength 5/5 Results & Data Results & Data Vital Signs (Past 12 Hours) Vital Signs Temp Pulse Pulse Resp BP BP Pulse Ox 08/02/22 20:46 88 08/02/22 20:35 88 16 127/78 92 08/02/22 18:44 36.8 C 89 20 113/66 92 O2 Del Method 08/02/22 20:46 08/02/22 20:35 Room Air 08/02/22 18:44 Room Air Laboratory Results Laboratory Results WBC 8.53 K/ul (4.8-10.8) 08/03/22 01:54 RBC 3.82 M/uL (4.70-6.10) L 08/03/22 01:54 Hgb 11.4 g/dl (14.0-18.0) L 08/03/22 01:54 Hct 36.2 % (42.0-52.0) L 08/03/22 01:54 MCV 94.8 fL (80.0-100.0) 08/03/22 01:54 MCH 29.8 pg (25.0-34.0) 08/03/22 01:54 MCHC 31.5 g/dL (32.0-36.0) L 08/03/22 01:54 RDW Std Deviation 69.1 fL (36.4-46.3) H 08/03/22 01:54 RDW Coeff of Wendy 20.2 % (11.5-14.5) H 08/03/22 01:54 Plt Count 244 K/uL (130-400) 08/03/22 01:54 MPV 9.7 fL (9.4-12.4) 08/03/22 01:54 Immature Gran % (Auto) 1.0 % 08/02/22 19:40 Neut % (Auto) 90.3 % 08/02/22 19:40 Lymph % (Auto) 4.0 % 08/02/22 19:40 Trigg % (Auto) 4.7 % 08/02/22 19:40 Eos % (Auto) 0.0 % 08/02/22 19:40 Baso % (Auto) 0.0 % 08/02/22 19:40 Neut # (Auto) 7.29 K/uL (1.40-6.50) H 08/02/22 19:40 Lymph # (Auto) 0.32 K/uL (1.2-3.4) L 08/02/22 19:40 Trigg # (Auto) 0.38 K/uL (0.11-0.59) 08/02/22 19:40 Eos # (Auto) 0.00 K/uL (0-0.50) 08/02/22 19:40 Baso # (Auto) 0.00 K/uL (0-0.2) 08/02/22 19:40 Immature Gran # (Auto) 0.08 K/uL (0.01-0.20) 08/02/22 19:40 Absolute Nucleated RBC 0.03 K/uL (0-0.12) 08/03/22 01:54 Nucleated RBC % (auto) 0.4 % 08/03/22 01:54 Hypersegmented Neuts 1+ 08/02/22 19:40 Polychromasia 1+ 08/02/22 19:40 Anisocytosis Present 08/02/22 19:40 Echinocytes 2+ 08/02/22 19:40 Sodium 132 mmol/L (136-145) L 08/03/22 01:54 Potassium 6.4 mmol/L (3.5-5.1) H* 08/03/22 01:54 Chloride 89 mmol/L (98-107) L 08/03/22 01:54 Carbon Dioxide 23 mmol/L (21-32) 08/03/22 01:54 Anion Gap 20 (3-11) H 08/03/22 01:54 BUN 86 mg/dl (6-23) H 08/03/22 01:54 Creatinine 9.62 mg/dl (0.6-1.4) H* D 08/03/22 01:54 Est Cr Clr Drug Dosing 8.3 ml/min 08/03/22 01:54 Est GFR ( Amer) 5.9 ml/min 08/03/22 01:54 Est GFR (Non-Af Amer) 5.1 ml/min 08/03/22 01:54 BUN/Creatinine Ratio 8.9 (10-20) L 08/03/22 01:54 Glucose 179 mg/dl (70-99(Fasting)) H 08/03/22 01:54 Lactate 2.3 mmol/L (0.4-2.0) H* 08/03/22 01:54 Calcium 8.9 mg/dl (8.6-10.3) 08/03/22 01:54 Magnesium 3.0 mg/dl (1.7-2.4) H 08/02/22 19:40 Total Bilirubin 1.4 mg/dl (0.2-1.0) H 08/02/22 19:40 AST 20 U/L (13-39) 08/02/22 19:40 ALT 13 U/L (7-52) 08/02/22 19:40 Alkaline Phosphatase 142 U/L (34-104) H 08/02/22 19:40 Total Protein 7.1 gm/dl (6.0-8.3) 08/02/22 19:40 Albumin 3.3 gm/dl (3.4-5.0) L 08/02/22 19:40 Globulin 3.8 gm/dl (2.5-4.0) 08/02/22 19:40 Albumin/Globulin Ratio 0.9 (0.9-2) 08/02/22 19:40 SARS-CoV-2, RNA, NAAT NEGATIVE (NEGATIVE) 08/02/22 22:38 ECG Additional Comments: EKG shows ventricular paced rhythm at 85 bpm PG Care Time/CCT Total # of Minutes Spent Total Time Spent with Patient: Total time spent is greater than 50% in coordination of care (as documented) at patient's floor/unit and/or counseling patient: Coding Level of Care Code 05934 INT INP/OBS CARE 3/75MIN Diagnoses Missed dialysis HFrEF (heart failure with reduced ejection fraction) I50.20 Diabetes mellitus with complication E11.8 Coronary artery disease I25.10 COPD (chronic obstructive pulmonary disease) J44.9 History of transmetatarsal amputation of foot Z89.439
[2022-08-03] MEDS ORDERED: CARBOHYDRATES FOR HYPOGLYCEMIA PO PRN (01:38)
[2022-08-03] MEDS ORDERED: ALBUTEROL HFA 8 GM INHALER INH PRN (01:38)
[2022-08-03] MEDS ORDERED: GLUCOSE 10 TAB/TUBE PO PRN (01:38)
[2022-08-03] MEDS ORDERED: DEXTROSE 50% 50 ML SYRINGE IV PRN (01:38)
[2022-08-03] MEDS ORDERED: GLUCAGON FOR INJ 1 MG VIAL SQ PRN (01:38)
[2022-08-03] MEDS ORDERED: hydrOXYzine HCl 25 MG TAB PO PRN (01:38)
[2022-08-03] MEDS ORDERED: CYCLOBENZAPRINE HCL 10 MG TAB PO PRN (01:38)
[2022-08-03] MEDS ORDERED: GLUCOSE 40% GEL 15 GM TUBE PO PRN (01:38)
[2022-08-03 02:08] LABS: Hematocrit (blood only) 36.2 % (42.0-52.0); Hemoglobin 11.4 g/dl (14.0-18.0); Mean Corpuscular Hemoglobin 29.8 pg (25.0-34.0); Mean Corpuscular Hgb Conc 31.5 g/dL (32.0-36.0); Mean Corpuscular Volume 94.8 fL (80.0-100.0); Mean Platelet Volume 9.7 fL (9.4-12.4); Nucleated RBC # (auto) 0.03 K/uL (0-0.12); Nucleated RBC % (auto) 0.4 %; Platelet Count 244 K/uL (130-400); RDW Coefficient of Variation 20.2 % (11.5-14.5); RDW Standard Deviation 69.1 fL (36.4-46.3); Red Blood Count 3.82 M/uL (4.70-6.10); White Blood Count 8.53 K/ul (4.8-10.8)
[2022-08-03 02:35] LABS: BUN Creatinine Ratio 8.9 (10-20); Calcium 8.9 mg/dl (8.6-10.3); Creatinine Clr Calc Pharmacy 8.3 ml/min; Est GFR (African American) 5.9 ml/min; Est GFR (Non-African American) 5.1 ml/min; Potassium 6.4 mmol/L (3.5-5.1)
[2022-08-03] MEDS ORDERED: DEXTROSE 50% 50 ML SYRINGE IV STA (02:38)
[2022-08-03] MEDS ORDERED: STAT IV STA (02:38)
[2022-08-03] MEDS ORDERED: INSULIN HUMAN REGULAR PER UNIT 10 UNITS in SYRINGE 9.9 ML IV ONE (02:45)
[2022-08-03] MEDS ORDERED: CALCIUM GLUCONATE 10% 1,000 MG in DEXTROSE 5% 50 ML IV ONE (03:00)
[2022-08-03] MEDS: INSULIN ASPART PER UNIT CHARGE SC SCH ×4 (07:47→20:49)
[2022-08-03] MEDS: DULoxetine HCL 60 MG CAP PO SCH (07:48)
[2022-08-03] MEDS: LANTUS PER UNIT CHARGE SQ SCH ×2 (08:18→20:48)
--- NOTE | 2022-08-03 08:31 | XRay Report ---
XR chest 1V portable CLINICAL HISTORY: missed dialysis, weak COMPARISON STUDY: Chest radiograph June 30, 2022. FINDINGS: Left subclavian pacer/AICD is in place. There is no pneumothorax. Cardiomegaly is unchanged . Interstitial pulmonary edema similar to prior chest radiograph. A moderate left pleural effusion rowley s slightly decreased since prior exam. A small right pleural effusion is again noted. Left basilar op acity is present. IMPRESSION: 1. Cardiomegaly with mild interstitial pulmonary edema. 2. Moderate left pleural effusion with associated airspace opacity. This effusion has slightly decrea sed since prior chest radiograph. 3. Small right pleural effusion. ACT 112: Negative or not required by law. Electronically signed by: Shay Waters M.D. 08/03/2022 8:30 AM
--- NOTE | 2022-08-03 08:42 | Nephrology Consultation ---
Date of Consultation August 03, 2022 Assessment & Plan (1) ESRD (end stage renal disease) on dialysis: * Will provide HD today for correction of hyperkalemia and 2 L UF. Orders were entered into EMR and HD RN notified * PRP in am (2) Hyperkalemia: * HD today w/ 2 K bath * PRP in am * Renal diet (3) History of transmetatarsal amputation of foot: * Monitor closely for infection * Patient may benefit from PT and case management consultation to determine whether home health assistance and transportation assistance is needed (4) History of cardiac defibrillator placement: History of Present Illness Reason for Consultation: ESKD on IHD Attending Physician: Surinder Louise MD History of Present Illness Mr. Sanchez is a 66 year old male who is seen at the request of the [facility] to provide HD and assist w/ medical management. Mr. Sanchez has ESKD due to DKD and renal vascular disease. He dialyzes at [facility] under the care of Dr. Mccormack (TTS, 3 hr, F-180NR, 2K, Qb 350/Qd 800, EDW 80 kg). Mr. Sanchez's medical history is significant for AODM, PAD, HFrEF s/p AICD, COPD, chronic LE venous stasis ulcers, vitreal hemorrhage with R vision loss. Mr. Sanchez often misses dialysis treatments due to lack of transportation. On 07/25/22 he underwent foot surgery. Upon returning home he did not attend dialysis for one week. Last evening Mr. Sanchez was brought to [facility] for evaluation. O2 sat was 92% on RA, K 6.0, ECG revealed paced rhythm. Nephrology consultation is now requested to provide HD. Allergies Allergy/AdvReac Type Severity Reaction Status Date / Time No Known Allergies Allergy Verified 08/02/22 22:47 Home Medications Medication Instructions Recorded Confirmed Type albuterol sulfate 90 mcg/actuation 2 puff inhalation Q4H PRN 04/16/22 08/02/22 History aerosol inhaler Shortness Of Breath Or Wheezing apixaban 5 mg tablet (Eliquis) 5 mg PO BID 04/16/22 08/02/22 History cyclobenzaprine 10 mg tablet 10 mg PO BID PRN Spasms 04/16/22 08/02/22 History gabapentin 100 mg capsule 100 mg PO HS 04/16/22 08/02/22 History lanthanum 500 mg chewable tablet 500 mg PO TIDM 04/16/22 08/02/22 History pramipexole 0.25 mg tablet 0.25 mg PO HS 04/16/22 08/02/22 History sacubitril 24 mg-valsartan 26 mg 1 tab PO BID #60 tabs 04/23/22 08/02/22 Rx tablet (Entresto) cholecalciferol (vitamin D3) 50 50 mcg PO HS 04/27/22 08/02/22 History mcg (2,000 unit) capsule insulin glargine 100 unit/mL (3 10 unit (0.1 mL) subcut QPM #15 mL 04/27/22 08/02/22 Rx mL) subcutaneous pen (Lantus Solostar U-100 Insulin) atorvastatin 10 mg tablet 10 mg PO HS 05/02/22 08/02/22 History clopidogrel 75 mg tablet 75 mg PO HS 05/02/22 08/02/22 History lidocaine-prilocaine 2.5 %-2.5 % 1.5 g topical DIRECTED PRN Pain 05/02/22 08/02/22 History topical cream blood sugar diagnostic (OneTouch #100 ea 05/10/22 07/13/22 Rx Ultra Test strips) blood-glucose meter (OneTouch #1 ea 05/10/22 07/13/22 Rx Ultra2 Meter) lancets 33 gauge (OneTouch Delica #100 ea 05/10/22 07/13/22 Rx Lancets) Wheelchair (Manual) (Manual #1 ea 05/19/22 07/13/22 Rx Wheelchair) bacitracin zinc 500 unit/gram 1 applic topical DAILY #28 grams 06/01/22 08/02/22 Rx topical ointment (Antibiotic (bacitracin zinc)) Lift Chair #1 ea 06/09/22 07/13/22 Rx diaper,brief,adult,disposable #30 ea 06/09/22 07/13/22 Rx (Briefs, Adult-Extra Large) hydroxyzine pamoate 25 mg capsule 25 mg PO Q8H PRN anxiety #60 caps 06/09/22 08/02/22 Rx (Vistaril) fluticasone fur. 100 mcg-umeclid 1 inh inhalation HS #60 ea 06/30/22 08/02/22 Rx 62.5 mcg-vilant 25 mcg inhalat.powder (Trelegy Ellipta) albuterol sulfate 2.5 mg/3 mL 2.5 mg (3 mL) inhalation QID PRN 07/04/22 08/02/22 Rx (0.083 %) solution for nebulization shortness of breath or wheezing #60 ea insulin lispro 100 unit/mL 5 unit subcut DAILY PRN ud 07/13/22 08/02/22 History subcutaneous pen (Humalog KwikPen (U-100) Insulin) metoprolol succinate 50 mg 100 mg PO HS 07/13/22 08/02/22 History tablet,extended release 24 hr duloxetine 60 mg capsule,delayed 60 mg PO QAM 07/14/22 08/02/22 History release Bedside Commode #1 ea 08/02/22 08/02/22 Rx Hospital Bed Homecare #1 ea 08/02/22 08/02/22 Rx levofloxacin 500 mg tablet 500 mg PO Q2D 08/02/22 08/02/22 History Patient History Medical History Anemia due to chronic kidney disease Hgb stable on 07/02/22 labs Anxiety CHF (congestive heart failure) EF 25-30% Nonischemic congestive CM per cardio records Chronic respiratory failure COPD (chronic obstructive pulmonary disease) Coronary artery disease LAD ok/D1 80, LCX ok/smOM3 80/80, RCA 30/smPL 90 per 04/10/21 cath per cardio records Diabetes mellitus ESRD (end stage renal disease) on dialysis [facility]. H/O: CVA (cerebrovascular accident) Pt denies Hx of CVA noted in records Chronic left parietal lobe infarct per 05/03/22 MRI of the brain History of gout History of myocardial infarction "a little over a year ago" [facility] -- follows with Dr. Adrian [place] (hyperlipidemia) [place] (hard of [place]) HTN (hypertension) Jugular vein thrombosis Dx'ed while admitted 05/2022 Per 05/09/22- no indication for surgery- started on Eliquis LBBB (left bundle branch block) Per cardio records Loss of vision Rt eye, chronic. Non-healing wound of amputation stump Nonischemic cardiomyopathy On anticoagulant therapy PAD (peripheral artery disease) S/p left SFA stent 09/17/20 PAF (paroxysmal atrial fibrillation) Poor historian Presence of combination internal cardiac defibrillator (ICD) and pacemaker per pt, pacer + defibrillator. placed 04/[address] [facility] per cardio records- last check unk. poor historian. Proliferative diabetic retinopathy Sleep apnea unable to tolerate CPAP Surgical History A-V fistula RUE History of cardiac defibrillator placement (04/13/21) History of carpal tunnel surgery of left wrist History of carpal tunnel surgery of right wrist History of cholecystectomy History of knee surgery History of shoulder surgery History of tooth extraction S/P arterial stent L femoral artery stent S/P transmetatarsal amputation of foot L foot Family History Other Family history non-contributory Social History Smoking Status: Former smoker Tobacco Type: Cigarettes Age Started Using Tobacco: 11; packs per day: 1; Cigarettes Per Day: 0.5ppd; Second Hand Exposure: Yes; Do You Dip or Chew Tobacco: No; Tobacco Cessation Education Requested by Patient: No Hx Alcohol Use: No Hx Substance Use: Yes Prescribed Medications: Marijuana Last Used Substance: Days (ago) Substance Use Type Other:: medical marijuana Preferred Language: Singaporean Communication Ability: Unable Visual Impairment: Partially Limited Hearing Ability: Hard of Hearing Valve Inspector Required: No Beliefs That Will Affect Care: None marital status: Current Living Situation: Spouse current occupational status: disabled Other Information That Helps Us Care for You: No Feels Safe at Home: Yes Safety Concerns: Feels Safe At This Time Diet: regular during the past year weight has: remained stable Dental Care, Regularly: No Physical Activity Frequency: Does not Exercise Assistive Devices: Cane, Walker and Wheelchair Review of Systems Constitutional: no fever Eyes: + problem reported (R vision loss) Ear, Nose, Mouth, Throat: no problem reported Respiratory: no dyspnea Cardiovascular: no chest pain Gastrointestinal: no abdominal pain Neurologic: no localized weakness Physical Exam Constitutional: not in distress Eyes: PERRL, conjunctivae normal, anicteric sclerae ENMT: external ear and nose normal, oropharynx normal Neck: trachea midline, no thyromegaly Respiratory: normal respiratory effort, lungs clear to auscultation Cardiovascular: RRR, no murmur, no edema Extremities: + edema (1+ LE swelling) and + AV fistula (+ bruit) Gastrointestinal (Abdomen): normal bowel sounds, soft, nontender, no hepatosplenomegaly Neurologic: awake; not confused Results & Data Vital Signs (Past 12 Hours) Vital Signs Temp Pulse Pulse Resp BP BP Pulse Ox 08/03/22 06:50 109/66 08/03/22 06:50 74 18 97 08/03/22 06:30 75 20 97 08/03/22 06:00 81 19 96 08/03/22 05:30 77 15 98 08/03/22 05:00 79 9 L 97 08/03/22 04:30 83 17 97 08/03/22 04:00 86 15 97 08/03/22 03:30 83 17 98 08/03/22 03:00 78 12 99 08/03/22 02:30 81 17 100 08/03/22 02:00 83 20 99 08/03/22 01:33 85 20 89 L 08/03/22 01:49 08/03/22 01:38 36.3 C L 87 20 141/82 H 95 08/03/22 01:00 84 18 130/85 93 08/03/22 00:49 83 08/03/22 00:00 83 12 142/89 H 94 08/02/22 23:00 83 12 129/95 92 08/02/22 22:35 85 20 115/70 91 08/02/22 20:46 88 O2 Del Method O2 Flow Rate 08/03/22 06:50 08/03/22 06:50 08/03/22 06:30 08/03/22 06:00 08/03/22 05:30 08/03/22 05:00 08/03/22 04:30 08/03/22 04:00 08/03/22 03:30 08/03/22 03:00 08/03/22 02:30 08/03/22 02:00 08/03/22 01:33 08/03/22 01:49 Nasal Cannula 2 08/03/22 01:38 Nasal Cannula 2 08/03/22 01:00 Room Air 08/03/22 00:49 08/03/22 00:00 Room Air 08/02/22 23:00 Room Air 08/02/22 22:35 Room Air 08/02/22 20:46 Laboratory Results Laboratory Tests 08/03/22 08/03/22 01:54 01:54 WBC 8.53 Hgb 11.4 L Hct 36.2 L Plt Count 244 Sodium 132 L Potassium 6.4 H* Chloride 89 L Carbon Dioxide 23 BUN 86 H Creatinine 9.62 H* D Glucose 179 H PG Care Time/CCT Total # of Minutes Spent Total Time Spent with Patient: Total time spent is greater than 50% in coordination of care (as documented) at patient's floor/unit and/or counseling patient: Coding Level of Care Code 73120 IN/OBS CONSULT LVL 5,80M Diagnoses ESRD (end stage renal disease) on dialysis N18.6; Z99.2 Hyperkalemia E87.5 History of transmetatarsal amputation of foot Z89.439 History of cardiac defibrillator placement Z95.810
[2022-08-03] MEDS ORDERED: SODIUM CHLORIDE 0.9% 1000ML 1,000 ML IV PRN (08:49)
--- NOTE | 2022-08-03 10:34 | Electrocardiogram Report ---
Test Reason : Blood Pressure : / mmHG Vent. Rate : 085 BPM Atrial Rate : 085 BPM P-R Int : 000 ms QRS Dur : 150 ms QT Int : 464 ms P-R-T Axes : 000 251 084 degrees QTc Int : 552 ms Ventricular-paced rhythm Biventricular pacemaker detected Abnormal ECG When compared with ECG of 30-JUN-2022 12:42, Premature ventricular complexes are no longer Present Vent. rate has decreased BY 7 BPM Confirmed by Roni Hernández ([id number]) on 08/03/2022 10:34:26 AM Referred By: REFERRED SELF Confirmed By:Roni Hernández
[2022-08-03] MEDS: APIXABAN 5 MG TABLET PO SCH ×2 (13:53→20:47)
[2022-08-03] MEDS: VALSARTAN/SACUBITRIL 26/24MG TAB PO SCH ×2 (13:53→20:49)
--- NOTE | 2022-08-03 18:40 | Hospitalist Progress Note ---
Date of Service August 03, 2022 Assessment & Plan (1) Missed dialysis: Plan: 66-year-old male with multiple medical comorbidities, ESRD on hemodialysis presenting with generalized weakness after missing 3 dialysis sessions at home. Missed dialysis, hyperkalemia, fluid overload Patient with hyperkalemia in the ER, 6.6 received Lokelma, calcium gluconate, insulin, D50 with downtrend to 6.4 Received dialysis today, 3000 cc ultrafiltrate. Treatment stop slightly early due to machine clot but patient tolerating well Nephrology following, BMP repeat every morning No chest pain/chest pressure (2) HFrEF (heart failure with reduced ejection fraction): Plan: Chronic. Volume overload in setting of missed dialysis - continue Entresto Continue to monitor (3) Diabetes mellitus with complication: Plan: Chronic -Lantus 5u BID -ISS (4) Coronary artery disease: Plan: Chronic. Stable -Continue Atorvastatin -Continue Plavix (5) COPD (chronic obstructive pulmonary disease): Plan: chronic. Continue home inhalers Supplemental oxygen as needed (6) History of transmetatarsal amputation of foot: Plan: Patient on Levaquin 500 mg every other day. Levaquin dose adjusted, last dose 08/04 See photo 08/03, metatarsal amputation with healing wound, some slight warmth without demarcated erythema. Admission and Anticipated Discharge Date Admission Date: August 02, 2022 Subjective Resting comfortably. No acute questions or concerns, tolerates dialysis well but missed this due to overall feeling too weak to go to his outpatient treatments reports dialysis was missed due to weakness, continues to feel weak at times it. Denies shortness of breath. Physical Exam Physical Exam: General: A&Ox3. NAD. Cooperative. HEENT: Atraumatic, normocephalic. Pulm: CTAB A&P. -wheezes, -rales, -rhonchi. Symmetrical chest rise. No increased work of breathing. No respiratory distress. Cardiac: RRR, -mrg. Radial pulses intact and symmetrical. Abdominal: Nontender, nondistended, soft. BS present. Extremities: 1+ bilateral lower extremity edema. Patient intact with good thrill, no erythema/warmth Results & Data Results & Data Vital Signs (Past 12 Hours) Vital Signs Temp Pulse Pulse Resp BP BP Pulse Ox 08/03/22 18:33 87 08/03/22 15:34 82 14 104/64 98 08/03/22 15:58 36.4 C L 08/03/22 13:32 36.5 C 76 128/69 08/03/22 13:47 84 22 118/84 97 08/03/22 13:00 81 124/71 08/03/22 12:30 88 123/87 08/03/22 12:00 61 111/73 08/03/22 11:30 76 124/73 08/03/22 11:00 79 113/73 08/03/22 10:30 81 123/82 08/03/22 10:00 83 145/83 H 08/03/22 09:34 78 130/84 08/03/22 09:26 36.5 C 80 08/03/22 08:00 83 18 106/57 L 98 08/03/22 09:54 08/03/22 08:00 36.3 C L 08/03/22 06:50 109/66 08/03/22 06:50 74 18 97 O2 Del Method O2 Flow Rate 08/03/22 18:33 08/03/22 15:34 Nasal Cannula 2 08/03/22 15:58 08/03/22 13:32 08/03/22 13:47 Nasal Cannula 2 08/03/22 13:00 08/03/22 12:30 08/03/22 12:00 08/03/22 11:30 08/03/22 11:00 08/03/22 10:30 08/03/22 10:00 08/03/22 09:34 08/03/22 09:26 08/03/22 08:00 Nasal Cannula 2 08/03/22 09:54 Nasal Cannula 2 08/03/22 08:00 08/03/22 06:50 08/03/22 06:50 PG Care Time/CCT Total # of Minutes Spent Total Time Spent with Patient: Total time spent is greater than 50% in coordination of care (as documented) at patient's floor/unit and/or counseling patient: Coding Level of Care Code 63327 SUB INP/OBS CARE 3/50MIN Diagnoses Missed dialysis HFrEF (heart failure with reduced ejection fraction) I50.20 Diabetes mellitus with complication E11.8 Coronary artery disease I25.10 COPD (chronic obstructive pulmonary disease) J44.9 History of transmetatarsal amputation of foot Z89.439
[2022-08-03] MEDS: ACETAMINOPHEN 325 MG TAB PO PRN (20:46)
[2022-08-03] MEDS: GABAPENTIN 100 MG CAP PO SCH (20:47)
[2022-08-03] MEDS: CLOPIDOGREL BISULFATE 75 MG TAB PO SCH (20:47)
[2022-08-03] MEDS: ATORVASTATIN 10 MG TAB PO SCH (20:47)
[2022-08-03] MEDS: FLUTICASONE FUROATE 100MCG 14 PUFFS/INHALER INH SCH (20:49)
[2022-08-03] MEDS: UMECLIDINIUM/VILANTEROL 62.5/25MCG 7 PUFFS/INHALER INH SCH (20:49)
[2022-08-03] MEDS ORDERED: NON-FORMULARY MEDICATION (Fluticasone-Umeclidin-Vilanter [Trelegy Ellipta] 100-62.5-25 mcg INH SCH (21:00)
[2022-08-04 06:53] LABS: Basophils # (auto) 0.01 K/uL (0-0.2); Basophils % (auto) 0.1 %; Eosinophils # (auto) 0.05 K/uL (0-0.50); Eosinophils % (auto) 0.6 %; Hematocrit (blood only) 33.4 % (42.0-52.0); Hemoglobin 10.3 g/dl (14.0-18.0); Immature Granulocytes # (auto) 0.06 K/uL (0.01-0.20); Immature Granulocytes % (auto) 0.8 %; Lymphocytes # (auto) 0.37 K/uL (1.2-3.4); Lymphocytes % (auto) 4.7 %; Mean Corpuscular Hemoglobin 29.3 pg (25.0-34.0); Mean Corpuscular Hgb Conc 30.8 g/dL (32.0-36.0); Mean Corpuscular Volume 95.2 fL (80.0-100.0); Mean Platelet Volume 9.6 fL (9.4-12.4); Monocytes # (auto) 0.53 K/uL (0.11-0.59); Monocytes % (auto) 6.7 %; Neutrophils # (auto) 6.86 K/uL (1.40-6.50); Neutrophils % (auto) 87.1 %; Platelet Count 158 K/uL (130-400); RDW Standard Deviation 69.4 fL (36.4-46.3); Red Blood Count 3.51 M/uL (4.70-6.10); White Blood Count 7.88 K/ul (4.8-10.8)
[2022-08-04 07:20] LABS: Creatinine Clr Calc Pharmacy 12.3 ml/min; Est GFR (African American) 10.5 ml/min; Est GFR (Non-African American) 9.1 ml/min
[2022-08-04 07:21] LABS: BUN Creatinine Ratio 7.3 (10-20); Calcium 8.1 mg/dl (8.6-10.3)
[2022-08-04] MEDS: APIXABAN 5 MG TABLET PO SCH ×2 (08:24→21:24)
[2022-08-04] MEDS: DULoxetine HCL 60 MG CAP PO SCH (08:24)
[2022-08-04] MEDS: VALSARTAN/SACUBITRIL 26/24MG TAB PO SCH ×2 (08:25→21:24)
[2022-08-04] MEDS: INSULIN ASPART PER UNIT CHARGE SC SCH ×4 (08:27→21:13)
[2022-08-04] MEDS: LANTUS PER UNIT CHARGE SQ SCH ×2 (08:31→21:20)
--- NOTE | 2022-08-04 08:46 | Nephrology Progress Note ---
Date of Service August 04, 2022 Assessment & Plan (1) ESRD (end stage renal disease) on dialysis: Plan: * Volume status and electrolyte balance are acceptable at this time. Will schedule next HD for am and transition to outpatient MWF next week * Outpatient HD orders: [facility] Dr. Ksenia Lara MWF, 4 hr, F-180NR, 2K 2.5Ca, Qb 350/Qd 800, EDW 79 kg (2) Hyperkalemia: Plan: * Resolved following HD yesterday * Low K, diabetic, HD diet (3) History of transmetatarsal amputation of foot: Plan: * Monitor closely for infection * Patient may benefit from PT * Case management is working to obtain a ramp for his trailer before he is discharged for outpatient dialysis (4) History of cardiac defibrillator placement: Admission and Anticipated Discharge Date Admission Date: August 02, 2022 Subjective Mr. Sanchez was evaluated in his hospital room this morning. He denies dyspnea or uremic symptoms. He was dialyzed yesterday without complication. Review of Systems Constitutional: no fever Eyes: + problem reported (R vision loss) Ear, Nose, Mouth, Throat: no problem reported Respiratory: no dyspnea Cardiovascular: no chest pain Gastrointestinal: no abdominal pain Neurologic: no localized weakness Physical Exam Constitutional: not in distress Eyes: PERRL, conjunctivae normal, anicteric sclerae ENMT: external ear and nose normal, oropharynx normal Neck: trachea midline, no thyromegaly Respiratory: normal respiratory effort, lungs clear to auscultation Cardiovascular: RRR, no murmur, no edema Extremities: + AV fistula (+ bruit); no edema Gastrointestinal (Abdomen): normal bowel sounds, soft, nontender, no hepatosplenomegaly Neurologic: awake; not confused Results & Data Vital Signs (Past 12 Hours) Vital Signs Temp Pulse Pulse Pulse Resp BP Pulse Ox 08/04/22 07:30 36.6 C 74 14 112/72 93 08/04/22 07:23 74 08/04/22 02:41 36.3 C L 90 18 115/70 91 08/03/22 23:36 78 08/03/22 22:46 36.4 C L 76 18 101/63 92 08/03/22 22:52 O2 Del Method 08/04/22 07:30 Room Air 08/04/22 07:23 08/04/22 02:41 Room Air 08/03/22 23:36 08/03/22 22:46 Room Air 08/03/22 22:52 Room Air Laboratory Results Laboratory Tests 08/04/22 08/04/22 06:09 06:09 WBC 7.88 Hgb 10.3 L Hct 33.4 L Plt Count 158 Sodium 137 Potassium 5.0 D Chloride 99 Carbon Dioxide 27 BUN 43 H D Creatinine 5.92 H* D Glucose 76 PG Care Time/CCT Total # of Minutes Spent Total Time Spent with Patient: Total time spent is greater than 50% in coordination of care (as documented) at patient's floor/unit and/or counseling patient: Coding Level of Care Code 69444 SUB INP/OBS CARE 3/50MIN Diagnoses ESRD (end stage renal disease) on dialysis N18.6; Z99.2 Hyperkalemia E87.5 History of transmetatarsal amputation of foot Z89.439 History of cardiac defibrillator placement Z95.810
[2022-08-04] MEDS ORDERED: levoFLOXacin 500 MG TAB PO SCH (11:00)
[2022-08-04] MEDS: ACETAMINOPHEN 325 MG TAB PO PRN (21:23)
[2022-08-04] MEDS: ATORVASTATIN 10 MG TAB PO SCH (21:24)
[2022-08-04] MEDS: CLOPIDOGREL BISULFATE 75 MG TAB PO SCH (21:24)
[2022-08-04] MEDS: UMECLIDINIUM/VILANTEROL 62.5/25MCG 7 PUFFS/INHALER INH SCH (21:24)
[2022-08-04] MEDS: GABAPENTIN 100 MG CAP PO SCH (21:24)
[2022-08-04] MEDS: FLUTICASONE FUROATE 100MCG 14 PUFFS/INHALER INH SCH (21:25)
--- NOTE | 2022-08-04 22:14 | Hospitalist Progress Note ---
Date of Service August 04, 2022 Assessment & Plan (1) Missed dialysis: Plan: 66-year-old male with multiple medical comorbidities, ESRD on hemodialysis presenting with generalized weakness after missing 3 dialysis sessions at home. Missed dialysis, hyperkalemia, fluid overload Patient with hyperkalemia in the ER, 6.6 received Lokelma, calcium gluconate, insulin, D50 with downtrend to 6.4 Received dialysis today, 3000 cc ultrafiltrate. Treatment stop slightly early due to machine clot but patient tolerating well Nephrology following, BMP repeat every morning No chest pain/chest pressure Will get dialysis on 08/05 and will discharge after therapy as long as case management has transport ready for his home therapy on sunday. (2) HFrEF (heart failure with reduced ejection fraction): Plan: Chronic. Volume overload in setting of missed dialysis - continue Entresto Continue to monitor (3) Diabetes mellitus with complication: Plan: Chronic -Lantus 5u BID -ISS (4) Coronary artery disease: Plan: Chronic. Stable -Continue Atorvastatin -Continue Plavix (5) COPD (chronic obstructive pulmonary disease): Plan: chronic. Continue home inhalers Supplemental oxygen as needed (6) History of transmetatarsal amputation of foot: Plan: Patient on Levaquin 500 mg every other day. Levaquin dose adjusted, last dose 08/04 See photo 08/03, metatarsal amputation with healing wound, some slight warmth without demarcated erythema. Admission and Anticipated Discharge Date Admission Date: August 02, 2022 Subjective 66 yo male reports feeling well. He has no new complaints. Review of Systems Review of Systems: All systems reviewed & are unremarkable except as noted in HPI & below Physical Exam Physical Exam: General: A&Ox3. NAD. Cooperative. HEENT: Atraumatic, normocephalic. Pulm: CTAB A&P. -wheezes, -rales, -rhonchi. Symmetrical chest rise. No increased work of breathing. No respiratory distress. Cardiac: RRR, -mrg. Radial pulses intact and symmetrical. Abdominal: Nontender, nondistended, soft. BS present. Extremities: 1+ bilateral lower extremity edema. Patient intact with good thrill, no erythema/warmth Results & Data Results & Data Vital Signs (Past 12 Hours) Vital Signs Temp Pulse Pulse Pulse Resp BP Pulse Ox 08/04/22 20:46 08/04/22 20:29 20 94 08/04/22 19:19 36.5 C 79 16 104/65 90 08/04/22 17:40 94 08/04/22 17:11 36.4 C L 80 18 101/60 90 08/04/22 16:00 78 08/04/22 11:30 36.4 C L 78 14 118/68 96 08/04/22 10:57 O2 Del Method 08/04/22 20:46 Room Air 08/04/22 20:29 Room Air 08/04/22 19:19 Room Air 08/04/22 17:40 Room Air 08/04/22 17:11 Room Air 08/04/22 16:00 08/04/22 11:30 Room Air 08/04/22 10:57 Room Air PG Care Time/CCT Total # of Minutes Spent Total Time Spent with Patient: Total time spent is greater than 50% in coordination of care (as documented) at patient's floor/unit and/or counseling patient: Coding Level of Care Code 10487 SUB INP/OBS CARE 2/35MIN Diagnoses Missed dialysis HFrEF (heart failure with reduced ejection fraction) I50.20 Diabetes mellitus with complication E11.8 Coronary artery disease I25.10 COPD (chronic obstructive pulmonary disease) J44.9 History of transmetatarsal amputation of foot Z89.439
[2022-08-05] MEDS ORDERED: SODIUM CHLORIDE 0.9% 1000ML 1,000 ML IV PRN (07:00)
[2022-08-05] MEDS ORDERED: EPOETIN ALFA 10,000 UNITS/ML VIAL IV ONE (07:00)
[2022-08-05] MEDS: VALSARTAN/SACUBITRIL 26/24MG TAB PO SCH (08:27)
[2022-08-05] MEDS: DULoxetine HCL 60 MG CAP PO SCH (08:28)
[2022-08-05] MEDS: APIXABAN 5 MG TABLET PO SCH (08:28)
[2022-08-05] MEDS: INSULIN ASPART PER UNIT CHARGE SC SCH ×2 (08:34→13:30)
[2022-08-05] MEDS: LANTUS PER UNIT CHARGE SQ SCH (08:34)
--- NOTE | 2022-08-05 10:22 | Nephrology Progress Note ---
Date of Service August 05, 2022 Assessment & Plan (1) ESRD (end stage renal disease) on dialysis: (2) Hyperkalemia: (3) Missed dialysis: (4) History of transmetatarsal amputation of foot: Plan 66-year-old male with ESRD on hemodialysis Sunday, Sunday, Sunday at [facility] [place], admitted after missed dialysis and hyperkalemia. overall clinically otherwise staying stable. Waiting for a ramp for his trailer for easy mobility. -- continue dialysis as his regular schedule, UF as tolerated. -- Dose medications for EGFR less than 10, right arm nephrology precaution. Limit fluid intake less than 1200 per day, follow low-salt diet, low-potassium diet -- continue on phosphate binder with meals Admission and Anticipated Discharge Date Admission Date: August 02, 2022 Subjective Cooper was seen and evaluated during dialysis this morning. Tolerating dialysis well, denies any dizziness, lightheadedness, shortness of breath or chest pain. Blood pressure acceptable. Review of Systems Review of Systems: Detailed review of system was done and pertinent positives and negatives are mentioned above. Physical Exam Constitutional: WD/WN, vitals as above no acute distress Eyes: + anicteric sclerae Neck: normal visual inspection Respiratory: Auscultation: lungs clear to auscultation bilaterally Cardiovascular: Rate/Rhythm: regular rate and regular rhythm Heart Sounds: normal S1 and normal S2 Musculoskeletal: Both feet wrapped in dressing Skin: no rashes Neurologic: no focal motor deficits and not confused Psychiatric: Orientation: alert and oriented x 3 Results & Data Vital Signs (Past 12 Hours) Vital Signs Temp Pulse Pulse Resp BP Pulse Ox O2 Del Method 08/05/22 08:16 36.5 C 81 18 120/70 91 Room Air 08/05/22 07:14 60 08/05/22 02:44 36.4 C L 86 18 127/71 90 Room Air 08/04/22 22:31 36.4 C L 79 16 112/73 92 Room Air PG Care Time/CCT Total # of Minutes Spent Total Time Spent with Patient: Total time spent is greater than 50% in coordination of care (as documented) at patient's floor/unit and/or counseling patient: Coding Level of Care Code 27809 SUB INP/OBS CARE 2/35MIN Diagnoses ESRD (end stage renal disease) on dialysis N18.6; Z99.2 Hyperkalemia E87.5 Missed dialysis History of transmetatarsal amputation of foot Z89.439
--- NOTE | 2022-08-05 14:11 | Discharge Summary ---
Date of Service August 05, 2022 Admission HPI Per Admitting Provider Fernando Sanchez is a 66yo male with history of ESRD on hemodialysis, CHF, COPD, hypertension, hyperlipidemia presenting from home with generalized weakness. Patient recently had transmetatarsal head resection performed by Dr. Prajapati on 07/25/2022. Dressings in place. Pain is well controlled. Patient has been having difficulty with ambulation since his amputation. He lives in a trailer with his and has been unable to walk down the steps to get to hemodialysis. Hence, he has missed 3 dialysis session. they are trying to have a ramp built at their trailer it has not yet happened. He presents Today with complaint of generalized weakness as well as worsening dyspnea. He has intermittent nausea otherwise denies fever, chills, chest pain, cough, shortness of breath. Denies abdominal pain, vomiting, diarrhea. In the ER he is afebrile, hemodynamically stable. No acute distress. potassium = 6.6. He was administered 1 dose of Lokelma Principal Diagnosis ESRD on dialysis Discharge Exam General: A&Ox3. NAD. Cooperative. HEENT: Atraumatic, normocephalic. Pulm: CTAB A&P. -wheezes, -rales, -rhonchi. Symmetrical chest rise. No increased work of breathing. No respiratory distress. Cardiac: RRR, -mrg. Radial pulses intact and symmetrical. Abdominal: Nontender, nondistended, soft. BS present. Extremities: 1+ bilateral lower extremity edema. Patient intact with good thrill, no erythema/warmth Discharge Data Allergies Allergy/AdvReac Type Severity Reaction Status Date / Time No Known Allergies Allergy Verified 08/02/22 22:47 Consultations 08/02/22 21:55 ED Decision to Admit Stat 08/03/22 01:38 Consult Nephrology Routine Hospital Course (1) Missed dialysis: 66-year-old male with multiple medical comorbidities, ESRD on hemodialysis presenting with generalized weakness after missing 3 dialysis sessions at home. Missed dialysis, hyperkalemia, fluid overload Patient with hyperkalemia in the ER, 6.6 received Lokelma, calcium gluconate, insulin, D50 with downtrend to 6.4 Received dialysis today, 3000 cc ultrafiltrate. Treatment stop slightly early due to machine clot but patient tolerating well Nephrology following, BMP repeat every morning No chest pain/chest pressure Will get dialysis on 08/05 and will discharge after therapy., Case management has transport ready for his home therapy on sunday. (2) HFrEF (heart failure with reduced ejection fraction): Chronic. Volume overload in setting of missed dialysis - continue Entresto Continue to monitor (3) Diabetes mellitus with complication: Chronic -Lantus 5u BID -ISS (4) Coronary artery disease: Chronic. Stable -Continue Atorvastatin -Continue Plavix (5) COPD (chronic obstructive pulmonary disease): chronic. Continue home inhalers Supplemental oxygen as needed (6) History of transmetatarsal amputation of foot: Patient on Levaquin 500 mg every other day. Levaquin dose adjusted, last dose 08/04 See photo 08/03, metatarsal amputation with healing wound, some slight warmth without demarcated erythema. Total Time Total Time Spent Total Time Spent (In Minutes): 32 Discharge Plan Discharge Items Patient Disposition: Home - Home Health Services Reason For Visit: ESRD MISSED HD Discharge Diagnosis: ESRD missed HD Activity: Resume your previous activity Non-emergency contact: Primary Care Provider Call non-emergency contact if: you have any medication questions Follow-up/Referrals: Rubina Naqvi DO [Primary Care Provider] - 08/11/22 8:20 am Diet: Dialysis Renal Addtl Attending Provider Instructions: Please continue dialysis as scheduled. Your next session is Sunday. It will be Sunday. Resume home meds Pending Studies at Discharge: No Stand-Alone Forms: My Funded[employer]Me, Smoking Cessation Medications and DC Order Prescriptions: Continued (DME) blood-glucose meter [OneTouch Ultra2 Meter] Mis See Rx Instructions .Route Qty: 1 0RF Rx Instructions: TEST BSG ONCE DAILY; DX CODE- E11.9 (DME) OneTouch Ultra Test Strip See Rx Instructions .Route Qty: 100 5RF Rx Instructions: TEST BSG ONCE DAILY; DX CODE- E11.9 (DME) lancets [OneTouch Delica Lancets] 33 gauge misc See Rx Instructions .Route Qty: 100 5RF Rx Instructions: TEST BSG ONCE DAILY; DX CODE- E11.9 (DME) Manual Wheelchair Device See Rx Instructions .Route Qty: 1 0RF Rx Instructions: As directed. Trelegy Ellipta 100-62.5-25 mcg blister with device 1 inh INHALATION HS Qty: 60 5RF albuterol sulfate 2.5 mg /3 mL (0.083 %) solution for nebulization 2.5 mg inhalation QID PRN (Reason: shortness of breath or wheezing) Qty: 60 0RF cholecalciferol (vitamin D3) 50 mcg (2,000 unit) capsule 50 mcg PO HS insulin glargine [Lantus Solostar U-100 Insulin] 100 unit/mL (3 mL) insulin pen 10 unit subcut QPM Qty: 15 3RF hydroxyzine pamoate [Vistaril] 25 mg capsule 25 mg PO Q8H PRN (Reason: anxiety) Qty: 60 0RF (DME) Briefs, Adult-Extra Large Misc See Rx Instructions .Route Qty: 30 5RF Rx Instructions: As directed (DME) Lift Chair Misc See Rx Instructions .Route Qty: 1 0RF Rx Instructions: As directed (DME) Bedside Commode Misc See Rx Instructions .Route Qty: 1 0RF Rx Instructions: As directed (DME) Hospital Bed Homecare Misc See Rx Instructions .Route Qty: 1 0RF Rx Instructions: As directed cyclobenzaprine 10 mg tablet 10 mg PO BID PRN (Reason: Spasms) pramipexole 0.25 mg tablet 0.25 mg PO HS gabapentin 100 mg capsule 100 mg PO HS lanthanum 500 mg tablet,chewable 500 mg PO TIDM Eliquis 5 mg tablet 5 mg PO BID Rx Instructions: TAKE AT LUNCH & HS. Entresto 24-26 mg tablet 1 tab PO BID Qty: 60 0RF Rx Instructions: TAKE AT LUNCH & HS insulin lispro [Humalog KwikPen Insulin] 100 unit/mL insulin pen 5 unit SUBCUT DAILY PRN (Reason: ud) Rx Instructions: SLIDING SCALE atorvastatin 10 mg tablet 10 mg PO HS clopidogrel 75 mg tablet 75 mg PO HS lidocaine-prilocaine 2.5-2.5 % cream 1.5 g topical DIRECTED PRN (Reason: Pain) metoprolol succinate 50 mg tablet extended release 24 hr 100 mg PO HS duloxetine 60 mg capsule,delayed release(DR/EC) 60 mg PO QAM No Action albuterol sulfate 90 mcg/actuation HFA aerosol inhaler 2 puff INHALATION Q4H PRN (Reason: Shortness Of Breath Or Wheezing) Qty: 8.5 5RF Discharge Orders: Discharge Order (Routine); Ordered 08/05/22 Ordered By: Yovanny Peterson Admission Data Admit Date/Time: 08/02/22 22:43 Attending Provider: Yovanny Peterson Admit Provider: Cynthia Moon Primary Care Provider: Rubina Naqvi Other Providers: Cynthia Moon ; Mike Turpin Other Interventions: Discharge Summary Assessment (RN) Last Done: 08/05/22 14:15 Coding Level of Care Code 63556 INP/OBS DISCH >30 MIN Diagnoses Missed dialysis HFrEF (heart failure with reduced ejection fraction) I50.20 Diabetes mellitus with complication E11.8 Coronary artery disease I25.10 COPD (chronic obstructive pulmonary disease) J44.9 History of transmetatarsal amputation of foot Z89.439
== END 2022-08-05 16:05 | disposition home health service (06) | DRG 640 ==
LOC: ED 18:31 → INTOOBSV 22:43 → 1E 22:43 → SUATTDRO 22:43 → 1E 08-03 01:15 → 2N 08-03 18:09